=== PATIENT | female | born 1930 | race Caucasian/White ===

== ENCOUNTER 2017-11-22 14:27 | Emergency (ER) | payer MEDICARE, OTHER ==
[~2017-11-22 14:27] MED LIST: ASPI81 PO; BISA10R PR; CENTTAB9 PO; CLIN150 PO; DIGO0.12 PO; ENEMENE PR; FERR324T4 PO; FURO1TAB93 PO; GLUC1KIT IM; GUAI600 PO; INSU100V3 SC; INSU100V3 SQ; LACT PO; LATA.005%O EACH EYE; LEVO75TA3 PO; METO25 PO; MILKSUS5 PO; NOVORP2 SQ; OXYC1SOL5 PO; PERC5TAB12 PO; ROSU40 PO; TIMO0.2525 EACH EYE; ZOFR4TAB3 PO; [UNRECOGNIZED DRUG - CODE] PO; [UNRECOGNIZED DRUG - CODE] PO
[2017-11-22] MEDS ORDERED: IODIXANOL 320 MG/ML 10 ML VIAL (for Rad CT) IVCONTRAST ONE (14:28)
[2017-11-22 14:30] VITALS: BP 212/91; PULSE 91; RESP 24; TEMP 98.8; O2SAT 97
[2017-11-22] MEDS ORDERED: ISOS60TA PO (14:57)
[2017-11-22] MEDS ORDERED: NOVONP2 SQ ×2 (14:57)
[2017-11-22] MEDS ORDERED: HYDR25TA5 PO (14:57)
[2017-11-22] MEDS ORDERED: ASPI81CH6 CHEW (14:57)
[2017-11-22] MEDS ORDERED: VITA1000 PO (14:57)
[2017-11-22] MEDS ORDERED: VITA80003 PO (14:57)
[2017-11-22] MEDS ORDERED: ASCO100029 PO (14:57)
[2017-11-22] MEDS ORDERED: IRON1TAB7 PO (14:57)
[2017-11-22] MEDS ORDERED: FURO20TA PO (14:57)
[2017-11-22] MEDS ORDERED: LATA0.002 EACH EYE (14:57)
[2017-11-22] MEDS ORDERED: LEVO75TA3 PO (14:57)
[2017-11-22] MEDS ORDERED: TIMO0.5S30 EACH EYE (14:57)
[2017-11-22] MEDS ORDERED: CETI10CA3 PO (14:57)
[2017-11-22] MEDS ORDERED: ESTR1TAB PO (14:57)
[2017-11-22] MEDS ORDERED: ATOR20TA15 PO (14:57)
[2017-11-22] MEDS ORDERED: ALPH600C PO (14:57)
[2017-11-22] MEDS ORDERED: SODIUM CHLORIDE 0.9% FLUSH 10 ML FLUSH IVF PRN (15:00)
[2017-11-22] MEDS ORDERED: MECLIZINE HCL 25 MG TAB PO ONE (15:00)
[2017-11-22 15:41] LABS: AUTOMATED NEUTROPHIL # 5.6 TH/MM3 (1.8-7.7); BASOPHIL # 0.1 TH/MM3 (0-0.2); EOSINOPHIL # 0.3 TH/MM3 (0-0.4); EOSINOPHIL % 3.4 % (0.0-4.0); HEMATOCRIT 36.9 % (35.0-46.0); HEMOGLOBIN 12.5 GM/DL (11.6-15.3); LYMPH % 17.6 % (9.0-44.0); LYMPHOCYTE # 1.4 TH/MM3 (1.0-4.8); MEAN CELL VOLUME 91.5 FL (80.0-100.0); MEAN CORPUSCULAR HGB CONC 33.9 % (32.0-36.0); MEAN PLATELET VOLUME 9.4 FL (7.0-11.0); MONOCYTE # 0.5 TH/MM3 (0-0.9); PLATELET COUNT 206 TH/MM3 (150-450); RED BLOOD COUNT 4.03 MIL/MM3 (4.00-5.30); RED CELL DISTRIBUTION WIDTH 13.3 % (11.6-17.2); WHITE BLOOD COUNT 7.8 TH/MM3 (4.0-11.0)
[2017-11-22 15:45] VITALS: BP 139/68; PULSE 78; RESP 24; O2SAT 97
[2017-11-22 15:47] VITALS: BP_SYST 139; BP_SYST 150; BP_DIAS 68; BP_DIAS 79; RESP 14; RESP 38
[2017-11-22 15:55] LABS: ALBUMIN 2.8 GM/DL (3.4-5.0); ALT (GPT) 18 U/L (10-53); AST (GOT) 15 U/L (15-37); BICARBONATE 27.3 MEQ/L (21.0-32.0); BLOOD UREA NITROGEN 32 MG/DL (7-18); CALCIUM 8.8 MG/DL (8.5-10.1); CHLORIDE 101 MEQ/L (98-107); CREATININE 1.45 MG/DL (0.50-1.00); GLOMERULAR FILTRATION RATE 34 ML/MIN (>89); GLUCOSE,RANDOM 372 MG/DL (74-106); SODIUM (NA) 136 MEQ/L (136-145)
[2017-11-22 15:58] LABS: ALKALINE PHOSPHATASE 126 U/L (45-117); TOTAL BILIRUBIN ADULT 0.3 MG/DL (0.2-1.0); TOTAL PROTEIN 6.6 GM/DL (6.4-8.2); TROPONIN I LESS THAN 0.02 NG/ML (0.02-0.05)
--- NOTE | 2017-11-22 16:09 | RADRPT ---
EXAM DATE/TIME: 11/22/2017 15:00 [facility] COMPARISON: CHEST SINGLE AP, October 01, 2015, 14:23. INDICATIONS : Short of breath, vertigo, palpitations MEDICAL HISTORY : Cardiovascular disease. Hypertension Diabetes mellitus type II. A-fib SURGICAL HISTORY : Coronary artery stent. thoracentesis ENCOUNTER: Initial ACUITY: 3 days PAIN SCORE: 0/10 LOCATION: Bilateral chest FINDINGS: A single view of the chest demonstrates the lungs to be aerated without evidence of mass, infiltrate or effusion. There is some mild elevation of the left hemidiaphragm. The cardiomediastinal contours are unremarkable. Osseous structures are intact. CONCLUSION: No acute disease. Freddie Dean MD on November 22, 2017 at 16:06 Board Certified Radiologist. This report was verified electronically.
--- NOTE | 2017-11-22 16:18 | RADRPT ---
EXAM DATE/TIME: 11/22/2017 15:28 [facility] COMPARISON: CT BRAIN W/O CONTRAST, July 22, 2014, 13:05. INDICATIONS : Feeling dizzy for two days RADIATION DOSE: 33.74 CTDIvol (mGy) MEDICAL HISTORY : Cardiovascular disease. Hypertension. Diabetes SURGICAL HISTORY : Hysterectomy. ENCOUNTER: Initial ACUITY: 2 days PAIN SCALE: 0/10 LOCATION: cranial TECHNIQUE: Multiple contiguous axial images were obtained of the head. Using automated exposure control and adj ustment of the mA and/or kV according to patient size, radiation dose was kept as low as reasonably a chievable to obtain optimal diagnostic quality images. DICOM format image data is available electro nically for review and comparison. FINDINGS: CEREBRUM: The ventricles are normal for age. No evidence of midline shift, mass lesion, hemorrhage or acute in farction. No extra-axial fluid collections are seen. POSTERIOR FOSSA: The cerebellum and brainstem are intact. The 4th ventricle is midline. The cerebellopontine angle i s unremarkable. EXTRACRANIAL: The visualized portion of the orbits is intact. There is moderate mucosal disease present in the post erior left ethmoid and sphenoid sinuses. SKULL: The calvaria is intact. No evidence of skull fracture. CONCLUSION: No acute intracranial findings Felix Mendoza MD on November 22, 2017 at 16:03 Board Certified Radiologist. This report was verified electronically.
[2017-11-22 16:45] VITALS: BP 155/73; PULSE 76; RESP 22; O2SAT 98
[2017-11-22] MEDS ORDERED: SODIUM CHLORID 0.9% 500 ML INJ 500 ML IV ONE (16:45)
--- NOTE | 2017-11-22 17:40 | RADRPT ---
EXAM DATE/TIME: 11/22/2017 17:11 [facility] COMPARISON: CT PULMONARY ANGIOGRAM, October 01, 2015, 14:33. INDICATIONS : Patient complains of dizzines, chest pain. IV CONTRAST: 50 cc Visipaque (iodixanol) IV RADIATION DOSE: 16.05 CTDIvol (mGy) MEDICAL HISTORY : Cardiovascular disease. Hypertension. Carcinoma, colon. SURGICAL HISTORY : Hysterectomy. ENCOUNTER: Initial ACUITY: 2 days PAIN SCALE: 5/10 LOCATION: chest TECHNIQUE: Volumetric scanning of the chest was performed using a pulmonary embolism protocol MIP images were re constructed. Using automated exposure control and adjustment of the mA and/or kV according to patien t size, radiation dose was kept as low as reasonably achievable to obtain optimal diagnostic quality images. DICOM format image data is available electronically for review and comparison. Follow-up recommendations for detected pulmonary nodules are based at a minimum on nodule size and pa tient risk factors according to Fleischner Society Guidelines. FINDINGS: PULMONARY ARTERIES: No filling defects are seen in the pulmonary arteries through the segmental level. LUNGS: Minimal atelectasis/scarring at the left lung base. No significant focal parenchyma the malady. PLEURAE: There is no pleural thickening or pleural effusion. MEDIASTINUM: Coronary artery calcifications. Heart is otherwise unremarkable. Subcentimeter mediastinal nodes do n ot CT size criteria. MUSCULOSKELETAL: Within normal limits for patient age. MISCELLANEOUS: The visualized upper abdominal organs demonstrate no acute abnormality. CONCLUSION: 1. No CT evidence of pulmonary artery embolism through the segmental level. 2. Coronary artery calcifications. 3. Otherwise, unremarkable CT examination of the chest. August Diaz MD on November 22, 2017 at 17:36 Board Certified Radiologist. This report was verified electronically.
[2017-11-22 19:00] VITALS: BP 170/68; PULSE 74; RESP 20
[2017-11-22] MEDS ORDERED: METOCLOPRAMIDE HCL 10 MG TAB PO ONE (19:30)
--- NOTE | 2017-11-22 19:48 | PD ---
HPI Chief Complaint: Dizziness Time Seen by Provider: 14:36 Travel History International Travel<30 days: No Contact w/Intl Traveler<30days: No Traveled to known affect area: No History of Present Illness HPI Patient is an 87-year-old female comes in complaining of dizziness. She says the dizziness is been going on for the past few days. She went to see her doctor today who was concern for water in her lungs and send her to the emergency department for chest x-ray. She says the dizziness is worse with standing and improves when she is laying still. She denies any headache or nausea or vomiting. She has chronic shortness of breath, which she says has not worsened. She denies chest pain. She denies leg swelling or edema. She denies fever or chills or any falls. PFSH Past Medical History Hx Anticoagulant Therapy: Yes (ASA) Arthritis: Yes Asthma: No Autoimmune Disease: No Blood Disorders: No Anxiety: Yes Depression: No Heart Rhythm Problems: Yes (A-FIB) Cancer: Yes (SKIN CA TO FACE,colon ) Cardiovascular Problems: Yes (HTN) High Cholesterol: Yes Chemotherapy: No Chest Pain: No Congestive Heart Failure: No COPD: No Cerebrovascular Accident: No Diabetes: Yes Patient Takes Glucophage: No Diminished Hearing: No Endocrine: Yes Gastrointestinal Disorders: Yes (gerd) GERD: No Glaucoma: Yes (SCLERITIS) Genitourinary: No Headaches: Yes Hiatal Hernia: No Hypertension: Yes Immune Disorder: No Implanted Vascular Access Dvce: No Kidney Stones: No Medical other: Yes Musculoskeletal: Yes (r hip arthritis) Neurologic: No Psychiatric: No Reproductive: No Respiratory: No Migraines: No Myocardial Infarction: Yes Radiation Therapy: Yes (TO FACE FOR SKIN CA) Renal Failure: No Seizures: No Sickle Cell Disease: No Sleep Apnea: No Thyroid Disease: Yes Ulcer: No Tetanus Vaccination: < 5 Years Influenza Vaccination: Yes Past Surgical History Abdominal Surgery: Yes (Appendectomy/ partial colectomy) AICD: No Appendectomy: Yes Arteriovenous Shunt: No Body Medical Devices: 3 stents in heart and pins in r hip/femur Cardiac Surgery: Yes (STENTS X3) Ear Surgery: No Endocrine Surgery: No Eye Surgery: Yes (BILATERAL CATARACTS) Genitourinary Surgery: No Gynecologic Surgery: Yes (Hysterectomy) Hysterectomy: Yes Insulin Pump: No Joint Replacement: No Neurologic Surgery: No Oral Surgery: No Pacemaker: No Thoracic Surgery: No Other Surgery: Yes Social History Alcohol Use: No Tobacco Use: No Substance Use: No Allergies-Medications (Allergen,Severity, Reaction): Coded Allergies: *MDRO Multi-Drug Resistant Organism (Unverified Allergy, Unknown, 11/22/17 ) pt states mrsa in the past in l foot MRSA PCR Screen positive 09/05/15. kaye (Unverified Allergy, Unknown, RASH, 11/22/17) Uncoded Allergies: SIMCOR (Allergy, Severe, 12/23/10) Reported Meds & Prescriptions Reported Meds & Active Scripts Active Reported Novolin N Inj (Insulin Human NPH) 1,000 Unit/10 Ml Vial 30 Units SQ DAILY Novolin N Inj (Insulin Human NPH) 1,000 Unit/10 Ml Vial 20 Units SQ HS Estradiol 1 Mg Tab 1 Mg PO DAILY Levothyroxine (Levothyroxine Sodium) 75 Mcg Tab 75 Mcg PO DAILY Isosorbide Mononitrate ER (Isosorbide Mononitrate) 60 Mg Tab 60 Mg PO DAILY Hydrochlorothiazide 25 Mg Tab 25 Mg PO BID Furosemide 20 Mg Tab 20 Mg PO DAILY Atorvastatin (Atorvastatin Calcium) 20 Mg Tab 20 Mg PO HS Aspirin Low Dose (Aspirin) 81 Mg Chew 81 Mg CHEW DAILY Vitamin D-1000 (Cholecalciferol) 1,000 Unit Tab 50,000 Units PO WEEKLY Vitamin C (Ascorbic Acid) 1,000 Mg Tablet.er 1 Tab PO DAILY Nufera (Iron Combinations) 125-1-170 Tab 1 Tab PO DAILY Zyrtec (Cetirizine HCl) 10 Mg Capsule 1 Cap PO DAILY Vitamin A 8,000 Unit Capsule 1 Cap PO DAILY Timolol Opth Drops 0.5 % Soln 1 Drop EACH EYE DAILY Latanoprost Opth Drops (Latanoprost) 0.005% Drops 1 Drop EACH EYE HS Refrigerate until opened. Alpha Lipoic Acid 600 Mg Cap 600 Mg PO DIRECTED Review of Systems Except as stated in HPI: all other systems reviewed are Neg General / Constitutional: No: Fever, Chills Eyes: No: Blurred Vision HENT: No: Headaches Cardiovascular: No: Chest Pain or Discomfort, Palpitations Gastrointestinal: No: Nausea, Vomiting Musculoskeletal: No: Myalgias, Edema Skin: No Rash, No Change in Pigmentation Neurologic: Positive: Dizziness, No: Weakness, Syncope Physical Exam Narrative GENERAL: Awake and alert, in no acute distress. SKIN: Focused skin assessment warm/dry. HEAD: Atraumatic. Normocephalic. EYES: Pupils equal and round and reactive. No scleral icterus. Extinguishing left horizontal nystagmus. ENT: Mucous membranes pink and moist. NECK: Trachea midline. No JVD. CARDIOVASCULAR: Regular rate and rhythm. No murmur appreciated. RESPIRATORY: No accessory muscle use. Clear to auscultation. Breath sounds equal bilaterally. GASTROINTESTINAL: Abdomen soft, non-tender, nondistended. MUSCULOSKELETAL: No obvious deformities. No clubbing. No cyanosis. No edema. NEUROLOGICAL: Awake and alert. No obvious cranial nerve deficits. Motor grossly within normal limits. Normal speech. Normal cerebellar function testing. PSYCHIATRIC: Appropriate mood and affect; insight and judgment normal. Data Data Last Documented VS Vital Signs Date Time Temp Pulse Resp B/P (MAP) Pulse Ox O2 Delivery O2 Flow Rate FiO2 11/22/17 21:45 11/22/17 19:00 74 20 11/22/17 16:45 98 Room Air 11/22/17 14:30 98.8 Orders Orders Electrocardiogram (11/22/17 14:52) Complete Blood Count With Diff (11/22/17 14:52) Comprehensive Metabolic Panel (11/22/17 14:52) B-Type Natriuretic Peptide (11/22/17 14:52) Troponin I (11/22/17 14:52) Urinalysis - C+S If Indicated (11/22/17 14:52) Chest, Single Ap (11/22/17 14:52) Ct Brain W/O Iv Contrast(Rout) (11/22/17 14:52) Ecg Monitoring (11/22/17 14:52) Iv Access Insert/Monitor (11/22/17 14:52) Oximetry (11/22/17 14:52) Meclizine (Antivert) (11/22/17 15:00) Sodium Chloride 0.9% Flush (Ns Flush) (11/22/17 15:00) Orthostatic Vital Signs (11/22/17 14:52) Ct Pulmonary Angiogram (11/22/17 16:40) Sodium Chlorid 0.9% 500 Ml Inj (Ns 500 M (11/22/17 16:45) Iodixanol 320 Inj (Rad Ct) (Visipaque 32 (11/22/17 14:28) Cath For Specimen (11/22/17 19:18) Metoclopramide (Reglan) (11/22/17 19:30) Ed Discharge Order (11/22/17 21:23) Labs Laboratory Tests Test 11/22/17 14:50 11/22/17 19:35 White Blood Count 7.8 TH/MM3 Red Blood Count 4.03 MIL/MM3 Hemoglobin 12.5 GM/DL Hematocrit 36.9 % Mean Corpuscular Volume 91.5 FL Mean Corpuscular Hemoglobin 31.0 PG Mean Corpuscular Hemoglobin Concent 33.9 % Red Cell Distribution Width 13.3 % Platelet Count 206 TH/MM3 Mean Platelet Volume 9.4 FL Neutrophils (%) (Auto) 72.0 % Lymphocytes (%) (Auto) 17.6 % Monocytes (%) (Auto) 6.0 % Eosinophils (%) (Auto) 3.4 % Basophils (%) (Auto) 1.0 % Neutrophils # (Auto) 5.6 TH/MM3 Lymphocytes # (Auto) 1.4 TH/MM3 Monocytes # (Auto) 0.5 TH/MM3 Eosinophils # (Auto) 0.3 TH/MM3 Basophils # (Auto) 0.1 TH/MM3 CBC Comment DIFF FINAL Differential Comment Blood Urea Nitrogen 32 MG/DL Creatinine 1.45 MG/DL Random Glucose 372 MG/DL Total Protein 6.6 GM/DL Albumin 2.8 GM/DL Calcium Level 8.8 MG/DL Alkaline Phosphatase 126 U/L Aspartate Amino Transf (AST/SGOT) 15 U/L Alanine Aminotransferase (ALT/SGPT) 18 U/L Total Bilirubin 0.3 MG/DL Sodium Level 136 MEQ/L Potassium Level 4.0 MEQ/L Chloride Level 101 MEQ/L Carbon Dioxide Level 27.3 MEQ/L Anion Gap 8 MEQ/L Estimat Glomerular Filtration Rate 34 ML/MIN Troponin I LESS THAN 0.02 NG/ML B-Type Natriuretic Peptide 190 PG/ML Urine Color LIGHT-YELLOW Urine Turbidity CLEAR Urine pH 5.0 Urine Specific [place] 1.030 Urine Protein NEG mg/dL Urine Glucose (UA) NEG mg/dL Urine Ketones NEG mg/dL Urine Occult Blood SMALL Urine Nitrite NEG Urine Bilirubin NEG Urine Urobilinogen LESS THAN 2.0 MG/DL Urine Leukocyte Esterase NEG Urine RBC 4 /hpf Urine WBC LESS THAN 1 /hpf Urine Hyaline Casts 1 /lpf Urine Mucus FEW /lpf Microscopic Urinalysis Comment CULT NOT INDICATED MDM Medical Decision Making Medical Screen Exam Complete: Yes Emergency Medical Condition: Yes Medical Record Reviewed: Yes Interpretation(s) ECG shows sinus rhythm at 85, no ST elevation or depression. Differential Diagnosis Vertigo versus electrolyte abnormality versus pulmonary edema versus UTI Narrative Course Patient is an 87-year-old female comes in complaining of dizziness. Exam shows no neurologic abnormalities. She is orthostatic by pulse that increases from 75 -98 when she goes from laying down to standing. She is given 500 ML's of fluids. Given meclizine and Reglan. CT head performed shows no acute abnormalities. CT of the chest shows no acute abnormalities. Last [address] Angiography 11/22/17 1640 Signed Impressions: Service Date/Time: Wednesday, November 22, 2017 17:11 - CONCLUSION: 1. No CT evidence of pulmonary artery embolism through the segmental level. 2. Coronary artery calcifications. 3. Otherwise, unremarkable CT examination of the chest. August Diaz MD Head CT 11/22/17 1452 Signed Impressions: Service Date/Time: Wednesday, November 22, 2017 15:28 - CONCLUSION: No acute intracranial findings Felix Mendoza MD Chest X-Ray 11/22/17 1452 Signed Impressions: Service Date/Time: Wednesday, November 22, 2017 15:00 - CONCLUSION: No acute disease. Freddie Dean MD Signed out to Dr. Garcia to follow-up urinalysis and disposition the patient. Diagnosis Primary Impression: Dehydration Additional Impression: Dizziness Carla Hope MD Nov 22, 2017 19:48
[2017-11-22 21:05] LABS: BILIRUBIN, URINE NEG (NEG); BLOOD, URINE SMALL (NEG); GLUCOSE,URINE NEG (NEG); HYALINE CAST, URINE 1 /lpf (RARE); KETONE, URINE NEG (NEG); MUCUS URINE FEW /lpf (OCC); NITRITE,URINE NEG (NEG); URINE COLOR LIGHT-YELLOW (YELLW/STRAW); URINE LEUKOCYTE ESTERASE NEG (NEG)
--- NOTE | 2017-11-22 21:23 | PD ---
Physical Exam Date Seen by Provider: Nov 22, 2017 Time Seen by Provider: 20:30 Narrative pt urine not infected orthostatics hold no significant change , pt appears non toxic and no signs of sepsis nor indication for further work up in the ED , CT head normal as well , prior MD gave Meclizine and reglan with moderate improvement in dizziness and pt safe for D/c follow up Dr Solis who saw her today and sent her to ER Data Data Last Documented VS Vital Signs Date Time Temp Pulse Resp B/P (MAP) Pulse Ox O2 Delivery O2 Flow Rate FiO2 11/22/17 19:00 74 20 170/68 (102) 11/22/17 16:45 98 Room Air 11/22/17 14:30 98.8 Orders Orders Electrocardiogram (11/22/17 14:52) Complete Blood Count With Diff (11/22/17 14:52) Comprehensive Metabolic Panel (11/22/17 14:52) B-Type Natriuretic Peptide (11/22/17 14:52) Troponin I (11/22/17 14:52) Urinalysis - C+S If Indicated (11/22/17 14:52) Chest, Single Ap (11/22/17 14:52) Ct Brain W/O Iv Contrast(Rout) (11/22/17 14:52) Ecg Monitoring (11/22/17 14:52) Iv Access Insert/Monitor (11/22/17 14:52) Oximetry (11/22/17 14:52) Meclizine (Antivert) (11/22/17 15:00) Sodium Chloride 0.9% Flush (Ns Flush) (11/22/17 15:00) Orthostatic Vital Signs (11/22/17 14:52) Ct Pulmonary Angiogram (11/22/17 16:40) Sodium Chlorid 0.9% 500 Ml Inj (Ns 500 M (11/22/17 16:45) Iodixanol 320 Inj (Rad Ct) (Visipaque 32 (11/22/17 14:28) Cath For Specimen (11/22/17 19:18) Metoclopramide (Reglan) (11/22/17 19:30) Labs Laboratory Tests Test 11/22/17 14:50 11/22/17 19:35 White Blood Count 7.8 TH/MM3 Red Blood Count 4.03 MIL/MM3 Hemoglobin 12.5 GM/DL Hematocrit 36.9 % Mean Corpuscular Volume 91.5 FL Mean Corpuscular Hemoglobin 31.0 PG Mean Corpuscular Hemoglobin Concent 33.9 % Red Cell Distribution Width 13.3 % Platelet Count 206 TH/MM3 Mean Platelet Volume 9.4 FL Neutrophils (%) (Auto) 72.0 % Lymphocytes (%) (Auto) 17.6 % Monocytes (%) (Auto) 6.0 % Eosinophils (%) (Auto) 3.4 % Basophils (%) (Auto) 1.0 % Neutrophils # (Auto) 5.6 TH/MM3 Lymphocytes # (Auto) 1.4 TH/MM3 Monocytes # (Auto) 0.5 TH/MM3 Eosinophils # (Auto) 0.3 TH/MM3 Basophils # (Auto) 0.1 TH/MM3 CBC Comment DIFF FINAL Differential Comment Blood Urea Nitrogen 32 MG/DL Creatinine 1.45 MG/DL Random Glucose 372 MG/DL Total Protein 6.6 GM/DL Albumin 2.8 GM/DL Calcium Level 8.8 MG/DL Alkaline Phosphatase 126 U/L Aspartate Amino Transf (AST/SGOT) 15 U/L Alanine Aminotransferase (ALT/SGPT) 18 U/L Total Bilirubin 0.3 MG/DL Sodium Level 136 MEQ/L Potassium Level 4.0 MEQ/L Chloride Level 101 MEQ/L Carbon Dioxide Level 27.3 MEQ/L Anion Gap 8 MEQ/L Estimat Glomerular Filtration Rate 34 ML/MIN Troponin I LESS THAN 0.02 NG/ML B-Type Natriuretic Peptide 190 PG/ML Urine Color LIGHT-YELLOW Urine Turbidity CLEAR Urine pH 5.0 Urine Specific [place] 1.030 Urine Protein NEG mg/dL Urine Glucose (UA) NEG mg/dL Urine Ketones NEG mg/dL Urine Occult Blood SMALL Urine Nitrite NEG Urine Bilirubin NEG Urine Urobilinogen LESS THAN 2.0 MG/DL Urine Leukocyte Esterase NEG Urine RBC 4 /hpf Urine WBC LESS THAN 1 /hpf Urine Hyaline Casts 1 /lpf Urine Mucus FEW /lpf Microscopic Urinalysis Comment CULT NOT INDICATED MDM Supervised Visit with SONDRA: No Diagnosis Primary Impression: Dehydration Additional Impression: Dizziness Patient Instructions: Dizziness (ED), General Instructions Disposition: 01 DISCHARGE HOME Condition: Good Nacho Garcia MD Nov 22, 2017 21:23
--- NOTE | 2017-11-23 15:11 | EKG ---
Date Performed: 11/22/2017 Time Performed: 15:07:12 PTAGE: 87 years EKG: Sinus rhythm WITH SINUS ARRHYTHMIA WITH FIRST DEGREE AV BLOCK INFERIOR MYOCARDIAL INFARCTION ABNORMAL ECG PREVIOUS TRACING : 10/01/2015 15.01 DOCTOR: Evan Drake Interpretating Date/Time 11/23/2017 15:09:23
== END 2017-11-22 21:45 | disposition home or self-care (01) ==
LOC: NEPC 14:27
DX: E86.0 Dehydration (principal); R42 Dizziness and giddiness; R94.31 Abnormal electrocardiogram [ECG] [EKG]; R06.02 Shortness of breath; I48.91 Unspecified atrial fibrillation; I10 Essential (primary) hypertension; E11.9 Type 2 diabetes mellitus without complications; Z79.01 Long term (current) use of anticoagulants
CPT/HCPCS: 70450; 71010; 71275; 80053; 81001; 83880; 84484; 85025; 93005; 96360; 96361; 99285; J7040; Q9967

== ENCOUNTER 2018-07-01 12:27 | Inpatient (IN) ==
[2018-07-01] MEDS ORDERED: Sod Chloride 0.9% Inj 1,000 ML IV.SIG ONE (13:16)
[2018-07-01] MEDS ORDERED: Metoprolol Inj 5 MG/5 ML Vial IV.PUSH ONE (13:19)
--- NOTE | 2018-07-01 13:26 | ED ---
HPI General Chief complaint: Weakness Stated complaint: Medical Time Seen by Provider: 07/01/18 12:51 History of Present Illness HPI Narrative: The patient was seen and examined in the presence of the nurse. This patient had a fall last night at 10 PM. She is not certain as to why she fell. She was not able to get up. She felt weak and tired lying on the ground. She laid on the ground for 12 hours all night and around 10 this morning she was paramedics brought her in. She complains of generalized weakness. She has chronic A. fib but her rate is 130. She has history of left- sided Charcot foot. That left ankle has become hot and red and swollen. She had a temp of 100.5 per paramedics. She did not take any insulin last night or today. Sugar is 426. Related Data Home Medications Medication Instructions Recorded Confirmed alpha lipoic acid 600 mg PO HS 07/01/18 07/01/18 ascorbic acid (vitamin C) [Vitamin 1,000 mg PO DAILY 07/01/18 07/01/18 C] aspirin 81 mg PO DAILY 07/01/18 07/01/18 atorvastatin 20 mg PO DAILY 07/01/18 07/01/18 calcium carbonate [Tums] 1 tab PO Q4-6H PRN 07/01/18 07/01/18 cetirizine [Zyrtec] 10 mg PO DAILY PRN 07/01/18 07/01/18 ergocalciferol (vitamin D2) 50,000 unit PO QWEEK 07/01/18 07/01/18 [Vitamin D2] estradiol 1 mg PO DAILY 07/01/18 07/01/18 ferrous sulfate 325 mg PO DAILY 07/01/18 07/01/18 furosemide [Lasix] 20 mg PO DAILY 07/01/18 07/01/18 hydrochlorothiazide 25 mg PO BID 07/01/18 07/01/18 insulin NPH isoph U-100 human 20 unit SUB-Q QPM 07/01/18 07/01/18 [Novolin N NPH U-100 Insulin] insulin NPH isoph U-100 human 30 unit SUB-Q QAM 07/01/18 07/01/18 [Novolin N NPH U-100 Insulin] isosorbide mononitrate 60 mg PO QAM 07/01/18 07/01/18 latanoprost [Xalatan] 1 drp EACH EYE QPM 07/01/18 07/01/18 levothyroxine 75 mcg PO DAILY 07/01/18 07/01/18 [id number] acid-lutein [Centrum 1 tab PO DAILY 07/01/18 07/01/18 Silver] timolol maleate [Timoptic] 1 drp OPHTHALMIC (EYE) QAM 07/01/18 07/01/18 vitamin A 8,000 unit PO DAILY 07/01/18 07/01/18 Allergies Allergy/AdvReac Type Severity Reaction Status Date / Time kaye Allergy Unknown RASH Verified 07/01/18 12:47 SIMCOR Allergy Severe Edema Uncoded 07/01/18 12:47 Review of Systems Except as stated in HPI: all other systems reviewed are negative [facility] Medical History Medical History Diabetes (Acute) GERD (gastroesophageal reflux disease) (Acute) H/O: hysterectomy (Acute) HTN (hypertension) (Acute) High cholesterol (Acute) Hypothyroid (Acute) Myocardial infarct (Acute) Surgical History Surgical History H/O cardiac catheterization (Acute) H/O heart artery stent (Acute) Social History Social History Substance History: No History of Abuse Second Hand Smoke Exposure: No Smoking Status: Never smoker How Often Do You Have a Drink Containing Alcohol: Monthly or less Recent Travel in [facility] within the Last 8 Weeks: No Recent Out of Country Travel within the Last 8 Weeks: No Immunization History Tetanus Immunization: <5 Years Hx Influenza Vaccine This Season: Yes Exam Narrative Exam Narrative: GENERAL: Well-nourished, well-developed patient in no apparent distress. SKIN: Focused skin assessment reveals no rash and nodules. Skin is Warm and dry. HEAD: Atraumatic. Normocephalic. EYES: Pupils equal and round. No scleral icterus. No injection or drainage. ENT: No nasal bleeding or discharge. Mucous membranes pink and moist. NECK: Trachea midline. No JVD. CARDIOVASCULAR: Irregularly irregular rhythm. No murmur appreciated. Rate was 130s RESPIRATORY: No accessory muscle use. Clear to auscultation. Breath sounds equal bilaterally. GASTROINTESTINAL: Abdomen soft, non-tender, nondistended. Hepatic and splenic margins not palpable. MUSCULOSKELETAL: Left ankle area is erythematous and swollen and warm. It is tracking up her doe area. NEUROLOGICAL: Awake and alert. No obvious cranial nerve deficits. Motor grossly within normal limits. Normal speech. PSYCHIATRIC: Appropriate mood and affect; insight and judgment normal. Course Initial Documented Vital Signs Temperature 98.4 F 07/01/18 12:37 Pulse Rate 131 H 07/01/18 12:37 Respiratory Rate 26 H 07/01/18 12:37 Blood Pressure 126/91 H 07/01/18 12:37 Pulse Oximetry 95 07/01/18 12:37 Last Documented Vital Signs Temperature 98.4 F 07/01/18 12:37 Pulse Rate 76 07/01/18 14:00 Respiratory Rate 19 07/01/18 14:00 Blood Pressure 132/83 07/01/18 14:00 Pulse Oximetry 96 07/01/18 14:00 Medical Decision Making MDM Narrative Medical decision making narrative: 2 IVs placed. I gave her IV normal saline 1 L bolus and 10 units IV regular insulin Labs sent Patient has a bunch of problems and will require inpatient admission. I reviewed with the hospitalist who accepts. She has generalized weakness and hyperglycemia and rhabdomyolysis and a left ankle cellulitis. She also has renal insufficiency. I have given her IV fluid and IV insulin and I will give her a dose of IV Ancef at the hospitalist request. She presented in A. fib with RVR. I gave her dose of IV Lopressor. She is converted to sinus rhythm in the 80s at this time. Differential Diagnosis Differential Diagnosis: DKA, hyperglycemia, cellulitis Medical Records Medical records reviewed: Yes I reviewed the patient's medical records. Lab Data Result diagrams: 07/01/18 13:34 07/01/18 13:34 Lab Results 07/01/18 07/01/18 07/01/18 Range/Units 13:29 13:34 13:34 WBC 11.2 H (4.0-11.0) th/mm3 RBC 4.01 (4.00-5.30) mil/mm3 Hgb 12.5 (11.6-15.3) gm/dL Hct 37.2 (35.0-46.0) % MCV 92.8 (80.0-100.0) fL MCH 31.2 (27.0-34.0) pg MCHC 33.6 (32.0-36.0) % RDW 13.4 (11.6-17.2) % Plt Count 150 (150-450) th/mm3 MPV 11.1 H (7.0-11.0) fL Neut % (Auto) 84.4 H (16.0-70.0) % Lymph % (Auto) 5.6 L (9.0-44.0) % [place] % (Auto) 9.7 H (0.0-8.0) % Eos % (Auto) 0.1 (0.0-4.0) % Baso % (Auto) 0.2 (0.0-2.0) % Neut # (Auto) 9.5 H (1.8-7.7) th/mm3 Lymph # (Auto) 0.6 L (1.0-4.8) th/mm3 [place] # (Auto) 1.1 H (0.0-0.9) th/mm3 Eos # (Auto) 0.0 (0.0-0.4) th/mm3 Baso # (Auto) 0.0 (0.0-0.2) th/mm3 WBC Differential . Differential Comment Auto diff final Sodium (136-145) meq/L Potassium (3.5-5.1) meq/L Chloride (98-107) meq/L Carbon Dioxide (21.0-32.0) meq/L Anion Gap (5-15) meq/L BUN (7-18) mg/dL Creatinine (0.50-1.00) mg/dL Estimated GFR (>89) mL/min POC Glucose 469 H* (68-110) mg/dl Random Glucose (74-106) mg/dL Calcium (8.5-10.1) mg/dL Total Bilirubin (0.2-1.0) mg/dL AST (15-37) U/L ALT (10-53) U/L Alkaline Phosphatase (45-117) U/L Total Creatine Kinase 1812 H (26-192) U/L CK-MB (CK-2) 12.4 H (0.5-3.6) ng/mL CK-MB (CK-2) % 0.7 (0.0-4.0) % Total Protein (6.4-8.2) g/dL Albumin (3.4-5.0) g/dL Beta-Hydroxybutyric Acd 2.09 H (0.00-0.39) mmol/L TSH 1.150 (0.358-3.740) uIU/mL Urine Color (Yellw/Straw) Urine Clarity (Clear) Urine pH (5.0-8.5) Ur Specific [place] (1.002-1.035) Urine Protein (Neg-Trace) mg/dL Urine Glucose (UA) (Negative) mg/dL Urine Ketones (Negative) mg/dL Urine Occult Blood (Negative) Urine Nitrate (Negative) Urine Bilirubin (Negative) Urine Urobilinogen (Less than 2) mg/dL Ur Leukocyte Esterase (Negative) Urine RBC (0-3) /hpf Urine WBC (0-5) /hpf Urine WBC Clumps (None) Ur Squamous Epith Cells (0-5) /hpf Urine Bacteria (None) /hpf Hyaline Casts (0-3) /lpf Micro UA Comment Urine Culture Comments 07/01/18 07/01/18 07/01/18 Range/Units 13:34 13:52 14:34 WBC (4.0-11.0) th/mm3 RBC (4.00-5.30) mil/mm3 Hgb (11.6-15.3) gm/dL Hct (35.0-46.0) % MCV (80.0-100.0) fL MCH (27.0-34.0) pg MCHC (32.0-36.0) % RDW (11.6-17.2) % Plt Count (150-450) th/mm3 MPV (7.0-11.0) fL Neut % (Auto) (16.0-70.0) % Lymph % (Auto) (9.0-44.0) % [place] % (Auto) (0.0-8.0) % Eos % (Auto) (0.0-4.0) % Baso % (Auto) (0.0-2.0) % Neut # (Auto) (1.8-7.7) th/mm3 Lymph # (Auto) (1.0-4.8) th/mm3 [place] # (Auto) (0.0-0.9) th/mm3 Eos # (Auto) (0.0-0.4) th/mm3 Baso # (Auto) (0.0-0.2) th/mm3 WBC Differential Differential Comment Sodium 133 L (136-145) meq/L Potassium 4.6 (3.5-5.1) meq/L Chloride 97 L (98-107) meq/L Carbon Dioxide 21.2 (21.0-32.0) meq/L Anion Gap 15 (5-15) meq/L BUN 59 H (7-18) mg/dL Creatinine 2.65 H (0.50-1.00) mg/dL Estimated GFR 17 L (>89) mL/min POC Glucose 366 H (68-110) mg/dl Random Glucose 420 H (74-106) mg/dL Calcium 8.7 (8.5-10.1) mg/dL Total Bilirubin 1.2 H (0.2-1.0) mg/dL AST 64 H (15-37) U/L ALT 21 (10-53) U/L Alkaline Phosphatase 72 (45-117) U/L Total Creatine Kinase (26-192) U/L CK-MB (CK-2) (0.5-3.6) ng/mL CK-MB (CK-2) % (0.0-4.0) % Total Protein 6.9 (6.4-8.2) g/dL Albumin 2.1 L (3.4-5.0) g/dL Beta-Hydroxybutyric Acd (0.00-0.39) mmol/L TSH (0.358-3.740) uIU/mL Urine Color Yellow (Yellw/Straw) Urine Clarity Turbid H (Clear) Urine pH 5.0 (5.0-8.5) Ur Specific [place] 1.018 (1.002-1.035) Urine Protein 500 or greater (Neg-Trace) mg/dL Urine Glucose (UA) 50 (Negative) mg/dL Urine Ketones Trace H (Negative) mg/dL Urine Occult Blood Moderate H (Negative) Urine Nitrate Negative (Negative) Urine Bilirubin Negative (Negative) Urine Urobilinogen Less than 2 (Less than 2) mg/dL Ur Leukocyte Esterase Large H (Negative) Urine RBC 16 H (0-3) /hpf Urine WBC (0-5) /hpf Urine WBC Clumps Many H (None) Ur Squamous Epith Cells 4 (0-5) /hpf Urine Bacteria Many H (None) /hpf Hyaline Casts 63 (0-3) /lpf Micro UA Comment Cath-culture ind Urine Culture Comments Cath-cult indicated Discharge Plan Discharge Disposition Patient Disposition: 30 Still Patient Discharge Details Diagnosis: Rhabdomyolysis, Dehydration, Acute hyperglycemia, Cellulitis Physicians Team ED Provider: Arpan Gonzalez Primary Care Provider: Muna Feliciano Rxs /Orders / Referrals /Forms Prescriptions: No Action latanoprost [Xalatan] 0.005 % Drops 1 drp EACH EYE QPM RF: 0 ascorbic acid (vitamin C) [Vitamin C] 1,000 mg Tablet 1,000 mg PO DAILY RF: 0 vitamin A 8,000 unit Capsule 8,000 unit PO DAILY RF: 0 atorvastatin 20 mg Tablet 20 mg PO DAILY RF: 0 cetirizine [Zyrtec] 10 mg Tablet 10 mg PO DAILY PRN (Reason: Allergy Symptoms) RF: 0 aspirin 81 mg Tablet,Delayed Release (Dr/Ec) 81 mg PO DAILY RF: 0 levothyroxine 75 mcg Tablet 75 mcg PO DAILY RF: 0 isosorbide mononitrate 60 mg Tablet Extended Release 24 Hr 60 mg PO QAM RF: 0 estradiol 1 mg Tablet 1 mg PO DAILY RF: 0 timolol maleate [Timoptic] 0.25 % Drops 1 drp OPHTHALMIC (EYE) QAM RF: 0 ferrous sulfate 325 mg (65 mg iron) Tablet 325 mg PO DAILY RF: 0 calcium carbonate [Tums] 200 mg calcium (500 mg) Tablet,Chewable 1 tab PO Q4-6H PRN (Reason: Heartburn) RF: 0 insulin NPH isoph U-100 human [Novolin N NPH U-100 Insulin] 100 unit/mL Suspension 20 unit SUB-Q QPM RF: 0 insulin NPH isoph U-100 human [Novolin N NPH U-100 Insulin] 100 unit/mL Suspension 30 unit SUB-Q QAM RF: 0 hydrochlorothiazide 25 mg Tablet 25 mg PO BID RF: 0 furosemide [Lasix] 20 mg Tablet 20 mg PO DAILY RF: 0 ergocalciferol (vitamin D2) [Vitamin D2] 50,000 unit Capsule 50,000 unit PO QWEEK RF: 0 alpha lipoic acid 600 mg Capsule 600 mg PO HS RF: 0 iv-hez-cgoej acid-lutein [Centrum Silver] 400-250 mcg Tablet,Chewable 1 tab PO DAILY RF: 0 Discharge Interventions Interventions: Vital Signs Last Done: 07/01/18 14:00 Status ED Status: With Doctor
[2018-07-01 14:25] LABS: Baso % (Auto) 0.2 % (0.0-2.0); Eos % (Auto) 0.1 % (0.0-4.0); Hematocrit 37.2 % (35.0-46.0); Hemoglobin 12.5 gm/dL (11.6-15.3); Lymph # (Auto) 0.6 th/mm3 (1.0-4.8); Lymph % (Auto) 5.6 % (9.0-44.0); Mean Corpuscular HGB Conc 33.6 % (32.0-36.0); Mean Corpuscular Hemoglobin 31.2 pg (27.0-34.0); Mean Corpuscular Volume 92.8 fL (80.0-100.0); Mean Platelet Volume 11.1 fL (7.0-11.0); Mono # (Auto) 1.1 th/mm3 (0.0-0.9); Mono % (Auto) 9.7 % (0.0-8.0); Neut # (Auto) 9.5 th/mm3 (1.8-7.7); Neut % (Auto) 84.4 % (16.0-70.0); Platelet Count 150 th/mm3 (150-450); Red Blood Count 4.01 mil/mm3 (4.00-5.30); Red Cell Distribution Width 13.4 % (11.6-17.2); White Blood Count 11.2 th/mm3 (4.0-11.0)
[2018-07-01 14:32] LABS: Bacteria,Urine Many /hpf; Bilirubin,Urine Negative (Negative); Clarity,Urine Turbid (Clear); Color,Urine Yellow (Yellw/Straw); Glucose,Urine (UA) 50 mg/dL (Negative); Hyaline Casts,Urine 63 /lpf (0-3); Leukocyte Esterase,Urine Large (Negative); Nitrite,Urine Negative (Negative); Specific Gravity,Urine 1.018 (1.002-1.035); Squamous Epithelial Cell,Urine 4 /hpf (0-5)
[2018-07-01 14:37] LABS: Beta Hydroxybutyric Acid 2.09 mmol/L (0.00-0.39)
[2018-07-01 14:50] LABS: Albumin 2.1 g/dL (3.4-5.0); Anion Gap 15 meq/L (5-15); Aspartate Aminotransferase 64 U/L (15-37); Blood Urea Nitrogen 59 mg/dL (7-18); Calcium 8.7 mg/dL (8.5-10.1); Carbon Dioxide 21.2 meq/L (21.0-32.0); Chloride 97 meq/L (98-107); Glomerular Filtration Rate 17 mL/min (>89); Glucose,Random 420 mg/dL (74-106); Sodium 133 meq/L (136-145)
[2018-07-01 14:58] LABS: Thyroid Stimulating Hormone 1.15 uIU/mL (0.358-3.740)
[2018-07-01 14:59] LABS: Alanine Aminotransferase 21 U/L (10-53); Alkaline Phosphatase 72 U/L (45-117); Potassium 4.6 meq/L (3.5-5.1); Total Protein 6.9 g/dL (6.4-8.2)
[2018-07-01 15:12] LABS: CKMB Percent 0.7 % (0.0-4.0); Creatine Kinase MB 12.4 ng/mL (0.5-3.6)
[2018-07-01] MEDS ORDERED: Bisacodyl 10 MG Supp RECTAL PRN (16:30)
[2018-07-01] MEDS ORDERED: Dextrose 50% in Water 50 ML Vial IV.PUSH PRN (16:42)
--- NOTE | 2018-07-01 17:01 | P.HPIM ---
History of Present Illness Primary Care Physician: Muna Feliciano MD History of Present Illness: 88-year-old female with a past medical history of IDDM, CAD, HTN, CKD, Charcot foot, hypothyroidism, HLD who presented for weakness and fall. The patient states that she has had poor appetite for the past week. She has not been eating much and has not known how much insulin to give herself. She was feeling weak over the past few days. She has had 2 falls in the past day, was able to get up after the first 1, but not after the second 1. She fell because her legs were weak. She denies any other injury. She was on the ground from around 9 PM last night to around 10 AM this morning when she was able to find her phone and call her son. Since Tuesday she has noticed a cough and chills. She denies any chest pain, shortness of breath, nausea, vomiting, diarrhea, dysuria. Upon presentation to the ED the patient was found to be hyperglycemic, tachycardic, dehydrated with acute kidney injury and rhabdomyolysis. Reportedly heart rate was in the 130s and regular, no definite history of A. fib in the past, given IV metoprolol and heart rate currently 110s and regular. She was given IVF and 10 units of insulin for dehydration and hyperglycemia. Inpatient Certification: I certify that the inpatient services were ordered in accordance with Medicare regulations governing the order. This includes certification that hospital inpatient services are reasonable and necessary and in the case of services not specified as inpatient-only under 42 CFR 419.22(n), that they are appropriately provided as inpatient services in accordance to with the 2-midnight benchmark under 43 CFR 412.3(e) Estimated Total Length of Stay (Days): 3 Plans for Post Hospital Care: Home health Review of Systems All other systems reviewed negative except as stated in HPI PMFSH - History History Provided By: Patient, Medical Record - Medical History Medical History: Medical History (Last Updated 07/01/18 @ 16:51 by ADDIE Macdonald) CKD (chronic kidney disease) stage 3, GFR 30-59 ml/min 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 Clavicle fracture Colon cancer Diabetes Femur fracture GERD (gastroesophageal reflux disease) H/O: hysterectomy HTN (hypertension) High cholesterol Hypothyroid Myocardial infarct - Surgical History Surgical History: Surgical History (Last Updated 07/01/18 @ 12:42 by Shraddha Gross) H/O cardiac catheterization H/O heart artery stent - Family History Family History: Family History (Last Updated 07/01/18 @ 16:51 by ADDIE Macdonald) Father Diabetes Mother Uterine cancer - Tobacco History Second Hand Smoke Exposure: No Tobacco Use In Past 30 Days: No Smoking Status: Never smoker - Alcohol History How Often Do You Have a Drink Containing Alcohol: Monthly or less - Substance Use History Substance History: No History of Abuse - Travel History Recent Travel in the [place] Within the Last 8 Weeks: No Recent Travel Out of the Country Within the Last 8 Weeks: No - Immunization History Tetanus Immunization: <5 Years Hx Influenza Vaccine This Season: Yes Medications and Allergies Active Medications: Active Medications Al Hydroxide/Mg Hydroxide (Milk Of Magnesia Liq) 30 ml PO Q12H PRN PRN Reason: Mild Constipation Aspirin (Ecotrin) 81 mg PO DAILY YAHIR Atorvastatin Calcium (Lipitor) 20 mg PO DAILY YAHIR Bisacodyl (Dulcolax Supp) 10 mg RECTAL DAILY PRN PRN Reason: SEVERE CONSITIPATION Clonidine HCl (Catapres) 0.1 mg PO Q6H PRN PRN Reason: SBP >170 Dextrose (D50w Vial) 50 ml IV.PUSH UNSCH PRN PRN Reason: PER HYPOGLYCEMIA PROTOCOL Estradiol (Estrace) 1 mg PO DAILY YAHIR Glucagon (Glucagon Inj) 1 mg OTHER PRN PRN PRN Reason: for Hypoglycemia Protocol Sodium Chloride (Ns Inj) 1,000 mls @ 100 mls/hr IV.CONT .Q10H YAHIR Cefazolin Sodium 1,000 mg/ (Sodium Chloride) 100 mls @ 200 mls/hr IV.SIG Q8H YAHIR Insulin Human Regular (Novolin R Correctional Sugar Inj) 0 units SQ ACHS YAHIR; Protocol Isosorbide Mononitrate (Imdur) 60 mg PO QAM YAHIR Lactulose (Lactulose Liq) 30 ml PO DAILY PRN PRN Reason: SEVERE CONSITIPATION Ondansetron HCl (Zofran Inj) 4 mg IV.PUSH Q6H PRN PRN Reason: NAUSEA OR VOMITING Sennosides (Senokot) 17.2 mg PO Q12H PRN PRN Reason: Moderate Constipation Sodium Chloride (Ns Flush) 2 ml IV.FLUSH PRN PRN PRN Reason: FLUSH AFTER USING IV ACCESS Allergies Allergy/AdvReac Type Severity Reaction Status Date / Time kaye Allergy Unknown RASH Verified 07/01/18 12:47 SIMCOR Allergy Severe Edema Uncoded 07/01/18 12:47 Home Medications Medication Instructions Recorded Confirmed Type alpha lipoic acid 600 mg PO HS 07/01/18 07/01/18 History ascorbic acid (vitamin C) [Vitamin 1,000 mg PO DAILY 07/01/18 07/01/18 History C] aspirin 81 mg PO DAILY 07/01/18 07/01/18 History atorvastatin 20 mg PO DAILY 07/01/18 07/01/18 History calcium carbonate [Tums] 1 tab PO Q4-6H PRN 07/01/18 07/01/18 History cetirizine [Zyrtec] 10 mg PO DAILY PRN 07/01/18 07/01/18 History ergocalciferol (vitamin D2) 50,000 unit PO QWEEK 07/01/18 07/01/18 History [Vitamin D2] estradiol 1 mg PO DAILY 07/01/18 07/01/18 History ferrous sulfate 325 mg PO DAILY 07/01/18 07/01/18 History furosemide [Lasix] 20 mg PO DAILY 07/01/18 07/01/18 History hydrochlorothiazide 25 mg PO BID 07/01/18 07/01/18 History insulin NPH isoph U-100 human 20 unit SUB-Q QPM 07/01/18 07/01/18 History [Novolin N NPH U-100 Insulin] insulin NPH isoph U-100 human 30 unit SUB-Q QAM 07/01/18 07/01/18 History [Novolin N NPH U-100 Insulin] isosorbide mononitrate 60 mg PO QAM 07/01/18 07/01/18 History latanoprost [Xalatan] 1 drp EACH EYE QPM 07/01/18 07/01/18 History levothyroxine 75 mcg PO DAILY 07/01/18 07/01/18 History [id number]-ljlcg acid-lutein [Centrum 1 tab PO DAILY 07/01/18 07/01/18 History Silver] timolol maleate [Timoptic] 1 drp OPHTHALMIC (EYE) QAM 07/01/18 07/01/18 History vitamin A 8,000 unit PO DAILY 07/01/18 07/01/18 History Exam Vital signs: Vital Signs 07/01/18 12:37 07/01/18 13:32 07/01/18 14:00 Temperature 98.4 F Pulse Rate 131 H 76 Respiratory Rate 26 H 19 Blood Pressure 126/91 H 132/83 Pulse Oximetry 95 95 96 Intake & Output 06/30/18 07/01/18 07/01/18 18:59 06:59 18:59 Intake Total 1000 / 1000 Balance 1000 / 1000 Weight 180 lb 10.931 oz Intake: IV 1000 / 1000 NS Inj 1,000 ML @ Wide Open IV. 1000 / 1000 SIG BOLUS ONE Rx#:[id number] Narrative: GENERAL: Well-developed well-nourished. In no acute distress. SKIN: Warm and dry. Dry ulcer on the bottom of the left foot. HEENT: Normocephalic. Pupils equal and round. Mucous membranes pink and moist. CARDIOVASCULAR: Regular rate and rhythm. No murmur appreciated. RESPIRATORY: No accessory muscle use. Clear to auscultation. Breath sounds equal bilaterally. GASTROINTESTINAL: Abdomen soft, non-tender, nondistended. Bowel sounds x4. MUSCULOSKELETAL: Left Charcot foot with some erythema and warmth of the left ankle, but no wounds noted. No edema. NEUROLOGICAL: Awake and alert. No focal neurological deficits. Moves upper and lower extremities spontaneously. Normal speech. PSYCHIATRIC: Appropriate mood and affect; insight and judgment normal. Results - Labs CBC & Chem 7: 07/01/18 13:34 07/01/18 13:34 Labs: Short CBC 07/01/18 Range/Units 13:34 WBC 11.2 H (4.0-11.0) th/mm3 Hgb 12.5 (11.6-15.3) gm/dL Hct 37.2 (35.0-46.0) % Plt Count 150 (150-450) th/mm3 BMP 07/01/18 13:34 Sodium 133 L Potassium 4.6 Chloride 97 L Carbon Dioxide 21.2 BUN 59 H Creatinine 2.65 H Calcium 8.7 Cardiac Enzymes 07/01/18 Range/Units 13:34 Total Creatine Kinase 1812 H (26-192) U/L CK-MB (CK-2) 12.4 H (0.5-3.6) ng/mL Liver Function 07/01/18 Range/Units 13:34 Total Bilirubin 1.2 H (0.2-1.0) mg/dL AST 64 H (15-37) U/L ALT 21 (10-53) U/L Alkaline Phosphatase 72 (45-117) U/L Albumin 2.1 L (3.4-5.0) g/dL Urine 07/01/18 Range/Units 13:52 Urine Color Yellow (Yellw/Straw) Urine Clarity Turbid H (Clear) Urine pH 5.0 (5.0-8.5) Ur Specific [place] 1.018 (1.002-1.035) Urine Protein 500 or greater (Neg-Trace) mg/dL Urine Glucose (UA) 50 (Negative) mg/dL Caprini VTE Risk Assessment Caprini VTE Risk Assessment: Moderate/High Risk (score >= 2) Caprini Risk Assessment Model: Point Value = 1 Point Value = 2 Point Value = 3 Point Value = 5 Age 41-60 Minor surgery BMI > 25 kg/m2 Swollen legs Varicose veins or History of unexplained or recurrent spontaneous Oral contraceptives or hormone replacement Sepsis (< 1 month) Serious lung disease, including pneumonia (< 1 month) Abnormal pulmonary function Acute myocardial infarction Congestive heart failure (< 1 month) History of inflammatory bowel disease Medical patient at bed rest Age 61-74 Arthroscopic surgery Major open surgery (> 45 min) Laparoscopic surgery (> 45 min) Malignancy Confined to bed (> 72 hours) Immobilizing plaster cast Central venous access Age >= 75 History of VTE Family history of VTE Factor V Leiden Prothrombin [id number] Lupus anticoagulant Anticardiolipin antibodies Elevated serum homocysteine Heparin-induced thrombocytopenia Other congenital or acquired thrombophilia Stroke (< 1 month) Elective arthroplasty Hip, pelvis, or leg fracture Acute spinal cord injury (< 1 month) Prophylaxis Regimen: Total Risk Factor Score Risk Level Prophylaxis Regimen 0-1 Low Early ambulation 2 Moderate Order ONE of the following: *Sequential Compression Device (SCD) *Heparin 5000 units SQ BID 3-4 Higher Order ONE of the following medications: *Heparin 5000 units SQ TID *Enoxaparin/Lovenox 40 mg SQ daily (WT < 150 kg, CrCl > 30 mL/min) *Enoxaparin/Lovenox 30 mg SQ daily (WT < 150 kg, CrCl > 10-29 mL/min) *Enoxaparin/Lovenox 30 mg SQ BID (WT < 150 kg, CrCl > 30 mL/min) AND/OR *Sequential Compression Device (SCD) 5 or more Highest Order ONE of the following medications: *Heparin 5000 units SQ TID (Preferred with Epidurals) *Enoxaparin/Lovenox 40 mg SQ daily (WT < 150 kg, CrCl > 30 mL/min) *Enoxaparin/Lovenox 30 mg SQ daily (WT < 150 kg, CrCl > 10-29 mL/min) *Enoxaparin/Lovenox 30 mg SQ BID (WT < 150 kg, CrCl > 30 mL/min) AND *Sequential Compression Device (SCD) Assessment and Plan - Plan 88-year-old female with a past medical history of IDDM, CAD, HTN, CKD, Charcot foot, hypothyroidism, HLD who presented for weakness and fall. Fall and weakness: Probably multifactorial due to dehydration, hyperglycemia, UTI, poor oral intake. PT eval. Cough and chills: WBC 11.2. Afebrile. Check chest x-ray. UTI: UA with evidence of UTI. IV cefazolin. Follow-up urine culture. DAMARI on CKD 3: Creatinine 2.65, previously 1.45 on 11/22/17. IVF and follow-up BMP. Rhabdomyolysis: CPK 1800. IVF. Insulin-dependent diabetes mellitus with hyperglycemia: Poor oral intake lately. Hold home insulin for now. SSI with Accu-Cheks. Tachycardia: Appears to be sinus tachycardia, likely compensatory secondary to dehydration. Check EKG. Telemetry monitoring. Left Charcot foot and ankle with possible cellulitis: Has been following with podiatry, Dr. Preston, at [facility]. IV cefazolin as above. Monitor clinically. Consider podiatry evaluation if no improvement. History of CAD: No chest pain. Continue home aspirin, Imdur, atorvastatin. DVT prophylaxis: SCDs Code Status: Full code Discussed Condition With: Patient, RN, Dr. Avila
--- NOTE | 2018-07-01 17:11 | XR ---
EXAM DATE: 07/01/2018 5:06 PM EDT AGE/SEX: 88 years / Female INDICATIONS: Cough. CLINICAL DATA: This is the patient's initial encounter. Patient reports that signs and symptoms have been present for 3 days and indicates a pain score of 0/10. MEDICAL/SURGICAL HISTORY: . Cardiovascular disease. Hypertension. Carcinoma, colon. Hysterecto my. COMPARISON: [facility] [place], CHEST SINGLE AP, 11/22/2017. . FINDINGS: Mild basilar airspace disease. Differential diagnosis includes atelectasis or mild bronchopneumonia. No effusion. No pneumothorax. Heart size within normal limits. Elevated left hemidiaphragm. CONCLUSION: Mild basilar airspace disease. No effusion or pneumothorax. Electronically signed by: Venkata Hickey MD 07/01/2018 5:10 PM EDT
[2018-07-01] MEDS: Insulin NovoLIN Regular Correctional Sugar Inj SQ SCH ×2 (17:25→20:08)
[2018-07-01] MEDS: Sod Chloride 0.9% Inj 1,000 ML IV.CONT SCH (17:26)
[2018-07-01] MEDS ORDERED: Azithromycin Inj 500 MG in Sodium Chlor 0.9% Inj 250 ML IV.SIG ONE (18:16)
[2018-07-01] MEDS: Isosorbide Mononitrate 60 MG ER 24HR Tablet (Imdur) PO SCH (18:36)
[2018-07-01] MEDS: Timolol 0.25% Drops 5 ML Bottle EACH EYE SCH (20:08)
[2018-07-02 00:58] LABS: CKMB Percent 0.4 % (0.0-4.0); Creatine Kinase MB 7.9 ng/mL (0.5-3.6)
[2018-07-02] MEDS ORDERED: Metoprolol Tartrate 25 MG Tablet PO ONE (01:32)
[2018-07-02] MEDS ORDERED: Sodium Chlor 0.9% Inj 500 ML IV.SIG ONE ×2 (01:32→05:14)
[2018-07-02] MEDS: Sod Chloride 0.9% Inj 1,000 ML IV.CONT SCH ×4 (03:14→18:17)
[2018-07-02] MEDS: Levothyroxine 75 MCG Tablet PO SCH (05:52)
[2018-07-02 07:14] LABS: Hematocrit 37.2 % (35.0-46.0); Hemoglobin 12.2 gm/dL (11.6-15.3); Mean Corpuscular HGB Conc 32.7 % (32.0-36.0); Mean Corpuscular Hemoglobin 30.4 pg (27.0-34.0); Mean Corpuscular Volume 92.8 fL (80.0-100.0); Platelet Count 149 th/mm3 (150-450); Red Blood Count 4.01 mil/mm3 (4.00-5.30); Red Cell Distribution Width 13.3 % (11.6-17.2); White Blood Count 9.5 th/mm3 (4.0-11.0)
[2018-07-02 07:40] LABS: Calcium 8.2 mg/dL (8.5-10.1); Carbon Dioxide 21.8 meq/L (21.0-32.0); Potassium 4.3 meq/L (3.5-5.1)
[2018-07-02] MEDS: Isosorbide Mononitrate 60 MG ER 24HR Tablet (Imdur) PO SCH (08:10)
[2018-07-02] MEDS: Timolol 0.25% Drops 5 ML Bottle EACH EYE SCH (08:16)
[2018-07-02] MEDS: Insulin NovoLIN Regular Correctional Sugar Inj SQ SCH ×4 (08:17→21:46)
[2018-07-02] MEDS: Estradiol 1 MG Tablet PO SCH (08:18)
[2018-07-02] MEDS: Azithromycin Inj 250 MG in Sodium Chlor 0.9% Inj 250 ML IV.SIG SCH (08:19)
[2018-07-02 08:21] LABS: Lymphocytes 2 % (9-44); Monocytes 7 % (0-8); Platelet Morphology Normal (Normal); Toxic Vacuolation Present
--- NOTE | 2018-07-02 08:53 | ECG ---
Date Performed: 07/01/2018 Time Performed: 17:39:56 PTAGE: 88 years EKG: Sinus rhythm WITH FIRST DEGREE AV BLOCK INFERIOR MYOCARDIAL INFARCTION ABNORMAL ECG Since the PREVIOUS TRACING , no significant change noted PREVIOUS TRACIN11/22/2017 15.07 DOCTOR: Kathleen Carter Interpretating Date/Time 07/02/2018 08:51:45
--- NOTE | 2018-07-02 15:42 | P.PN ---
Subjective Interval history: Follow-up pneumonia and UTI. She feels tired. Blood culture with gram- positive cocci and urine culture with gram-negative rafiq Physical Exam Vital signs: Vital Signs 07/01/18 17:12 07/01/18 20:00 07/01/18 20:06 Temperature 98.7 F 98.4 F Pulse Rate 80 94 H 120 H Respiratory Rate 19 18 Blood Pressure 152/63 H 135/65 Pulse Oximetry 100 96 07/02/18 00:00 07/02/18 00:08 07/02/18 04:00 Temperature 100.1 F H 98.8 F Pulse Rate 112 H 131 H 126 H Respiratory Rate 18 18 Blood Pressure 138/65 119/64 Pulse Oximetry 96 95 07/02/18 08:00 07/02/18 09:00 07/02/18 12:00 Temperature 98.7 F 98.4 F Pulse Rate 84 92 H 87 Respiratory Rate 22 22 Blood Pressure 100/61 146/78 H Pulse Oximetry 94 L 98 07/02/18 15:22 Temperature Pulse Rate Respiratory Rate 16 Blood Pressure Pulse Oximetry Intake & Output 07/01/18 07/02/18 07/02/18 18:59 06:59 18:59 Intake Total 1000 / 1000 2900 / 2900 1250 / 1250 Balance 1000 / 1000 2900 / 2900 1250 / 1250 Weight 81.957 kg 81.9 kg Intake: IV 1000 / 1000 2450 / 2450 1250 / 1250 NS Inj 1,000 ML @ 100 mls/hr IV 1000 / 1000 1000 / 1000 .CONT .Q10H YAHIR Rx#:[id number] Azithromycin Inj 250 MG In NS 250 / 250 250 / 250 Inj 250 ML @ 250 mls/hr IV.SIG Q24H YAHIR Rx#:[id number] NS Inj 1,000 ML @ Wide Open IV. 1000 / 1000 SIG BOLUS ONE Rx#:[id number] NS Inj 500 ML @ Wide Open IV. 1000 / 1000 SIG BOLUS ONE Rx#:[id number] Ancef Inj 1,000 MG In NS Inj 100 / 100 100 ML @ 200 mls/hr IV.SIG Q8H YAHIR Rx#:[id number] Rocephin Inj 1,000 MG In NS Inj 100 / 100 100 ML @ 200 mls/hr IV.SIG Q24H YAHIR Rx#:[id number] Oral 450 / 450 Other: # Voids 4 Date of Last Bowel Movement 07/02/18 07/01/18 # Bowel Movements 1 Weight On Admission 81.9 kg Narrative: GENERAL: Well-developed well-nourished. In no acute distress. SKIN: Warm and dry. Dry ulcer on the bottom of the left foot. RESPIRATORY: No accessory muscle use. Clear to auscultation. Breath sounds equal bilaterally. GASTROINTESTINAL: Abdomen soft, non-tender, nondistended. Bowel sounds x4. MUSCULOSKELETAL: Left Charcot foot with improved erythema and warmth of the left ankle, but no wounds noted. No edema. NEUROLOGICAL: Awake and alert. No focal neurological deficits. Moves upper and lower extremities spontaneously. Normal speech. PSYCHIATRIC: Appropriate mood and affect; insight and judgment normal. Results - Labs CBC & Chem 7: 07/02/18 06:01 07/02/18 06:01 Laboratory Results - last 24 hr 07/01/18 07/01/18 07/01/18 13:52 17:11 19:55 WBC RBC Hgb Hct MCV MCH MCHC RDW Plt Count MPV Prelim Diff (Auto) WBC Differential Seg Neuts % (Manual) Band Neuts % (Manual) Lymphocytes % (Manual) Monocytes % (Manual) Abs Neuts (Manual) Differential Comment Toxic Vacuolation Platelet Estimate Platelet Morphology Sodium Potassium Chloride Carbon Dioxide Anion Gap BUN Creatinine Estimated GFR POC Glucose 337 H 366 H Random Glucose Calcium Total Creatine Kinase CK-MB (CK-2) CK-MB (CK-2) % Urine Color Yellow Urine Clarity Turbid H Urine pH 5.0 Ur Specific [place] 1.018 Urine Protein 500 or greater Urine Glucose (UA) 50 Urine Ketones Trace H Urine Occult Blood Moderate H Urine Nitrate Negative Urine Bilirubin Negative Urine Urobilinogen Less than 2 Ur Leukocyte Esterase Large H Urine RBC 16 H Urine WBC Urine WBC Clumps Many H Ur Squamous Epith Cells 4 Urine Bacteria Many H Hyaline Casts 63 Micro UA Comment Cath-culture ind Urine Culture Comments Cath-cult indicated 07/01/18 07/02/18 07/02/18 23:39 06:01 06:01 WBC 9.5 RBC 4.01 Hgb 12.2 Hct 37.2 MCV 92.8 MCH 30.4 MCHC 32.7 RDW 13.3 Plt Count 149 L MPV 10.0 Prelim Diff (Auto) Manual diff required WBC Differential Manual diff final Seg Neuts % (Manual) 82 H Band Neuts % (Manual) 9 H Lymphocytes % (Manual) 2 L Monocytes % (Manual) 7 Abs Neuts (Manual) 8.6 H Differential Comment . Toxic Vacuolation Present H Platelet Estimate Low L Platelet Morphology Normal Sodium 136 Potassium 4.3 Chloride 102 Carbon Dioxide 21.8 Anion Gap 12 BUN 62 H Creatinine 2.17 H Estimated GFR 21 L POC Glucose Random Glucose 265 H D Calcium 8.2 L Total Creatine Kinase 1765 H CK-MB (CK-2) 7.9 H CK-MB (CK-2) % 0.4 Urine Color Urine Clarity Urine pH Ur Specific [place] Urine Protein Urine Glucose (UA) Urine Ketones Urine Occult Blood Urine Nitrate Urine Bilirubin Urine Urobilinogen Ur Leukocyte Esterase Urine RBC Urine WBC Urine WBC Clumps Ur Squamous Epith Cells Urine Bacteria Hyaline Casts Micro UA Comment Urine Culture Comments 07/02/18 07/02/18 07/02/18 08:09 12:02 15:25 WBC RBC Hgb Hct MCV MCH MCHC RDW Plt Count MPV Prelim Diff (Auto) WBC Differential Seg Neuts % (Manual) Band Neuts % (Manual) Lymphocytes % (Manual) Monocytes % (Manual) Abs Neuts (Manual) Differential Comment Toxic Vacuolation Platelet Estimate Platelet Morphology Sodium Potassium Chloride Carbon Dioxide Anion Gap BUN Creatinine Estimated GFR POC Glucose 285 H 389 H 365 H Random Glucose Calcium Total Creatine Kinase CK-MB (CK-2) CK-MB (CK-2) % Urine Color Urine Clarity Urine pH Ur Specific [place] Urine Protein Urine Glucose (UA) Urine Ketones Urine Occult Blood Urine Nitrate Urine Bilirubin Urine Urobilinogen Ur Leukocyte Esterase Urine RBC Urine WBC Urine WBC Clumps Ur Squamous Epith Cells Urine Bacteria Hyaline Casts Micro UA Comment Urine Culture Comments Microbiology 07/01/18 18:25 Blood - Peripheral Aerobic Blood Culture - Preliminary gram positive cocci 07/01/18 18:25 Blood - Peripheral Anaerobic Blood Culture - Preliminary gram positive cocci 07/01/18 18:34 Blood - Peripheral Aerobic Blood Culture - Preliminary gram positive cocci 07/01/18 18:34 Blood - Peripheral Anaerobic Blood Culture - Preliminary gram positive cocci 07/01/18 13:52 Catheterized Urine Urine Culture - Preliminary gram negative rods 07/01/18 13:52 Urine - Catheterized Urine Streptococcus pneumoniae Antigen ( M - Final Presumptive negative for streptococcus pneumoniae antigen, suggesting no current or recent infection. Infection due to Streptococcus pneumoniae cannot be ruled out since the antigen present in the sample may be below the detection limit of the test. 07/01/18 13:52 Urine - Catheterized Urine Legionella Antigen - Final Presumptive negative for Legionella pneumophila serogroup 1 antigen in urine, suggesting no recent or recurrent infection. Infection due to Legionella cannot be ruled out since other serogroups and species may cause disease, antigen may not be present in urine in early infection, and the level of antigen present in the urine may be below the detection limit of the test. - Imaging Impressions Chest X-Ray 07/01/18 00:00 CONCLUSION: Mild basilar airspace disease. No effusion or pneumothorax. Assessment and Plan - Plan 88-year-old female with a past medical history of IDDM, CAD, HTN, CKD, Charcot foot, hypothyroidism, HLD who presented for weakness and fall. Fall and weakness: Probably multifactorial due to dehydration, hyperglycemia, UTI, pneumonia, sepsis and poor oral intake. PT eval. Sepsis with community-acquired pneumonia and gram-negative UTI. Blood culture growing gram-positive cocci. Continue IV Rocephin and Zithromax follow cultures and consult infectious disease DAMARI on CKD 3: Creatinine 2.65, previously 1.45 on 11/22/17. Improving continue IVF and follow-up BMP. Rhabdomyolysis: CPK 1800. IVF. Insulin-dependent diabetes mellitus with hyperglycemia: Poor oral intake lately. Increase Levemir to 15 units at bedtime for better coverage. SSI with Accu-Cheks. Tachycardia: Appears to be sinus tachycardia, likely compensatory secondary to dehydration. Telemetry monitoring. Left Charcot foot and ankle with possible cellulitis: Has been following with podiatry, Dr. Preston, at [facility]. Improving continue IV antibiotics as above. Monitor clinically. Consider podiatry evaluation if no improvement. History of CAD: No chest pain. Continue home aspirin, Imdur, atorvastatin. DVT prophylaxis: SCDs and subcu heparin Discharge Planning: Rehab
[2018-07-02] MEDS: Heparin - SQ 10,000 UNITS/ML Vial SQ SCH ×2 (16:03→21:36)
--- NOTE | 2018-07-02 16:42 | P.PNID ---
Infectious Disease Brief Note ID consult dictated. Patient seen and examined. Impression: Gram-positive sepsis. Gram-negative UTI. Acute kidney disease. Charcot's left foot. Diabetes mellitus. Recommendations: Continue ceftriaxone. Begin linezolid for gram-positive cocci in the blood and potential source being the left foot. -I want to avoid vancomycin given the kidney disease. Will also avoid daptomycin because the CPK is markedly elevated. Monitor blood culture. Monitor urine culture. Monitor renal function. Monitor clinical response. Vital Signs - 24 hr 07/01/18 17:12 07/01/18 20:00 07/01/18 20:06 Temperature 98.7 F 98.4 F Pulse Rate 80 94 H 120 H Respiratory Rate 19 18 Blood Pressure 152/63 H 135/65 Pulse Oximetry 100 96 07/02/18 00:00 07/02/18 00:08 07/02/18 04:00 Temperature 100.1 F H 98.8 F Pulse Rate 112 H 131 H 126 H Respiratory Rate 18 18 Blood Pressure 138/65 119/64 Pulse Oximetry 96 95 07/02/18 08:00 07/02/18 09:00 07/02/18 12:00 Temperature 98.7 F 98.4 F Pulse Rate 84 92 H 87 Respiratory Rate 22 22 Blood Pressure 100/61 146/78 H Pulse Oximetry 94 L 98 07/02/18 15:22 Temperature Pulse Rate Respiratory Rate 16 Blood Pressure Pulse Oximetry Laboratory Results - last 24 hr 07/01/18 07/01/18 07/01/18 13:52 17:11 19:55 WBC RBC Hgb Hct MCV MCH MCHC RDW Plt Count MPV Prelim Diff (Auto) WBC Differential Seg Neuts % (Manual) Band Neuts % (Manual) Lymphocytes % (Manual) Monocytes % (Manual) Abs Neuts (Manual) Differential Comment Toxic Vacuolation Platelet Estimate Platelet Morphology Sodium Potassium Chloride Carbon Dioxide Anion Gap BUN Creatinine Estimated GFR POC Glucose 337 H 366 H Random Glucose Calcium Total Creatine Kinase CK-MB (CK-2) CK-MB (CK-2) % Urine Color Yellow Urine Clarity Turbid H Urine pH 5.0 Ur Specific [place] 1.018 Urine Protein 500 or greater Urine Glucose (UA) 50 Urine Ketones Trace H Urine Occult Blood Moderate H Urine Nitrate Negative Urine Bilirubin Negative Urine Urobilinogen Less than 2 Ur Leukocyte Esterase Large H Urine RBC 16 H Urine WBC Urine WBC Clumps Many H Ur Squamous Epith Cells 4 Urine Bacteria Many H Hyaline Casts 63 Micro UA Comment Cath-culture ind Urine Culture Comments Cath-cult indicated 07/01/18 07/02/18 07/02/18 23:39 06:01 06:01 WBC 9.5 RBC 4.01 Hgb 12.2 Hct 37.2 MCV 92.8 MCH 30.4 MCHC 32.7 RDW 13.3 Plt Count 149 L MPV 10.0 Prelim Diff (Auto) Manual diff required WBC Differential Manual diff final Seg Neuts % (Manual) 82 H Band Neuts % (Manual) 9 H Lymphocytes % (Manual) 2 L Monocytes % (Manual) 7 Abs Neuts (Manual) 8.6 H Differential Comment . Toxic Vacuolation Present H Platelet Estimate Low L Platelet Morphology Normal Sodium 136 Potassium 4.3 Chloride 102 Carbon Dioxide 21.8 Anion Gap 12 BUN 62 H Creatinine 2.17 H Estimated GFR 21 L POC Glucose Random Glucose 265 H D Calcium 8.2 L Total Creatine Kinase 1765 H CK-MB (CK-2) 7.9 H CK-MB (CK-2) % 0.4 Urine Color Urine Clarity Urine pH Ur Specific [place] Urine Protein Urine Glucose (UA) Urine Ketones Urine Occult Blood Urine Nitrate Urine Bilirubin Urine Urobilinogen Ur Leukocyte Esterase Urine RBC Urine WBC Urine WBC Clumps Ur Squamous Epith Cells Urine Bacteria Hyaline Casts Micro UA Comment Urine Culture Comments 07/02/18 07/02/18 07/02/18 08:09 12:02 15:25 WBC RBC Hgb Hct MCV MCH MCHC RDW Plt Count MPV Prelim Diff (Auto) WBC Differential Seg Neuts % (Manual) Band Neuts % (Manual) Lymphocytes % (Manual) Monocytes % (Manual) Abs Neuts (Manual) Differential Comment Toxic Vacuolation Platelet Estimate Platelet Morphology Sodium Potassium Chloride Carbon Dioxide Anion Gap BUN Creatinine Estimated GFR POC Glucose 285 H 389 H 365 H Random Glucose Calcium Total Creatine Kinase CK-MB (CK-2) CK-MB (CK-2) % Urine Color Urine Clarity Urine pH Ur Specific [place] Urine Protein Urine Glucose (UA) Urine Ketones Urine Occult Blood Urine Nitrate Urine Bilirubin Urine Urobilinogen Ur Leukocyte Esterase Urine RBC Urine WBC Urine WBC Clumps Ur Squamous Epith Cells Urine Bacteria Hyaline Casts Micro UA Comment Urine Culture Comments 07/02/18 16:02 WBC RBC Hgb Hct MCV MCH MCHC RDW Plt Count MPV Prelim Diff (Auto) WBC Differential Seg Neuts % (Manual) Band Neuts % (Manual) Lymphocytes % (Manual) Monocytes % (Manual) Abs Neuts (Manual) Differential Comment Toxic Vacuolation Platelet Estimate Platelet Morphology Sodium Potassium Chloride Carbon Dioxide Anion Gap BUN Creatinine Estimated GFR POC Glucose 420 H Random Glucose Calcium Total Creatine Kinase CK-MB (CK-2) CK-MB (CK-2) % Urine Color Urine Clarity Urine pH Ur Specific [place] Urine Protein Urine Glucose (UA) Urine Ketones Urine Occult Blood Urine Nitrate Urine Bilirubin Urine Urobilinogen Ur Leukocyte Esterase Urine RBC Urine WBC Urine WBC Clumps Ur Squamous Epith Cells Urine Bacteria Hyaline Casts Micro UA Comment Urine Culture Comments
--- NOTE | 2018-07-02 17:00 | MB ---
cc: Maged Brumfield MD DATE: 07/02/2018 REQUESTING PHYSICIAN: Dr. Sergio Avila. REASON FOR CONSULTATION: Gram-positive blood cultures and gram-negative urinary tract infection. HISTORY OF PRESENT ILLNESS: This is an 88-year-old white female who was brought to the emergency department by ambulance. The patient was noted to have fallen ain her home the night prior and was unable to get up and was found on the floor and brought to the emergency department the following morning. She was evaluated in the emergency department on 07/01/2018 and at that time she had an elevated heart rate, elevated respiratory rate and acute renal failure and she also had atrial fibrillation with rapid ventricular response. Blood cultures were taken and all 4 bottles have gram-positive cocci. Urinalysis was remarkable for increased white cells, and urine culture was taken and it has gram-negative rafiq. The patient was given IV antibiotic in the Emergency Department in the form of cefazolin and azithromycin. She is currently on ceftriaxone and azithromycin. The patient is awake, although she looks somewhat lethargic. Maximum temperature was 100.1 degrees early this morning. The temperature has improved. White count was increased slightly at 11.2 yesterday and it is lower today. The patient does not recall much of the events of the night when she fell. She does admit that she was not feeling dizzy. She has a history of Charcot foot and she sees Dr. Preston, the surgeon who has been treating for that lately. She has marked swelling of the left ankle and some erythema at the plantar aspect of the left foot. PAST MEDICAL AND SURGICAL HISTORY: Diabetes mellitus, hypertension, hypercholesteremia, hypothyroidism, Charcot foot, chronic kidney disease, history of colon cancer, gastroesophageal reflux disease, myocardial infarction, history of hysterectomy, history of cardiac catheterization, history of coronary artery stent. ALLERGIES: SIMCOR. THE PATIENT ALSO ALLERGIC TO ISIDRO. MEDICATIONS: 1. Azithromycin. 2. Ceftriaxone. 3. Lipitor. 4. Ecotrin. 5. Estradiol. 6. Xalatan eyedrops. 7. Synthroid. 8. Timolol eyedrops. SOCIAL HISTORY: No tobacco. Rare occasional alcohol. No illicit drugs. FAMILY HISTORY: Significant for diabetes mellitus in her father. REVIEW OF SYSTEMS: All systems have been reviewed and are negative, except for generalized weakness and pain in the right shoulder. PHYSICAL EXAMINATION: GENERAL: She is a well-developed female who is somewhat lethargic. She is in no acute distress. VITAL SIGNS: Temperature 98.4, blood pressure 146/78, respirations 16, heart rate 87. HEENT: The head is atraumatic. There is mild erythema on the face on the left side of the lip. Extraocular movements grossly intact. Pupils reactive to light. No icterus. Oropharynx has moist mucosa. No lesions. NECK: Supple without adenopathy. LUNGS: Decreased, clear breath sounds. HEART: Regular S1, S2. No murmurs heard. ABDOMEN: Bowel sounds present. Soft, hyperactive, nontender. The abdomen is obese. RECTAL: Not performed. EXTREMITIES: The left ankle has marked its swelling and the dorsum of the foot has a deformity on the left with erythema. No open lesion or draining lesion. The other extremities have no clubbing, cyanosis or edema. SKIN: No diffuse rash. NEUROLOGIC: No gross focal finding. PSYCHIATRIC: The patient is calm and cooperative. LABORATORY DATA: WBC 9.5, platelets 149, hemoglobin 12.2, 82% neutrophils, 9% bands. Creatinine 2.17, BUN 62, estimated of GFR 21. Total CK 1765. IMPRESSION: 1. Sepsis due to positive bacteria. Final identification of the bacteria is pending. Source unclear, but could be from the left foot. 2. Urinary tract infection due to gram-negative bacteria. 3. Fever, improved after antibiotics. 4. Improved leukocytosis after antibiotics. 5. Acute kidney disease. 6. Diabetes mellitus. 7. Charcot deformity of the left foot. RECOMMENDATIONS: 1. Continue ceftriaxone. 2. Continue azithromycin. 3. Monitor urine culture for identity and sensitivity of the gram-negative rafiq. 4. Monitor blood culture for identity and sensitivity of the gram-positive cocci. 5. Give Zyvox while awaiting identity and sensitivity of the positive bacteria in the blood. I would want to avoid vancomycin in the setting of acute kidney disease in this patient. 6. Monitor clinical status. Thank you for this consultation. I will monitor the patient's progress and make further recommendations and followup as necessary. MD MARIE Klein/MARIAJOSE , 04:33 PM , 04:46 PM PAYAL
[2018-07-02] MEDS ORDERED: ALPRAZolam 0.25 MG Tablet PO ONE (21:16)
[2018-07-02] MEDS: Acetaminophen 325 MG Tablet PO PRN (21:35)
[2018-07-02] MEDS: Latanoprost 0.005% Opth Drops 2.5 ML Bottle EACH EYE SCH (21:46)
--- NOTE | 2018-07-02 22:04 | XR ---
EXAM DATE: 07/02/2018 10:00 PM EDT AGE/SEX: 88 years / Female INDICATIONS: Pain from fall on right side, radiating through neck region. CLINICAL DATA: This is the patient's initial encounter. Patient reports that signs and symptoms have been present for 4 - 6 days and indicates a pain score of 4/10. MEDICAL/SURGICAL HISTORY: None. None. COMPARISON: No prior exams available for comparison. FINDINGS: No fracture or subluxation of the right shoulder. 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 Radiographic appearance of the soft tissues within normal limits. CONCLUSION: 1. Intact right shoulder. 2. Mild to moderate degenerative changes. Electronically signed by: Felix Garcia MD 07/02/2018 10:02 PM EDT
[2018-07-03] MEDS: Heparin - SQ 10,000 UNITS/ML Vial SQ SCH ×3 (05:24→22:05)
[2018-07-03] MEDS: Sod Chloride 0.9% Inj 1,000 ML IV.CONT SCH (05:25)
[2018-07-03] MEDS: Levothyroxine 75 MCG Tablet PO SCH (05:32)
[2018-07-03] MEDS: Isosorbide Mononitrate 60 MG ER 24HR Tablet (Imdur) PO SCH ×2 (05:55→10:55)
[2018-07-03] MEDS ORDERED: ALPRAZolam 0.25 MG Tablet PO ONE (06:00)
[2018-07-03] MEDS ORDERED: RESP: Racemic Epinephrine 2.25% 0.5 ML Neb NEB ONE (06:52)
--- NOTE | 2018-07-03 07:34 | XR ---
EXAM DATE: 07/03/2018 7:31 AM EDT AGE/SEX: 88 years / Female INDICATIONS: Patient extremely short of breath. CLINICAL DATA: This is the patient's initial encounter. Patient reports that signs and symptoms have been present for 1 day and indicates a pain score of 3/10. MEDICAL/SURGICAL HISTORY: None. None. COMPARISON: [facility] [place], CHEST 1V SINGLE AP, 07/01/2018. . FINDINGS: There is mild haziness to the perivascular structures most likely pulmonary edema. Borderl ine cardiomegaly seen. Focal consolidation is not seen. CONCLUSION: Moderate CHF. Electronically signed by: Boris Chavez MD 07/03/2018 7:32 AM EDT
[2018-07-03 07:35] LABS: ABG Base Excess -6.2 mmol/L (-2-2); ABG PCO2 31 mmHg (38-42); ABG PO2 87 mmHg (61-120)
--- NOTE | 2018-07-03 08:05 | P.PN ---
Subjective Interval history: f/u Sepsis. Developed respiratory distress placed on Bipap Halicat called discussed with RN. Pt transferred to ICU where I saw the patient. Complaints of shortness of breath currently on facemask. Chest x-ray image interpreted in the with fluid overload denies history of heart failure. Telemetry shows tachycardia with PVCs could be afib RVR. Confirms she is a full code. Discussed with graphotype operator Dr. Mathews Physical Exam Vital signs: Vital Signs 07/02/18 08:00 07/02/18 09:00 07/02/18 12:00 Temperature 98.7 F 98.4 F Pulse Rate 84 92 H 81 Respiratory Rate 22 22 Blood Pressure 100/61 146/78 H Pulse Oximetry 94 L 98 07/02/18 15:22 07/02/18 15:59 07/02/18 16:00 Temperature 99.6 F Pulse Rate 79 86 Respiratory Rate 16 24 Blood Pressure 147/71 H Pulse Oximetry 24 L 07/02/18 20:00 07/03/18 00:00 07/03/18 04:00 Temperature 99.5 F 98.6 F 98.1 F Pulse Rate 94 H 95 H 91 H Respiratory Rate 18 18 18 Blood Pressure 170/91 H 135/65 122/74 Pulse Oximetry 95 95 94 L 07/03/18 05:59 07/03/18 06:10 07/03/18 06:11 Temperature Pulse Rate 94 H Respiratory Rate 24 Blood Pressure Pulse Oximetry 93 L 91 L 07/03/18 06:54 Temperature Pulse Rate 116 H Respiratory Rate 40 H Blood Pressure Pulse Oximetry Intake & Output 07/02/18 07/03/18 07/03/18 18:59 06:59 18:59 Intake Total 3000 / 3000 1460 / 1460 Output Total 625 / 625 Balance 3000 / 3000 835 / 835 Weight 81.9 kg Intake: IV 3000 / 3000 1000 / 1000 NS Inj 1,000 ML @ 100 mls/hr IV 2350 / 2350 1000 / 1000 .CONT .Q10H [facility] Rx#:[id number] Azithromycin Inj 250 MG In NS 250 / 250 Inj 250 ML @ 250 mls/hr IV.SIG Q24H [facility] Rx#:[id number] Zyvox 600 mg Premix 300 ML @ 300 / 300 300 mls/hr IV.SIG Q12H [facility] Rx#: [id number] Rocephin Inj 1,000 MG In NS Inj 100 / 100 100 ML @ 200 mls/hr IV.SIG Q24H [facility] Rx#:[id number] Oral 460 / 460 Output: Urine 625 / 625 Other: Date of Last Bowel Movement 07/01/18 07/01/18 Narrative: GENERAL: Well-developed well-nourished in respiratory distress SKIN: Warm and dry. Dry ulcer on the bottom of the left foot. RESPIRATORY: Tachypnea with crackles bilateral lungs GASTROINTESTINAL: Abdomen soft, non-tender, nondistended. Bowel sounds x4. MUSCULOSKELETAL: Left Charcot foot with improved erythema and warmth of the left ankle, but no wounds noted. No edema. NEUROLOGICAL: Awake and alert. No focal neurological deficits. Moves upper and lower extremities spontaneously. Normal speech. PSYCHIATRIC: Appropriate mood and affect; insight and judgment normal. Results - Labs CBC & Chem 7: 07/02/18 06:01 07/02/18 06:01 Laboratory Results - last 24 hr 07/01/18 07/02/18 07/02/18 13:52 06:01 08:09 WBC Differential Manual diff final Seg Neuts % (Manual) 82 H Band Neuts % (Manual) 9 H Lymphocytes % (Manual) 2 L Monocytes % (Manual) 7 Abs Neuts (Manual) 8.6 H Toxic Vacuolation Present H Platelet Estimate Low L Platelet Morphology Normal Puncture Site Patient Temperature O2 Saturation ABG pH ABG pCO2 ABG pO2 ABG HCO3 ABG O2 Content ABG Base Excess ABG Methemoglobin Davey Test Hemoglobin Carboxyhemoglobin O2 Delivery Device Liter Flow Inspired O2 Critical Value POC Glucose 285 H Lactic Acid Urine Color Yellow Urine Clarity Turbid H Urine pH 5.0 Ur Specific Addison 1.018 Urine Protein 500 or greater Urine Glucose (UA) 50 Urine Ketones Trace H Urine Occult Blood Moderate H Urine Nitrate Negative Urine Bilirubin Negative Urine Urobilinogen Less than 2 Ur Leukocyte Esterase Large H Urine RBC 16 H Urine WBC Urine WBC Clumps Many H Ur Squamous Epith Cells 4 Urine Bacteria Many H Hyaline Casts 63 Micro UA Comment Cath-culture ind Urine Culture Comments Cath-cult indicated 07/02/18 07/02/18 07/02/18 12:02 15:25 16:02 WBC Differential Seg Neuts % (Manual) Band Neuts % (Manual) Lymphocytes % (Manual) Monocytes % (Manual) Abs Neuts (Manual) Toxic Vacuolation Platelet Estimate Platelet Morphology Puncture Site Patient Temperature O2 Saturation ABG pH ABG pCO2 ABG pO2 ABG HCO3 ABG O2 Content ABG Base Excess ABG Methemoglobin Davey Test Hemoglobin Carboxyhemoglobin O2 Delivery Device Liter Flow Inspired O2 Critical Value POC Glucose 389 H 365 H 420 H Lactic Acid Urine Color Urine Clarity Urine pH Ur Specific Addison Urine Protein Urine Glucose (UA) Urine Ketones Urine Occult Blood Urine Nitrate Urine Bilirubin Urine Urobilinogen Ur Leukocyte Esterase Urine RBC Urine WBC Urine WBC Clumps Ur Squamous Epith Cells Urine Bacteria Hyaline Casts Micro UA Comment Urine Culture Comments 07/02/18 07/02/18 07/03/18 19:59 20:35 07:18 WBC Differential Seg Neuts % (Manual) Band Neuts % (Manual) Lymphocytes % (Manual) Monocytes % (Manual) Abs Neuts (Manual) Toxic Vacuolation Platelet Estimate Platelet Morphology Puncture Site Right radial Patient Temperature 98.6 O2 Saturation 95 ABG pH 7.38 ABG pCO2 31 L ABG pO2 87 ABG HCO3 18 L ABG O2 Content 16.5 ABG Base Excess -6.2 L ABG Methemoglobin 0.8 Davey Test Y Hemoglobin 12.3 Carboxyhemoglobin 1.1 O2 Delivery Device Mask Liter Flow 8.00 Inspired O2 40 Critical Value No POC Glucose 292 H Lactic Acid 1.9 Urine Color Urine Clarity Urine pH Ur Specific Addison Urine Protein Urine Glucose (UA) Urine Ketones Urine Occult Blood Urine Nitrate Urine Bilirubin Urine Urobilinogen Ur Leukocyte Esterase Urine RBC Urine WBC Urine WBC Clumps Ur Squamous Epith Cells Urine Bacteria Hyaline Casts Micro UA Comment Urine Culture Comments Microbiology 07/01/18 18:25 Blood - Peripheral Aerobic Blood Culture - Preliminary gram positive cocci 07/01/18 18:25 Blood - Peripheral Anaerobic Blood Culture - Preliminary gram positive cocci 07/01/18 18:34 Blood - Peripheral Aerobic Blood Culture - Preliminary gram positive cocci 07/01/18 18:34 Blood - Peripheral Anaerobic Blood Culture - Preliminary gram positive cocci 07/01/18 13:52 Catheterized Urine Urine Culture - Preliminary gram negative rods 07/01/18 13:52 Urine - Catheterized Urine Streptococcus pneumoniae Antigen ( M - Final Presumptive negative for streptococcus pneumoniae antigen, suggesting no current or recent infection. Infection due to Streptococcus pneumoniae cannot be ruled out since the antigen present in the sample may be below the detection limit of the test. 07/01/18 13:52 Urine - Catheterized Urine Legionella Antigen - Final Presumptive negative for Legionella pneumophila serogroup 1 antigen in urine, suggesting no recent or recurrent infection. Infection due to Legionella cannot be ruled out since other serogroups and species may cause disease, antigen may not be present in urine in early infection, and the level of antigen present in the urine may be below the detection limit of the test. - Imaging Impressions Chest X-Ray 07/01/18 00:00 CONCLUSION: Mild basilar airspace disease. No effusion or pneumothorax. Shoulder X-Ray 07/02/18 00:00 CONCLUSION: 1. Intact right shoulder. 2. Mild to moderate degenerative changes. Chest X-Ray 07/03/18 07:13 CONCLUSION: Moderate CHF. - Procedures none Assessment and Plan - Plan 88-year-old female with a past medical history of IDDM, CAD, HTN, CKD, Charcot foot, hypothyroidism, HLD who presented for weakness and fall. 07/03/2018 patient developed respiratory distress from fluid overload transferred to ICU Fluid overload. Discontinue IV fluids for now. Lasix 40 mg IV 1 stat. Obtain 2D echo. Continue oxygen keep saturation at least 92%. Consult critical care medicine. High likelihood of respiratory failure requiring intubation. Sepsis with community-acquired pneumonia, gram-negative UTI and gram-positive cocci bacteremia. Continue IV Zyvox, Rocephin and Zithromax follow cultures and consulted infectious disease Rhabdomyolysis: Follow-up pending CK. IV fluids will be discontinued at this time secondary to fluid overload DAMARI on CKD 3: Creatinine 2.65, previously 1.45 on 11/22/17. Improving continue IVF and follow-up BMP. Insulin-dependent diabetes mellitus with hyperglycemia: Poor oral intake lately. Increase Levemir to 15 units at bedtime for better coverage. SSI with Accu-Cheks. Tachycardia: Appears to be sinus tachycardia, likely compensatory secondary to dehydration. Telemetry monitoring. Repeat EKG Left Charcot foot and ankle with possible cellulitis: Has been following with podiatry, Dr. Preston, at [facility]. Improving continue IV antibiotics as above. Monitor clinically. Consider podiatry evaluation if no improvement. History of CAD: No chest pain. Continue home aspirin, Imdur, atorvastatin. Fall and weakness: Probably multifactorial due to dehydration, hyperglycemia, UTI, pneumonia, sepsis and poor oral intake. PT DVT prophylaxis: SCDs and subcu heparin Discharge Planning: Patient is critical and will be managed in the ICU. Critical care time spent 35 minutes
[2018-07-03] MEDS ORDERED: Dextrose 50% in Water 50 ML Vial IV.PUSH PRN (08:18)
--- NOTE | 2018-07-03 09:17 | MB ---
cc: Crescencio Prasad MD DATE: 07/03/2018 DATE OF : 1930 HISTORY OF PRESENT ILLNESS: The patient is an 88-year-old female with past medical history of diabetes mellitus, coronary artery disease, hypertension, chronic kidney disease, hypothyroidism, hyperlipidemia, Charcot foot, who was admitted to [facility] on 07/01/2018 under hospitalist service for generalized weakness, status post fall. The patient was found to have gram-positive bacteremia with a blood culture from 07/01/2018 that showed Gram-positive cocci. In addition, she was being treated for a UTI. Her urine culture from 07/01/2018 showed gram-negative rods. Her laboratory data on arrival showed acute renal failure with a BUN of 59, creatinine 2.65. In addition, the patient was in rhabdomyolysis with elevated CK at 1765. She was seen by Infectious Disease and was started on broad spectrum antibiotics in addition to IV fluids. [facility] was called today for respiratory distress. A chest x-ray was obtained STAT which showed bilateral pulmonary infiltrates compatible with pulmonary edema. She was given Lasix 40 mg IV push x1 and transferred to [facility]. ABG was performed on 8 liters simple mask, which showed a pH of 7.38, CO2 31, PaO2 87, bicarbonate 18, saturation of 95%. Critical Care Medicine was consulted for respiratory distress. When seen, the patient states her breathing is better after diuretics. She denies any nausea, vomiting or abdominal pain. In addition, she denies any chest pain or any constitutional symptoms. The patient also was found to be in atrial fibrillation with RVR at a rate of 109 beats per minute. PAST MEDICAL HISTORY: Significant for chronic kidney disease, stage III, 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, colon cancer, diabetes mellitus, GERD, hypertension, hyperlipidemia, hypothyroidism, coronary artery disease. PAST SURGICAL HISTORY: Previous hysterectomy, previous cardiac catheterization with stent placement. FAMILY HISTORY: Diabetes and uterine cancer runs in the family. ALLERGIES: ISIDRO. NO KNOWN DRUG ALLERGIES. SOCIAL HISTORY: Nonsmoker, nondrinker. CURRENT MEDICATIONS: 1. Clonidine p.r.n. 2. Insulin. 3. Imdur. 4. Levothyroxine. 5. Zyvox. 6. Aspirin. 7. Azithromycin. 8. Ceftriaxone. REVIEW OF SYSTEMS: As per HPI. The rest of review of systems unremarkable. PHYSICAL EXAMINATION: GENERAL: An 88-year-old female lying in bed on now 6 liters simple mask with sats 91-93%. VITAL SIGNS: Afebrile, temperature 98.1, pulse of 104, blood pressure 126/96, saturation of 99% currently. HEENT: Atraumatic, normocephalic. Pupils are equal, round, reactive to light and accommodation. Extraocular muscles intact. Conjunctivae pink. Nonicteric sclerae. Oral mucosa within normal. NECK: Supple. No JVD, adenopathy or thyromegaly. Trachea in the midline. CARDIOVASCULAR: Tachycardic. Normal S1, S2. No murmurs, rubs or gallops. PULMONARY: Bilateral equal air entry with coarse breath sounds. ABDOMEN: Soft, nontender. No distention. Positive bowel sounds. EXTREMITIES: No cyanosis, clubbing. Edema noted of the left foot. NEUROLOGIC: No focal sensory deficit. LABORATORY DATA: From yesterday, WBC 9.5, hemoglobin 12, hematocrit 37, platelet count 149. Sodium 136, potassium 4.3, chloride 102, CO2 21, BUN 62, creatinine 2.17, glucose of 285. Urinalysis showed large leukocyte esterase, many WBC clumps, many bacteria. IMAGING: Chest x-ray from this morning showed pulmonary edema. ASSESSMENT: 1. Acute hypoxemic respiratory failure. 2. Gram-positive bacteremia. 3. Urinary tract infection. 4. Bilateral pulmonary infiltrates, likely secondary to fluid overload. 5. Acute on chronic kidney disease. 6. Rhabdomyolysis. 7. Atrial fibrillation with rapid ventricular response. 8. Hyperglycemia. 9. History of diabetes mellitus. 10. History of hypertension. 11. History of coronary artery disease. 12. Hypothyroidism. RECOMMENDATIONS: 1. Monitor neuro status closely and avoid any sedatives. 2. Wean down oxygen as tolerated and maintain sats above 92%. 3. Bronchodilators in the form of DuoNeb q. 4 plus q.2 hours p.r.n. for shortness of breath. 4. Monitor heart rate and blood pressure closely and maintain MAP greater than 65 mmHg. IV fluids has been discontinued. Lactic acid level measured at 1.9 yesterday. 54. We will obtain 2-D echo to evaluate LV function and rule out regional wall motion abnormalities. Chest x-ray this morning showed pulmonary edema. The patient was given Lasix 40 mg IV push x1. Continue with Imdur 60 mg daily. 6. Monitor renal function, I's and O's and avoid nephrotoxins. Monitor CKs. Followup on a [facility]. 7. Diurese as needed. The patient was given Lasix 40 mg this morning. 8. Continue with broad spectrum antibiotics per Infectious Disease. She is currently on azithromycin, ceftriaxone and Zyvox 600 mg IV every 12 hours. We will check blood cultures x2 sets. Her blood culture from 07/01/2018 showed gram-positive cocci in all 4 bottles and urine culture showed gram-negative rafiq. 9. Keep n.p.o. for now until respiratory status improves. 10. Continue with sliding scale insulin for glycemic control. In addition, the patient is on NPH insulin 15 units subcutaneous daily and 15 units at bedtime. Continue with Synthroid 75 mcg daily. TSH level measured at 1.1 on 07/01/2018. 11. Monitor CBC and coags. 12. Gastrointestinal prophylaxis: We will place on Protonix 40 mg daily and deep venous thrombosis prophylaxis with sequential compression devices and heparin subcutaneous. 13. We will obtain an x-ray of the left foot for evaluation of her swelling. 14. Further recommendations will be based on hospital course. MD MICHI Medina/NEFTALI , 08:47 AM , 09:02 AM
--- NOTE | 2018-07-03 09:50 | US ---
EXAM DATE: 07/03/2018 9:44 AM EDT AGE/SEX: 88 years / Female INDICATIONS: Left leg swelling. CLINICAL DATA: This is the patient's initial encounter. Patient reports that signs and symptoms have been present for 2 days and indicates a pain score of 3/10. MEDICAL/SURGICAL HISTORY: Diabetes. Gastroesophageal reflux disease. Colon cancer. Femur fract ure. Hyperlipidemia. Hypertension. Hypothyroidism. Myocardial infarction. Chronic kidney disease. Lef t charcot foot. Hysterectomy. Cardiac catheterization with stent. COMPARISON: No prior exams available for comparison. TECHNIQUE: Venous ultrasound of both lower extremities was performed from the inguinal ligament to t he proximal calf. Real-time, color Doppler and spectral tracing, compression and augmentation techni ques were used. FINDINGS: Normal compression of the deep venous system from the inguinal region to the proximal calf . No echogenic clot is seen. Normal response of the venous system to augmentation and respiration. CONCLUSION: 1. No deep venous thrombosis left leg 2. Small popliteal fossa cyst measuring 2.4 x 0.9 x 2.1 cm. Electronically signed by: Zion Hernandes MD 07/03/2018 9:48 AM EDT
[2018-07-03] MEDS: Timolol 0.25% Drops 5 ML Bottle EACH EYE SCH (10:09)
[2018-07-03] MEDS: Estradiol 1 MG Tablet PO SCH (10:55)
[2018-07-03] MEDS: Azithromycin Inj 250 MG in Sodium Chlor 0.9% Inj 250 ML IV.SIG SCH (10:55)
--- NOTE | 2018-07-03 11:03 | XR ---
EXAM DATE: 07/03/2018 10:45 AM EDT AGE/SEX: 88 years / Female INDICATIONS: Pain and swelling. CLINICAL DATA: This is the patient's initial encounter. Patient reports that signs and symptoms have been present for 3 days and indicates a pain score of 4/10. MEDICAL/SURGICAL HISTORY: . Diabetes. Gastroesophageal reflux disease. Colon cancer. Femur frac ture. Hyperlipidemia. Hypertension. Hypothyroidism. Myocardial infarction. Chronic kidney disease. Le ft charcot foot. . Hysterectomy. Cardiac catheterization with stent. COMPARISON: No prior exams available for comparison. FINDINGS: Views left foot are obtained. There is significant arthropathy of the Lisfranc joint and midfoot. The re is displacement of 2-5 metatarsals laterally. There does appear to be some bony fusion and old fra ctures as well. Deformity of the foot also noted. No acute fracture seen. Extensive soft tissue swell ing. CONCLUSION: 1. 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 2. Extensive soft tissue swelling. 3. No acute fracture. Electronically signed by: Zion Hernandes MD 07/03/2018 11:02 AM EDT
[2018-07-03 11:58] LABS: Baso % (Auto) 0.2 % (0.0-2.0); Eos % (Auto) 0.2 % (0.0-4.0); Hematocrit 33.1 % (35.0-46.0); Hemoglobin 10.9 gm/dL (11.6-15.3); Lymph # (Auto) 0.2 th/mm3 (1.0-4.8); Lymph % (Auto) 3.7 % (9.0-44.0); Mean Corpuscular HGB Conc 33.1 % (32.0-36.0); Mean Corpuscular Hemoglobin 30.4 pg (27.0-34.0); Mean Corpuscular Volume 91.8 fL (80.0-100.0); Mean Platelet Volume 9.8 fL (7.0-11.0); Mono # (Auto) 0.3 th/mm3 (0.0-0.9); Mono % (Auto) 4.5 % (0.0-8.0); Neut % (Auto) 91.4 % (16.0-70.0); Platelet Count 149 th/mm3 (150-450); Red Cell Distribution Width 13.6 % (11.6-17.2); White Blood Count 6.6 th/mm3 (4.0-11.0)
--- NOTE | 2018-07-03 12:05 | P.PNID ---
Subjective Remarks: Patient was transferred to intensive care unit because of shortness of breath. She was given Lasix and her breathing improved. Cough without sputum production. She is awake but looks a little lethargic. Afebrile. Denies chills. Blood culture showing staph aureus in all 4 bottles. Urine culture has E. coli. This is an 88-year-old white female who was brought to the emergency department by ambulance. The patient was noted to have fallen in her home the night prior and was unable to get up and was found on the floor and brought to the emergency department the following morning. Past Medical History: PAST MEDICAL AND SURGICAL HISTORY: Diabetes mellitus, hypertension, hypercholesteremia, hypothyroidism, Charcot foot, chronic kidney disease, history of colon cancer, gastroesophageal reflux disease, myocardial infarction, history of hysterectomy, history of cardiac catheterization, history of coronary artery stent. Allergies/Adverse Reactions: Allergies kaye Allergy (Unknown, Verified 07/01/18 12:47) RASH SIMCOR Allergy (Severe, Uncoded 07/01/18 12:47) Edema Objective Vital Signs 07/02/18 12:00 07/02/18 15:22 07/02/18 15:59 Temperature 98.4 F Pulse Rate 81 79 Respiratory Rate 22 16 Blood Pressure 146/78 H Pulse Oximetry 98 07/02/18 16:00 07/02/18 20:00 07/03/18 00:00 Temperature 99.6 F 99.5 F 98.6 F Pulse Rate 86 94 H 95 H Respiratory Rate 24 18 18 Blood Pressure 147/71 H 170/91 H 135/65 Pulse Oximetry 24 L 95 95 07/03/18 04:00 07/03/18 05:59 07/03/18 06:10 Temperature 98.1 F Pulse Rate 91 H 94 H Respiratory Rate 18 24 Blood Pressure 122/74 Pulse Oximetry 94 L 93 L 07/03/18 06:11 07/03/18 06:54 07/03/18 11:24 Temperature Pulse Rate 116 H 90 Respiratory Rate 40 H 18 Blood Pressure Pulse Oximetry 91 L 99 Intake & Output 07/02/18 07/03/18 07/03/18 18:59 06:59 18:59 Intake Total 3000 / 3000 1460 / 1460 Output Total 625 / 625 Balance 3000 / 3000 835 / 835 Weight 81.9 kg Intake: IV 3000 / 3000 1000 / 1000 NS Inj 1,000 ML @ 100 mls/hr IV 2350 / 2350 1000 / 1000 .CONT .Q10H YAHIR Rx#:[id number] Azithromycin Inj 250 MG In NS 250 / 250 Inj 250 ML @ 250 mls/hr IV.SIG Q24H YAHIR Rx#:[id number] Zyvox 600 mg Premix 300 ML @ 300 / 300 300 mls/hr IV.SIG Q12H YAHIR Rx#: [id number] Rocephin Inj 1,000 MG In NS Inj 100 / 100 100 ML @ 200 mls/hr IV.SIG Q24H YAHIR Rx#:[id number] Oral 460 / 460 Output: Urine 625 / 625 Other: Date of Last Bowel Movement 07/01/18 07/01/18 07/01/18 18:25 Blood - Peripheral Aerobic Blood Culture - Preliminary Staphylococcus aureus 07/01/18 18:25 Blood - Peripheral Anaerobic Blood Culture - Preliminary Staphylococcus aureus 07/01/18 18:34 Blood - Peripheral Aerobic Blood Culture - Preliminary Staphylococcus aureus 07/01/18 18:34 Blood - Peripheral Anaerobic Blood Culture - Preliminary Staphylococcus aureus 07/01/18 13:52 Catheterized Urine Urine Culture - Final Escherichia coli 07/01/18 13:52 Urine - Catheterized Urine Streptococcus pneumoniae Antigen ( M - Final Presumptive negative for streptococcus pneumoniae antigen, suggesting no current or recent infection. Infection due to Streptococcus pneumoniae cannot be ruled out since the antigen present in the sample may be below the detection limit of the test. 07/01/18 13:52 Urine - Catheterized Urine Legionella Antigen - Final Presumptive negative for Legionella pneumophila serogroup 1 antigen in urine, suggesting no recent or recurrent infection. Infection due to Legionella cannot be ruled out since other serogroups and species may cause disease, antigen may not be present in urine in early infection, and the level of antigen present in the urine may be below the detection limit of the test. Lab - Hematology Results 07/01/18 07/02/18 13:34 06:01 WBC 11.2 H 9.5 RBC 4.01 4.01 Hgb 12.5 12.2 Hct 37.2 37.2 MCV 92.8 92.8 MCH 31.2 30.4 MCHC 33.6 32.7 RDW 13.4 13.3 Plt Count 150 149 L MPV 11.1 H 10.0 Prelim Diff (Auto) Manual diff required Neut % (Auto) 84.4 H Lymph % (Auto) 5.6 L [place] % (Auto) 9.7 H Eos % (Auto) 0.1 Baso % (Auto) 0.2 Neut # (Auto) 9.5 H Lymph # (Auto) 0.6 L [place] # (Auto) 1.1 H Eos # (Auto) 0.0 Baso # (Auto) 0.0 WBC Differential . Manual diff final Seg Neuts % (Manual) 82 H Band Neuts % (Manual) 9 H Lymphocytes % (Manual) 2 L Monocytes % (Manual) 7 Abs Neuts (Manual) 8.6 H Differential Comment Auto diff final . Toxic Vacuolation Present H Platelet Estimate Low L Platelet Morphology Normal Lab - Chemistry Results 07/01/18 07/01/18 07/01/18 13:29 13:34 13:34 Sodium 133 L Potassium 4.6 Chloride 97 L Carbon Dioxide 21.2 Anion Gap 15 BUN 59 H Creatinine 2.65 H Estimated GFR 17 L POC Glucose 469 H* Random Glucose 420 H Lactic Acid Calcium 8.7 Total Bilirubin 1.2 H AST 64 H ALT 21 Alkaline Phosphatase 72 Total Creatine Kinase 1812 H CK-MB (CK-2) 12.4 H CK-MB (CK-2) % 0.7 Total Protein 6.9 Albumin 2.1 L Beta-Hydroxybutyric Acd 2.09 H TSH 1.150 07/01/18 07/01/18 07/01/18 14:34 17:11 19:55 Sodium Potassium Chloride Carbon Dioxide Anion Gap BUN Creatinine Estimated GFR POC Glucose 366 H 337 H 366 H Random Glucose Lactic Acid Calcium Total Bilirubin AST ALT Alkaline Phosphatase Total Creatine Kinase CK-MB (CK-2) CK-MB (CK-2) % Total Protein Albumin Beta-Hydroxybutyric Acd [facility] 07/01/18 07/02/18 07/02/18 23:39 06:01 08:09 Sodium 136 Potassium 4.3 Chloride 102 Carbon Dioxide 21.8 Anion Gap 12 BUN 62 H Creatinine 2.17 H Estimated GFR 21 L POC Glucose 285 H Random Glucose 265 H D Lactic Acid Calcium 8.2 L Total Bilirubin AST ALT Alkaline Phosphatase Total Creatine Kinase 1765 H CK-MB (CK-2) 7.9 H CK-MB (CK-2) % 0.4 Total Protein Albumin Beta-Hydroxybutyric Acd TSH 07/02/18 07/02/1818 12:02 15:25 16:02 Sodium Potassium Chloride Carbon Dioxide Anion Gap BUN Creatinine Estimated GFR POC Glucose 389 H 365 H 420 H Random Glucose Lactic Acid Calcium Total Bilirubin AST ALT Alkaline Phosphatase Total Creatine Kinase CK-MB (CK-2) CK-MB (CK-2) % Total Protein Albumin Beta-Hydroxybutyric Acd TSH 07/02/18 07/02/18 07/03/18 19:59 20:35 08:06 Sodium Potassium Chloride Carbon Dioxide Anion Gap BUN Creatinine Estimated GFR POC Glucose 292 H 217 H Random Glucose Lactic Acid 1.9 Calcium Total Bilirubin AST ALT Alkaline Phosphatase Total Creatine Kinase CK-MB (CK-2) CK-MB (CK-2) % Total Protein Albumin Beta-Hydroxybutyric Acd TSH 07/03/18 10:58 Sodium Potassium Chloride Carbon Dioxide Anion Gap BUN Creatinine Estimated GFR POC Glucose 250 H Random Glucose Lactic Acid Calcium Total Bilirubin AST ALT Alkaline Phosphatase Total Creatine Kinase CK-MB (CK-2) CK-MB (CK-2) % Total Protein Albumin Beta-Hydroxybutyric Acd [facility] Imaging: ITS Impressions Shoulder X-Ray 07/02/18 00:00 CONCLUSION: 1. Intact right shoulder. 2. Mild to moderate degenerative changes. Foot X-Ray 07/03/18 00:00 CONCLUSION: 1. 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 2. Extensive soft tissue swelling. 3. No acute fracture. Venous Doppler Study 07/03/18 00:00 CONCLUSION: 1. No deep venous thrombosis left leg 2. Small popliteal fossa cyst measuring 2.4 x 0.9 x 2.1 cm. Chest X-Ray 07/03/18 07:13 CONCLUSION: Moderate CHF. Physical Exam: PHYSICAL EXAMINATION: GENERAL: Lethargic. No acute distress. HEENT: Head is atraumatic. The mild erythema on the face on the left side of the lip has improved. Extraocular movements grossly intact. Pupils reactive to light. No icterus. Oropharynx has moist mucosa. No lesions. NECK: Supple without adenopathy. LUNGS: Decreased breath sounds with slight rhonchi. HEART: Regular S1, S2. No murmurs heard. ABDOMEN: Bowel sounds present. Soft, hyperactive, nontender. The abdomen is obese. EXTREMITIES: The left ankle has marked its swelling and the dorsum of the foot has Charcot deformity. The erythema has improved. No open lesion or draining lesion. The other extremities have no clubbing, cyanosis or edema. SKIN: No diffuse rash. NEUROLOGIC: No gross focal finding. PSYCHIATRIC: Calm and cooperative. Assessment and Plan - Plan IMPRESSION: 1. Sepsis due to staph aureus. Source unclear, but could be from the left foot. Patient has Charcot's foot deformity and has been receiving treatment. However she has no open or draining wound. 2. Urinary tract infection due to E. coli. 3. Fever, improved after antibiotics. 4. Improved leukocytosis. 5. Acute kidney disease. 6. Diabetes mellitus. RECOMMENDATIONS: 1. Continue ceftriaxone. 2. Continue azithromycin. 3. Continue Zyvox. Monitor sensitivity of the staph aureus. 4. Follow kidney function. 5. Obtain 2D echocardiogram to check for cardiac lesions since there is no clear source for the staph aureus in the blood, and she also has atrial fibrillation. 6. Monitor clinical status.
[2018-07-03 12:13] LABS: Albumin 1.6 g/dL (3.4-5.0); Calcium 7.4 mg/dL (8.5-10.1); Carbon Dioxide 22.9 meq/L (21.0-32.0); Potassium 3.9 meq/L (3.5-5.1)
[2018-07-03 12:23] LABS: Total Protein 5.8 g/dL (6.4-8.2)
[2018-07-03 12:35] LABS: CKMB Percent 0.7 % (0.0-4.0); Creatine Kinase MB 2.9 ng/mL (0.5-3.6)
[2018-07-03] MEDS: Insulin NovoLIN Regular Correctional Sugar Inj SQ SCH ×4 (13:59→20:24)
--- NOTE | 2018-07-03 14:39 | ECHRPT ---
Indication: heart failure CONCLUSIONS The left ventricular systolic function is normal with an estimated ejection fraction in the range of 60-65%. Normal left ventricular size. Mild concentric left ventricular hypertrophy. No regional wall motion abnormalities are present. BP: / HR: Rhythm: Atrial fibrillation MEASUREMENTS (Male / Female) Normal Values Technical Quality:Technically difficult study 2D ECHO LVOT Diameter 1.8 cm M-MODE LV Diastolic Diameter MM 7.3 cm 4.2 - 5.9 / 3.9 - 5.3 cm LV Systolic Diameter MM 4.4 cm LV Ejection Fraction MM Teich 67.7 % IVS Diastolic Thickness MM 1.3 cm 0.6 - 1.0 / 0.6 - 0.9 cm LVPW Diastolic Thickness MM 1.4 cm 0.6 - 1.0 / 0.6 - 0.9 cm LV Relative Wall Thickness MM 0.4 0.24 - 0.42 / 0.22 - 0.42 Aortic Root Diameter MM 2.2 cm AV Cusp Separation MM 1.7 cm DOPPLER AV Peak Velocity 141.0 cm/s AV Peak Gradient 8.0 mmHg LVOT Peak Velocity 91.3 cm/s LVOT Peak Gradient 3.3 mmHg AV Area Cont Eq pk 1.6 cm MV Area PHT 5.5 cm FINDINGS LEFT VENTRICLE The left ventricular systolic function is normal with an estimated ejection fraction in the range of 60-65%. Normal left ventricular size. Mild concentric left ventricular hypertrophy. No regional wall motion abnormalities are present. RIGHT VENTRICLE Normal right ventricular size and systolic function. LEFT ATRIUM The left atrial size is normal. RIGHT ATRIUM The right atrial size is normal. ATRIAL SEPTUM Normal atrial septal thickness without atrial level shunting by limited color doppler interrogation. AORTA The aortic root and proximal ascending aorta are normal in size on limited imaging. MITRAL VALVE Structurally normal mitral valve. No mitral valve stenosis or regurgitation. AORTIC VALVE Trileaflet aortic valve. No aortic valve stenosis or regurgitation. PULMONARY VALVE The pulmonary valve is not well visualized. VESSELS The inferior vena cava is normal in size. PERICARDIUM No pericardial effusion. Evan Drake MD, FACC (Electronically Signed) Final Date:03 July 2018 14:38
[2018-07-03] MEDS: Latanoprost 0.005% Opth Drops 2.5 ML Bottle EACH EYE SCH (20:18)
--- NOTE | 2018-07-04 03:58 | XR ---
EXAM DATE: 07/04/2018 3:30 AM EDT AGE/SEX: 88 years / Female INDICATIONS: Short of breath. CLINICAL DATA: This is the patient's subsequent encounter. Patient reports that signs and symptoms h ave been present for 1 week and indicates a pain score of 0/10. MEDICAL/SURGICAL HISTORY: None. None. COMPARISON: [facility] – [place], CHEST 1V SINGLE AP, 07/03/2018. . FINDINGS: There is cardiomegaly and patchy airspace disease at the lung bases. No effusions. Osseous structures are intact. CONCLUSION: Bilateral lower lobe airspace disease. Electronically signed by: Timothy Conti MD 07/04/2018 3:56 AM EDT
[2018-07-04] MEDS: Insulin NovoLIN Regular Correctional Sugar Inj SQ SCH ×6 (04:35→20:18)
[2018-07-04] MEDS: Heparin - SQ 10,000 UNITS/ML Vial SQ SCH ×2 (06:24→13:11)
[2018-07-04] MEDS: Isosorbide Mononitrate 60 MG ER 24HR Tablet (Imdur) PO SCH (06:24)
[2018-07-04] MEDS: Levothyroxine 75 MCG Tablet PO SCH (06:24)
[2018-07-04] MEDS: Acetaminophen 325 MG Tablet PO PRN (06:30)
[2018-07-04 06:48] LABS: Baso % (Auto) 0.4 % (0.0-2.0); Eos # (Auto) 0.1 th/mm3 (0.0-0.4); Eos % (Auto) 2.2 % (0.0-4.0); Hematocrit 30.1 % (35.0-46.0); Hemoglobin 10.1 gm/dL (11.6-15.3); Lymph # (Auto) 0.6 th/mm3 (1.0-4.8); Lymph % (Auto) 10.6 % (9.0-44.0); Mean Corpuscular HGB Conc 33.6 % (32.0-36.0); Mean Corpuscular Hemoglobin 30.7 pg (27.0-34.0); Mean Corpuscular Volume 91.2 fL (80.0-100.0); Mono # (Auto) 0.4 th/mm3 (0.0-0.9); Mono % (Auto) 6.4 % (0.0-8.0); Neut # (Auto) 4.7 th/mm3 (1.8-7.7); Neut % (Auto) 80.4 % (16.0-70.0); Platelet Count 161 th/mm3 (150-450); Red Cell Distribution Width 13.9 % (11.6-17.2); White Blood Count 5.8 th/mm3 (4.0-11.0)
[2018-07-04 07:11] LABS: Albumin 1.5 g/dL (3.4-5.0); Anion Gap 11 meq/L (5-15); Aspartate Aminotransferase 40 U/L (15-37); Blood Urea Nitrogen 63 mg/dL (7-18); Calcium 7.5 mg/dL (8.5-10.1); Carbon Dioxide 22.6 meq/L (21.0-32.0); Chloride 104 meq/L (98-107); Glomerular Filtration Rate 25 mL/min (>89); Glucose,Random 133 mg/dL (74-106); Potassium 3.4 meq/L (3.5-5.1); Sodium 138 meq/L (136-145)
[2018-07-04 07:12] LABS: Alanine Aminotransferase 25 U/L (10-53)
[2018-07-04 07:14] LABS: Alkaline Phosphatase 67 U/L (45-117); Creatine Kinase 280 U/L (26-192); Total Protein 5.7 g/dL (6.4-8.2)
--- NOTE | 2018-07-04 07:35 | ECG ---
Date Performed: 07/03/2018 Time Performed: 08:06:30 PTAGE: 88 years EKG: Atrial fibrillation with rapid ventricular response. Poor R wave progression - probable nor mal variant Inferior T wave changes are nonspecific Low QRS voltages in precordial leads Abnormal ECG PREVIOUS TRACING : 07/01/2018 17.39 DOCTOR: Noreen Madrid Interpretating Date/Time 07/04/2018 07:32:09
[2018-07-04 07:38] LABS: CKMB Percent 0.8 % (0.0-4.0); Creatine Kinase MB 2.3 ng/mL (0.5-3.6); Magnesium 1.8 mg/dL (1.5-2.5)
[2018-07-04] MEDS: Estradiol 1 MG Tablet PO SCH (08:19)
[2018-07-04] MEDS: Timolol 0.25% Drops 5 ML Bottle EACH EYE SCH (08:20)
[2018-07-04] MEDS: Azithromycin Inj 250 MG in Sodium Chlor 0.9% Inj 250 ML IV.SIG SCH (08:43)
--- NOTE | 2018-07-04 11:37 | P.PNCC ---
Subjective Subjective Remarks/Hospital Course: The patient is an 88-year-old female with past medical history of diabetes mellitus, coronary artery disease, hypertension, chronic kidney disease, hypothyroidism, hyperlipidemia, Charcot foot, who was admitted to [facility] on 07/01/2018 under hospitalist service for generalized weakness , status post fall. The patient was found to have gram-positive bacteremia with a blood culture from 07/01/2018 that showed Gram-positive cocci. In addition, she was being treated for a UTI. Her urine culture from 07/01/2018 showed gram-negative rods. Her laboratory data on arrival showed acute renal failure with a BUN of 59, creatinine 2.65. In addition, the patient was in rhabdomyolysis with elevated CK at 1765. She was seen by Infectious Disease and was started on broad spectrum antibiotics in addition to IV fluids. [facility] was called today for respiratory distress. A chest x-ray was obtained STAT which showed bilateral pulmonary infiltrates compatible with pulmonary edema. She was given Lasix 40 mg IV push x1 and transferred to [facility] [place]. ABG was performed on 8liters simple mask, which showed a pH of 7.38, CO2 31, PaO2 87, bicarbonate 18, saturation of 95%. Critical Care Medicine was consulted for respiratory distress. When seen, the patient states her breathing is better after diuretics. She denies any nausea, vomiting or abdominal pain. In addition, she denies any chest pain or any constitutional symptoms. The patient also was found to be in atrial fibrillation with RVR at a rate of 109 beats per minute. Subjective 07/04: Afebrile. Currently on 2 L nasal cannula. Complains of shortness of breath. Diuresed with furosemide yesterday. Remains H fibrillation heart rates in the low 100s. Denies chest pain. Objective Vital Signs / I&O: Vital Signs 07/03/18 11:55 07/03/18 12:00 07/03/18 12:31 Temperature 99.3 F Pulse Rate 92 H 92 H 82 Respiratory Rate 28 H 31 H 38 H Blood Pressure 137/64 113/56 L Pulse Oximetry 97 94 L 97 07/03/18 13:00 07/03/18 13:01 07/03/18 13:31 Temperature Pulse Rate 83 82 83 Respiratory Rate 22 22 33 H Blood Pressure 117/55 L 111/66 Pulse Oximetry 97 98 97 07/03/18 14:00 07/03/18 14:31 07/03/18 15:00 Temperature Pulse Rate 83 80 80 Respiratory Rate 24 34 H 36 H Blood Pressure 112/65 115/74 Pulse Oximetry 97 96 97 07/03/18 15:01 07/03/18 15:31 07/03/18 16:00 Temperature 99.3 F Pulse Rate 81 82 82 Respiratory Rate 35 H 38 H 29 H Blood Pressure 121/104 H 121/54 L Pulse Oximetry 95 97 96 07/03/18 16:01 07/03/18 16:31 07/03/18 17:00 Temperature Pulse Rate 81 80 82 Respiratory Rate 35 H 23 32 H Blood Pressure 124/58 L 106/53 L 67/46 L Pulse Oximetry 97 97 98 07/03/18 17:04 07/03/18 17:31 07/03/18 18:00 Temperature Pulse Rate 80 91 H 92 H Respiratory Rate 33 H 45 H 33 H Blood Pressure 109/56 L 118/56 L 123/97 H Pulse Oximetry 98 96 95 07/03/18 18:31 07/03/18 19:23 07/03/18 19:24 Temperature Pulse Rate 86 89 Respiratory Rate 29 H 19 Blood Pressure 127/58 L Pulse Oximetry 97 99 07/03/18 20:00 07/03/18 23:15 07/04/18 00:00 Temperature 99.4 F 99.9 F H Pulse Rate 88 90 98 H Respiratory Rate 35 H 23 28 H Blood Pressure 145/54 H 154/63 H Pulse Oximetry 97 99 98 07/04/18 03:22 07/04/18 04:00 07/04/18 07:32 Temperature 100 F H Pulse Rate 94 H 98 H 92 H Respiratory Rate 25 H 26 H 18 Blood Pressure 148/62 H Pulse Oximetry 97 98 98 07/04/18 08:00 07/04/18 09:00 Temperature 99.5 F Pulse Rate 93 H 81 Respiratory Rate 29 H Blood Pressure 120/78 Pulse Oximetry 97 Intake & Output 07/03/18 07/04/18 07/04/18 18:59 06:59 18:59 Intake Total 1270 / 1270 1880 / 1880 Output Total 450 / 450 400 / 400 Balance 820 / 820 1480 / 1480 Weight 89.5 kg Intake: IV 550 / 550 1400 / 1400 Azithromycin Inj 250 MG In NS 250 / 250 Inj 250 ML @ 250 mls/hr IV.SIG Q24H YAHIR Rx#:[id number] Zyvox 600 mg Premix 300 ML @ 300 / 300 300 / 300 300 mls/hr IV.SIG Q12H YAHIR Rx#: [id number] Rocephin Inj 1,000 MG In NS Inj 100 / 100 100 ML @ 200 mls/hr IV.SIG Q24H YAHIR Rx#:[id number] Oral 720 / 720 480 / 480 Output: Urine 450 / 450 400 / 400 Other: Date of Last Bowel Movement 07/01/18 07/04/18 07/01/18 # Bowel Movements 1 Result Diagrams: 07/04/18 06:10 07/04/18 06:10 Other Results: Microbiology 07/03/18 11:35 Blood - Peripheral Aerobic Blood Culture - Preliminary No growth in 1 day 07/03/18 11:35 Blood - Peripheral Anaerobic Blood Culture - Preliminary No growth in 1 day 07/03/18 11:30 Blood - Peripheral Aerobic Blood Culture - Preliminary No growth in 1 day 07/03/18 11:30 Blood - Peripheral Anaerobic Blood Culture - Preliminary No growth in 1 day 07/01/18 18:25 Blood - Peripheral Aerobic Blood Culture - Final Staphylococcus aureus 07/01/18 18:25 Blood - Peripheral Anaerobic Blood Culture - Final Staphylococcus aureus 07/01/18 18:34 Blood - Peripheral Aerobic Blood Culture - Final Staphylococcus aureus 07/01/18 18:34 Blood - Peripheral Anaerobic Blood Culture - Final Staphylococcus aureus 07/01/18 13:52 Catheterized Urine Urine Culture - Final Escherichia coli 07/01/18 13:52 Urine - Catheterized Urine Streptococcus pneumoniae Antigen ( M - Final Presumptive negative for streptococcus pneumoniae antigen, suggesting no current or recent infection. Infection due to Streptococcus pneumoniae cannot be ruled out since the antigen present in the sample may be below the detection limit of the test. 07/01/18 13:52 Urine - Catheterized Urine Legionella Antigen - Final Presumptive negative for Legionella pneumophila serogroup 1 antigen in urine, suggesting no recent or recurrent infection. Infection due to Legionella cannot be ruled out since other serogroups and species may cause disease, antigen may not be present in urine in early infection, and the level of antigen present in the urine may be below the detection limit of the test. Imaging: ITS Impressions Shoulder X-Ray 07/02/18 00:00 CONCLUSION: 1. Intact right shoulder. 2. Mild to moderate degenerative changes. Foot X-Ray 07/03/18 00:00 CONCLUSION: 1. 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 2. Extensive soft tissue swelling. 3. No acute fracture. Venous Doppler Study 07/03/18 00:00 CONCLUSION: 1. No deep venous thrombosis left leg 2. Small popliteal fossa cyst measuring 2.4 x 0.9 x 2.1 cm. Chest X-Ray 07/04/18 00:00 CONCLUSION: Bilateral lower lobe airspace disease. Objective Remarks: GENERAL: 88-year-old female resting in bed on nasal cannula in no acute distress SKIN: Warm and dry. HEAD: Atraumatic. Normocephalic. EYES: Pupils equal and round. No scleral icterus. No injection or drainage. ENT: No nasal bleeding or discharge. Mucous membranes pink and moist. NECK: Trachea midline. No JVD. CARDIOVASCULAR: Tachycardia, IR. S1, S2 no S4. Without murmur RESPIRATORY: No accessory muscle use. Basilar crackles appreciated. Positive end expiratory wheeze. GASTROINTESTINAL: Abdomen soft, non-tender, nondistended. Hepatic and splenic margins not palpable. MUSCULOSKELETAL: Extremities positive lower extremity edema. No obvious deformities. NEUROLOGICAL: Awake and alert. No obvious cranial nerve deficits. Motor grossly within normal limits. Five out of 5 muscle strength in the arms and legs. Normal speech. PSYCHIATRIC: Appropriate mood and affect; insight and judgment normal. Assessment and Plan - Assessment and Plan Plan: Neuro/Psych: Glaucoma Acetaminophen 650 every 4 hours as needed fever Continue timolol 0.25% 1 drop each eye at night in latanoprost 0.005% 1 drop each eye at night CV: Essential hypertension Atrial fibrillation with rapid ventricular response Coronary artery disease Hyperlipidemia 2D echocardiogram revealed ejection fraction 65-70%. Pulmonic and tricuspid valve not well visualized. Aortic and mitral valves no vegetations Continue with isosorbide mononitrate 60 mg daily With atorvastatin 20 mg daily for hyper lipidemia Continue aspirin 81 mg daily Resp: Acute respiratory insufficiency Nasal cannula to maintain saturations greater than equal 92%. Currently on 2 L Incentive spirometry while awake Albuterol/ipratropium aerosols every 4 hours with albuterol aerosols every 2 hours as needed for dyspnea Chest x-ray in a.m. 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 4 hour Accu-Cheks sliding scale. 20 units past 24 hours At home on NPH 30 units in the morning 20 units at night Continue levothyroxine 75 mg daily. TSH 1.1 Renal: Acute on chronic kidney disease stage IIIa Monitor urine output Accurate I's and O's Recheck BMP in a.m. Heme: Normocytic anemia Monitor CBC daily. Follow trends FeSO4 325 mg daily ID: Staph aureus bacteremia E. coli UTI Blood cultures 2 07/03 no growth today Cultures 07/01 with 4-4 staph aureus UA with E. coli Followed by infectious disease. Currently on linezolid, ceftriaxone and azithromycin. 2D echocardiogram as above FEN: Hypokalemia 40 meq potassium chloride p.o. 1 now. 2 g mag sulfate IV times now. Recheck in a.m. MSK: Out of bed/PT evaluate and treat. Continue with them and D2 50,000 units weekly Access -Utilize peripheral IV. Central line if indicated Prophylaxis -GI -DVT Level 2 follow-up. Patient stable from a critical care medicine standpoint. Assign care to hospitalist in a.m. 07/05.
[2018-07-04] MEDS ORDERED: Furosemide 40 MG Tablet PO ONE (11:52)
--- NOTE | 2018-07-04 11:54 | P.PNID ---
Subjective Remarks: Patient was transferred to intensive care unit because of shortness of breath. Coughing more. No sputum. She is awake. Afebrile. Denies chills. Denies chest pain. Blood culture showing staph aureus in all 4 bottles. Repeat blood culture has no growth in 1 day. CXR has infiltrate. This is an 88-year-old white female who was brought to the emergency department by ambulance. The patient was noted to have fallen in her home the night prior and was unable to get up and was found on the floor and brought to the emergency department the following morning. Past Medical History: PAST MEDICAL AND SURGICAL HISTORY: Diabetes mellitus, hypertension, hypercholesteremia, hypothyroidism, Charcot foot, chronic kidney disease, history of colon cancer, gastroesophageal reflux disease, myocardial infarction, history of hysterectomy, history of cardiac catheterization, history of coronary artery stent. Allergies/Adverse Reactions: Allergies kaye Allergy (Unknown, Verified 07/01/18 12:47) RASH SIMCOR Allergy (Severe, Uncoded 07/01/18 12:47) Edema Objective Vital Signs 07/03/18 11:55 07/03/18 12:00 07/03/18 12:31 Temperature 99.3 F Pulse Rate 92 H 92 H 82 Respiratory Rate 28 H 31 H 38 H Blood Pressure 137/64 113/56 L Pulse Oximetry 97 94 L 97 07/03/18 13:00 07/03/18 13:01 07/03/18 13:31 Temperature Pulse Rate 83 82 83 Respiratory Rate 22 22 33 H Blood Pressure 117/55 L 111/66 Pulse Oximetry 97 98 97 07/03/18 14:00 07/03/18 14:31 07/03/18 15:00 Temperature Pulse Rate 83 80 80 Respiratory Rate 24 34 H 36 H Blood Pressure 112/65 115/74 Pulse Oximetry 97 96 97 07/03/18 15:01 07/03/18 15:31 07/03/18 16:00 Temperature 99.3 F Pulse Rate 81 82 82 Respiratory Rate 35 H 38 H 29 H Blood Pressure 121/104 H 121/54 L Pulse Oximetry 95 97 96 07/03/18 16:01 07/03/18 16:31 07/03/18 17:00 Temperature Pulse Rate 81 80 82 Respiratory Rate 35 H 23 32 H Blood Pressure 124/58 L 106/53 L 67/46 L Pulse Oximetry 97 97 98 07/03/18 17:04 07/03/18 17:31 07/03/18 18:00 Temperature Pulse Rate 80 91 H 92 H Respiratory Rate 33 H 45 H 33 H Blood Pressure 109/56 L 118/56 L 123/97 H Pulse Oximetry 98 96 95 07/03/18 18:31 07/03/18 19:23 07/03/18 19:24 Temperature Pulse Rate 86 89 Respiratory Rate 29 H 19 Blood Pressure 127/58 L Pulse Oximetry 97 99 07/03/18 20:00 07/03/18 23:15 07/04/18 00:00 Temperature 99.4 F 99.9 F H Pulse Rate 88 90 98 H Respiratory Rate 35 H 23 28 H Blood Pressure 145/54 H 154/63 H Pulse Oximetry 97 99 98 07/04/18 03:22 07/04/18 04:00 07/04/18 07:32 Temperature 100 F H Pulse Rate 94 H 98 H 92 H Respiratory Rate 25 H 26 H 18 Blood Pressure 148/62 H Pulse Oximetry 97 98 98 07/04/18 08:00 07/04/18 09:00 07/04/18 11:37 Temperature 99.5 F Pulse Rate 93 H 81 76 Respiratory Rate 29 H 20 Blood Pressure 120/78 Pulse Oximetry 97 Intake & Output 07/03/18 07/04/18 07/04/18 18:59 06:59 18:59 Intake Total 1270 / 1270 1880 / 1880 Output Total 450 / 450 400 / 400 Balance 820 / 820 1480 / 1480 Weight 89.5 kg Intake: IV 550 / 550 1400 / 1400 Azithromycin Inj 250 MG In NS 250 / 250 Inj 250 ML @ 250 mls/hr IV.SIG Q24H YAHIR Rx#:[id number] Zyvox 600 mg Premix 300 ML @ 300 / 300 300 / 300 300 mls/hr IV.SIG Q12H YAHIR Rx#: [id number] Rocephin Inj 1,000 MG In NS Inj 100 / 100 100 ML @ 200 mls/hr IV.SIG Q24H YAHIR Rx#:[id number] Oral 720 / 720 480 / 480 Output: Urine 450 / 450 400 / 400 Other: Date of Last Bowel Movement 07/01/18 07/04/18 07/01/18 # Bowel Movements 1 07/03/18 11:35 Blood - Peripheral Aerobic Blood Culture - Preliminary No growth in 1 day 07/03/18 11:35 Blood - Peripheral Anaerobic Blood Culture - Preliminary No growth in 1 day 07/03/18 11:30 Blood - Peripheral Aerobic Blood Culture - Preliminary No growth in 1 day 07/03/18 11:30 Blood - Peripheral Anaerobic Blood Culture - Preliminary No growth in 1 day 07/01/18 18:25 Blood - Peripheral Aerobic Blood Culture - Final Staphylococcus aureus 07/01/18 18:25 Blood - Peripheral Anaerobic Blood Culture - Final Staphylococcus aureus 07/01/18 18:34 Blood - Peripheral Aerobic Blood Culture - Final Staphylococcus aureus 07/01/18 18:34 Blood - Peripheral Anaerobic Blood Culture - Final Staphylococcus aureus 07/01/18 13:52 Catheterized Urine Urine Culture - Final Escherichia coli 07/01/18 13:52 Urine - Catheterized Urine Streptococcus pneumoniae Antigen ( M - Final Presumptive negative for streptococcus pneumoniae antigen, suggesting no current or recent infection. Infection due to Streptococcus pneumoniae cannot be ruled out since the antigen present in the sample may be below the detection limit of the test. 07/01/18 13:52 Urine - Catheterized Urine Legionella Antigen - Final Presumptive negative for Legionella pneumophila serogroup 1 antigen in urine, suggesting no recent or recurrent infection. Infection due to Legionella cannot be ruled out since other serogroups and species may cause disease, antigen may not be present in urine in early infection, and the level of antigen present in the urine may be below the detection limit of the test. Lab - Hematology Results 07/03/18 07/04/18 11:35 06:10 WBC 6.6 5.8 RBC 3.60 L 3.30 L Hgb 10.9 L 10.1 L Hct 33.1 L 30.1 L MCV 91.8 91.2 MCH 30.4 30.7 MCHC 33.1 33.6 RDW 13.6 13.9 Plt Count 149 L 161 MPV 9.8 10.0 Neut % (Auto) 91.4 H 80.4 H Lymph % (Auto) 3.7 L 10.6 [place] % (Auto) 4.5 6.4 Eos % (Auto) 0.2 2.2 Baso % (Auto) 0.2 0.4 Neut # (Auto) 6.0 4.7 Lymph # (Auto) 0.2 L 0.6 L [place] # (Auto) 0.3 0.4 Eos # (Auto) 0.0 0.1 Baso # (Auto) 0.0 0.0 WBC Differential . . Differential Comment Auto diff final Auto diff final Lab - Chemistry Results 07/02/18 07/02/18 07/02/18 12:02 15:25 16:02 Sodium Potassium Chloride Carbon Dioxide Anion Gap BUN Creatinine Estimated GFR POC Glucose 389 H 365 H 420 H Random Glucose Lactic Acid Calcium Prot Corrected Calcium Magnesium Total Bilirubin AST ALT Alkaline Phosphatase Total Creatine Kinase CK-MB (CK-2) CK-MB (CK-2) % Total Protein Albumin 07/02/18 07/02/18 07/03/18 19:59 20:35 08:06 Sodium Potassium Chloride Carbon Dioxide Anion Gap BUN Creatinine Estimated GFR POC Glucose 292 H 217 H Random Glucose Lactic Acid 1.9 Calcium Prot Corrected Calcium Magnesium Total Bilirubin AST ALT Alkaline Phosphatase Total Creatine Kinase CK-MB (CK-2) CK-MB (CK-2) % Total Protein Albumin 07/03/18 07/03/18 07/03/18 10:58 11:35 11:35 Sodium 136 Potassium 3.9 Chloride 103 Carbon Dioxide 22.9 Anion Gap 10 BUN 64 H Creatinine 1.90 H Estimated GFR 25 L POC Glucose 250 H Random Glucose 226 H Lactic Acid Calcium 7.4 L* D Prot Corrected Calcium 8.1 L Magnesium Total Bilirubin 0.5 AST 34 ALT 24 Alkaline Phosphatase 65 Total Creatine Kinase 418 H CK-MB (CK-2) 2.9 CK-MB (CK-2) % 0.7 Total Protein 5.8 L D Albumin 1.6 L 07/03/18 07/03/18 07/03/18 17:58 20:13 23:25 Sodium Potassium Chloride Carbon Dioxide Anion Gap BUN Creatinine Estimated GFR POC Glucose 251 H 243 H 178 H Random Glucose Lactic Acid Calcium Prot Corrected Calcium Magnesium Total Bilirubin AST ALT Alkaline Phosphatase Total Creatine Kinase CK-MB (CK-2) CK-MB (CK-2) % Total Protein Albumin 07/04/18 07/04/18 07/04/18 04:33 06:10 07:39 Sodium 138 Potassium 3.4 L Chloride 104 Carbon Dioxide 22.6 Anion Gap 11 BUN 63 H Creatinine 1.92 H Estimated GFR 25 L POC Glucose 139 H 136 H Random Glucose 133 H Lactic Acid Calcium 7.5 L Prot Corrected Calcium Magnesium 1.8 Total Bilirubin 0.3 AST 40 H ALT 25 Alkaline Phosphatase 67 Total Creatine Kinase 280 H CK-MB (CK-2) 2.3 CK-MB (CK-2) % 0.8 Total Protein 5.7 L Albumin 1.5 L 07/04/18 11:31 Sodium Potassium Chloride Carbon Dioxide Anion Gap BUN Creatinine Estimated GFR POC Glucose 170 H Random Glucose Lactic Acid Calcium Prot Corrected Calcium Magnesium Total Bilirubin AST ALT Alkaline Phosphatase Total Creatine Kinase CK-MB (CK-2) CK-MB (CK-2) % Total Protein Albumin Imaging: ITS Impressions Shoulder X-Ray 07/02/18 00:00 CONCLUSION: 1. Intact right shoulder. 2. Mild to moderate degenerative changes. Foot X-Ray 07/03/18 00:00 CONCLUSION: 1. 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 2. Extensive soft tissue swelling. 3. No acute fracture. Venous Doppler Study 07/03/18 00:00 CONCLUSION: 1. No deep venous thrombosis left leg 2. Small popliteal fossa cyst measuring 2.4 x 0.9 x 2.1 cm. Chest X-Ray 07/04/18 00:00 CONCLUSION: Bilateral lower lobe airspace disease. Physical Exam: PHYSICAL EXAMINATION: GENERAL: Alert. No acute distress. HEENT: Extraocular movements grossly intact. Pupils reactive to light. No icterus. Oropharynx has moist mucosa. No lesions. NECK: Supple without adenopathy. LUNGS: Decreased breath sounds. Basilar rhonchi. HEART: Irregular S1, S2. No murmurs heard. ABDOMEN: Bowel sounds present. Soft, hyperactive, nontender. The abdomen is obese. EXTREMITIES: The left ankle has marked swelling and the dorsum of the foot has Charcot deformity. Erythema still present. (+) warmth. No open lesion or draining lesion. The other extremities have no clubbing, cyanosis or edema. SKIN: No diffuse rash. NEUROLOGIC: No gross focal finding. PSYCHIATRIC: Calm and cooperative. Assessment and Plan - Plan IMPRESSION: 1. Sepsis due to staph aureus. Source unclear, but could be from the left foot. Cellulitis of the left foot. Patient has Charcot's foot deformity and has been receiving treatment. However she has no open or draining wound. 2. Urinary tract infection due to E. coli. 3. Lung infiltrate and coughing. ? PNA. 4. Improved leukocytosis. 5. Acute kidney disease. 6. Diabetes mellitus. RECOMMENDATIONS: 1. Change ceftriaxone to Ancef. 2. Change azithromycin to Levaquin - pulmonary coverage. 3. Stop Zyvox. 4. Follow kidney function. 5. Monitor the left foot. 6. Monitor clinical status.
[2018-07-04] MEDS: Mag Sulf 1 gm/100 ml Premix 100 ML IV.SIG SCH ×2 (12:03→15:19)
[2018-07-04] MEDS: levoFLOXacin 250 MG Tablet PO SCH (13:11)
[2018-07-04] MEDS: guaiFENesin/Dextromethorphan 200 MG/20 MG 10 ML UDC PO PRN ×2 (13:14→20:50)
[2018-07-04] MEDS: ceFAZolin Inj 2,000 MG in Sodium Chlor 0.9% Inj 80 ML IV.SIG SCH (20:17)
[2018-07-04] MEDS: Latanoprost 0.005% Opth Drops 2.5 ML Bottle EACH EYE SCH (20:18)
[2018-07-05] MEDS: guaiFENesin/Dextromethorphan 200 MG/20 MG 10 ML UDC PO PRN (00:02)
[2018-07-05] MEDS: Heparin - SQ 10,000 UNITS/ML Vial SQ SCH ×4 (00:02→21:00)
[2018-07-05] MEDS: Insulin NovoLIN Regular Correctional Sugar Inj SQ SCH ×6 (00:11→20:27)
[2018-07-05] MEDS: Acetaminophen 325 MG Tablet PO PRN (01:39)
[2018-07-05] MEDS: Metoprolol Inj 5 MG/5 ML Vial IV.PUSH SCH ×3 (01:57→08:57)
--- NOTE | 2018-07-05 04:54 | XR ---
EXAM DATE: 07/05/2018 4:52 AM EDT AGE/SEX: 88 years / Female INDICATIONS: Shortness of breath. CLINICAL DATA: This is the patient's subsequent encounter. Patient reports that signs and symptoms h ave been present for 2 weeks and indicates a pain score of 0/10. MEDICAL/SURGICAL HISTORY: None. None. COMPARISON: [facility] – [place] 1V SINGLE AP, 07/04/2018. . FINDINGS: There is mild interstitial prominence, patchy alveolar infiltrates at the lung bases, and cardiomegal y. There is improved aeration since yesterday. Cardiomegaly. CONCLUSION: Improved aeration. Electronically signed by: Timothy Conti MD 07/05/2018 4:53 AM EDT
[2018-07-05 06:10] LABS: Baso # (Auto) 0.1 th/mm3 (0.0-0.2); Baso % (Auto) 0.9 % (0.0-2.0); Eos # (Auto) 0.1 th/mm3 (0.0-0.4); Eos % (Auto) 2.1 % (0.0-4.0); Hematocrit 32.1 % (35.0-46.0); Hemoglobin 10.6 gm/dL (11.6-15.3); Lymph # (Auto) 0.7 th/mm3 (1.0-4.8); Lymph % (Auto) 10.3 % (9.0-44.0); Mean Corpuscular Hemoglobin 30.7 pg (27.0-34.0); Mean Corpuscular Volume 93.1 fL (80.0-100.0); Mean Platelet Volume 10.7 fL (7.0-11.0); Mono # (Auto) 0.4 th/mm3 (0.0-0.9); Mono % (Auto) 5.8 % (0.0-8.0); Neut # (Auto) 5.3 th/mm3 (1.8-7.7); Neut % (Auto) 80.9 % (16.0-70.0); Platelet Count 186 th/mm3 (150-450); Red Blood Count 3.45 mil/mm3 (4.00-5.30); White Blood Count 6.5 th/mm3 (4.0-11.0)
[2018-07-05] MEDS: Levothyroxine 75 MCG Tablet PO SCH (06:15)
[2018-07-05] MEDS: Isosorbide Mononitrate 60 MG ER 24HR Tablet (Imdur) PO SCH (06:15)
[2018-07-05 06:36] LABS: Alanine Aminotransferase 25 U/L (10-53); Albumin 1.6 g/dL (3.4-5.0); Alkaline Phosphatase 82 U/L (45-117); Anion Gap 14 meq/L (5-15); Aspartate Aminotransferase 39 U/L (15-37); Blood Urea Nitrogen 64 mg/dL (7-18); Calcium 8.1 mg/dL (8.5-10.1); Carbon Dioxide 20.5 meq/L (21.0-32.0); Chloride 105 meq/L (98-107); Glomerular Filtration Rate 26 mL/min (>89); Glucose,Random 110 mg/dL (74-106); Phosphorus 2.2 mg/dL (2.5-4.9); Potassium 4.4 meq/L (3.5-5.1); Sodium 139 meq/L (136-145); Total Protein 6.1 g/dL (6.4-8.2)
[2018-07-05] MEDS: Estradiol 1 MG Tablet PO SCH (08:33)
[2018-07-05] MEDS: ceFAZolin Inj 2,000 MG in Sodium Chlor 0.9% Inj 80 ML IV.SIG SCH ×2 (08:33→20:23)
[2018-07-05] MEDS: Timolol 0.25% Drops 5 ML Bottle EACH EYE SCH (08:33)
[2018-07-05] MEDS ORDERED: Metoprolol Inj 5 MG/5 ML Vial IV.PUSH PRN (09:04)
[2018-07-05] MEDS ORDERED: Benzonatate 100 MG Capsule PO PRN (10:29)
--- NOTE | 2018-07-05 10:37 | P.PN ---
Subjective Interval history: Follow-up sepsis, UTI, pneumonia suspect, acute kidney injury and A. fib. Complaining of cough. Patient states she was seen by Dr. Gamez in the past does not recall for what condition. She was also on Coumadin but developed anemia. Discussed with patient need for anticoagulation in light of A. fib with significant risk for CVA. Chadsvasc score of 5. Physical Exam Vital signs: Vital Signs 07/04/18 11:37 07/04/18 11:57 07/04/18 12:00 Temperature 98.6 F Pulse Rate 76 77 Respiratory Rate 20 25 H Blood Pressure 119/56 L Pulse Oximetry 97 97 07/04/18 15:01 07/04/18 16:00 07/04/18 16:01 Temperature 98.9 F Pulse Rate 79 78 78 Respiratory Rate 26 H 32 H 24 Blood Pressure 143/60 H 135/63 135/63 Pulse Oximetry 97 96 98 07/04/18 16:23 07/04/18 16:58 07/04/18 17:00 Temperature Pulse Rate 74 86 Respiratory Rate 17 50 H Blood Pressure Pulse Oximetry 97 96 07/04/18 17:09 07/04/18 18:00 07/04/18 18:01 Temperature Pulse Rate 83 87 83 Respiratory Rate 25 H 26 H 28 H Blood Pressure 119/62 125/60 Pulse Oximetry 95 97 97 07/04/18 19:00 07/04/18 19:01 07/04/18 19:50 Temperature Pulse Rate 85 84 88 Respiratory Rate 21 24 18 Blood Pressure 97/58 L Pulse Oximetry 97 99 97 07/04/18 19:56 07/04/18 20:00 07/04/18 21:00 Temperature 99.1 F Pulse Rate 134 H 101 H 109 H Respiratory Rate 35 H 20 24 Blood Pressure 107/72 107/72 Pulse Oximetry 97 93 L 96 07/04/18 21:01 07/04/18 22:00 07/04/18 22:01 Temperature Pulse Rate 109 H 108 H 109 H Respiratory Rate 25 H 32 H 35 H Blood Pressure 165/72 H 137/63 Pulse Oximetry 97 94 L 97 07/04/18 23:00 07/04/18 23:38 07/05/18 00:00 Temperature 99.8 F H Pulse Rate 127 H 90 93 H Respiratory Rate 22 18 27 H Blood Pressure 122/72 130/63 Pulse Oximetry 96 96 07/05/18 01:00 07/05/18 01:37 07/05/18 02:00 Temperature Pulse Rate 93 H 161 H 102 H Respiratory Rate 26 H 23 21 Blood Pressure 135/63 156/53 H Pulse Oximetry 95 97 97 07/05/18 02:01 07/05/18 03:00 07/05/18 03:45 Temperature Pulse Rate 100 H 119 H 81 Respiratory Rate 15 38 H 16 Blood Pressure 122/62 136/58 L Pulse Oximetry 97 97 07/05/18 04:00 07/05/18 04:06 07/05/18 05:00 Temperature 98.9 F Pulse Rate 82 84 91 H Respiratory Rate 26 H 23 32 H Blood Pressure 120/58 L 120/58 L 128/58 L Pulse Oximetry 95 96 95 07/05/18 06:00 07/05/18 07:00 07/05/18 07:32 Temperature Pulse Rate 81 79 Respiratory Rate 29 H 27 H Blood Pressure 132/57 L 134/67 Pulse Oximetry 96 97 98 07/05/18 07:39 07/05/18 07:40 07/05/18 08:00 Temperature 98.3 F Pulse Rate 79 83 Respiratory Rate 18 35 H Blood Pressure 125/79 Pulse Oximetry 97 96 07/05/18 09:00 07/05/18 09:03 Temperature Pulse Rate 101 H 79 Respiratory Rate 26 H 40 H Blood Pressure 151/67 H Pulse Oximetry 97 99 Intake & Output 07/04/18 07/05/18 07/05/18 18:59 06:59 18:59 Intake Total 500 / 500 690 / 690 Output Total 500 / 500 600 / 600 Balance 0 / 0 90 / 90 Weight 89.5 kg Intake: IV 100 / 100 450 / 450 Azithromycin Inj 250 MG In NS 250 / 250 Inj 250 ML @ 250 mls/hr IV.SIG Q24H YAHIR Rx#:[id number] Magnesium Sulfate 1 gm/D5W 100 100 / 100 100 / 100 ml Premix 100 ML @ 100 mls/hr IV.SIG Q1H YAHIR Rx#:[id number] Ancef Inj 2,000 MG In NS Inj 80 100 / 100 ML @ 200 mls/hr IV.SIG Q12HR YAHIR Rx#:[id number] Oral 400 / 400 240 / 240 Output: Urine 500 / 500 600 / 600 Other: # Voids 4 Date of Last Bowel Movement 07/01/18 07/04/18 07/04/18 # Bowel Movements 0 Narrative: GENERAL: Well-developed well-nourished in no respiratory distress SKIN: Warm and dry. Dry ulcer on the bottom of the left foot. RESPIRATORY: Equal breath sounds GASTROINTESTINAL: Abdomen soft, non-tender, nondistended. Bowel sounds x4. MUSCULOSKELETAL: Left Charcot foot with resolved erythema and warmth of the left ankle, but no wounds noted. No edema. NEUROLOGICAL: Awake and alert. No focal neurological deficits. Moves upper and lower extremities spontaneously. Normal speech. PSYCHIATRIC: Appropriate mood and affect; insight and judgment normal. Results - Labs CBC & Chem 7: 07/05/18 03:34 07/05/18 03:34 Laboratory Results - last 24 hr 07/04/18 07/04/18 07/04/18 11:31 15:17 19:59 WBC RBC Hgb Hct MCV MCH MCHC RDW Plt Count MPV Neut % (Auto) Lymph % (Auto) [place] % (Auto) Eos % (Auto) Baso % (Auto) Neut # (Auto) Lymph # (Auto) [place] # (Auto) Eos # (Auto) Baso # (Auto) WBC Differential Differential Comment Sodium Potassium Chloride Carbon Dioxide Anion Gap BUN Creatinine Estimated GFR POC Glucose 170 H 262 H 242 H Random Glucose Calcium Phosphorus Magnesium Total Bilirubin AST ALT Alkaline Phosphatase Total Protein Albumin 07/05/18 07/05/18 07/05/18 00:05 03:33 03:34 WBC 6.5 RBC 3.45 L Hgb 10.6 L Hct 32.1 L MCV 93.1 MCH 30.7 MCHC 33.0 RDW 14.0 Plt Count 186 MPV 10.7 Neut % (Auto) 80.9 H Lymph % (Auto) 10.3 [place] % (Auto) 5.8 Eos % (Auto) 2.1 Baso % (Auto) 0.9 Neut # (Auto) 5.3 Lymph # (Auto) 0.7 L [place] # (Auto) 0.4 Eos # (Auto) 0.1 Baso # (Auto) 0.1 WBC Differential . Differential Comment Auto diff final Sodium Potassium Chloride Carbon Dioxide Anion Gap BUN Creatinine Estimated GFR POC Glucose 170 H 126 H Random Glucose Calcium Phosphorus Magnesium Total Bilirubin AST ALT Alkaline Phosphatase Total Protein Albumin 07/05/18 07/05/18 03:34 07:47 WBC RBC Hgb Hct MCV MCH MCHC RDW Plt Count MPV Neut % (Auto) Lymph % (Auto) [place] % (Auto) Eos % (Auto) Baso % (Auto) Neut # (Auto) Lymph # (Auto) [place] # (Auto) Eos # (Auto) Baso # (Auto) WBC Differential Differential Comment Sodium 139 Potassium 4.4 D Chloride 105 Carbon Dioxide 20.5 L Anion Gap 14 BUN 64 H Creatinine 1.80 H Estimated GFR 26 L POC Glucose 140 H Random Glucose 110 H Calcium 8.1 L Phosphorus 2.2 L Magnesium 2.0 Total Bilirubin 0.3 AST 39 H ALT 25 Alkaline Phosphatase 82 Total Protein 6.1 L Albumin 1.6 L Microbiology 07/03/18 11:30 Blood - Peripheral Aerobic Blood Culture - Preliminary Staphylococcus aureus 07/03/18 11:30 Blood - Peripheral Anaerobic Blood Culture - Preliminary No growth in 1 day 07/03/18 11:35 Blood - Peripheral Aerobic Blood Culture - Preliminary gram positive cocci 07/03/18 11:35 Blood - Peripheral Anaerobic Blood Culture - Preliminary No growth in 1 day 07/01/18 18:25 Blood - Peripheral Aerobic Blood Culture - Final Staphylococcus aureus 07/01/18 18:25 Blood - Peripheral Anaerobic Blood Culture - Final Staphylococcus aureus 07/01/18 18:34 Blood - Peripheral Aerobic Blood Culture - Final Staphylococcus aureus 07/01/18 18:34 Blood - Peripheral Anaerobic Blood Culture - Final Staphylococcus aureus - Imaging Impressions Chest X-Ray 07/05/18 06:00 CONCLUSION: Improved aeration. - Procedures none Assessment and Plan - Plan 88-year-old female with a past medical history of IDDM, CAD, HTN, CKD, Charcot foot, hypothyroidism, HLD who presented for weakness and fall. 07/03/2018 patient developed respiratory distress from fluid overload transferred to ICU Fluid overload from IV hydration given for acute kidney injury secondary to rhabdomyolysis. Resolved status post Lasix. Sepsis with community-acquired pneumonia, E. coli UTI and MSSA bacteremia likely from ankle cellulitis. Continue IV Ancef and Levaquin per infectious disease Rhabdomyolysis: Resolving DAMARI on CKD 3: Creatinine 2.65, previously 1.45 on 11/22/17. Resolving almost close to baseline Insulin-dependent diabetes mellitus with hyperglycemia: Poor oral intake lately. Stable on Levemir twice a day. SSI with Accu-Cheks. New onset A. fib with RVR. Start Lopressor. High chads vasc score refusing to be on anticoagulation continue aspirin. Echo noted. Consult patient's mobile designer. Left Charcot foot and ankle with possible cellulitis: Has been following with podiatry, Dr. Preston, at [facility]. Improving continue IV antibiotics as above. Monitor clinically. Consider podiatry evaluation if no improvement. History of CAD: No chest pain. Continue home aspirin, Imdur, atorvastatin. Fall and weakness: Probably multifactorial due to dehydration, hyperglycemia, UTI, pneumonia, sepsis and poor oral intake. PT DVT prophylaxis: SCDs and subcu heparin Discharge Planning: Patient may transport to telemetry she is stable
[2018-07-05] MEDS: levoFLOXacin 250 MG Tablet PO SCH (12:03)
--- NOTE | 2018-07-05 12:53 | P.PNID ---
Subjective Remarks: Patient continues with coughing. Notes that she coughed up yellow phlegm last night. Awake and alert. Afebrile. Denies chills. Denies chest pain. Blood culture showing staph aureus in all 4 bottles. Repeat blood culture has no growth. This is an 88-year-old white female who was brought to the emergency department by ambulance. The patient was noted to have fallen in her home the night prior and was unable to get up and was found on the floor and brought to the emergency department the following morning. Past Medical History: PAST MEDICAL AND SURGICAL HISTORY: Diabetes mellitus, hypertension, hypercholesteremia, hypothyroidism, Charcot foot, chronic kidney disease, history of colon cancer, gastroesophageal reflux disease, myocardial infarction, history of hysterectomy, history of cardiac catheterization, history of coronary artery stent. Allergies/Adverse Reactions: Allergies kaye Allergy (Unknown, Verified 07/01/18 12:47) RASH SIMCOR Allergy (Severe, Uncoded 07/01/18 12:47) Edema Objective Vital Signs 07/04/18 15:01 07/04/18 16:00 07/04/18 16:01 Temperature 98.9 F Pulse Rate 79 78 78 Respiratory Rate 26 H 32 H 24 Blood Pressure 143/60 H 135/63 135/63 Pulse Oximetry 97 96 98 07/04/18 16:23 07/04/18 16:58 07/04/18 17:00 Temperature Pulse Rate 74 86 Respiratory Rate 17 50 H Blood Pressure Pulse Oximetry 97 96 07/04/18 17:09 07/04/18 18:00 07/04/18 18:01 Temperature Pulse Rate 83 87 83 Respiratory Rate 25 H 26 H 28 H Blood Pressure 119/62 125/60 Pulse Oximetry 95 97 97 07/04/18 19:00 07/04/18 19:01 07/04/18 19:50 Temperature Pulse Rate 85 84 88 Respiratory Rate 21 24 18 Blood Pressure 97/58 L Pulse Oximetry 97 99 97 07/04/18 19:56 07/04/18 20:00 07/04/18 21:00 Temperature 99.1 F Pulse Rate 134 H 101 H 109 H Respiratory Rate 35 H 20 24 Blood Pressure 107/72 107/72 Pulse Oximetry 97 93 L 96 07/04/18 21:01 07/04/18 22:00 07/04/18 22:01 Temperature Pulse Rate 109 H 108 H 109 H Respiratory Rate 25 H 32 H 35 H Blood Pressure 165/72 H 137/63 Pulse Oximetry 97 94 L 97 07/04/18 23:00 07/04/18 23:38 07/05/18 00:00 Temperature 99.8 F H Pulse Rate 127 H 90 93 H Respiratory Rate 22 18 27 H Blood Pressure 122/72 130/63 Pulse Oximetry 96 96 07/05/18 01:00 07/05/18 01:37 07/05/18 02:00 Temperature Pulse Rate 93 H 161 H 102 H Respiratory Rate 26 H 23 21 Blood Pressure 135/63 156/53 H Pulse Oximetry 95 97 97 07/05/18 02:01 07/05/18 03:00 07/05/18 03:45 Temperature Pulse Rate 100 H 119 H 81 Respiratory Rate 15 38 H 16 Blood Pressure 122/62 136/58 L Pulse Oximetry 97 97 07/05/18 04:00 07/05/18 04:06 07/05/18 05:00 Temperature 98.9 F Pulse Rate 82 84 91 H Respiratory Rate 26 H 23 32 H Blood Pressure 120/58 L 120/58 L 128/58 L Pulse Oximetry 95 96 95 07/05/18 06:00 07/05/18 07:00 07/05/18 07:32 Temperature Pulse Rate 81 79 Respiratory Rate 29 H 27 H Blood Pressure 132/57 L 134/67 Pulse Oximetry 96 97 98 07/05/18 07:39 07/05/18 07:40 07/05/18 08:00 Temperature 98.3 F Pulse Rate 79 83 Respiratory Rate 18 35 H Blood Pressure 125/79 Pulse Oximetry 97 96 07/05/18 09:00 07/05/18 09:03 07/05/18 11:09 Temperature Pulse Rate 101 H 79 78 Respiratory Rate 26 H 40 H 18 Blood Pressure 151/67 H Pulse Oximetry 97 99 Intake & Output 07/04/18 07/05/18 07/05/18 18:59 06:59 18:59 Intake Total 500 / 500 690 / 690 100 / 100 Output Total 500 / 500 600 / 600 Balance 0 / 0 90 / 90 100 / 100 Weight 89.5 kg Intake: IV 100 / 100 450 / 450 100 / 100 Azithromycin Inj 250 MG In NS 250 / 250 Inj 250 ML @ 250 mls/hr IV.SIG Q24H [facility] Rx#:[id number] Magnesium Sulfate 1 gm/D5W 100 100 / 100 100 / 100 ml Premix 100 ML @ 100 mls/hr IV.SIG Q1H [facility] Rx#:[id number] Ancef Inj 2,000 MG In NS Inj 80 100 / 100 100 / 100 ML @ 200 mls/hr IV.SIG Q12HR [facility] Rx#:[id number] Oral 400 / 400 240 / 240 Output: Urine 500 / 500 600 / 600 Other: # Voids 4 Date of Last Bowel Movement 07/01/18 07/04/18 07/04/18 # Bowel Movements 0 07/03/18 11:35 Blood - Peripheral Aerobic Blood Culture - Preliminary gram positive cocci 07/03/18 11:35 Blood - Peripheral Anaerobic Blood Culture - Preliminary No growth in 2 days 07/03/18 11:30 Blood - Peripheral Aerobic Blood Culture - Preliminary Staphylococcus aureus 07/03/18 11:30 Blood - Peripheral Anaerobic Blood Culture - Preliminary No growth in 2 days 07/01/18 18:25 Blood - Peripheral Aerobic Blood Culture - Final Staphylococcus aureus 07/01/18 18:25 Blood - Peripheral Anaerobic Blood Culture - Final Staphylococcus aureus 07/01/18 18:34 Blood - Peripheral Aerobic Blood Culture - Final Staphylococcus aureus 07/01/18 18:34 Blood - Peripheral Anaerobic Blood Culture - Final Staphylococcus aureus 07/01/18 13:52 Catheterized Urine Urine Culture - Final Escherichia coli 07/01/18 13:52 Urine - Catheterized Urine Streptococcus pneumoniae Antigen ( M - Final Presumptive negative for streptococcus pneumoniae antigen, suggesting no current or recent infection. Infection due to Streptococcus pneumoniae cannot be ruled out since the antigen present in the sample may be below the detection limit of the test. 07/01/18 13:52 Urine - Catheterized Urine Legionella Antigen - Final Presumptive negative for Legionella pneumophila serogroup 1 antigen in urine, suggesting no recent or recurrent infection. Infection due to Legionella cannot be ruled out since other serogroups and species may cause disease, antigen may not be present in urine in early infection, and the level of antigen present in the urine may be below the detection limit of the test. Lab - Hematology Results 07/04/18 07/05/18 06:10 03:34 WBC 5.8 6.5 RBC 3.30 L 3.45 L Hgb 10.1 L 10.6 L Hct 30.1 L 32.1 L MCV 91.2 93.1 MCH 30.7 30.7 MCHC 33.6 33.0 RDW 13.9 14.0 Plt Count 161 186 MPV 10.0 10.7 Neut % (Auto) 80.4 H 80.9 H Lymph % (Auto) 10.6 10.3 Citrus % (Auto) 6.4 5.8 Eos % (Auto) 2.2 2.1 Baso % (Auto) 0.4 0.9 Neut # (Auto) 4.7 5.3 Lymph # (Auto) 0.6 L 0.7 L Citrus # (Auto) 0.4 0.4 Eos # (Auto) 0.1 0.1 Baso # (Auto) 0.0 0.1 WBC Differential . . Differential Comment Auto diff final Auto diff final Lab - Chemistry Results 07/03/18 07/03/18 07/03/18 17:58 20:13 23:25 Sodium Potassium Chloride Carbon Dioxide Anion Gap BUN Creatinine Estimated GFR POC Glucose 251 H 243 H 178 H Random Glucose Calcium Phosphorus Magnesium Total Bilirubin AST ALT Alkaline Phosphatase Total Creatine Kinase CK-MB (CK-2) CK-MB (CK-2) % Total Protein Albumin 07/04/18 07/04/18 07/04/18 04:33 06:10 07:39 Sodium 138 Potassium 3.4 L Chloride 104 Carbon Dioxide 22.6 Anion Gap 11 BUN 63 H Creatinine 1.92 H Estimated GFR 25 L POC Glucose 139 H 136 H Random Glucose 133 H Calcium 7.5 L Phosphorus Magnesium 1.8 Total Bilirubin 0.3 AST 40 H ALT 25 Alkaline Phosphatase 67 Total Creatine Kinase 280 H CK-MB (CK-2) 2.3 CK-MB (CK-2) % 0.8 Total Protein 5.7 L Albumin 1.5 L 07/04/18 07/04/18 07/04/18 11:31 15:17 19:59 Sodium Potassium Chloride Carbon Dioxide Anion Gap BUN Creatinine Estimated GFR POC Glucose 170 H 262 H 242 H Random Glucose Calcium Phosphorus Magnesium Total Bilirubin AST ALT Alkaline Phosphatase Total Creatine Kinase CK-MB (CK-2) CK-MB (CK-2) % Total Protein Albumin 07/05/18 07/05/18 07/05/18 00:05 03:33 03:34 Sodium 139 Potassium 4.4 D Chloride 105 Carbon Dioxide 20.5 L Anion Gap 14 BUN 64 H Creatinine 1.80 H Estimated GFR 26 L POC Glucose 170 H 126 H Random Glucose 110 H Calcium 8.1 L Phosphorus 2.2 L Magnesium 2.0 Total Bilirubin 0.3 AST 39 H ALT 25 Alkaline Phosphatase 82 Total Creatine Kinase CK-MB (CK-2) CK-MB (CK-2) % Total Protein 6.1 L Albumin 1.6 L 07/05/18 07/05/18 07:47 11:25 Sodium Potassium Chloride Carbon Dioxide Anion Gap BUN Creatinine Estimated GFR POC Glucose 140 H 191 H Random Glucose Calcium Phosphorus Magnesium Total Bilirubin AST ALT Alkaline Phosphatase Total Creatine Kinase CK-MB (CK-2) CK-MB (CK-2) % Total Protein Albumin Imaging: ITS Impressions Shoulder X-Ray 07/02/18 00:00 CONCLUSION: 1. Intact right shoulder. 2. Mild to moderate degenerative changes. Foot X-Ray 07/03/18 00:00 CONCLUSION: 1. 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 2. Extensive soft tissue swelling. 3. No acute fracture. Venous Doppler Study 07/03/18 00:00 CONCLUSION: 1. No deep venous thrombosis left leg 2. Small popliteal fossa cyst measuring 2.4 x 0.9 x 2.1 cm. Chest X-Ray 07/05/18 06:00 CONCLUSION: Improved aeration. Physical Exam: PHYSICAL EXAMINATION: GENERAL: Alert. No acute distress. HEENT: Extraocular movements grossly intact. Pupils reactive to light. No icterus. Oropharynx has moist mucosa. No lesions. NECK: Supple without adenopathy. LUNGS: Decreased breath sounds at left base. HEART: Irregular S1, S2. No murmurs heard. ABDOMEN: Bowel sounds present. Soft, hyperactive, nontender. The abdomen is obese. EXTREMITIES: The left ankle has marked swelling and the dorsum of the foot has Charcot deformity. Erythema is decreased and less warmth. The other extremities have no clubbing, cyanosis or edema. SKIN: No diffuse rash. NEUROLOGIC: Non focal. PSYCHIATRIC: Calm and cooperative. Assessment and Plan - Plan IMPRESSION: 1. Sepsis due to staph aureus. Source unclear, but could be from the left foot. Repeat blood culture positive. Cellulitis of the left foot. Patient has Charcot's foot deformity and has been receiving treatment. However she has no open or draining wound. 2. Urinary tract infection due to E. coli. 3. Lung infiltrate and coughing. ? PNA. 4. Acute kidney disease. 5. Diabetes mellitus. RECOMMENDATIONS: 1. Continue Ancef. 2. Continue Levaquin - pulmonary coverage. 3. Repeat blood culture. 4. Obtain sputum culture. 5. Follow kidney function. 6. Monitor the left foot. Wrap with jayla wrap and elevate. 7. Monitor clinical status.
--- NOTE | 2018-07-05 16:10 | MB ---
cc: Nacho Gamez MD DATE: 07/05/2018 HISTORY OF PRESENT ILLNESS: Sarah is an 88-year-old lady with history of coronary artery disease, status post PCI, history of chronic atrial fibrillation. She had sounds like a fall. She denies any loss of consciousness, chest pain, shortness of breath, fever, chills, cough, GI or bleeding. She is currently with an SVT at a rate of 120 beats per minute. Appears to be asymptomatic and comfortable. PAST MEDICAL HISTORY: Includes Charcot foot, diabetes mellitus, chronic renal insufficiency, stage III, colon cancer, diabetes, femoral fracture, GERD, history of hysterectomy, hyperlipidemia, hypertension, hypothyroidism, history of myocardial infarction. ALLERGIES: ISIDRO AND SIMCOR. SOCIAL HISTORY: Denies tobacco use, rarely drinks alcohol. MEDICATIONS IN THE HOSPITAL: 1. Aspirin 81 mg a day. 2. Lipitor 20 mg daily. 3. Cefazolin. 4. Estrace 1 mg daily. 5. Heparin 5000 subcutaneous every 8 hours. 6. Insulin. 7. Imdur 60 mg daily. 8. Levofloxacin 250 mg every 24 hours. 9. Metoprolol 12.5 b.i.d. 10. Timolol eyedrops. PHYSICAL EXAMINATION: VITAL SIGNS: Temperature 98.1, pulse 102, respiratory rate ranging between 32 and 18, most recent was 18, blood pressure 134/63, sats 99%. GENERAL: She is alert and oriented x3, in no acute distress. NECK: Supple. No JVD. No bruit. CARDIOVASCULAR: S1, S2. No murmurs, rubs or gallops. LUNGS: Clear to auscultation bilaterally. ABDOMEN: Soft, nontender, nondistended with positive bowel sounds. EXTREMITIES: No lower extremity edema. LABORATORY DATA: Chest x-ray shows "improved aeration, mild interstitial prominence, patchy alveolar infiltrates at the lung bases and cardiomegaly". EKG on 07/03/2018, shows AFib at a rate of 109 beats per minute, nonspecific ST-T wave changes. EKG 07/01/2018, shows normal sinus rhythm with first degree AV block. Echocardiogram on 07/03/2018, EF 60-65%, mild LVH. The patient noted to be in atrial fibrillation at that time. White count 6.5, hemoglobin 10.6, hematocrit 32.1, platelet count 186. Blood gas pH 7.38. The CO2 31, pO2 87. Sodium 139, potassium 4.4, chloride 105, bicarbonate 20.5, BUN 64, creatinine 1.80, phosphorus 2.2, magnesium 2.0, albumin 1.6. DIAGNOSES: 1. Atrial fibrillation with rapid ventricular response. 2. Coronary artery disease. 3. Chronic renal insufficiency. 4. Bacteremia. 5. Urinary tract infection. 6. Hyperglycemia. 7. Diabetes mellitus. 8. Hypoalbuminemia. 9. Anemia. ASSESSMENT AND PLAN: The patient's CHADS-VASc score is at least 3. Strongly recommended that she go on Coumadin and/or novel oral anticoagulant agent to prevent life threatening and/or debilitating stroke. The patient understands my recommendations and adamantly refuses these medications, which she has done at all times previous to this admission. Therefore, recommend aspirin 81 mg daily. The patient has sepsis, so would be cautious about blunting her heart rate, which will diminish her cardiac output and in the setting of high metabolic demand from sepsis, this will be deleterious. Also, suspect she has low intravascular volume due to low oncotic pressure from low albumin, so again would shoot for short-term goals of maintaining heart rate less than 130. Agree with Lopressor 12.5 twice a day. Otherwise, the patient is asymptomatic. We will continue to follow the trends in heart rate and hemodynamics. Nacho Gamez MD AWLynne/TL , 03:40 PM , 03:51 PM
[2018-07-05] MEDS: Metoprolol Tartrate 25 MG Tablet PO SCH (20:23)
[2018-07-05] MEDS: guaiFENesin 600 MG ER Tablet PO SCH (20:23)
[2018-07-05] MEDS: Latanoprost 0.005% Opth Drops 2.5 ML Bottle EACH EYE SCH (20:59)
[2018-07-06] MEDS: Insulin NovoLIN Regular Correctional Sugar Inj SQ SCH ×6 (00:18→20:13)
[2018-07-06] MEDS: Isosorbide Mononitrate 60 MG ER 24HR Tablet (Imdur) PO SCH (06:04)
[2018-07-06] MEDS: Heparin - SQ 10,000 UNITS/ML Vial SQ SCH ×3 (06:05→21:02)
[2018-07-06] MEDS: Levothyroxine 75 MCG Tablet PO SCH (06:05)
[2018-07-06] MEDS: ceFAZolin Inj 2,000 MG in Sodium Chlor 0.9% Inj 80 ML IV.SIG SCH ×2 (08:22→20:19)
[2018-07-06] MEDS: Timolol 0.25% Drops 5 ML Bottle EACH EYE SCH (08:23)
[2018-07-06] MEDS: guaiFENesin 600 MG ER Tablet PO SCH ×2 (08:23→20:13)
[2018-07-06] MEDS: Estradiol 1 MG Tablet PO SCH (08:23)
[2018-07-06] MEDS: Metoprolol Tartrate 25 MG Tablet PO SCH ×2 (08:23→20:13)
[2018-07-06 08:29] LABS: Calcium 8.9 mg/dL (8.5-10.1); Carbon Dioxide 24.2 meq/L (21.0-32.0); Potassium 4.5 meq/L (3.5-5.1)
--- NOTE | 2018-07-06 11:50 | P.PNID ---
Subjective Remarks: Patient says she is feeling better. Patient has scant sputum production. Awake and alert. Afebrile. Denies chills. Denies chest pain. Patient has neuropathy. No complaints of pain. Blood culture showing staph aureus in all 4 bottles. Repeat blood culture has staph aureus on 07/03/2016. Follow blood culture from 07/05/2016 has no growth in 1 day. This is an 88-year-old white female who was brought to the emergency department by ambulance. The patient was noted to have fallen in her home the night prior and was unable to get up and was found on the floor and brought to the emergency department the following morning. Past Medical History: PAST MEDICAL AND SURGICAL HISTORY: Diabetes mellitus, hypertension, hypercholesteremia, hypothyroidism, Charcot foot, chronic kidney disease, history of colon cancer, gastroesophageal reflux disease, myocardial infarction, history of hysterectomy, history of cardiac catheterization, history of coronary artery stent. Allergies/Adverse Reactions: Allergies kaye Allergy (Unknown, Verified 07/01/18 12:47) RASH SIMCOR Allergy (Severe, Uncoded 07/01/18 12:47) Edema Objective Vital Signs 07/05/18 12:00 07/05/18 12:03 07/05/18 13:00 Temperature 98.1 F Pulse Rate 78 119 H 79 Respiratory Rate 41 H 32 H 37 H Blood Pressure 134/63 Pulse Oximetry 96 99 97 07/05/18 13:01 07/05/18 14:00 07/05/18 14:22 Temperature Pulse Rate 80 124 H 102 H Respiratory Rate 34 H 32 H 18 Blood Pressure 131/61 115/62 Pulse Oximetry 98 98 07/05/18 15:00 07/05/18 16:00 07/05/18 16:01 Temperature 98.2 F Pulse Rate 111 H 117 H 118 H Respiratory Rate 27 H 29 H 27 H Blood Pressure 123/61 130/59 L Pulse Oximetry 98 99 100 07/05/18 17:00 07/05/18 18:00 07/05/18 19:00 Temperature Pulse Rate 120 H 122 H 128 H Respiratory Rate 27 H 30 H 36 H Blood Pressure 128/71 140/71 Pulse Oximetry 100 100 98 07/05/18 19:01 07/05/18 19:43 07/05/18 20:00 Temperature 99.9 F H Pulse Rate 127 H 122 H 125 H Respiratory Rate 27 H 24 37 H Blood Pressure 136/84 133/63 Pulse Oximetry 98 94 L 99 07/05/18 21:00 07/05/18 21:03 07/05/18 22:00 Temperature Pulse Rate 121 H 119 H 117 H Respiratory Rate 39 H 34 H 40 H Blood Pressure 119/58 L 116/56 L Pulse Oximetry 70 L 100 97 07/05/18 23:00 07/05/18 23:23 07/06/18 00:00 Temperature 98.5 F Pulse Rate 117 H 86 82 Respiratory Rate 34 H 24 28 H Blood Pressure 132/60 115/55 L Pulse Oximetry 96 97 07/06/18 01:00 07/06/18 02:00 07/06/18 03:00 Temperature Pulse Rate 124 H 78 113 H Respiratory Rate 29 H 32 H 22 Blood Pressure 127/60 137/81 Pulse Oximetry 96 96 99 07/06/18 03:01 07/06/18 04:00 07/06/18 04:01 Temperature 98 F Pulse Rate 118 H 76 75 Respiratory Rate 20 29 H 18 Blood Pressure 163/65 H 152/65 H 152/65 H Pulse Oximetry 100 99 100 07/06/18 05:00 07/06/18 05:01 07/06/18 06:00 Temperature Pulse Rate 77 75 78 Respiratory Rate 26 H 31 H 35 H Blood Pressure 173/70 H Pulse Oximetry 99 100 96 07/06/18 06:01 07/06/18 07:00 07/06/18 07:01 Temperature Pulse Rate 78 78 79 Respiratory Rate 24 33 H 22 Blood Pressure 175/76 H 177/73 H Pulse Oximetry 100 99 100 07/06/18 07:37 07/06/18 08:00 07/06/18 08:01 Temperature 98.7 F Pulse Rate 76 76 77 Respiratory Rate 21 25 H 16 Blood Pressure 159/66 H Pulse Oximetry 99 100 100 07/06/18 08:45 07/06/18 09:00 07/06/18 09:02 Temperature Pulse Rate 79 79 Respiratory Rate 31 H 25 H Blood Pressure 180/73 H Pulse Oximetry 99 100 98 07/06/18 09:28 07/06/18 10:00 Temperature Pulse Rate 74 77 Respiratory Rate 21 Blood Pressure 151/66 H Pulse Oximetry 100 Intake & Output 07/05/18 07/06/18 07/06/18 18:59 06:59 18:59 Intake Total 1100 / 1100 340 / 340 Output Total 200 / 200 750 / 750 Balance 900 / 900 -410 / -410 Weight 89 kg Intake: IV 100 / 100 100 / 100 Ancef Inj 2,000 MG In NS Inj 80 100 / 100 100 / 100 ML @ 200 mls/hr IV.SIG Q12HR [facility] Rx#:[id number] Oral 1000 / 1000 240 / 240 Output: Urine 200 / 200 750 / 750 Other: # Incontinent Voids 2 Date of Last Bowel Movement 07/05/18 07/05/18 07/05/18 # Bowel Movements 1 1 07/05/18 17:15 Blood - Peripheral Aerobic Blood Culture - Preliminary No growth in 1 day 07/05/18 17:15 Blood - Peripheral Anaerobic Blood Culture - Preliminary No growth in 1 day 07/05/18 17:10 Blood - Peripheral Aerobic Blood Culture - Preliminary No growth in 1 day 07/05/18 17:10 Blood - Peripheral Anaerobic Blood Culture - Preliminary No growth in 1 day 07/03/18 11:35 Blood - Peripheral Aerobic Blood Culture - Final Staphylococcus aureus 07/03/18 11:35 Blood - Peripheral Anaerobic Blood Culture - Preliminary No growth in 3 days 07/03/18 11:30 Blood - Peripheral Aerobic Blood Culture - Final Staphylococcus aureus 07/03/18 11:30 Blood - Peripheral Anaerobic Blood Culture - Preliminary No growth in 3 days 07/01/18 18:25 Blood - Peripheral Aerobic Blood Culture - Final Staphylococcus aureus 07/01/18 18:25 Blood - Peripheral Anaerobic Blood Culture - Final Staphylococcus aureus 07/01/18 18:34 Blood - Peripheral Aerobic Blood Culture - Final Staphylococcus aureus 07/01/18 18:34 Blood - Peripheral Anaerobic Blood Culture - Final Staphylococcus aureus 07/01/18 13:52 Catheterized Urine Urine Culture - Final Escherichia coli Lab - Hematology Results 07/05/18 03:34 WBC 6.5 RBC 3.45 L Hgb 10.6 L Hct 32.1 L MCV 93.1 MCH 30.7 MCHC 33.0 RDW 14.0 Plt Count 186 MPV 10.7 Neut % (Auto) 80.9 H Lymph % (Auto) 10.3 Hand % (Auto) 5.8 Eos % (Auto) 2.1 Baso % (Auto) 0.9 Neut # (Auto) 5.3 Lymph # (Auto) 0.7 L Hand # (Auto) 0.4 Eos # (Auto) 0.1 Baso # (Auto) 0.1 WBC Differential . Differential Comment Auto diff final Lab - Chemistry Results 07/04/18 07/04/18 07/05/18 15:17 19:59 00:05 Sodium Potassium Chloride Carbon Dioxide Anion Gap BUN Creatinine Estimated GFR POC Glucose 262 H 242 H 170 H Random Glucose Calcium Phosphorus Magnesium Total Bilirubin AST ALT Alkaline Phosphatase Total Protein Albumin 07/05/18 07/05/18 07/05/18 03:33 03:34 07:47 Sodium 139 Potassium 4.4 D Chloride 105 Carbon Dioxide 20.5 L Anion Gap 14 BUN 64 H Creatinine 1.80 H Estimated GFR 26 L POC Glucose 126 H 140 H Random Glucose 110 H Calcium 8.1 L Phosphorus 2.2 L Magnesium 2.0 Total Bilirubin 0.3 AST 39 H ALT 25 Alkaline Phosphatase 82 Total Protein 6.1 L Albumin 1.6 L 07/05/18 07/05/18 07/05/18 11:25 16:42 20:03 Sodium Potassium Chloride Carbon Dioxide Anion Gap BUN Creatinine Estimated GFR POC Glucose 191 H 262 H 260 H Random Glucose Calcium Phosphorus Magnesium Total Bilirubin AST ALT Alkaline Phosphatase Total Protein Albumin 07/05/18 07/06/18 07/06/18 23:38 03:36 06:20 Sodium 140 Potassium 4.5 Chloride 107 Carbon Dioxide 24.2 Anion Gap 9 BUN 57 H Creatinine 1.61 H Estimated GFR 30 L POC Glucose 143 H 111 H Random Glucose 122 H Calcium 8.9 D Phosphorus Magnesium 2.0 Total Bilirubin AST ALT Alkaline Phosphatase Total Protein Albumin 07/06/18 07/06/18 07:34 11:31 Sodium Potassium Chloride Carbon Dioxide Anion Gap BUN Creatinine Estimated GFR POC Glucose 156 H 231 H Random Glucose Calcium Phosphorus Magnesium Total Bilirubin AST ALT Alkaline Phosphatase Total Protein Albumin Imaging: ITS Impressions Shoulder X-Ray 07/02/18 00:00 CONCLUSION: 1. Intact right shoulder. 2. Mild to moderate degenerative changes. Foot X-Ray 07/03/18 00:00 CONCLUSION: 1. 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 2. Extensive soft tissue swelling. 3. No acute fracture. Venous Doppler Study 07/03/18 00:00 CONCLUSION: 1. No deep venous thrombosis left leg 2. Small popliteal fossa cyst measuring 2.4 x 0.9 x 2.1 cm. Chest X-Ray 07/05/18 06:00 CONCLUSION: Improved aeration. Physical Exam: PHYSICAL EXAMINATION: GENERAL: Alert. No acute distress. HEENT: Extraocular movements grossly intact. Pupils reactive to light. No icterus. Oropharynx has moist mucosa. No lesions. NECK: Supple without adenopathy. LUNGS: Decreased breath sounds at left base. HEART: Irregular S1, S2. No murmurs heard. ABDOMEN: Bowel sounds present. Soft, hyperactive, nontender. The abdomen is obese. EXTREMITIES: The left ankle has marked swelling and the foot has Charcot deformity. Very minimal erythema noted at the ankle at this point. The other extremities have no clubbing, cyanosis or edema. Patient has a callus at the bottom of the foot which is dry. SKIN: No diffuse rash. NEUROLOGIC: Non focal. PSYCHIATRIC: Calm and cooperative. Assessment and Plan - Plan IMPRESSION: 1. Sepsis due to staph aureus. Source unclear, but could be from the left foot. Repeat blood culture pending. Cellulitis of the left foot. Improved Patient has Charcot's foot deformity and has been receiving treatment. However she has no open or draining wound. 2. Urinary tract infection due to E. coli. 3. Lung infiltrate and coughing. ? PNA. 4. Acute kidney disease. 5. Diabetes mellitus. RECOMMENDATIONS: 1. Continue Ancef. 2. Continue Levaquin - pulmonary coverage. 3. Follow the repeat blood culture to check for clearance. 4. Obtain sputum culture if feasible. 5. Follow kidney function. 6. Continue to monitor the left foot. Wrap with jayla wrap and elevate. 7. Monitor clinical status.
[2018-07-06] MEDS: levoFLOXacin 250 MG Tablet PO SCH (12:07)
--- NOTE | 2018-07-06 12:26 | P.PN ---
Subjective Interval history: f/u fib and MSSA bacteremia patient has no complaints. Episodic brief tachycardia without symptoms. Per cardiology treat heart rate over 130 Physical Exam Vital signs: Vital Signs 07/05/18 13:00 07/05/18 13:01 07/05/18 14:00 Temperature Pulse Rate 79 80 124 H Respiratory Rate 37 H 34 H 32 H Blood Pressure 131/61 115/62 Pulse Oximetry 97 98 98 07/05/18 14:22 07/05/18 15:00 07/05/18 16:00 Temperature Pulse Rate 102 H 111 H 117 H Respiratory Rate 18 27 H 29 H Blood Pressure 123/61 Pulse Oximetry 98 99 07/05/18 16:01 07/05/18 17:00 07/05/18 18:00 Temperature 98.2 F Pulse Rate 118 H 120 H 122 H Respiratory Rate 27 H 27 H 30 H Blood Pressure 130/59 L 128/71 140/71 Pulse Oximetry 100 100 100 07/05/18 19:00 07/05/18 19:01 07/05/18 19:43 Temperature Pulse Rate 128 H 127 H 122 H Respiratory Rate 36 H 27 H 24 Blood Pressure 136/84 Pulse Oximetry 98 98 94 L 07/05/18 20:00 07/05/18 21:00 07/05/18 21:03 Temperature 99.9 F H Pulse Rate 125 H 121 H 119 H Respiratory Rate 37 H 39 H 34 H Blood Pressure 133/63 119/58 L Pulse Oximetry 99 70 L 100 07/05/18 22:00 07/05/18 23:00 07/05/18 23:23 Temperature Pulse Rate 117 H 117 H 86 Respiratory Rate 40 H 34 H 24 Blood Pressure 116/56 L 132/60 Pulse Oximetry 97 96 07/06/18 00:00 07/06/18 01:00 07/06/18 02:00 Temperature 98.5 F Pulse Rate 82 124 H 78 Respiratory Rate 28 H 29 H 32 H Blood Pressure 115/55 L 127/60 137/81 Pulse Oximetry 97 96 96 07/06/18 03:00 07/06/18 03:01 07/06/18 04:00 Temperature 98 F Pulse Rate 113 H 118 H 76 Respiratory Rate 22 20 29 H Blood Pressure 163/65 H 152/65 H Pulse Oximetry 99 100 99 07/06/18 04:01 07/06/18 05:00 07/06/18 05:01 Temperature Pulse Rate 75 77 75 Respiratory Rate 18 26 H 31 H Blood Pressure 152/65 H 173/70 H Pulse Oximetry 100 99 100 07/06/18 06:00 07/06/18 06:01 07/06/18 07:00 Temperature Pulse Rate 78 78 78 Respiratory Rate 35 H 24 33 H Blood Pressure 175/76 H Pulse Oximetry 96 100 99 07/06/18 07:01 07/06/18 07:37 07/06/18 08:00 Temperature 98.7 F Pulse Rate 79 76 76 Respiratory Rate 22 21 25 H Blood Pressure 177/73 H Pulse Oximetry 100 99 100 07/06/18 08:01 07/06/18 08:45 07/06/18 09:00 Temperature Pulse Rate 77 79 Respiratory Rate 16 31 H Blood Pressure 159/66 H Pulse Oximetry 100 99 100 07/06/18 09:02 07/06/18 09:28 07/06/18 10:00 Temperature Pulse Rate 79 74 77 Respiratory Rate 25 H 21 27 H Blood Pressure 180/73 H 151/66 H Pulse Oximetry 98 100 100 07/06/18 10:01 07/06/18 11:00 07/06/18 11:01 Temperature Pulse Rate 75 74 74 Respiratory Rate 20 31 H 26 H Blood Pressure 147/65 H 136/62 Pulse Oximetry 100 97 98 07/06/18 12:00 07/06/18 12:01 07/06/18 12:18 Temperature 98.4 F Pulse Rate 72 73 70 Respiratory Rate 35 H 31 H 18 Blood Pressure 143/63 H Pulse Oximetry 98 98 Intake & Output 07/05/18 07/06/18 07/06/18 18:59 06:59 18:59 Intake Total 1100 / 1100 340 / 340 100 / 100 Output Total 200 / 200 750 / 750 Balance 900 / 900 -410 / -410 100 / 100 Weight 89 kg Intake: IV 100 / 100 100 / 100 100 / 100 Ancef Inj 2,000 MG In NS Inj 80 100 / 100 100 / 100 100 / 100 ML @ 200 mls/hr IV.SIG Q12HR YAHIR Rx#:[id number] Oral 1000 / 1000 240 / 240 Output: Urine 200 / 200 750 / 750 Other: # Incontinent Voids 2 Date of Last Bowel Movement 08/08/18 08/08/18 08/08/18 # Bowel Movements 1 1 Narrative: GENERAL: Well-developed well-nourished in no respiratory distress SKIN: Dry ulcer on the bottom of the left foot. RESPIRATORY: Equal breath sounds GASTROINTESTINAL: Abdomen soft, non-tender, nondistended. Bowel sounds x4. MUSCULOSKELETAL: Left Charcot foot with resolved erythema and warmth of the left ankle, but no wounds noted. No edema. NEUROLOGICAL: Awake and alert. No focal neurological deficits. Moves upper and lower extremities spontaneously. Normal speech. PSYCHIATRIC: Appropriate mood and affect; insight and judgment normal. Results - Labs CBC & Chem 7: 07/05/18 03:34 07/06/18 06:20 Laboratory Results - last 24 hr 07/05/18 07/05/18 07/05/18 16:42 20:03 23:38 Sodium Potassium Chloride Carbon Dioxide Anion Gap BUN Creatinine Estimated GFR POC Glucose 262 H 260 H 143 H Random Glucose Calcium Magnesium 07/06/18 07/06/18 07/06/18 03:36 06:20 07:34 Sodium 140 Potassium 4.5 Chloride 107 Carbon Dioxide 24.2 Anion Gap 9 BUN 57 H Creatinine 1.61 H Estimated GFR 30 L POC Glucose 111 H 156 H Random Glucose 122 H Calcium 8.9 D Magnesium 2.0 07/06/18 11:31 Sodium Potassium Chloride Carbon Dioxide Anion Gap BUN Creatinine Estimated GFR POC Glucose 231 H Random Glucose Calcium Magnesium Microbiology 07/05/18 17:15 Blood - Peripheral Aerobic Blood Culture - Preliminary No growth in 1 day 07/05/18 17:15 Blood - Peripheral Anaerobic Blood Culture - Preliminary No growth in 1 day 07/05/18 17:10 Blood - Peripheral Aerobic Blood Culture - Preliminary No growth in 1 day 07/05/18 17:10 Blood - Peripheral Anaerobic Blood Culture - Preliminary No growth in 1 day 07/03/18 11:35 Blood - Peripheral Aerobic Blood Culture - Final Staphylococcus aureus 07/03/18 11:35 Blood - Peripheral Anaerobic Blood Culture - Preliminary No growth in 3 days 07/03/18 11:30 Blood - Peripheral Aerobic Blood Culture - Final Staphylococcus aureus 07/03/18 11:30 Blood - Peripheral Anaerobic Blood Culture - Preliminary No growth in 3 days - Procedures none Assessment and Plan - Plan 88-year-old female with a past medical history of IDDM, CAD, HTN, CKD, Charcot foot, hypothyroidism, HLD who presented for weakness and fall. 07/03/2018 patient developed respiratory distress from fluid overload transferred to ICU Fluid overload from IV hydration given for acute kidney injury secondary to rhabdomyolysis. Resolved status post Lasix. Sepsis with community-acquired pneumonia, E. coli UTI and MSSA bacteremia likely from ankle cellulitis. Continue IV Ancef and Levaquin per infectious disease Rhabdomyolysis: Resolving DAMARI on CKD 3: Creatinine 2.65, previously 1.45 on 11/22/17. Resolving almost close to baseline Insulin-dependent diabetes mellitus with hyperglycemia: Poor oral intake lately. Stable on Levemir twice a day. SSI with Accu-Cheks. A. fib with RVR. Currently sinus continue Lopressor. High chads vasc score refusing to be on anticoagulation continue aspirin. Echo noted. Consulted patient's director financial services. Left Charcot foot and ankle with possible cellulitis: Has been following with podiatry, Dr. Preston, at [facility]. Improving continue IV antibiotics as above. Monitor clinically. Consider podiatry evaluation if no improvement. History of CAD: No chest pain. Continue home aspirin, Imdur, atorvastatin. Fall and weakness: Probably multifactorial due to dehydration, hyperglycemia, UTI, pneumonia, sepsis and poor oral intake. PT DVT prophylaxis: SCDs and subcu heparin Discharge Planning: Patient may transfer to tele
--- NOTE | 2018-07-06 14:11 | P.PNCA ---
Subjective Interval history: alert in nad Physical Exam Vital signs: Vital Signs 07/05/18 14:22 07/05/18 15:00 07/05/18 16:00 Temperature Pulse Rate 102 H 111 H 117 H Respiratory Rate 18 27 H 29 H Blood Pressure 123/61 Pulse Oximetry 98 99 07/05/18 16:01 07/05/18 17:00 07/05/18 18:00 Temperature 98.2 F Pulse Rate 118 H 120 H 122 H Respiratory Rate 27 H 27 H 30 H Blood Pressure 130/59 L 128/71 140/71 Pulse Oximetry 100 100 100 07/05/18 19:00 07/05/18 19:01 07/05/18 19:43 Temperature Pulse Rate 128 H 127 H 122 H Respiratory Rate 36 H 27 H 24 Blood Pressure 136/84 Pulse Oximetry 98 98 94 L 07/05/18 20:00 07/05/18 21:00 07/05/18 21:03 Temperature 99.9 F H Pulse Rate 125 H 121 H 119 H Respiratory Rate 37 H 39 H 34 H Blood Pressure 133/63 119/58 L Pulse Oximetry 99 70 L 100 07/05/18 22:00 07/05/18 23:00 07/05/18 23:23 Temperature Pulse Rate 117 H 117 H 86 Respiratory Rate 40 H 34 H 24 Blood Pressure 116/56 L 132/60 Pulse Oximetry 97 96 07/06/18 00:00 07/06/18 01:00 07/06/18 02:00 Temperature 98.5 F Pulse Rate 82 124 H 78 Respiratory Rate 28 H 29 H 32 H Blood Pressure 115/55 L 127/60 137/81 Pulse Oximetry 97 96 96 07/06/18 03:00 07/06/18 03:01 07/06/18 04:00 Temperature 98 F Pulse Rate 113 H 118 H 76 Respiratory Rate 22 20 29 H Blood Pressure 163/65 H 152/65 H Pulse Oximetry 99 100 99 07/06/18 04:01 07/06/18 05:00 07/06/18 05:01 Temperature Pulse Rate 75 77 75 Respiratory Rate 18 26 H 31 H Blood Pressure 152/65 H 173/70 H Pulse Oximetry 100 99 100 07/06/18 06:00 07/06/18 06:01 07/06/18 07:00 Temperature Pulse Rate 78 78 78 Respiratory Rate 35 H 24 33 H Blood Pressure 175/76 H Pulse Oximetry 96 100 99 07/06/18 07:01 07/06/18 07:37 07/06/18 08:00 Temperature 98.7 F Pulse Rate 79 76 76 Respiratory Rate 22 21 25 H Blood Pressure 177/73 H Pulse Oximetry 100 99 100 07/06/18 08:01 07/06/18 08:45 07/06/18 09:00 Temperature Pulse Rate 77 79 Respiratory Rate 16 31 H Blood Pressure 159/66 H Pulse Oximetry 100 99 100 07/06/18 09:02 07/06/18 09:28 07/06/18 10:00 Temperature Pulse Rate 79 74 77 Respiratory Rate 25 H 21 27 H Blood Pressure 180/73 H 151/66 H Pulse Oximetry 98 100 100 07/06/18 10:01 07/06/18 11:00 07/06/18 11:01 Temperature Pulse Rate 75 74 74 Respiratory Rate 20 31 H 26 H Blood Pressure 147/65 H 136/62 Pulse Oximetry 100 97 98 07/06/18 12:00 07/06/18 12:01 07/06/18 12:18 Temperature 98.4 F Pulse Rate 72 73 70 Respiratory Rate 35 H 31 H 18 Blood Pressure 143/63 H Pulse Oximetry 98 98 Intake & Output 07/05/18 07/06/18 07/06/18 18:59 06:59 18:59 Intake Total 1100 / 1100 340 / 340 100 / 100 Output Total 200 / 200 750 / 750 Balance 900 / 900 -410 / -410 100 / 100 Weight 89 kg Intake: IV 100 / 100 100 / 100 100 / 100 Ancef Inj 2,000 MG In NS Inj 80 100 / 100 100 / 100 100 / 100 ML @ 200 mls/hr IV.SIG Q12HR YAHIR Rx#:[id number] Oral 1000 / 1000 240 / 240 Output: Urine 200 / 200 750 / 750 Other: # Incontinent Voids 2 Date of Last Bowel Movement 07/05/18 07/05/18 07/05/18 # Bowel Movements 1 1 Assessment and Plan - Assessment (1) Atrial fibrillation Code(s): I48.91 - Unspecified atrial fibrillation Status: Acute (2) Bacteremia Code(s): R78.81 - Bacteremia Status: Acute - Plan 1.) PAF - in nsr, i strongly advised her to take coumadin or noac due to [id number] score = 4 to reduce the risk of life threatening or debiliating cva , she understands but refuses, rec continue aspirin, lopressor
[2018-07-06] MEDS: Latanoprost 0.005% Opth Drops 2.5 ML Bottle EACH EYE SCH (20:13)
[2018-07-07] MEDS: Insulin NovoLIN Regular Correctional Sugar Inj SQ SCH ×7 (00:15→23:34)
[2018-07-07] MEDS: Heparin - SQ 10,000 UNITS/ML Vial SQ SCH ×3 (06:00→21:00)
[2018-07-07] MEDS: Isosorbide Mononitrate 60 MG ER 24HR Tablet (Imdur) PO SCH (06:00)
[2018-07-07] MEDS: Levothyroxine 75 MCG Tablet PO SCH (06:00)
--- NOTE | 2018-07-07 08:59 | P.PN ---
Subjective Interval history: F/u MSSA bacteremia. Feels warm. (Room is warm). No fever discussed with nursing. Physical Exam Vital signs: Vital Signs 07/06/18 09:00 07/06/18 09:02 07/06/18 09:28 Temperature Pulse Rate 79 79 74 Respiratory Rate 31 H 25 H 21 Blood Pressure 180/73 H 151/66 H Pulse Oximetry 100 98 100 07/06/18 10:00 07/06/18 10:01 07/06/18 11:00 Temperature Pulse Rate 77 75 74 Respiratory Rate 27 H 20 31 H Blood Pressure 147/65 H Pulse Oximetry 100 100 97 07/06/18 11:01 07/06/18 12:00 07/06/18 12:01 Temperature 98.4 F Pulse Rate 74 72 73 Respiratory Rate 26 H 35 H 31 H Blood Pressure 136/62 143/63 H Pulse Oximetry 98 98 98 07/06/18 12:18 07/06/18 13:00 07/06/18 13:03 Temperature Pulse Rate 70 76 76 Respiratory Rate 18 36 H 30 H Blood Pressure 154/68 H Pulse Oximetry 90 L 98 07/06/18 14:00 07/06/18 15:00 07/06/18 16:00 Temperature 98.4 F Pulse Rate 76 118 H 115 H Respiratory Rate 24 35 H 29 H Blood Pressure Pulse Oximetry 100 92 L 100 07/06/18 16:12 07/06/18 18:00 07/06/18 20:00 Temperature 99.1 F Pulse Rate 74 79 79 Respiratory Rate 18 26 H Blood Pressure 160/66 H Pulse Oximetry 96 07/06/18 21:14 07/06/18 22:00 07/07/18 00:00 Temperature 99.3 F Pulse Rate 114 H 78 77 Respiratory Rate 16 27 H Blood Pressure 142/68 H Pulse Oximetry 98 96 07/07/18 01:19 07/07/18 02:00 07/07/18 04:00 Temperature 99 F Pulse Rate 117 H 98 H 112 H Respiratory Rate 18 24 Blood Pressure 144/64 H Pulse Oximetry 97 97 07/07/18 06:00 07/07/18 07:00 07/07/18 08:52 Temperature Pulse Rate 124 H 80 Respiratory Rate 18 Blood Pressure Pulse Oximetry 98 Intake & Output 08/09/18 08/10/18 08/10/18 18:59 06:59 18:59 Intake Total 600 / 600 340 / 340 Output Total 450 / 450 675 / 675 Balance 150 / 150 -335 / -335 Weight 90.7 kg Intake: IV 100 / 100 100 / 100 Ancef Inj 2,000 MG In NS Inj 80 100 / 100 100 / 100 ML @ 200 mls/hr IV.SIG Q12HR YAHIR Rx#:[id number] Oral 500 / 500 240 / 240 Output: Urine 450 / 450 675 / 675 Other: # Incontinent Voids 2 Date of Last Bowel Movement 07/05/18 07/07/18 # Bowel Movements 1 Narrative: GENERAL: Well-developed well-nourished in no respiratory distress SKIN: Dry ulcer on the bottom of the left foot. RESPIRATORY: Equal breath sounds GASTROINTESTINAL: Abdomen soft, non-tender, nondistended. Bowel sounds x4. MUSCULOSKELETAL: Left Charcot foot with resolved erythema and warmth of the left ankle, but no wounds noted. No edema. NEUROLOGICAL: Awake and alert. No focal neurological deficits. Moves upper and lower extremities spontaneously. Normal speech. PSYCHIATRIC: Appropriate mood and affect; insight and judgment normal. Results - Labs CBC & Chem 7: 07/05/18 03:34 07/06/18 06:20 Laboratory Results - last 24 hr 07/06/18 07/06/18 07/06/18 11:31 15:32 19:09 POC Glucose 231 H 291 H 299 H 07/07/18 07/07/18 07/07/18 00:06 03:50 07:52 POC Glucose 134 H 128 H 160 H Microbiology 07/05/18 17:15 Blood - Peripheral Aerobic Blood Culture - Preliminary No growth in 1 day 07/05/18 17:15 Blood - Peripheral Anaerobic Blood Culture - Preliminary No growth in 1 day 07/05/18 17:10 Blood - Peripheral Aerobic Blood Culture - Preliminary No growth in 1 day 07/05/18 17:10 Blood - Peripheral Anaerobic Blood Culture - Preliminary No growth in 1 day 07/03/18 11:35 Blood - Peripheral Aerobic Blood Culture - Final Staphylococcus aureus 07/03/18 11:35 Blood - Peripheral Anaerobic Blood Culture - Preliminary No growth in 3 days 07/03/18 11:30 Blood - Peripheral Aerobic Blood Culture - Final Staphylococcus aureus 07/03/18 11:30 Blood - Peripheral Anaerobic Blood Culture - Preliminary No growth in 3 days - Imaging ITS Impressions Shoulder X-Ray 07/02/18 00:00 CONCLUSION: 1. Intact right shoulder. 2. Mild to moderate degenerative changes. Foot X-Ray 07/03/18 00:00 CONCLUSION: 1. 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 2. Extensive soft tissue swelling. 3. No acute fracture. Venous Doppler Study 07/03/18 00:00 CONCLUSION: 1. No deep venous thrombosis left leg 2. Small popliteal fossa cyst measuring 2.4 x 0.9 x 2.1 cm. Chest X-Ray 07/05/18 06:00 CONCLUSION: Improved aeration. - Procedures none Assessment and Plan - Plan 88-year-old female with a past medical history of IDDM, CAD, HTN, CKD, Charcot foot, hypothyroidism, HLD who presented for weakness and fall. 07/03/2018 patient developed respiratory distress from fluid overload transferred to ICU Fluid overload from IV hydration given for acute kidney injury secondary to rhabdomyolysis. Resolved status post Lasix. Sepsis with community-acquired pneumonia, E. coli UTI and MSSA bacteremia likely from ankle cellulitis. Continue IV Ancef and Levaquin per infectious disease f/u cx Rhabdomyolysis: Resolving DAMARI on CKD 3: Creatinine 2.65, previously 1.45 on 11/22/17. Resolving almost close to baseline rpt labs in am Insulin-dependent diabetes mellitus with hyperglycemia: Poor oral intake lately. Stable on Levemir twice a day. SSI with Accu-Cheks. A. fib with RVR. Currently sinus continue Lopressor. High chads vasc score refusing to be on anticoagulation continue aspirin. Echo noted. Consulted patient's compliance counsel treat if heart rate over 130. Left Charcot foot and ankle with possible cellulitis: Has been following with podiatry, Dr. Preston, at [facility]. Improving continue IV antibiotics as above. Monitor clinically. Consider podiatry evaluation if no improvement. History of CAD: No chest pain. Continue home aspirin, Imdur, atorvastatin. Fall and weakness: Probably multifactorial due to dehydration, hyperglycemia, UTI, pneumonia, sepsis and poor oral intake. PT DVT prophylaxis: SCDs and subcu heparin Discharge Planning: Patient may transfer to [facility] [place]. Needs rehab
[2018-07-07] MEDS: Metoprolol Tartrate 25 MG Tablet PO SCH ×2 (09:22→20:49)
[2018-07-07] MEDS: guaiFENesin 600 MG ER Tablet PO SCH ×2 (09:22→20:49)
[2018-07-07] MEDS: ceFAZolin Inj 2,000 MG in Sodium Chlor 0.9% Inj 80 ML IV.SIG SCH ×2 (09:52→20:48)
[2018-07-07] MEDS: Estradiol 1 MG Tablet PO SCH (09:53)
[2018-07-07] MEDS: Timolol 0.25% Drops 5 ML Bottle EACH EYE SCH (09:54)
--- NOTE | 2018-07-07 11:38 | P.PNCA ---
Subjective Interval history: alert in nad Physical Exam Vital signs: Vital Signs 07/06/18 12:00 07/06/18 12:01 07/06/18 12:18 Temperature 98.4 F Pulse Rate 72 73 70 Respiratory Rate 35 H 31 H 18 Blood Pressure 143/63 H Pulse Oximetry 98 98 07/06/18 13:00 07/06/18 13:03 07/06/18 14:00 Temperature Pulse Rate 76 76 76 Respiratory Rate 36 H 30 H 24 Blood Pressure 154/68 H Pulse Oximetry 90 L 98 100 07/06/18 15:00 07/06/18 16:00 07/06/18 16:12 Temperature 98.4 F Pulse Rate 118 H 115 H 74 Respiratory Rate 35 H 29 H 18 Blood Pressure Pulse Oximetry 92 L 100 07/06/18 18:00 07/06/18 20:00 07/06/18 21:14 Temperature 99.1 F Pulse Rate 79 79 114 H Respiratory Rate 26 H 16 Blood Pressure 160/66 H Pulse Oximetry 96 98 07/06/18 22:00 07/07/18 00:00 07/07/18 01:19 Temperature 99.3 F Pulse Rate 78 77 117 H Respiratory Rate 27 H 18 Blood Pressure 142/68 H Pulse Oximetry 96 97 07/07/18 02:00 07/07/18 04:00 07/07/18 06:00 Temperature 99 F Pulse Rate 98 H 112 H 124 H Respiratory Rate 24 Blood Pressure 144/64 H Pulse Oximetry 97 07/07/18 07:00 07/07/18 08:00 07/07/18 08:52 Temperature Pulse Rate 80 Respiratory Rate 18 Blood Pressure Pulse Oximetry 95 98 Intake & Output 07/06/18 07/07/18 07/07/18 18:59 06:59 18:59 Intake Total 600 / 600 340 / 340 Output Total 450 / 450 675 / 675 Balance 150 / 150 -335 / -335 Weight 90.7 kg Intake: IV 100 / 100 100 / 100 Ancef Inj 2,000 MG In NS Inj 80 100 / 100 100 / 100 ML @ 200 mls/hr IV.SIG Q12HR YAHIR Rx#:[id number] Oral 500 / 500 240 / 240 Output: Urine 450 / 450 675 / 675 Other: # Incontinent Voids 2 Date of Last Bowel Movement 07/05/18 07/07/18 07/07/18 # Bowel Movements 1 Assessment and Plan - Assessment (1) Atrial fibrillation Code(s): I48.91 - Unspecified atrial fibrillation Status: Acute (2) Bacteremia Code(s): R78.81 - Bacteremia Status: Acute - Plan 1.) PAF - in nsr, i strongly advised her to take coumadin or noac due to [id number] score = 4 to reduce the risk of life threatening or debiliating cva , she understands but refuses, rec continue aspirin, lopressor
[2018-07-07] MEDS: levoFLOXacin 250 MG Tablet PO SCH (13:22)
--- NOTE | 2018-07-07 15:36 | P.PNID ---
Subjective Remarks: Patient notes feeling weak. RN reports that she has fluctuating heart rate. Says her breathing is a little difficult. However she does not appear to be in any respiratory distress. Still has cough but not as bad as before. Awake and alert. Afebrile. Denies chills. Denies chest pain. Patient has neuropathy. No complaints of pain. Blood culture showing staph aureus in all 4 bottles. Repeat blood culture has staph aureus on 07/03/2016. Follow blood culture from 07/05/2016 has no growth in 2 days.. This is an 88-year-old white female who was brought to the emergency department by ambulance. The patient was noted to have fallen in her home the night prior and was unable to get up and was found on the floor and brought to the emergency department the following morning. Past Medical History: PAST MEDICAL AND SURGICAL HISTORY: Diabetes mellitus, hypertension, hypercholesteremia, hypothyroidism, Charcot foot, chronic kidney disease, history of colon cancer, gastroesophageal reflux disease, myocardial infarction, history of hysterectomy, history of cardiac catheterization, history of coronary artery stent. Allergies/Adverse Reactions: Allergies kaye Allergy (Unknown, Verified 07/01/18 12:47) RASH SIMCOR Allergy (Severe, Uncoded 07/01/18 12:47) Edema Objective Vital Signs 07/06/18 16:00 07/06/18 16:12 07/06/18 18:00 Temperature 98.4 F Pulse Rate 115 H 74 79 Respiratory Rate 29 H 18 Blood Pressure Pulse Oximetry 100 07/06/18 20:00 07/06/18 21:14 07/06/18 22:00 Temperature 99.1 F Pulse Rate 79 114 H 78 Respiratory Rate 26 H 16 Blood Pressure 160/66 H Pulse Oximetry 96 98 07/07/18 00:00 07/07/18 01:19 07/07/18 02:00 Temperature 99.3 F Pulse Rate 77 117 H 98 H Respiratory Rate 27 H 18 Blood Pressure 142/68 H Pulse Oximetry 96 97 07/07/18 04:00 07/07/18 06:00 07/07/18 07:00 Temperature 99 F Pulse Rate 112 H 124 H 80 Respiratory Rate 24 18 Blood Pressure 144/64 H Pulse Oximetry 97 07/07/18 08:00 07/07/18 08:52 07/07/18 11:00 Temperature Pulse Rate 109 H Respiratory Rate 18 Blood Pressure Pulse Oximetry 95 98 Intake & Output 07/06/18 07/07/18 07/07/18 18:59 06:59 18:59 Intake Total 600 / 600 340 / 340 Output Total 450 / 450 675 / 675 Balance 150 / 150 -335 / -335 Weight 90.7 kg Intake: IV 100 / 100 100 / 100 Ancef Inj 2,000 MG In NS Inj 80 100 / 100 100 / 100 ML @ 200 mls/hr IV.SIG Q12HR [facility] Rx#:[id number] Oral 500 / 500 240 / 240 Output: Urine 450 / 450 675 / 675 Other: # Incontinent Voids 2 Date of Last Bowel Movement 07/05/18 07/07/18 07/07/18 # Bowel Movements 1 07/06/18 15:00 Sputum - Expectorated Sputum Gram Stain - Final 07/06/18 15:00 Sputum - Expectorated Sputum Sputum Culture - Preliminary Results Pending 07/03/18 11:30 Blood - Peripheral Aerobic Blood Culture - Final Staphylococcus aureus 07/03/18 11:30 Blood - Peripheral Anaerobic Blood Culture - Final Staphylococcus aureus 07/05/18 17:15 Blood - Peripheral Aerobic Blood Culture - Preliminary No growth in 2 days 07/05/18 17:15 Blood - Peripheral Anaerobic Blood Culture - Preliminary No growth in 2 days 07/05/18 17:10 Blood - Peripheral Aerobic Blood Culture - Preliminary No growth in 2 days 07/05/18 17:10 Blood - Peripheral Anaerobic Blood Culture - Preliminary No growth in 2 days 07/03/18 11:35 Blood - Peripheral Aerobic Blood Culture - Final Staphylococcus aureus 07/03/18 11:35 Blood - Peripheral Anaerobic Blood Culture - Preliminary No growth in 4 days Lab - Chemistry Results 07/05/18 07/05/18 07/05/18 16:42 20:03 23:38 Sodium Potassium Chloride Carbon Dioxide Anion Gap BUN Creatinine Estimated GFR POC Glucose 262 H 260 H 143 H Random Glucose Calcium Magnesium 07/06/18 07/06/18 07/06/18 03:36 06:20 07:34 Sodium 140 Potassium 4.5 Chloride 107 Carbon Dioxide 24.2 Anion Gap 9 BUN 57 H Creatinine 1.61 H Estimated GFR 30 L POC Glucose 111 H 156 H Random Glucose 122 H Calcium 8.9 D Magnesium 2.0 07/06/18 07/06/18 07/06/18 11:31 15:32 19:09 Sodium Potassium Chloride Carbon Dioxide Anion Gap BUN Creatinine Estimated GFR POC Glucose 231 H 291 H 299 H Random Glucose Calcium Magnesium 07/07/18 07/07/18 07/07/18 00:06 03:50 07:52 Sodium Potassium Chloride Carbon Dioxide Anion Gap BUN Creatinine Estimated GFR POC Glucose 134 H 128 H 160 H Random Glucose Calcium Magnesium 07/07/18 07/07/18 09:24 13:21 Sodium Potassium Chloride Carbon Dioxide Anion Gap BUN Creatinine Estimated GFR POC Glucose 170 H 173 H Random Glucose Calcium Magnesium Imaging: ITS Impressions Shoulder X-Ray 07/02/18 00:00 CONCLUSION: 1. Intact right shoulder. 2. Mild to moderate degenerative changes. Foot X-Ray 07/03/18 00:00 CONCLUSION: 1. 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 2. Extensive soft tissue swelling. 3. No acute fracture. Venous Doppler Study 07/03/18 00:00 CONCLUSION: 1. No deep venous thrombosis left leg 2. Small popliteal fossa cyst measuring 2.4 x 0.9 x 2.1 cm. Chest X-Ray 07/05/18 06:00 CONCLUSION: Improved aeration. Physical Exam: PHYSICAL EXAMINATION: GENERAL: Alert. No acute distress. HEENT: Extraocular movements grossly intact. Pupils reactive to light. No icterus. Oropharynx has moist mucosa. No lesions. NECK: Supple without adenopathy. LUNGS: Decreased breath sounds. HEART: Irregular S1, S2. No murmurs. ABDOMEN: Bowel sounds present. Soft, hyperactive, nontender. The abdomen is obese. EXTREMITIES: The left ankle and foot swelling has markedly diminished. the foot has Charcot deformity. No erythema. The other extremities have no clubbing, cyanosis or edema. Patient has a callus at the bottom of the left foot which is dry. SKIN: No diffuse rash. NEUROLOGIC: Non focal. PSYCHIATRIC: Calm and cooperative. Assessment and Plan - Plan IMPRESSION: 1. Sepsis due to staph aureus. Source unclear, but could be from the left foot. Repeat blood culture pending. Cellulitis of the left foot. Improved Patient has Charcot's foot deformity and has been receiving treatment. However she has no open or draining wound. 2. Urinary tract infection due to E. coli. 3. Lung infiltrate and coughing. ? PNA. 4. Acute kidney disease. 5. Diabetes mellitus. RECOMMENDATIONS: 1. Continue Ancef. 2. Continue Levaquin - pulmonary coverage. 3. Follow the repeat blood culture to check for clearance. 4. Monitor sputum culture 5. Follow kidney function. 6. Continue to monitor the left foot. Stop use of Jose C wrap. The edema has improved. 7. Monitor clinical status. Dr. Gamez covering for ID this weekend if needed.
[2018-07-07] MEDS: Latanoprost 0.005% Opth Drops 2.5 ML Bottle EACH EYE SCH (20:50)
[2018-07-08] MEDS: Insulin NovoLIN Regular Correctional Sugar Inj SQ SCH ×5 (05:36→21:13)
[2018-07-08] MEDS: Heparin - SQ 10,000 UNITS/ML Vial SQ SCH ×3 (05:37→21:13)
[2018-07-08] MEDS: Levothyroxine 75 MCG Tablet PO SCH (05:37)
[2018-07-08] MEDS: Isosorbide Mononitrate 60 MG ER 24HR Tablet (Imdur) PO SCH (06:18)
[2018-07-08] MEDS: Estradiol 1 MG Tablet PO SCH (08:26)
[2018-07-08] MEDS: Metoprolol Tartrate 25 MG Tablet PO SCH ×2 (08:26→21:11)
[2018-07-08] MEDS: guaiFENesin 600 MG ER Tablet PO SCH ×2 (08:29→21:12)
[2018-07-08] MEDS: ceFAZolin Inj 2,000 MG in Sodium Chlor 0.9% Inj 80 ML IV.SIG SCH ×2 (08:30→21:12)
[2018-07-08] MEDS: Timolol 0.25% Drops 5 ML Bottle EACH EYE SCH (08:30)
[2018-07-08 09:10] LABS: Baso % (Auto) 0.6 % (0.0-2.0); Eos # (Auto) 0.2 th/mm3 (0.0-0.4); Eos % (Auto) 2.9 % (0.0-4.0); Hematocrit 32.2 % (35.0-46.0); Hemoglobin 10.9 gm/dL (11.6-15.3); Lymph # (Auto) 0.9 th/mm3 (1.0-4.8); Lymph % (Auto) 12.4 % (9.0-44.0); Mean Corpuscular HGB Conc 33.7 % (32.0-36.0); Mean Corpuscular Volume 91.9 fL (80.0-100.0); Mean Platelet Volume 9.3 fL (7.0-11.0); Mono # (Auto) 0.6 th/mm3 (0.0-0.9); Mono % (Auto) 7.7 % (0.0-8.0); Neut # (Auto) 5.6 th/mm3 (1.8-7.7); Neut % (Auto) 76.4 % (16.0-70.0); Platelet Count 238 th/mm3 (150-450); Red Blood Count 3.51 mil/mm3 (4.00-5.30); Red Cell Distribution Width 14.2 % (11.6-17.2); White Blood Count 7.3 th/mm3 (4.0-11.0)
[2018-07-08 09:27] LABS: Calcium 9.1 mg/dL (8.5-10.1); Carbon Dioxide 22.9 meq/L (21.0-32.0); Magnesium 1.4 mg/dL (1.5-2.5)
--- NOTE | 2018-07-08 11:35 | P.PNCA ---
Subjective Interval history: asleep in nad Physical Exam Vital signs: Vital Signs 07/07/18 12:00 07/07/18 14:00 07/07/18 16:00 Temperature 98.0 F 98.4 F Pulse Rate 111 H 121 H 74 Respiratory Rate 33 H 32 H Blood Pressure 110/56 L 150/60 H Pulse Oximetry 96 95 07/07/18 18:00 07/07/18 20:00 07/07/18 22:00 Temperature 98.5 F Pulse Rate 121 H 82 112 H Respiratory Rate 31 H Blood Pressure 114/87 Pulse Oximetry 94 L 07/08/18 00:00 07/08/18 02:00 07/08/18 04:00 Temperature 98 F 98.5 F Pulse Rate 76 110 H 79 Respiratory Rate 28 H 34 H Blood Pressure 116/59 L 108/57 L Pulse Oximetry 98 95 07/08/18 06:00 07/08/18 08:00 07/08/18 09:11 Temperature 98.8 F Pulse Rate 79 97 H Respiratory Rate 28 H Blood Pressure 109/58 L Pulse Oximetry 97 95 Intake & Output 07/07/18 07/08/18 07/08/18 18:59 06:59 18:59 Intake Total 700 / 700 340 / 340 100 / 100 Output Total 700 / 700 400 / 400 Balance 0 / 0 -60 / -60 100 / 100 Weight 89.1 kg Intake: IV 100 / 100 100 / 100 100 / 100 Ancef Inj 2,000 MG In NS Inj 80 100 / 100 100 / 100 100 / 100 ML @ 200 mls/hr IV.SIG Q12HR [facility] Rx#:[id number] Oral 600 / 600 240 / 240 Output: Urine 700 / 700 400 / 400 Other: Date of Last Bowel Movement 07/07/18 07/07/18 07/07/18 # Bowel Movements 2 0 Assessment and Plan - Assessment (1) Atrial fibrillation Code(s): I48.91 - Unspecified atrial fibrillation Status: Acute (2) Bacteremia Code(s): R78.81 - Bacteremia Status: Acute - Plan 1.) PAF - in nsr, i strongly advised her to take coumadin or noac due to [id number] score = 4 to reduce the risk of life threatening or debiliating cva , she understands but refuses, rec continue aspirin, lopressor
--- NOTE | 2018-07-08 12:07 | P.PN ---
Subjective Interval history: Follow-up MSSA bacteremia/acute on chronic stage III kidney disease/ encephalopathy/PAF July 08, 2018-patient seen and examined, alert and oriented to self, place but not to date. No acute event overnight. Currently in normal sinus rhythm. Improving renal indices. Afebrile. Physical Exam Vital signs: Vital Signs 07/07/18 14:00 07/07/18 16:00 07/07/18 18:00 Temperature 98.4 F Pulse Rate 121 H 74 121 H Respiratory Rate 32 H Blood Pressure 150/60 H Pulse Oximetry 95 07/07/18 20:00 07/07/18 22:00 07/08/18 00:00 Temperature 98.5 F 98 F Pulse Rate 82 112 H 76 Respiratory Rate 31 H 28 H Blood Pressure 114/87 116/59 L Pulse Oximetry 94 L 98 07/08/18 02:00 07/08/18 04:00 07/08/18 06:00 Temperature 98.5 F Pulse Rate 110 H 79 79 Respiratory Rate 34 H Blood Pressure 108/57 L Pulse Oximetry 95 07/08/18 08:00 07/08/18 09:11 Temperature 98.8 F Pulse Rate 97 H Respiratory Rate 28 H Blood Pressure 109/58 L Pulse Oximetry 97 95 Intake & Output 07/07/18 07/08/18 07/08/18 18:59 06:59 18:59 Intake Total 700 / 700 340 / 340 100 / 100 Output Total 700 / 700 400 / 400 Balance 0 / 0 -60 / -60 100 / 100 Weight 89.1 kg Intake: IV 100 / 100 100 / 100 100 / 100 Ancef Inj 2,000 MG In NS Inj 80 100 / 100 100 / 100 100 / 100 ML @ 200 mls/hr IV.SIG Q12HR [facility] Rx#:[id number] Oral 600 / 600 240 / 240 Output: Urine 700 / 700 400 / 400 Other: Date of Last Bowel Movement 07/07/18 07/07/18 07/07/18 # Bowel Movements 2 0 Narrative: GENERAL: NAD SKIN: Warm and dry. HEAD: Atraumatic. Normocephalic. EYES: Pupils equal and round. No scleral icterus. No injection or drainage. ENT: No nasal bleeding or discharge. Mucous membranes pink and moist. NECK: Trachea midline. No JVD. CARDIOVASCULAR: Regular rate and rhythm. RESPIRATORY: No accessory muscle use. Clear to auscultation. Breath sounds equal bilaterally. GASTROINTESTINAL: Abdomen soft, non-tender, nondistended. Hepatic and splenic margins not palpable. MUSCULOSKELETAL: Extremities without clubbing, cyanosis, or edema. No obvious deformities. NEUROLOGICAL: Awake and alert. No obvious cranial nerve deficits. Motor grossly within normal limits. Five out of 5 muscle strength in the arms and legs. Normal speech. PSYCHIATRIC: Appropriate mood and affect; insight and judgment normal. Results - Labs CBC & Chem 7: 07/08/18 08:32 07/08/18 08:32 Laboratory Results - last 24 hr 07/07/18 07/07/18 07/07/18 13:21 16:30 20:43 WBC RBC Hgb Hct MCV MCH MCHC RDW Plt Count MPV Neut % (Auto) Lymph % (Auto) [place] % (Auto) Eos % (Auto) Baso % (Auto) Neut # (Auto) Lymph # (Auto) [place] # (Auto) Eos # (Auto) Baso # (Auto) WBC Differential Differential Comment Sodium Potassium Chloride Carbon Dioxide Anion Gap BUN Creatinine Estimated GFR POC Glucose 173 H 195 H 228 H Random Glucose Calcium Magnesium 07/07/18 07/08/18 07/08/18 23:30 05:36 07:38 WBC RBC Hgb Hct MCV MCH MCHC RDW Plt Count MPV Neut % (Auto) Lymph % (Auto) [place] % (Auto) Eos % (Auto) Baso % (Auto) Neut # (Auto) Lymph # (Auto) [place] # (Auto) Eos # (Auto) Baso # (Auto) WBC Differential Differential Comment Sodium Potassium Chloride Carbon Dioxide Anion Gap BUN Creatinine Estimated GFR POC Glucose 187 H 75 83 Random Glucose Calcium Magnesium 07/08/18 07/08/18 07/08/18 08:32 08:32 11:51 WBC 7.3 RBC 3.51 L Hgb 10.9 L Hct 32.2 L MCV 91.9 MCH 31.0 MCHC 33.7 RDW 14.2 Plt Count 238 MPV 9.3 Neut % (Auto) 76.4 H Lymph % (Auto) 12.4 [place] % (Auto) 7.7 Eos % (Auto) 2.9 Baso % (Auto) 0.6 Neut # (Auto) 5.6 Lymph # (Auto) 0.9 L [place] # (Auto) 0.6 Eos # (Auto) 0.2 Baso # (Auto) 0.0 WBC Differential . Differential Comment Auto diff final Sodium 139 Potassium 5.0 Chloride 109 H Carbon Dioxide 22.9 Anion Gap 7 BUN 42 H Creatinine 1.38 H Estimated GFR 36 L POC Glucose 163 H Random Glucose 86 Calcium 9.1 Magnesium 1.4 L Microbiology 07/06/18 15:00 Sputum - Expectorated Sputum Gram Stain - Final 07/06/18 15:00 Sputum - Expectorated Sputum Sputum Culture - Final Heavy growth normal respiratory adonis 07/05/18 17:15 Blood - Peripheral Aerobic Blood Culture - Preliminary No growth in 3 days 07/05/18 17:15 Blood - Peripheral Anaerobic Blood Culture - Preliminary No growth in 3 days 07/05/18 17:10 Blood - Peripheral Aerobic Blood Culture - Preliminary No growth in 3 days 07/05/18 17:10 Blood - Peripheral Anaerobic Blood Culture - Preliminary No growth in 3 days 07/03/18 11:35 Blood - Peripheral Aerobic Blood Culture - Final Staphylococcus aureus 07/03/18 11:35 Blood - Peripheral Anaerobic Blood Culture - Final No growth in 5 days 07/03/18 11:30 Blood - Peripheral Aerobic Blood Culture - Final Staphylococcus aureus 07/03/18 11:30 Blood - Peripheral Anaerobic Blood Culture - Final Staphylococcus aureus - Procedures none Assessment and Plan - Assessment (1) Acute kidney injury superimposed on CKD Code(s): N17.9 - Acute kidney failure, unspecified; N18.9 - Chronic kidney disease, unspecified Status: Acute (2) Atrial fibrillation Code(s): I48.91 - Unspecified atrial fibrillation Status: Chronic (3) Bacteremia Code(s): R78.81 - Bacteremia Status: Acute - Plan 88-year-old female with Fluid overload from IV hydration given for acute kidney injury secondary to rhabdomyolysis. Resolved status post Lasix. Sepsis -resolved community-acquired pneumonia-currently on Levaquin MSSA bacteremia likely from ankle cellulitis. Continue IV Ancef per infectious disease f/u cx Rhabdomyolysis: Resolving DAMARI on CKD 3: Improving renal indices, monitor BUN and creatinine Insulin-dependent diabetes mellitus with hyperglycemia: Stable on Levemir twice a day. SSI with Accu-Cheks. A. fib with RVR. Currently sinus continue Lopressor, aspirin. High chads vasc score refusing to be on anticoagulation. Echo noted. Appreciate input from cardiology Left Charcot foot and ankle with possible cellulitis: Has been following with podiatry, Dr. Preston, at [facility]. Improving continue IV antibiotics as above. Monitor clinically. Consider podiatry evaluation if no improvement. History of CAD: No chest pain. Continue home aspirin, Imdur, atorvastatin. Fall and weakness: Continue with PT DVT prophylaxis: SCDs and subcu heparin
[2018-07-08] MEDS: levoFLOXacin 250 MG Tablet PO SCH (13:07)
[2018-07-08] MEDS: Latanoprost 0.005% Opth Drops 2.5 ML Bottle EACH EYE SCH (21:15)
[2018-07-09] MEDS: Insulin NovoLIN Regular Correctional Sugar Inj SQ SCH ×6 (00:36→21:01)
[2018-07-09] MEDS: Isosorbide Mononitrate 60 MG ER 24HR Tablet (Imdur) PO SCH (05:59)
[2018-07-09] MEDS: Heparin - SQ 10,000 UNITS/ML Vial SQ SCH ×3 (05:59→20:59)
[2018-07-09] MEDS: Levothyroxine 75 MCG Tablet PO SCH (05:59)
[2018-07-09] MEDS: guaiFENesin 600 MG ER Tablet PO SCH ×2 (08:39→21:02)
[2018-07-09] MEDS: Metoprolol Tartrate 25 MG Tablet PO SCH ×2 (08:39→21:02)
[2018-07-09] MEDS: Timolol 0.25% Drops 5 ML Bottle EACH EYE SCH (08:42)
[2018-07-09] MEDS: Estradiol 1 MG Tablet PO SCH (08:51)
[2018-07-09] MEDS: ceFAZolin Inj 2,000 MG in Sodium Chlor 0.9% Inj 80 ML IV.SIG SCH ×2 (08:52→21:02)
[2018-07-09 09:48] LABS: Baso # (Auto) 0.1 th/mm3 (0.0-0.2); Baso % (Auto) 0.7 % (0.0-2.0); Eos # (Auto) 0.2 th/mm3 (0.0-0.4); Hematocrit 33.2 % (35.0-46.0); Hemoglobin 11.7 gm/dL (11.6-15.3); Lymph # (Auto) 0.8 th/mm3 (1.0-4.8); Lymph % (Auto) 10.7 % (9.0-44.0); Mean Corpuscular HGB Conc 35.1 % (32.0-36.0); Mean Corpuscular Hemoglobin 31.7 pg (27.0-34.0); Mean Corpuscular Volume 90.1 fL (80.0-100.0); Mono # (Auto) 0.4 th/mm3 (0.0-0.9); Mono % (Auto) 5.9 % (0.0-8.0); Neut # (Auto) 5.9 th/mm3 (1.8-7.7); Neut % (Auto) 79.7 % (16.0-70.0); Platelet Count 207 th/mm3 (150-450); Red Blood Count 3.69 mil/mm3 (4.00-5.30); White Blood Count 7.4 th/mm3 (4.0-11.0)
[2018-07-09 10:08] LABS: Albumin 1.6 g/dL (3.4-5.0); Anion Gap 7 meq/L (5-15); Aspartate Aminotransferase 33 U/L (15-37); Blood Urea Nitrogen 37 mg/dL (7-18); Calcium 8.7 mg/dL (8.5-10.1); Carbon Dioxide 21.9 meq/L (21.0-32.0); Chloride 108 meq/L (98-107); Glomerular Filtration Rate 35 mL/min (>89); Glucose,Random 139 mg/dL (74-106); Potassium 5.1 meq/L (3.5-5.1); Sodium 137 meq/L (136-145)
[2018-07-09 10:09] LABS: Alanine Aminotransferase 10 U/L (10-53)
[2018-07-09 10:11] LABS: Alkaline Phosphatase 112 U/L (45-117)
[2018-07-09 10:16] LABS: Eosinophils 5 % (0-4); Lymphocytes 12 % (9-44); Metamyelocytes 1 % (0-1); Monocytes 5 % (0-8); Myelocytes 1 % (0-0); Platelet Estimate Normal (Normal); Platelet Morphology Normal (Normal)
[2018-07-09] MEDS: levoFLOXacin 250 MG Tablet PO SCH (12:50)
--- NOTE | 2018-07-09 13:00 | P.PN ---
Subjective Interval history: Nursing denies any deterioration since last night. Patient herself says that her breathing is better today. She reports that at home she has fallen twice in 2 days but does identify triggers, and one case she struck a door with her walker therefore lost her balance. On the second incident she reports more of an orthostatic picture where she was standing up from her bed and lost her balance. Physical Exam Vital signs: Vital Signs 07/08/18 16:00 07/08/18 20:00 07/09/18 00:00 Temperature 98 F 97.5 F L 97.8 F Pulse Rate 65 71 62 Respiratory Rate 18 22 22 Blood Pressure 130/63 153/67 H 158/70 H Pulse Oximetry 97 97 98 07/09/18 04:00 07/09/18 08:00 Temperature 98.1 F 97.9 F Pulse Rate 68 108 H Respiratory Rate 20 18 Blood Pressure 163/70 H 140/60 Pulse Oximetry 93 L 96 Intake & Output 07/08/18 07/09/18 07/09/18 18:59 06:59 18:59 Intake Total 580 / 580 1060 / 1060 100 / 100 Output Total 500 / 500 Balance 580 / 580 560 / 560 100 / 100 Weight 91.4 kg 98.2 kg Intake: IV 100 / 100 100 / 100 100 / 100 Ancef Inj 2,000 MG In NS Inj 80 100 / 100 100 / 100 100 / 100 ML @ 200 mls/hr IV.SIG Q12HR [facility] Rx#:[id number] Oral 480 / 480 960 / 960 Output: Urine 500 / 500 Other: # Voids 3 2 Date of Last Bowel Movement 07/07/18 07/09/18 # Bowel Movements 1 Narrative: Only trace erythema on medial aspect of left ankle Clear lungs bilaterally, unlabored breathing, on room air, no cyanosis Results - Labs CBC & Chem 7: 07/09/18 09:23 07/09/18 09:23 Laboratory Results - last 24 hr 07/08/18 07/08/18 07/09/18 17:12 19:59 00:33 WBC RBC Hgb Hct MCV MCH MCHC RDW Plt Count MPV Prelim Diff (Auto) Neut % (Auto) Lymph % (Auto) [place] % (Auto) Eos % (Auto) Baso % (Auto) Neut # (Auto) Lymph # (Auto) [place] # (Auto) Eos # (Auto) Baso # (Auto) WBC Differential Seg Neuts % (Manual) Band Neuts % (Manual) Lymphocytes % (Manual) Monocytes % (Manual) Eosinophils % (Manual) Metamyelocytes % (Man) Myelocytes % (Man) Abs Neuts (Manual) Differential Comment Platelet Estimate Platelet Morphology Hematology Comments Sodium Potassium Chloride Carbon Dioxide Anion Gap BUN Creatinine Estimated GFR POC Glucose 220 H 163 H 191 H Random Glucose Calcium Total Bilirubin AST ALT Alkaline Phosphatase Total Protein Albumin 07/09/18 07/09/18 07/09/18 04:10 08:38 09:23 WBC 7.4 RBC 3.69 L Hgb 11.7 Hct 33.2 L MCV 90.1 MCH 31.7 MCHC 35.1 RDW 14.0 Plt Count 207 MPV 9.0 Prelim Diff (Auto) Slide review pending Neut % (Auto) 79.7 H Lymph % (Auto) 10.7 [place] % (Auto) 5.9 Eos % (Auto) 3.0 Baso % (Auto) 0.7 Neut # (Auto) 5.9 Lymph # (Auto) 0.8 L [place] # (Auto) 0.4 Eos # (Auto) 0.2 Baso # (Auto) 0.1 WBC Differential Manual diff final Seg Neuts % (Manual) 73 H Band Neuts % (Manual) 3 Lymphocytes % (Manual) 12 Monocytes % (Manual) 5 Eosinophils % (Manual) 5 H Metamyelocytes % (Man) 1 Myelocytes % (Man) 1 H Abs Neuts (Manual) 5.8 Differential Comment . Platelet Estimate Normal Platelet Morphology Normal Hematology Comments Sodium Potassium Chloride Carbon Dioxide Anion Gap BUN Creatinine Estimated GFR POC Glucose 158 H 170 H Random Glucose Calcium Total Bilirubin AST ALT Alkaline Phosphatase Total Protein Albumin 07/09/18 07/09/18 09:23 11:11 WBC RBC Hgb Hct MCV MCH MCHC RDW Plt Count MPV Prelim Diff (Auto) Neut % (Auto) Lymph % (Auto) [place] % (Auto) Eos % (Auto) Baso % (Auto) Neut # (Auto) Lymph # (Auto) [place] # (Auto) Eos # (Auto) Baso # (Auto) WBC Differential Seg Neuts % (Manual) Band Neuts % (Manual) Lymphocytes % (Manual) Monocytes % (Manual) Eosinophils % (Manual) Metamyelocytes % (Man) Myelocytes % (Man) Abs Neuts (Manual) Differential Comment Platelet Estimate Platelet Morphology Hematology Comments Sodium 137 Potassium 5.1 Chloride 108 H Carbon Dioxide 21.9 Anion Gap 7 BUN 37 H Creatinine 1.42 H Estimated GFR 35 L POC Glucose 136 H Random Glucose 139 H Calcium 8.7 Total Bilirubin 0.4 AST 33 ALT 10 Alkaline Phosphatase 112 Total Protein 6.0 L Albumin 1.6 L Microbiology 07/05/18 17:15 Blood - Peripheral Aerobic Blood Culture - Preliminary No growth in 4 days 07/05/18 17:15 Blood - Peripheral Anaerobic Blood Culture - Preliminary No growth in 4 days 07/05/18 17:10 Blood - Peripheral Aerobic Blood Culture - Preliminary No growth in 4 days 07/05/18 17:10 Blood - Peripheral Anaerobic Blood Culture - Preliminary No growth in 4 days 07/06/18 15:00 Sputum - Expectorated Sputum Gram Stain - Final 07/06/18 15:00 Sputum - Expectorated Sputum Sputum Culture - Final Heavy growth normal respiratory adonis 07/03/18 11:35 Blood - Peripheral Aerobic Blood Culture - Final Staphylococcus aureus 07/03/18 11:35 Blood - Peripheral Anaerobic Blood Culture - Final No growth in 5 days - Procedures none Assessment and Plan - Assessment (1) Acute kidney injury superimposed on CKD Code(s): N17.9 - Acute kidney failure, unspecified; N18.9 - Chronic kidney disease, unspecified Status: Acute (2) Atrial fibrillation Code(s): I48.91 - Unspecified atrial fibrillation Status: Chronic (3) Bacteremia Code(s): R78.81 - Bacteremia Status: Acute - Plan 88-year-old female originally admitted with sepsis secondary to MSSA bacteremia and community-acquired pneumonia; so found to be in rhabdomyolysis resulting in acute kidney injury. Sepsis element had resolved with antibiotics, IV fluids, and infectious disease comanagement. Patient's renal function returned to baseline. community-acquired pneumonia -currently on Levaquin MSSA bacteremia likely from ankle cellulitis - Continue IV Ancef per infectious disease -Repeat cultures are negative CKD 3 -Back to baseline DM -Stable on Levemir twice a day. SSI with Accu-Cheks. A. fib with RVR. -Currently sinus continue Lopressor, aspirin. High chads vasc score refusing to be on anticoagulation. Echo noted. Appreciate input from cardiology Left Charcot foot and ankle with possible cellulitis -Has been following with podiatry, Dr. Preston, at [facility]. Improving continue IV antibiotics as above. Monitor clinically. Consider podiatry evaluation if no improvement. History of CAD -Continue home aspirin, Imdur, atorvastatin. Fall and weakness -Continue with PT DVT prophylaxis: subcu heparin
--- NOTE | 2018-07-09 13:12 | P.PNCA ---
Subjective Interval history: alert in nad Physical Exam Vital signs: Vital Signs 07/08/18 16:00 07/08/18 20:00 07/09/18 00:00 Temperature 98 F 97.5 F L 97.8 F Pulse Rate 65 71 62 Respiratory Rate 18 22 22 Blood Pressure 130/63 153/67 H 158/70 H Pulse Oximetry 97 97 98 07/09/18 04:00 07/09/18 08:00 Temperature 98.1 F 97.9 F Pulse Rate 68 108 H Respiratory Rate 20 18 Blood Pressure 163/70 H 140/60 Pulse Oximetry 93 L 96 Intake & Output 07/08/18 07/09/18 07/09/18 18:59 06:59 18:59 Intake Total 580 / 580 1060 / 1060 100 / 100 Output Total 500 / 500 Balance 580 / 580 560 / 560 100 / 100 Weight 91.4 kg 98.2 kg Intake: IV 100 / 100 100 / 100 100 / 100 Ancef Inj 2,000 MG In NS Inj 80 100 / 100 100 / 100 100 / 100 ML @ 200 mls/hr IV.SIG Q12HR [facility] Rx#:[id number] Oral 480 / 480 960 / 960 Output: Urine 500 / 500 Other: # Voids 3 2 Date of Last Bowel Movement 07/07/18 07/09/18 # Bowel Movements 1 Assessment and Plan - Assessment (1) Atrial fibrillation Code(s): I48.91 - Unspecified atrial fibrillation Status: Chronic (2) Bacteremia Code(s): R78.81 - Bacteremia Status: Acute - Plan 1.) PAF - in nsr, i strongly advised her to take coumadin or noac due to [id number] score = 4 to reduce the risk of life threatening or debiliating cva , she understands but refuses, rec continue aspirin, lopressor
[2018-07-09] MEDS: Latanoprost 0.005% Opth Drops 2.5 ML Bottle EACH EYE SCH (21:03)
[2018-07-10] MEDS: Insulin NovoLIN Regular Correctional Sugar Inj SQ SCH ×6 (00:24→20:42)
[2018-07-10] MEDS: Heparin - SQ 10,000 UNITS/ML Vial SQ SCH ×3 (05:16→23:08)
[2018-07-10] MEDS: Levothyroxine 75 MCG Tablet PO SCH (05:16)
[2018-07-10] MEDS: Isosorbide Mononitrate 60 MG ER 24HR Tablet (Imdur) PO SCH (06:08)
[2018-07-10] MEDS: ceFAZolin Inj 2,000 MG in Sodium Chlor 0.9% Inj 80 ML IV.SIG SCH ×2 (09:53→20:48)
[2018-07-10] MEDS: Metoprolol Tartrate 25 MG Tablet PO SCH ×2 (09:53→20:41)
[2018-07-10] MEDS: guaiFENesin 600 MG ER Tablet PO SCH ×2 (09:53→20:41)
[2018-07-10] MEDS: Estradiol 1 MG Tablet PO SCH (09:54)
[2018-07-10] MEDS: Timolol 0.25% Drops 5 ML Bottle EACH EYE SCH (10:04)
--- NOTE | 2018-07-10 12:32 | P.PNID ---
Subjective Remarks: Patient notes feeling extremely weak. Difficulty breathing. She is not tachypneic. Thinks it is because she is laying reclined in bed and her abdomen pushes up unto her chest. Less cough. Awake and alert. Afebrile. Denies chills. Denies chest pain. Patient has neuropathy. Blood culture showing staph aureus in all 4 bottles. Repeat blood culture has staph aureus on 07/03/2016. Follow blood culture from 07/05/2016 has no growth. This is an 88-year-old white female who was brought to the emergency department by ambulance. The patient was noted to have fallen in her home the night prior and was unable to get up and was found on the floor and brought to the emergency department the following morning. Past Medical History: PAST MEDICAL AND SURGICAL HISTORY: Diabetes mellitus, hypertension, hypercholesteremia, hypothyroidism, Charcot foot, chronic kidney disease, history of colon cancer, gastroesophageal reflux disease, myocardial infarction, history of hysterectomy, history of cardiac catheterization, history of coronary artery stent. Allergies/Adverse Reactions: Allergies kaye Allergy (Unknown, Verified 07/01/18 12:47) RASH SIMCOR Allergy (Severe, Uncoded 07/01/18 12:47) Edema Objective Vital Signs 07/09/18 16:00 07/09/18 20:00 07/10/18 00:00 Temperature 98.1 F 97.6 F 97.5 F L Pulse Rate 90 123 H 78 Respiratory Rate 18 20 20 Blood Pressure 147/67 H 102/54 L 129/64 Pulse Oximetry 99 98 96 07/10/18 04:00 07/10/18 08:00 Temperature 97.7 F 97.4 F L Pulse Rate 84 83 Respiratory Rate 20 20 Blood Pressure 127/59 L 130/61 Pulse Oximetry 98 96 Intake & Output 07/09/18 07/10/18 07/10/18 18:59 06:59 18:59 Intake Total 580 / 580 220 / 220 Balance 580 / 580 220 / 220 Weight 96.9 kg Intake: IV 100 / 100 100 / 100 Ancef Inj 2,000 MG In NS Inj 80 100 / 100 100 / 100 ML @ 200 mls/hr IV.SIG Q12HR [facility] Rx#:[id number] Oral 480 / 480 120 / 120 Other: # Voids 2 Date of Last Bowel Movement 07/09/18 07/09/18 # Bowel Movements 2 07/05/18 17:15 Blood - Peripheral Aerobic Blood Culture - Final No growth in 5 days 07/05/18 17:15 Blood - Peripheral Anaerobic Blood Culture - Final No growth in 5 days 07/05/18 17:10 Blood - Peripheral Aerobic Blood Culture - Final No growth in 5 days 07/05/18 17:10 Blood - Peripheral Anaerobic Blood Culture - Final No growth in 5 days 07/06/18 15:00 Sputum - Expectorated Sputum Gram Stain - Final 07/06/18 15:00 Sputum - Expectorated Sputum Sputum Culture - Final Heavy growth normal respiratory adonis 07/03/18 11:35 Blood - Peripheral Aerobic Blood Culture - Final Staphylococcus aureus 07/03/18 11:35 Blood - Peripheral Anaerobic Blood Culture - Final No growth in 5 days 07/03/18 11:30 Blood - Peripheral Aerobic Blood Culture - Final Staphylococcus aureus 07/03/18 11:30 Blood - Peripheral Anaerobic Blood Culture - Final Staphylococcus aureus Lab - Hematology Results 07/09/18 09:23 WBC 7.4 RBC 3.69 L Hgb 11.7 Hct 33.2 L MCV 90.1 MCH 31.7 MCHC 35.1 RDW 14.0 Plt Count 207 MPV 9.0 Prelim Diff (Auto) Slide review pending Neut % (Auto) 79.7 H Lymph % (Auto) 10.7 Dawson % (Auto) 5.9 Eos % (Auto) 3.0 Baso % (Auto) 0.7 Neut # (Auto) 5.9 Lymph # (Auto) 0.8 L Dawson # (Auto) 0.4 Eos # (Auto) 0.2 Baso # (Auto) 0.1 WBC Differential Manual diff final Seg Neuts % (Manual) 73 H Band Neuts % (Manual) 3 Lymphocytes % (Manual) 12 Monocytes % (Manual) 5 Eosinophils % (Manual) 5 H Metamyelocytes % (Man) 1 Myelocytes % (Man) 1 H Abs Neuts (Manual) 5.8 Differential Comment . Platelet Estimate Normal Platelet Morphology Normal Hematology Comments Lab - Chemistry Results 07/08/18 07/08/18 07/09/18 17:12 19:59 00:33 Sodium Potassium Chloride Carbon Dioxide Anion Gap BUN Creatinine Estimated GFR POC Glucose 220 H 163 H 191 H Random Glucose Calcium Total Bilirubin AST ALT Alkaline Phosphatase Total Protein Albumin 07/09/18 07/09/1818 04:10 08:38 09:23 Sodium 137 Potassium 5.1 Chloride 108 H Carbon Dioxide 21.9 Anion Gap 7 BUN 37 H Creatinine 1.42 H Estimated GFR 35 L POC Glucose 158 H 170 H Random Glucose 139 H Calcium 8.7 Total Bilirubin 0.4 AST 33 ALT 10 Alkaline Phosphatase 112 Total Protein 6.0 L Albumin 1.6 L 07/09/18 07/09/18 07/09/18 11:11 16:46 19:54 Sodium Potassium Chloride Carbon Dioxide Anion Gap BUN Creatinine Estimated GFR POC Glucose 136 H 132 H 225 H Random Glucose Calcium Total Bilirubin AST ALT Alkaline Phosphatase Total Protein Albumin 07/10/18 09:50 Sodium Potassium Chloride Carbon Dioxide Anion Gap BUN Creatinine Estimated GFR POC Glucose 220 H Random Glucose Calcium Total Bilirubin AST ALT Alkaline Phosphatase Total Protein Albumin Imaging: ITS Impressions Shoulder X-Ray 07/02/18 00:00 CONCLUSION: 1. Intact right shoulder. 2. Mild to moderate degenerative changes. Foot X-Ray 07/03/18 00:00 CONCLUSION: 1. 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 2. Extensive soft tissue swelling. 3. No acute fracture. Venous Doppler Study 07/03/18 00:00 CONCLUSION: 1. No deep venous thrombosis left leg 2. Small popliteal fossa cyst measuring 2.4 x 0.9 x 2.1 cm. Chest X-Ray 07/05/18 06:00 CONCLUSION: Improved aeration. Physical Exam: PHYSICAL EXAMINATION: GENERAL: Alert. No acute distress. HEENT: Extraocular movements grossly intact. Pupils reactive to light. No icterus. Oropharynx has moist mucosa. No lesions. NECK: Supple without adenopathy. LUNGS: Decreased breath sounds throughout. HEART: Irregular S1, S2. No murmurs. ABDOMEN: Bowel sounds present. Soft, hyperactive, nontender. The abdomen is obese. EXTREMITIES: The left ankle and foot has 3+ swelling. the foot has Charcot deformity. No erythema. The other extremities have no clubbing, cyanosis or edema. Callus at the bottom of the left foot which is dry. SKIN: No diffuse rash. NEUROLOGIC: Non focal. PSYCHIATRIC: Calm and cooperative. Assessment and Plan - Plan IMPRESSION: 1. Sepsis due to staph aureus. Source unclear, but most likely from the left foot source. Repeat blood culture has no growth. Cellulitis of the left foot improved Patient has Charcot's foot deformity and has been receiving treatment. However she has no open or draining wound. 2. Urinary tract infection due to E. coli. 3. Lung infiltrate and coughing. ? PNA. 4. Acute kidney disease. 5. Diabetes mellitus. RECOMMENDATIONS: 1. Continue Ancef. I anticipate another week of treatment for the bacteremia. 2. Stop Levaquin. 3. Repeat chest x-ray. 4. Follow kidney function. 5. Physical therapy to assist with exercises and ambulation. 6. Continue to monitor the left foot. Use Jose C wrap to the left ankle to help with swelling. 7. Monitor clinical status.
--- NOTE | 2018-07-10 12:50 | P.PN ---
Subjective Interval history: Nursing denies any deterioration since last night. Patient herself denies any new complaints. Says her leg erythema is not there, there is a swelling is improved. Physical Exam Vital signs: Vital Signs 07/09/18 16:00 07/09/18 20:00 07/10/18 00:00 Temperature 98.1 F 97.6 F 97.5 F L Pulse Rate 90 123 H 78 Respiratory Rate 18 20 20 Blood Pressure 147/67 H 102/54 L 129/64 Pulse Oximetry 99 98 96 07/10/18 04:00 07/10/18 08:00 Temperature 97.7 F 97.4 F L Pulse Rate 84 83 Respiratory Rate 20 20 Blood Pressure 127/59 L 130/61 Pulse Oximetry 98 96 Intake & Output 07/09/18 07/10/18 07/10/18 18:59 06:59 18:59 Intake Total 580 / 580 220 / 220 Balance 580 / 580 220 / 220 Weight 96.9 kg Intake: IV 100 / 100 100 / 100 Ancef Inj 2,000 MG In NS Inj 80 100 / 100 100 / 100 ML @ 200 mls/hr IV.SIG Q12HR [facility] Rx#:[id number] Oral 480 / 480 120 / 120 Other: # Voids 2 Date of Last Bowel Movement 07/09/18 07/09/18 # Bowel Movements 2 Narrative: Clear lungs bilaterally, unlabored breathing On room air No left ankle/foot erythema, about 2+ edema Results - Labs CBC & Chem 7: 07/09/18 09:23 07/09/18 09:23 Laboratory Results - last 24 hr 07/09/18 07/09/18 07/10/18 16:46 19:54 09:50 POC Glucose 132 H 225 H 220 H 07/10/18 12:27 POC Glucose 270 H Microbiology 07/05/18 17:15 Blood - Peripheral Aerobic Blood Culture - Final No growth in 5 days 07/05/18 17:15 Blood - Peripheral Anaerobic Blood Culture - Final No growth in 5 days 07/05/18 17:10 Blood - Peripheral Aerobic Blood Culture - Final No growth in 5 days 07/05/18 17:10 Blood - Peripheral Anaerobic Blood Culture - Final No growth in 5 days - Procedures none Assessment and Plan - Assessment (1) Acute kidney injury superimposed on CKD Code(s): N17.9 - Acute kidney failure, unspecified; N18.9 - Chronic kidney disease, unspecified Status: Acute (2) Atrial fibrillation Code(s): I48.91 - Unspecified atrial fibrillation Status: Chronic (3) Bacteremia Code(s): R78.81 - Bacteremia Status: Acute - Plan 88-year-old female originally admitted with sepsis secondary to MSSA bacteremia and community-acquired pneumonia; so found to be in rhabdomyolysis resulting in acute kidney injury. Sepsis element had resolved with antibiotics, IV fluids, and infectious disease comanagement. Patient's renal function returned to baseline. community-acquired pneumonia -Discontinuing Levaquin per ID. MSSA bacteremia likely from ankle cellulitis - Continue IV Ancef per infectious disease for now, anticipate being discharged with a PICC line -Repeat cultures are negative CKD 3 -Back to baseline DM -Stable on Levemir twice a day. SSI with Accu-Cheks. A. fib with RVR. -Currently sinus continue Lopressor, aspirin. High chads vasc score refusing to be on anticoagulation. Echo noted. Appreciate input from cardiology Left Charcot foot and ankle with possible cellulitis -Has been following with podiatry, Dr. Preston, at [facility]. Improving continue IV antibiotics as above. Monitor clinically. Consider podiatry evaluation if no improvement. History of CAD -Continue home aspirin, Imdur, atorvastatin. Fall and weakness -Continue with PT DVT prophylaxis: subcu heparin Discharge Planning: To be discharged once cleared with ID, for now continue IV antibiotics in-house per ID
--- NOTE | 2018-07-10 13:09 | XR ---
EXAM DATE: 07/10/2018 1:05 PM EDT AGE/SEX: 88 years / Female INDICATIONS: Shortness of breath. CLINICAL DATA: This is the patient's subsequent encounter. Patient reports that signs and symptoms h ave been present for 1 week and indicates a pain score of 0/10. MEDICAL/SURGICAL HISTORY: Hypertension. Diabetes mellitus type II. Coronary artery stent. COMPARISON: [facility], CHEST 1V SINGLE AP, 07/05/2018. . FINDINGS: Persistent elevation of the left hemidiaphragm with patchy airspace disease in the lower lobes bilate rally. Cardiomediastinal contours are stable. Remainder of the exam is unchanged. CONCLUSION: 1. No significant interval change. 2. Persistent patchy airspace disease in the lower lobes with volume loss in the left lower lung zon e. Electronically signed by: August Diaz MD 07/10/2018 1:08 PM EDT
--- NOTE | 2018-07-10 14:35 | P.PNCA ---
Subjective Interval history: alert in nad Physical Exam Vital signs: Vital Signs 07/09/18 16:00 07/09/18 20:00 07/10/18 00:00 Temperature 98.1 F 97.6 F 97.5 F L Pulse Rate 90 123 H 78 Respiratory Rate 18 20 20 Blood Pressure 147/67 H 102/54 L 129/64 Pulse Oximetry 99 98 96 07/10/18 04:00 07/10/18 08:00 07/10/18 12:00 Temperature 97.7 F 97.4 F L 97.9 F Pulse Rate 84 83 66 Respiratory Rate 20 20 20 Blood Pressure 127/59 L 130/61 105/55 L Pulse Oximetry 98 96 96 Intake & Output 07/09/18 07/10/18 07/10/18 18:59 06:59 18:59 Intake Total 580 / 580 220 / 220 Balance 580 / 580 220 / 220 Weight 96.9 kg Intake: IV 100 / 100 100 / 100 Ancef Inj 2,000 MG In NS Inj 80 100 / 100 100 / 100 ML @ 200 mls/hr IV.SIG Q12HR [facility] Rx#:[id number] Oral 480 / 480 120 / 120 Other: # Voids 2 Date of Last Bowel Movement 07/09/18 07/09/18 # Bowel Movements 2 Assessment and Plan - Assessment (1) Atrial fibrillation Code(s): I48.91 - Unspecified atrial fibrillation Status: Chronic (2) Bacteremia Code(s): R78.81 - Bacteremia Status: Acute - Plan 1.) PAF - in nsr, i strongly advised her to take coumadin or noac due to [id number] score = 4 to reduce the risk of life threatening or debiliating cva , she understands but refuses, rec continue aspirin, lopressor
[2018-07-10] MEDS: Latanoprost 0.005% Opth Drops 2.5 ML Bottle EACH EYE SCH (20:42)
[2018-07-11] MEDS: Insulin NovoLIN Regular Correctional Sugar Inj SQ SCH ×6 (00:46→20:56)
[2018-07-11] MEDS: Heparin - SQ 10,000 UNITS/ML Vial SQ SCH ×3 (05:31→21:01)
[2018-07-11] MEDS: Levothyroxine 75 MCG Tablet PO SCH (05:32)
[2018-07-11] MEDS: Isosorbide Mononitrate 60 MG ER 24HR Tablet (Imdur) PO SCH (06:00)
[2018-07-11] MEDS: ceFAZolin Inj 2,000 MG in Sodium Chlor 0.9% Inj 80 ML IV.SIG SCH ×2 (09:21→20:55)
[2018-07-11] MEDS: Metoprolol Tartrate 25 MG Tablet PO SCH ×2 (09:22→20:55)
[2018-07-11] MEDS: guaiFENesin 600 MG ER Tablet PO SCH ×2 (09:22→20:55)
[2018-07-11] MEDS: Estradiol 1 MG Tablet PO SCH (09:22)
[2018-07-11] MEDS: Timolol 0.25% Drops 5 ML Bottle EACH EYE SCH (09:23)
--- NOTE | 2018-07-11 12:42 | P.PNID ---
Subjective Remarks: Patient is sitting upright in chair. States that her breathing feels better. Afebrile. Denies chest pain. Denies shortness of breath. Took a few steps with in her room with a walker. Lip. Lower lips dry and cracked. Chest x-ray shows bibasilar airspace disease. Blood culture showing staph aureus in all 4 bottles. Repeat blood culture has staph aureus on 07/03/2016. Follow blood culture from 07/05/2016 has no growth. This is an 88-year-old white female who was brought to the emergency department by ambulance. The patient was noted to have fallen in her home the night prior and was unable to get up and was found on the floor and brought to the emergency department the following morning. Past Medical History: PAST MEDICAL AND SURGICAL HISTORY: Diabetes mellitus, hypertension, hypercholesteremia, hypothyroidism, Charcot foot, chronic kidney disease, history of colon cancer, gastroesophageal reflux disease, myocardial infarction, history of hysterectomy, history of cardiac catheterization, history of coronary artery stent. Allergies/Adverse Reactions: Allergies kaye Allergy (Unknown, Verified 07/01/18 12:47) RASH SIMCOR Allergy (Severe, Uncoded 07/01/18 12:47) Edema Objective Vital Signs 07/10/18 16:00 07/10/18 20:00 07/10/18 20:40 Temperature 97.8 F 98.5 F Pulse Rate 75 71 Respiratory Rate 20 18 Blood Pressure 115/57 L 142/57 H Pulse Oximetry 95 94 L 98 07/11/18 00:00 07/11/18 04:00 07/11/18 08:00 Temperature 98 F 98 F 97.8 F Pulse Rate 79 73 77 Respiratory Rate 18 18 20 Blood Pressure 151/66 H 131/56 L 132/64 Pulse Oximetry 97 96 99 07/11/18 10:05 Temperature Pulse Rate Respiratory Rate Blood Pressure Pulse Oximetry 92 L Intake & Output 07/10/18 07/11/18 07/11/18 18:59 06:59 18:59 Intake Total 1060 / 1060 100 / 100 100 / 100 Balance 1060 / 1060 100 / 100 100 / 100 Weight 98.5 kg Intake: IV 100 / 100 100 / 100 100 / 100 Ancef Inj 2,000 MG In NS Inj 80 100 / 100 100 / 100 100 / 100 ML @ 200 mls/hr IV.SIG Q12HR [facility] Rx#:[id number] Oral 480 / 480 Oral Supplement 480 / 480 Other: # Voids 1 Date of Last Bowel Movement 07/09/18 07/09/18 07/05/18 17:15 Blood - Peripheral Aerobic Blood Culture - Final No growth in 5 days 07/05/18 17:15 Blood - Peripheral Anaerobic Blood Culture - Final No growth in 5 days 07/05/18 17:10 Blood - Peripheral Aerobic Blood Culture - Final No growth in 5 days 07/05/18 17:10 Blood - Peripheral Anaerobic Blood Culture - Final No growth in 5 days 07/06/18 15:00 Sputum - Expectorated Sputum Gram Stain - Final 07/06/18 15:00 Sputum - Expectorated Sputum Sputum Culture - Final Heavy growth normal respiratory adonis 07/03/18 11:35 Blood - Peripheral Aerobic Blood Culture - Final Staphylococcus aureus 07/03/18 11:35 Blood - Peripheral Anaerobic Blood Culture - Final No growth in 5 days 07/03/18 11:30 Blood - Peripheral Aerobic Blood Culture - Final Staphylococcus aureus 07/03/18 11:30 Blood - Peripheral Anaerobic Blood Culture - Final Staphylococcus aureus Lab - Chemistry Results 07/09/18 07/09/18 07/10/18 16:46 19:54 09:50 POC Glucose 132 H 225 H 220 H 07/10/18 07/10/18 07/10/18 12:27 17:04 19:45 POC Glucose 270 H 272 H 288 H 07/10/18 07/11/18 07/11/18 23:48 03:03 03:53 POC Glucose 127 H 73 108 07/11/18 07:23 POC Glucose 121 H Imaging: ITS Impressions Shoulder X-Ray 07/02/18 00:00 CONCLUSION: 1. Intact right shoulder. 2. Mild to moderate degenerative changes. Foot X-Ray 07/03/18 00:00 CONCLUSION: 1. 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 2. Extensive soft tissue swelling. 3. No acute fracture. Venous Doppler Study 07/03/18 00:00 CONCLUSION: 1. No deep venous thrombosis left leg 2. Small popliteal fossa cyst measuring 2.4 x 0.9 x 2.1 cm. Chest X-Ray 07/10/18 00:00 CONCLUSION: 1. No significant interval change. 2. Persistent patchy airspace disease in the lower lobes with volume loss in the left lower lung zone. Physical Exam: PHYSICAL EXAMINATION: GENERAL: Alert. No acute distress. HEENT: Extraocular movements grossly intact. Pupils reactive to light. No icterus. Oropharynx has moist mucosa. The external lower lip has an ulceration. The lower lip is dry and has fissures. NECK: Supple without adenopathy. LUNGS: Decreased breath sounds. HEART: Irregular S1, S2. No murmurs. ABDOMEN: Bowel sounds present. Soft, hyperactive, nontender. The abdomen is obese. EXTREMITIES: The left ankle and foot has 3+ swelling. the foot has Charcot deformity. No erythema. The other extremities have no clubbing, cyanosis or edema. Callus at the bottom of the left foot which is dry. SKIN: No diffuse rash. NEUROLOGIC: Non focal. PSYCHIATRIC: Calm and cooperative. Assessment and Plan - Plan IMPRESSION: 1. Sepsis due to staph aureus. Source unclear, but most likely from the left foot source. Repeat blood culture has no growth. Cellulitis of the left foot improved Patient has Charcot's foot deformity and has been receiving treatment. However she has no open or draining wound. 2. Urinary tract infection due to E. coli. 3. Lung infiltrate. Questionable atelectasis versus CHF. Patient's weight has increased since admission. 4. Acute kidney disease. Slow to improve. 5. Diabetes mellitus. RECOMMENDATIONS: 1. Continue IV Ancef until 07/17/2018. Consider PICC line for completion of antibiotics. 2. Follow kidney function 3. Consider diuresis for the chest x-ray changes. Discussed with Dr. Purvis. 4. Monitor clinical status. 5. Topical acyclovir to be applied to the lower lip.
--- NOTE | 2018-07-11 13:20 | P.PN ---
Subjective Interval history: Nursing denies any deterioration since last night. Patient says she is short of breath a little bit yesterday. But when you examine her she seems actually very calm and has no conversive dyspnea. I independently reviewed the chest x-ray in comparison to the older one appears to have very mild pulmonary diffuse edema Physical Exam Vital signs: Vital Signs 07/10/18 16:00 07/10/18 20:00 07/10/18 20:40 Temperature 97.8 F 98.5 F Pulse Rate 75 71 Respiratory Rate 20 18 Blood Pressure 115/57 L 142/57 H Pulse Oximetry 95 94 L 98 07/11/18 00:00 07/11/18 04:00 07/11/18 08:00 Temperature 98 F 98 F 97.8 F Pulse Rate 79 73 77 Respiratory Rate 18 18 20 Blood Pressure 151/66 H 131/56 L 132/64 Pulse Oximetry 97 96 99 07/11/18 10:05 Temperature Pulse Rate Respiratory Rate Blood Pressure Pulse Oximetry 92 L Intake & Output 07/10/18 07/11/18 07/11/18 18:59 06:59 18:59 Intake Total 1060 / 1060 100 / 100 100 / 100 Balance 1060 / 1060 100 / 100 100 / 100 Weight 98.5 kg Intake: IV 100 / 100 100 / 100 100 / 100 Ancef Inj 2,000 MG In NS Inj 80 100 / 100 100 / 100 100 / 100 ML @ 200 mls/hr IV.SIG Q12HR [facility] Rx#:[id number] Oral 480 / 480 Oral Supplement 480 / 480 Other: # Voids 1 Date of Last Bowel Movement 07/09/18 07/09/18 Narrative: Lungs are actually clear bilaterally with no crackles heard, good aeration Left foot in wound dressing Heart sounds regular rate and rhythm Results - Labs CBC & Chem 7: 07/09/18 09:23 07/09/18 09:23 Laboratory Results - last 24 hr 07/10/18 07/10/18 07/10/18 17:04 19:45 23:48 POC Glucose 272 H 288 H 127 H 07/11/18 07/11/18 07/11/18 03:03 03:53 07:23 POC Glucose 73 108 121 H Microbiology 07/05/18 17:15 Blood - Peripheral Aerobic Blood Culture - Final No growth in 5 days 07/05/18 17:15 Blood - Peripheral Anaerobic Blood Culture - Final No growth in 5 days 07/05/18 17:10 Blood - Peripheral Aerobic Blood Culture - Final No growth in 5 days 07/05/18 17:10 Blood - Peripheral Anaerobic Blood Culture - Final No growth in 5 days - Procedures none Assessment and Plan - Assessment (1) Acute kidney injury superimposed on CKD Code(s): N17.9 - Acute kidney failure, unspecified; N18.9 - Chronic kidney disease, unspecified Status: Acute (2) Atrial fibrillation Code(s): I48.91 - Unspecified atrial fibrillation Status: Chronic (3) Bacteremia Code(s): R78.81 - Bacteremia Status: Acute - Plan 88-year-old female originally admitted with sepsis secondary to MSSA bacteremia and community-acquired pneumonia; so found to be in rhabdomyolysis resulting in acute kidney injury. Sepsis element had resolved with antibiotics, IV fluids, and infectious disease comanagement. Patient's renal function returned to baseline. MSSA bacteremia likely from ankle cellulitis - Continue IV Ancef per infectious disease for now until , anticipate being discharged with a PICC line -Repeat cultures are negative Mild shortness of breath -Possible pulmonary edema, ejection fraction intact, will do trial of mild diuresis and reassess in a.m. although clinically this is not impressive CKD 3 -Back to baseline DM -Stable on Levemir twice a day. SSI with Accu-Cheks. A. fib . -Currently sinus continue Lopressor, aspirin. Aspirin per patient's request, does not want to proceed with further anticoagulation although warranted. Left Charcot foot and ankle with possible cellulitis -Has been following with podiatry, Dr. Preston, at [facility]. Improving continue IV antibiotics as above. Monitor clinically. Consider podiatry evaluation if no improvement. History of CAD -Continue home aspirin, Imdur, atorvastatin. Fall and weakness -Continue with PT DVT prophylaxis: subcu heparin Discharge Planning: To be discharged once cleared with ID, for now continue IV antibiotics in-house per ID
--- NOTE | 2018-07-11 15:17 | P.PNCA ---
Subjective Interval history: alert in nad Physical Exam Vital signs: Vital Signs 07/10/18 16:00 07/10/18 20:00 07/10/18 20:40 Temperature 97.8 F 98.5 F Pulse Rate 75 71 Respiratory Rate 20 18 Blood Pressure 115/57 L 142/57 H Pulse Oximetry 95 94 L 98 07/11/18 00:00 07/11/18 04:00 07/11/18 08:00 Temperature 98 F 98 F 97.8 F Pulse Rate 79 73 77 Respiratory Rate 18 18 20 Blood Pressure 151/66 H 131/56 L 132/64 Pulse Oximetry 97 96 99 07/11/18 10:05 07/11/18 12:00 Temperature 98 F Pulse Rate 65 Respiratory Rate 20 Blood Pressure 135/65 Pulse Oximetry 92 L 99 Intake & Output 07/10/18 07/11/18 07/11/18 18:59 06:59 18:59 Intake Total 1060 / 1060 100 / 100 100 / 100 Output Total 2 / 2 Balance 1060 / 1060 100 / 100 98 / 98 Weight 98.5 kg Intake: IV 100 / 100 100 / 100 100 / 100 Ancef Inj 2,000 MG In NS Inj 80 100 / 100 100 / 100 100 / 100 ML @ 200 mls/hr IV.SIG Q12HR [facility] Rx#:[id number] Oral 480 / 480 Oral Supplement 480 / 480 Output: Urine Stool Other: # Voids 1 Date of Last Bowel Movement 07/09/18 07/09/18 07/11/18 Assessment and Plan - Assessment (1) Atrial fibrillation Code(s): I48.91 - Unspecified atrial fibrillation Status: Chronic (2) Bacteremia Code(s): R78.81 - Bacteremia Status: Acute - Plan 1.) PAF - in nsr, i strongly advised her to take coumadin or noac due to [id number] score = 4 to reduce the risk of life threatening or debiliating cva , she understands but refuses, rec continue aspirin, lopressor
[2018-07-11] MEDS: Latanoprost 0.005% Opth Drops 2.5 ML Bottle EACH EYE SCH (20:55)
[2018-07-12] MEDS: Insulin NovoLIN Regular Correctional Sugar Inj SQ SCH ×4 (01:01→12:55)
[2018-07-12] MEDS: Heparin - SQ 10,000 UNITS/ML Vial SQ SCH ×2 (06:00→14:02)
[2018-07-12] MEDS: Isosorbide Mononitrate 60 MG ER 24HR Tablet (Imdur) PO SCH (06:01)
[2018-07-12] MEDS: Levothyroxine 75 MCG Tablet PO SCH (06:01)
[2018-07-12 08:39] LABS: Calcium 8.8 mg/dL (8.5-10.1); Carbon Dioxide 24.7 meq/L (21.0-32.0); Potassium 4.1 meq/L (3.5-5.1)
--- NOTE | 2018-07-12 09:48 | XR ---
EXAM DATE: 07/12/2018 9:27 AM EDT AGE/SEX: 88 years / Female INDICATIONS: . Pneumonia. CLINICAL DATA: This is the patient's initial encounter. Patient reports that signs and symptoms have been present for 1 week and indicates a pain score of 0/10. MEDICAL/SURGICAL HISTORY: Hypertension. Diabetes mellitus type II. . 3 coronary artery stents COMPARISON: [facility], CHEST 1V SINGLE AP, 07/10/2018. . FINDINGS: There is stable, mild elevation of the left hemidiaphragm. However, significant improvement in the ae ration in both lung bases with resolving airspace disease. No significant effusions. Heart size is no rmal. Mild dextroscoliosis of the dorsal spine with multilevel degenerative spurring. Osseous structu res are otherwise intact CONCLUSION: Improving aeration in both lung bases. Electronically signed by: Jc Biggs MD 07/12/2018 9:47 AM EDT
[2018-07-12] MEDS: ceFAZolin Inj 2,000 MG in Sodium Chlor 0.9% Inj 80 ML IV.SIG SCH (11:01)
[2018-07-12] MEDS: guaiFENesin 600 MG ER Tablet PO SCH (11:02)
[2018-07-12] MEDS: Estradiol 1 MG Tablet PO SCH (11:02)
[2018-07-12] MEDS: Metoprolol Tartrate 25 MG Tablet PO SCH (11:03)
[2018-07-12] MEDS: Timolol 0.25% Drops 5 ML Bottle EACH EYE SCH (11:07)
--- NOTE | 2018-07-12 11:48 | P.DS ---
Date of admission: 07/01/18 16:11 Primary care physician: Muna Feliciano MD Brief History from admission: 88-year-old female with a past medical history of IDDM, CAD, HTN, CKD, Charcot foot, hypothyroidism, HLD who presented for weakness and fall. The patient states that she has had poor appetite for the past week. She has not been eating much and has not known how much insulin to give herself. She was feeling weak over the past few days. She has had 2 falls in the past day, was able to get up after the first 1, but not after the second 1. She fell because her legs were weak. She denies any other injury. She was on the ground from around 9 PM last night to around 10 AM this morning when she was able to find her phone and call her son. Since Tuesday she has noticed a cough and chills. She denies any chest pain, shortness of breath, nausea, vomiting, diarrhea, dysuria. Upon presentation to the ED the patient was found to be hyperglycemic, tachycardic, dehydrated with acute kidney injury and rhabdomyolysis. Reportedly heart rate was in the 130s and regular, no definite history of A. fib in the past, given IV metoprolol and heart rate currently 110s and regular. She was given IVF and 10 units of insulin for dehydration and hyperglycemia. DS: Diagnosis - Discharge Diagnosis (1) Acute kidney injury superimposed on CKD Status: Acute (2) Atrial fibrillation Status: Chronic (3) Bacteremia Status: Acute DS: Medications - Discharge Medications Prescriptions: furosemide 40 mg PO DAILY #30 tab metoprolol tartrate 12.5 mg PO BID #60 tab DS: Summary Hospital Course: Patient was admitted, started on IV antibiotics. Blood cultures grew out MSSA. Infectious disease help comanage antibiotics. Bacteremia cleared with repeat blood cultures. Patient was also treated for UTI E. coli. Patient also underwent mild diuresis with resolution of her dyspnea. Patient has met maximal benefit from hospitalization is clinically stable for discharge with PICC line in place for IV antibiotics, destination [facility] a [facility] facility. - Time Spent with Patient Total time spent providing and/or coordinating discharge services: Less than 30 minutes - Quality: VTE Deep Vein Thrombosis/Pulmonary Embolism Present on Admission: No Exam Vital signs: Vital Signs 07/11/18 12:00 07/11/18 15:45 07/11/18 16:00 Temperature 98 F 98.0 F 98.1 F Pulse Rate 65 77 79 Respiratory Rate 20 20 Blood Pressure 135/65 138/81 133/58 L Pulse Oximetry 99 99 99 07/11/18 17:10 07/11/18 17:37 07/11/18 18:00 Temperature 97.5 F L 97.8 F Pulse Rate 74 77 Respiratory Rate 18 18 Blood Pressure 152/67 H 163/67 H Pulse Oximetry 98 98 99 07/11/18 19:00 07/11/18 20:00 07/12/18 00:00 Temperature 98.0 F 97.9 F 97.4 F L Pulse Rate 77 79 67 Respiratory Rate 17 21 19 Blood Pressure 170/76 H 127/57 L 137/60 Pulse Oximetry 99 98 100 07/12/18 04:00 07/12/18 08:00 Temperature 97.8 F 98.2 F Pulse Rate 73 73 Respiratory Rate 18 16 Blood Pressure 127/60 142/63 H Pulse Oximetry 97 96 Intake & Output 07/11/18 07/12/18 07/12/18 18:59 06:59 18:59 Intake Total 100 / 100 340 / 340 Output Total 3 / 3 Balance 97 / 97 340 / 340 Weight 89.7 kg Intake: IV 100 / 100 100 / 100 Ancef Inj 2,000 MG In NS Inj 80 100 / 100 100 / 100 ML @ 200 mls/hr IV.SIG Q12HR [facility] Rx#:[id number] Oral 240 / 240 Output: Urine 2 / 2 Stool 1 / 1 Other: # Incontinent Voids 2 Date of Last Bowel Movement 07/11/18 07/11/18 Narrative: Clear lungs bilaterally, unlabored breathing Heart sounds regular rate rhythm, no murmurs Results Procedures completed during hospitalization: none Labs on day of discharge: Labs from last 24 hours 07/12/18 07/12/18 07/12/18 07:58 07:21 04:59 Sodium 139 Potassium 4.1 Chloride 107 Carbon Dioxide 24.7 Anion Gap 7 BUN 37 H Creatinine 1.43 H Estimated GFR 35 L POC Glucose 126 H 121 H Random Glucose 103 Calcium 8.8 07/11/18 07/11/18 07/11/18 23:50 19:37 17:01 Sodium Potassium Chloride Carbon Dioxide Anion Gap BUN Creatinine Estimated GFR POC Glucose 191 H 186 H 221 H Random Glucose Calcium 07/11/18 13:06 Sodium Potassium Chloride Carbon Dioxide Anion Gap BUN Creatinine Estimated GFR POC Glucose 202 H Random Glucose Calcium - Impressions ITS Impressions Shoulder X-Ray 07/02/18 00:00 CONCLUSION: 1. Intact right shoulder. 2. Mild to moderate degenerative changes. Foot X-Ray 07/03/18 00:00 CONCLUSION: 1. 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 2. Extensive soft tissue swelling. 3. No acute fracture. Venous Doppler Study 07/03/18 00:00 CONCLUSION: 1. No deep venous thrombosis left leg 2. Small popliteal fossa cyst measuring 2.4 x 0.9 x 2.1 cm. Chest X-Ray 07/12/18 08:00 CONCLUSION: Improving aeration in both lung bases. Discharge Plan - Discharge Disposition Patient Disposition: Discharge to SNF - Discharge Condition Condition: Stable - Discharge Order Discharge Orders: Discharge Order (Routine); Ordered 07/12/18 Ordered By: Johan Purvis - Physicians Team Primary Care Provider: Muna Feliciano Attending Provider: Johan Purvis Other Providers: Maged Brumfield MD ; Crescencio Prasad MD ; Nacho Gamez MD ; [facility],[place] ; [facility],[place]
--- NOTE | 2018-07-12 12:10 | P.DCO ---
Post Hospital Infusion Therapy Location of Infusion Therapy: [facility] Infusion Therapy Order Patient Weight: 89.7 kg - Diagnosis (1) Bacteremia Code(s): R78.81 - Bacteremia (2) Cellulitis Code(s): L03.90 - Cellulitis, unspecified - Administer Medication Cefazolin Dose: 2 grams IV Directions: q 12 hours Stop Treatment: 07/17/18 - Additional Information Venous Access: Other (midline) Additional Instructions: [x] Peripheral flush and dressing changes per protocol [x] Implanted port and central personal lines advisor: * Implanted port: 10 ml Normal Saline followed by 5 ml Heparin 100 units/ml Heparin flush after each use and monthly to maintain. [] May leave port accessed during therapy. [] May leave peripheral site accessed for duration of therapy. [x] If patient has SOB or respiratory distress, check oxygen saturation. If less than 90% or clinical signs of respiratory distress, administer oxygen at 2 L/min. via nasal cannula and notify physician. [x] Anaphylaxis/Reaction orders: * Stop infusion. * Keep IV line open with saline flush. * Notify physician. * Monitor vital signs every 15 minutes until symptoms resolve. * Check Oxygen saturation; Oxygen at 2 L/min. via nasal cannula if less than 90% or clinical signs of respiratory distress. * Administer diphenhydramine (Benadryl) 25 mg IV STAT, (unless patient has received as pre-med). May repeat once, if necessary. * Solu-Cortef 250 mg IVP over 30-60 seconds, use 100 mg vials for each dissolution. * Epinephrine (1mg/1 ml) 0.3 mg subcutaneously or IVP now with any signs of respiratory distress. * Check with physician for new additional pre-med orders if patient is re- challenged or re-treated. [x] May remove PICC line when treatment complete, after confirming with Physician. [x] If the patient is admitted to the hospital, the ED, or transferred via [facility] , complete transfer form including medication reconciliation order sheet. Weekly Labs: BMP Allergies kaye Allergy (Unknown, Verified 07/01/18 12:47) RASH SIMCOR Allergy (Severe, Uncoded 07/01/18 12:47) Edema (2) Cellulitis Qualifiers: Site of cellulitis: extremity Site of cellulitis of extremity: lower extremity Laterality: left Qualified Code(s): L03.116 - Cellulitis of left lower limb
--- NOTE | 2018-07-12 12:19 | P.PNID ---
Subjective Remarks: Patient notes that she fell while trying to walk to her bed with a walker from the bathroom. She denied dizziness before falling. She denies pain. She is laying in bed and is in no distress. No difficulty breathing. Denies shortness of breath. Awake and alert. Afebrile. Patient has neuropathy. Blood culture showing staph aureus in all 4 bottles. Repeat blood culture has staph aureus on 07/03/2016. Follow blood culture from 07/05/2016 has no growth. This is an 88-year-old white female who was brought to the emergency department by ambulance. The patient was noted to have fallen in her home the night prior and was unable to get up and was found on the floor and brought to the emergency department the following morning. Past Medical History: PAST MEDICAL AND SURGICAL HISTORY: Diabetes mellitus, hypertension, hypercholesteremia, hypothyroidism, Charcot foot, chronic kidney disease, history of colon cancer, gastroesophageal reflux disease, myocardial infarction, history of hysterectomy, history of cardiac catheterization, history of coronary artery stent. Allergies/Adverse Reactions: Allergies kaye Allergy (Unknown, Verified 07/01/18 12:47) RASH SIMCOR Allergy (Severe, Uncoded 07/01/18 12:47) Edema Objective Vital Signs 07/11/18 15:45 07/11/18 16:00 07/11/18 17:10 Temperature 98.0 F 98.1 F 97.5 F L Pulse Rate 77 79 74 Respiratory Rate 20 18 Blood Pressure 138/81 133/58 L 152/67 H Pulse Oximetry 99 99 98 07/11/18 17:37 07/11/18 18:00 07/11/18 19:00 Temperature 97.8 F 98.0 F Pulse Rate 77 77 Respiratory Rate 18 17 Blood Pressure 163/67 H 170/76 H Pulse Oximetry 98 99 99 07/11/18 20:00 07/12/18 00:00 07/12/18 04:00 Temperature 97.9 F 97.4 F L 97.8 F Pulse Rate 79 67 73 Respiratory Rate 21 19 18 Blood Pressure 127/57 L 137/60 127/60 Pulse Oximetry 98 100 97 07/12/18 08:00 Temperature 98.2 F Pulse Rate 73 Respiratory Rate 16 Blood Pressure 142/63 H Pulse Oximetry 96 Intake & Output 07/11/18 07/12/18 07/12/18 18:59 06:59 18:59 Intake Total 100 / 100 340 / 340 Output Total 3 / 3 Balance 97 / 97 340 / 340 Weight 89.7 kg 89.7 kg Intake: IV 100 / 100 100 / 100 Ancef Inj 2,000 MG In NS Inj 80 100 / 100 100 / 100 ML @ 200 mls/hr IV.SIG Q12HR [facility] Rx#:[id number] Oral 240 / 240 Output: Urine 2 / 2 Stool / Other: # Incontinent Voids 2 Date of Last Bowel Movement 07/11/18 07/11/18 07/05/18 17:15 Blood - Peripheral Aerobic Blood Culture - Final No growth in 5 days 07/05/18 17:15 Blood - Peripheral Anaerobic Blood Culture - Final No growth in 5 days 07/05/18 17:10 Blood - Peripheral Aerobic Blood Culture - Final No growth in 5 days 07/05/18 17:10 Blood - Peripheral Anaerobic Blood Culture - Final No growth in 5 days Lab - Chemistry Results 07/10/18 07/10/18 07/10/18 12:27 17:04 19:45 Sodium Potassium Chloride Carbon Dioxide Anion Gap BUN Creatinine Estimated GFR POC Glucose 270 H 272 H 288 H Random Glucose Calcium 07/10/18 07/11/18 07/11/18 23:48 03:03 03:53 Sodium Potassium Chloride Carbon Dioxide Anion Gap BUN Creatinine Estimated GFR POC Glucose 127 H 73 108 Random Glucose Calcium 07/11/18 07/11/18 07/11/18 07:23 13:06 17:01 Sodium Potassium Chloride Carbon Dioxide Anion Gap BUN Creatinine Estimated GFR POC Glucose 121 H 202 H 221 H Random Glucose Calcium 07/11/18 07/11/18 07/12/18 19:37 23:50 04:59 Sodium Potassium Chloride Carbon Dioxide Anion Gap BUN Creatinine Estimated GFR POC Glucose 186 H 191 H 121 H Random Glucose Calcium 07/12/18 07/12/18 07:21 07:58 Sodium 139 Potassium 4.1 Chloride 107 Carbon Dioxide 24.7 Anion Gap 7 BUN 37 H Creatinine 1.43 H Estimated GFR 35 L POC Glucose 126 H Random Glucose 103 Calcium 8.8 Imaging: ITS Impressions Shoulder X-Ray 07/02/18 00:00 CONCLUSION: 1. Intact right shoulder. 2. Mild to moderate degenerative changes. Foot X-Ray 07/03/18 00:00 CONCLUSION: 1. 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 2. Extensive soft tissue swelling. 3. No acute fracture. Venous Doppler Study 07/03/18 00:00 CONCLUSION: 1. No deep venous thrombosis left leg 2. Small popliteal fossa cyst measuring 2.4 x 0.9 x 2.1 cm. Chest X-Ray 07/12/18 08:00 CONCLUSION: Improving aeration in both lung bases. Physical Exam: PHYSICAL EXAMINATION: GENERAL: Awake and alert. No acute distress. HEENT: No pain on palpation of the head. No lesions visible. Extraocular movements grossly intact. Pupils reactive to light. No icterus. Oropharynx has moist mucosa. Scab at the external mucosal mucosa. NECK: Supple without adenopathy. LUNGS: Decreased, clear breath sounds. HEART: Irregular S1, S2. No murmurs. ABDOMEN: Bowel sounds present. Soft, nontender. EXTREMITIES: The left ankle has 2+ swelling. Swelling at the left tibia has improved. the left foot has Charcot deformity. No erythema. The other extremities have no clubbing, cyanosis or edema. Callus at the bottom of the left foot is dry. SKIN: No diffuse rash. NEUROLOGIC: Non focal. PSYCHIATRIC: Calm and cooperative. Assessment and Plan (1) Bacteremia Status: Acute Code(s): R78.81 - Bacteremia (2) Cellulitis Status: Acute Code(s): L03.90 - Cellulitis, unspecified - Plan IMPRESSION: 1. Sepsis due to staph aureus. Source unclear, but most likely from the left foot source. Repeat blood culture has no growth. Cellulitis of the left foot resolved with treatment. Patient has Charcot's foot deformity and has been receiving treatment. However she has no open or draining wound. 2. Urinary tract infection due to E. coli. Resolved 3. Lung infiltrate and coughing. ? PNA. Chest x-ray has improved. She received Lasix. 4. Acute kidney disease. Stable. 5. Diabetes mellitus. Medically stable. RECOMMENDATIONS: 1. Continue Ancef IV until 07/17/2018. 2. Midline incision for the IV antibiotic. Patient can be discharged to halfway facility to complete the antibiotics after the arrangements are finalized. (2) Cellulitis Qualifiers: Site of cellulitis: extremity Site of cellulitis of extremity: lower extremity Laterality: left Qualified Code(s): L03.116 - Cellulitis of left lower limb
[2018-07-12 13:39] VITALS: RESP 18; TEMP 98.1
[2018-07-12 15:41] VITALS: BP 115/56; PULSE 72; O2SAT 94
--- NOTE | 2018-07-12 16:32 | P.PNCA ---
Subjective Interval history: alert in nad Physical Exam Vital signs: Vital Signs 07/11/18 17:10 07/11/18 17:37 07/11/18 18:00 Temperature 97.5 F L 97.8 F Pulse Rate 74 77 Respiratory Rate 18 18 Blood Pressure 152/67 H 163/67 H Pulse Oximetry 98 98 99 07/11/18 19:00 07/11/18 20:00 07/12/18 00:00 Temperature 98.0 F 97.9 F 97.4 F L Pulse Rate 77 79 67 Respiratory Rate 17 21 19 Blood Pressure 170/76 H 127/57 L 137/60 Pulse Oximetry 99 98 100 07/12/18 04:00 07/12/18 07:15 07/12/18 08:00 Temperature 97.8 F 98.2 F 98.2 F Pulse Rate 73 73 66 Respiratory Rate 18 18 16 Blood Pressure 127/60 142/63 H 142/63 H Pulse Oximetry 97 96 96 07/12/18 11:15 07/12/18 12:00 07/12/18 15:15 Temperature 98.1 F 98.1 F Pulse Rate 71 71 72 Respiratory Rate 18 18 18 Blood Pressure 119/65 119/65 115/56 L Pulse Oximetry 99 99 94 L Intake & Output 07/11/18 07/12/18 07/12/18 18:59 06:59 18:59 Intake Total 100 / 100 340 / 340 100 / 100 Output Total 3 / 3 Balance 97 / 97 340 / 340 100 / 100 Weight 89.7 kg 89.7 kg Intake: IV 100 / 100 100 / 100 100 / 100 Ancef Inj 2,000 MG In NS Inj 80 100 / 100 100 / 100 100 / 100 ML @ 200 mls/hr IV.SIG Q12HR [facility] Rx#:[id number] Oral 240 / 240 Output: Urine 2 / 2 Stool 1 / 1 Other: # Incontinent Voids 2 Date of Last Bowel Movement 07/11/18 07/11/18 07/11/18 Assessment and Plan - Assessment (1) Atrial fibrillation Code(s): I48.91 - Unspecified atrial fibrillation Status: Chronic (2) Bacteremia Code(s): R78.81 - Bacteremia Status: Acute - Plan 1.) PAF - in nsr, i strongly advised her to take coumadin or noac due to [id number] score = 4 to reduce the risk of life threatening or debiliating cva , she understands but refuses, rec continue aspirin, lopressor
== END 2018-07-12 16:35 ==
LOC: NEPC 12:27 → NEDA 16:11 → N06 19:10 → HIMC 07-03 07:45 → N04 07-08 09:32
PROVIDERS: ADMIT Hospitalist; ATTEND Hospitalist

== ENCOUNTER 2018-08-19 22:03 | Inpatient (IN) ==
--- NOTE | 2018-08-19 22:07 | ED ---
HPI General Chief Complaint: Fever Stated Complaint: Evac/Medical Check Up Time Seen by Provider: 08/19/18 22:05 Source: patient Mode of arrival: EMS Limitations: no limitations History of Present Illness HPI narrative: Patient's main complaint is left lower extremity pain, she is she has Charcot foot deformity, and that she has been treated for previous infection on the left lower extremity. Patient states that she has atrial fibrillation, though this is not what is bothering her at this point. patient denies any cp, but does feel a little winded with minimal activity... patient is denying taking any blood thinners despite her history of afib. Related Data Home Medications Medication Instructions Recorded Confirmed alpha lipoic acid 600 mg PO HS PRN 07/01/18 08/19/18 ascorbic acid (vitamin C) [Vitamin 1,000 mg PO DAILY 07/01/18 08/19/18 C] aspirin 81 mg PO DAILY 07/01/18 08/19/18 atorvastatin 20 mg PO DAILY 07/01/18 08/19/18 calcium carbonate [Tums] 1 tab PO Q4-6H PRN 07/01/18 08/19/18 cetirizine [Zyrtec] 10 mg PO DAILY PRN 07/01/18 08/19/18 ergocalciferol (vitamin D2) 50,000 unit PO QWEEK 07/01/18 08/19/18 [Vitamin D2] estradiol 1 mg PO DAILY 07/01/18 08/19/18 ferrous sulfate 325 mg PO DAILY 07/01/18 08/19/18 insulin NPH isoph U-100 human 20 unit SUB-Q QPM 07/01/18 08/19/18 [Novolin N NPH U-100 Insulin] insulin NPH isoph U-100 human 30 unit SUB-Q QAM 07/01/18 08/19/18 [Novolin N NPH U-100 Insulin] isosorbide mononitrate 60 mg PO QAM 07/01/18 08/19/18 latanoprost [Xalatan] 1 drp EACH EYE QPM 07/01/18 08/19/18 levothyroxine 75 mcg PO DAILY 07/01/18 08/19/18 [id number]-kcc-fwkwf acid-lutein [Centrum 1 tab PO DAILY 07/01/18 08/19/18 Silver] timolol maleate [Timoptic] 1 drp OPHTHALMIC (EYE) QAM 07/01/18 08/19/18 vitamin A 8,000 unit PO DAILY 07/01/18 08/19/18 furosemide 20 mg PO DAILY 08/19/18 08/19/18 hydrochlorothiazide 50 mg PO QAM 08/19/18 08/19/18 Previous Rx's Medication Instructions Recorded metoprolol tartrate 12.5 mg PO BID #60 tab 07/12/18 potassium chloride 10 meq PO BID #60 cap 07/12/18 Allergies Allergy/AdvReac Type Severity Reaction Status Date / Time kaye Allergy Unknown RASH Verified 08/19/18 22:29 lisinopril Allergy Cough Verified 08/19/18 22:30 niacin [From Simcor] Allergy Edema Verified 08/19/18 22:29 simvastatin [From Simcor] Allergy Edema Verified 08/19/18 22:29 Review of Systems ROS: all other systems reviewed are negative PMFSH History History Provided By: Patient Medical History Medical History Colon cancer (Acute) Clavicle fracture (Acute) Femur fracture (Acute) CKD (chronic kidney disease) stage 3, GFR 30-59 ml/min (Acute) 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 (Acute) H/O: hysterectomy (Acute) Myocardial infarct (Acute) HTN (hypertension) (Acute) Diabetes (Acute) GERD (gastroesophageal reflux disease) (Acute) High cholesterol (Acute) Hypothyroid (Acute) Surgical History Surgical History H/O cardiac catheterization (Acute) H/O heart artery stent (Acute) Family History Family History Father Diabetes Mother Uterine cancer Social History Social History Substance History: No History of Abuse Second Hand Smoke Exposure: No Smoking Status: Never smoker How Often Do You Have a Drink Containing Alcohol: Never Recent Travel in [facility] within the Last 8 Weeks: No Recent Out of Country Travel within the Last 8 Weeks: No Exam Narrative Exam Narrative: GENERAL: Well-nourished, well-developed patient in no apparent distress. SKIN: Warm and dry. HEAD: Atraumatic. Normocephalic. EYES: Pupils equal and round. No scleral icterus. No injection or drainage. ENT: No nasal bleeding or discharge. Mucous membranes pink and moist. NECK: Trachea midline. No JVD. CARDIOVASCULAR: Regular rate and rhythm. no rubs or gallops RESPIRATORY: No accessory muscle use. Clear to auscultation. Breath sounds equal bilaterally. GASTROINTESTINAL: Abdomen soft, non-tender, nondistended. No rebound or guarding MUSCULOSKELETAL: Extremities without clubbing, cyanosis, or edema. left foot deformity (has history of charcot deformity), with associated cellulitic changes NEUROLOGICAL: Awake and alert. No obvious cranial nerve deficits. Motor grossly within normal limits. Five out of 5 muscle strength in the arms and legs. Normal speech. PSYCHIATRIC: Appropriate mood and affect; insight and judgment normal. Course Initial Documented Vital Signs Temperature 101.8 F H 08/19/18 22:07 Pulse Rate 106 H 08/19/18 22:07 Respiratory Rate 36 H 08/19/18 22:07 Blood Pressure 179/70 H 08/19/18 22:07 Pulse Oximetry 100 08/19/18 22:07 Last Documented Vital Signs Temperature 97.7 F 08/22/18 04:00 Pulse Rate 69 08/22/18 04:00 Respiratory Rate 18 08/22/18 04:00 Blood Pressure 119/59 L 08/22/18 04:00 Pulse Oximetry 99 08/22/18 04:00 Medical Decision Making MDM Narrative Medical Screen Exam Complete: Yes Emergency Medical Condition: Yes Medical Records Medical records reviewed: Yes I reviewed the patient's medical records. Past medical history significant for rhabdomyolysis dehydration hyperglycemia cellulitis A. fib bacteremia acute kidney injury on chronic kidney disease, stage III, 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, hysterectomy, Lab Data Result diagrams: 08/22/18 04:05 08/22/18 04:05 Lab Results 08/19/18 08/19/18 08/19/18 Range/Units 22:15 22:15 22:15 WBC 15.4 H (4.0-11.0) th/mm3 RBC 3.04 L (4.00-5.30) mil/mm3 Hgb 8.8 L (11.6-15.3) gm/dL Hct 26.7 L (35.0-46.0) % MCV 87.8 (80.0-100.0) fL MCH 29.0 (27.0-34.0) pg MCHC 33.0 (32.0-36.0) % RDW 15.4 (11.6-17.2) % Plt Count 491 H (150-450) th/mm3 MPV 8.4 (7.0-11.0) fL Neut % (Auto) 80.3 H (16.0-70.0) % Lymph % (Auto) 11.7 (9.0-44.0) % [place] % (Auto) 6.3 (0.0-8.0) % Eos % (Auto) 0.5 (0.0-4.0) % Baso % (Auto) 1.2 (0.0-2.0) % Neut # (Auto) 12.4 H (1.8-7.7) th/mm3 Lymph # (Auto) 1.8 (1.0-4.8) th/mm3 [place] # (Auto) 1.0 H (0.0-0.9) th/mm3 Eos # (Auto) 0.1 (0.0-0.4) th/mm3 Baso # (Auto) 0.2 (0.0-0.2) th/mm3 WBC Differential . Differential Comment Auto diff final Sodium (136-145) meq/L Potassium (3.5-5.1) meq/L Chloride (98-107) meq/L Carbon Dioxide (21.0-32.0) meq/L Anion Gap (5-15) meq/L BUN (7-18) mg/dL Creatinine (0.50-1.00) mg/dL Estimated GFR (>89) mL/min POC Glucose (68-110) mg/dl Random Glucose (74-106) mg/dL Lactic Acid (0.4-2.0) mmol/L Calcium (8.5-10.1) mg/dL Phosphorus (2.5-4.9) mg/dL Iron (50-170) mcg/dL TIBC (250-450) mcg/dL % Saturation (20-50) % Ferritin (8-252) ng/mL Total Bilirubin (0.2-1.0) mg/dL AST (15-37) U/L ALT (10-53) U/L Alkaline Phosphatase (45-117) U/L Total Creatine Kinase Cancelled Troponin I (0.02-0.05) ng/mL B-Natriuretic Peptide 481 H (0-100) pg/mL Total Protein (6.4-8.2) g/dL Total Protein (PEP) (6.4-8.2) gm/dL Albumin (3.4-5.0) g/dL Albumin (PEP) (3.50-5.00) gm/dL Albumin/Globulin Ratio (1.39-2.23) Qthie-1-Jkrlgfplh (0.11-0.29) gm/dL Rqbgw-8-Cyzkerjgl (0.22-1.00) gm/dL Beta Globulins (0.53-1.03) gm/dL Gamma Globulins (0.50-1.39) gm/dL Lipase Cancelled Urine Color (Yellw/Straw) Urine Clarity (Clear) Urine pH (5.0-8.5) Ur Specific [place] (1.002-1.035) Urine Protein (Neg-Trace) mg/dL Urine Glucose (UA) (Negative) mg/dL Urine Ketones (Negative) mg/dL Urine Occult Blood (Negative) Urine Nitrate (Negative) Urine Bilirubin (Negative) Urine Urobilinogen (Less than 2) mg/dL Ur Leukocyte Esterase (Negative) Urine RBC (0-3) /hpf Urine WBC (0-5) /hpf Urine WBC Clumps (None) Ur Squamous Epith Cells (0-5) /hpf Urine Bacteria (None) /hpf Hyaline Casts (0-3) /lpf Urine Mucus (Occasional) /lpf Micro UA Comment Ur Microscopic Review Urine Culture Comments Random Vancomycin Comment Serum Alcohol Cancelled Blood Type Blood Type Recheck Antibody Screen MTS Gel Crossmatch Bld Prod Order Comment 08/19/18 08/19/18 08/19/18 Range/Units 22:15 22:44 22:50 WBC (4.0-11.0) th/mm3 RBC (4.00-5.30) mil/mm3 Hgb (11.6-15.3) gm/dL Hct (35.0-46.0) % MCV (80.0-100.0) fL MCH (27.0-34.0) pg MCHC (32.0-36.0) % RDW (11.6-17.2) % Plt Count (150-450) th/mm3 MPV (7.0-11.0) fL Neut % (Auto) (16.0-70.0) % Lymph % (Auto) (9.0-44.0) % [place] % (Auto) (0.0-8.0) % Eos % (Auto) (0.0-4.0) % Baso % (Auto) (0.0-2.0) % Neut # (Auto) (1.8-7.7) th/mm3 Lymph # (Auto) (1.0-4.8) th/mm3 [place] # (Auto) (0.0-0.9) th/mm3 Eos # (Auto) (0.0-0.4) th/mm3 Baso # (Auto) (0.0-0.2) th/mm3 WBC Differential Differential Comment Sodium 134 L (136-145) meq/L Potassium 4.3 (3.5-5.1) meq/L Chloride 93 L (98-107) meq/L Carbon Dioxide 27.9 (21.0-32.0) meq/L Anion Gap 13 (5-15) meq/L BUN 41 H (7-18) mg/dL Creatinine 1.71 H (0.50-1.00) mg/dL Estimated GFR 28 L (>89) mL/min POC Glucose (68-110) mg/dl Random Glucose 311 H (74-106) mg/dL Lactic Acid 1.6 (0.4-2.0) mmol/L Calcium 9.2 (8.5-10.1) mg/dL Phosphorus (2.5-4.9) mg/dL Iron (50-170) mcg/dL TIBC (250-450) mcg/dL % Saturation (20-50) % Ferritin (8-252) ng/mL Total Bilirubin 0.5 (0.2-1.0) mg/dL AST 21 (15-37) U/L ALT 22 (10-53) U/L Alkaline Phosphatase 148 H (45-117) U/L Total Creatine Kinase 22 L Troponin I 0.43 H (0.02-0.05) ng/mL B-Natriuretic Peptide (0-100) pg/mL Total Protein 7.4 (6.4-8.2) g/dL Total Protein (PEP) (6.4-8.2) gm/dL Albumin 1.8 L (3.4-5.0) g/dL Albumin (PEP) (3.50-5.00) gm/dL Albumin/Globulin Ratio (1.39-2.23) Nsntc-7-Stagzoemj (0.11-0.29) gm/dL Enczc-0-Yguxepfxp (0.22-1.00) gm/dL Beta Globulins (0.53-1.03) gm/dL Gamma Globulins (0.50-1.39) gm/dL Lipase 91 Urine Color Yellow (Yellw/Straw) Urine Clarity Cloudy H (Clear) Urine pH 5.0 (5.0-8.5) Ur Specific [place] 1.013 (1.002-1.035) Urine Protein 30 H (Neg-Trace) mg/dL Urine Glucose (UA) 50 (Negative) mg/dL Urine Ketones Negative (Negative) mg/dL Urine Occult Blood Small H (Negative) Urine Nitrate Negative (Negative) Urine Bilirubin Negative (Negative) Urine Urobilinogen Less than 2 (Less than 2) mg/dL Ur Leukocyte Esterase Large H (Negative) Urine RBC 7 H (0-3) /hpf Urine WBC 73 H (0-5) /hpf Urine WBC Clumps Rare H (None) Ur Squamous Epith Cells 27 (0-5) /hpf Urine Bacteria Many H (None) /hpf Hyaline Casts 6 (0-3) /lpf Urine Mucus Few H (Occasional) /lpf Micro UA Comment Culture indicated Ur Microscopic Review Not Reportable Urine Culture Comments Culture indicated Random Vancomycin Comment Serum Alcohol Less than 3 Blood Type Blood Type Recheck Antibody Screen MTS Gel Crossmatch Bld Prod Order Comment 08/20/18 08/20/18 08/20/18 Range/Units 03:47 10:40 10:40 WBC 13.0 H (4.0-11.0) th/mm3 RBC 2.63 L (4.00-5.30) mil/mm3 Hgb 7.7 L (11.6-15.3) gm/dL Hct 23.2 L (35.0-46.0) % MCV 88.4 (80.0-100.0) fL MCH 29.4 (27.0-34.0) pg MCHC 33.2 (32.0-36.0) % RDW 15.2 (11.6-17.2) % Plt Count 436 (150-450) th/mm3 MPV 8.2 (7.0-11.0) fL Neut % (Auto) 79.2 H (16.0-70.0) % Lymph % (Auto) 11.8 (9.0-44.0) % [place] % (Auto) 6.1 (0.0-8.0) % Eos % (Auto) 1.9 (0.0-4.0) % Baso % (Auto) 1.0 (0.0-2.0) % Neut # (Auto) 10.3 H (1.8-7.7) th/mm3 Lymph # (Auto) 1.5 (1.0-4.8) th/mm3 [place] # (Auto) 0.8 (0.0-0.9) th/mm3 Eos # (Auto) 0.3 (0.0-0.4) th/mm3 Baso # (Auto) 0.1 (0.0-0.2) th/mm3 WBC Differential . Differential Comment Auto diff final Sodium 133 L (136-145) meq/L Potassium 3.9 (3.5-5.1) meq/L Chloride 95 L (98-107) meq/L Carbon Dioxide 29.7 (21.0-32.0) meq/L Anion Gap 8 (5-15) meq/L BUN 49 H (7-18) mg/dL Creatinine 2.22 H (0.50-1.00) mg/dL Estimated GFR 21 L (>89) mL/min POC Glucose 277 H (68-110) mg/dl Random Glucose 283 H (74-106) mg/dL Lactic Acid (0.4-2.0) mmol/L Calcium 8.9 (8.5-10.1) mg/dL Phosphorus (2.5-4.9) mg/dL Iron (50-170) mcg/dL TIBC (250-450) mcg/dL % Saturation (20-50) % Ferritin (8-252) ng/mL Total Bilirubin 0.5 (0.2-1.0) mg/dL AST 16 (15-37) U/L ALT 16 (10-53) U/L Alkaline Phosphatase 122 H (45-117) U/L Total Creatine Kinase Troponin I 0.24 H D (0.02-0.05) ng/mL B-Natriuretic Peptide (0-100) pg/mL Total Protein 6.6 D (6.4-8.2) g/dL Total Protein (PEP) (6.4-8.2) gm/dL Albumin 1.6 L (3.4-5.0) g/dL Albumin (PEP) (3.50-5.00) gm/dL Albumin/Globulin Ratio (1.39-2.23) Gwfwd-9-Yjvgrquta (0.11-0.29) gm/dL Kpjan-4-Clkznedbi (0.22-1.00) gm/dL Beta Globulins (0.53-1.03) gm/dL Gamma Globulins (0.50-1.39) gm/dL Lipase Urine Color (Yellw/Straw) Urine Clarity (Clear) Urine pH (5.0-8.5) Ur Specific [place] (1.002-1.035) Urine Protein (Neg-Trace) mg/dL Urine Glucose (UA) (Negative) mg/dL Urine Ketones (Negative) mg/dL Urine Occult Blood (Negative) Urine Nitrate (Negative) Urine Bilirubin (Negative) Urine Urobilinogen (Less than 2) mg/dL Ur Leukocyte Esterase (Negative) Urine RBC (0-3) /hpf Urine WBC (0-5) /hpf Urine WBC Clumps (None) Ur Squamous Epith Cells (0-5) /hpf Urine Bacteria (None) /hpf Hyaline Casts (0-3) /lpf Urine Mucus (Occasional) /lpf Micro UA Comment Ur Microscopic Review Urine Culture Comments Random Vancomycin Comment Serum Alcohol Blood Type Blood Type Recheck Antibody Screen MTS Gel Crossmatch Bld Prod Order Comment 08/20/18 08/20/18 08/20/18 Range/Units 10:40 11:14 17:25 WBC (4.0-11.0) th/mm3 RBC (4.00-5.30) mil/mm3 Hgb (11.6-15.3) gm/dL Hct (35.0-46.0) % MCV (80.0-100.0) fL MCH (27.0-34.0) pg MCHC (32.0-36.0) % RDW (11.6-17.2) % Plt Count (150-450) th/mm3 MPV (7.0-11.0) fL Neut % (Auto) (16.0-70.0) % Lymph % (Auto) (9.0-44.0) % [place] % (Auto) (0.0-8.0) % Eos % (Auto) (0.0-4.0) % Baso % (Auto) (0.0-2.0) % Neut # (Auto) (1.8-7.7) th/mm3 Lymph # (Auto) (1.0-4.8) th/mm3 [place] # (Auto) (0.0-0.9) th/mm3 Eos # (Auto) (0.0-0.4) th/mm3 Baso # (Auto) (0.0-0.2) th/mm3 WBC Differential Differential Comment Sodium (136-145) meq/L Potassium (3.5-5.1) meq/L Chloride (98-107) meq/L Carbon Dioxide (21.0-32.0) meq/L Anion Gap (5-15) meq/L BUN (7-18) mg/dL Creatinine (0.50-1.00) mg/dL Estimated GFR (>89) mL/min POC Glucose 354 H 243 H (68-110) mg/dl Random Glucose (74-106) mg/dL Lactic Acid (0.4-2.0) mmol/L Calcium (8.5-10.1) mg/dL Phosphorus (2.5-4.9) mg/dL Iron (50-170) mcg/dL TIBC (250-450) mcg/dL % Saturation (20-50) % Ferritin (8-252) ng/mL Total Bilirubin (0.2-1.0) mg/dL AST (15-37) U/L ALT (10-53) U/L Alkaline Phosphatase (45-117) U/L Total Creatine Kinase Troponin I (0.02-0.05) ng/mL B-Natriuretic Peptide (0-100) pg/mL Total Protein (6.4-8.2) g/dL Total Protein (PEP) (6.4-8.2) gm/dL Albumin (3.4-5.0) g/dL Albumin (PEP) (3.50-5.00) gm/dL Albumin/Globulin Ratio (1.39-2.23) Yonji-9-Obiwboooh (0.11-0.29) gm/dL Eivea-4-Cwcizgymt (0.22-1.00) gm/dL Beta Globulins (0.53-1.03) gm/dL Gamma Globulins (0.50-1.39) gm/dL Lipase Urine Color (Yellw/Straw) Urine Clarity (Clear) Urine pH (5.0-8.5) Ur Specific [place] (1.002-1.035) Urine Protein (Neg-Trace) mg/dL Urine Glucose (UA) (Negative) mg/dL Urine Ketones (Negative) mg/dL Urine Occult Blood (Negative) Urine Nitrate (Negative) Urine Bilirubin (Negative) Urine Urobilinogen (Less than 2) mg/dL Ur Leukocyte Esterase (Negative) Urine RBC (0-3) /hpf Urine WBC (0-5) /hpf Urine WBC Clumps (None) Ur Squamous Epith Cells (0-5) /hpf Urine Bacteria (None) /hpf Hyaline Casts (0-3) /lpf Urine Mucus (Occasional) /lpf Micro UA Comment Ur Microscopic Review Urine Culture Comments Random Vancomycin Comment Serum Alcohol Blood Type A Negative Blood Type Recheck Required Antibody Screen Negative MTS Gel Crossmatch See Detail Bld Prod Order Comment 08/20/18 08/21/18 08/21/18 Range/Units 20:22 05:25 05:25 WBC (4.0-11.0) th/mm3 RBC (4.00-5.30) mil/mm3 Hgb (11.6-15.3) gm/dL Hct (35.0-46.0) % MCV (80.0-100.0) fL MCH (27.0-34.0) pg MCHC (32.0-36.0) % RDW (11.6-17.2) % Plt Count (150-450) th/mm3 MPV (7.0-11.0) fL Neut % (Auto) (16.0-70.0) % Lymph % (Auto) (9.0-44.0) % [place] % (Auto) (0.0-8.0) % Eos % (Auto) (0.0-4.0) % Baso % (Auto) (0.0-2.0) % Neut # (Auto) (1.8-7.7) th/mm3 Lymph # (Auto) (1.0-4.8) th/mm3 [place] # (Auto) (0.0-0.9) th/mm3 Eos # (Auto) (0.0-0.4) th/mm3 Baso # (Auto) (0.0-0.2) th/mm3 WBC Differential Differential Comment Sodium 136 (136-145) meq/L Potassium 4.3 (3.5-5.1) meq/L Chloride 97 L (98-107) meq/L Carbon Dioxide 27.2 (21.0-32.0) meq/L Anion Gap 12 (5-15) meq/L BUN 52 H (7-18) mg/dL Creatinine 2.25 H (0.50-1.00) mg/dL Estimated GFR 20 L (>89) mL/min POC Glucose 202 H (68-110) mg/dl Random Glucose 177 H D (74-106) mg/dL Lactic Acid (0.4-2.0) mmol/L Calcium 8.8 (8.5-10.1) mg/dL Phosphorus (2.5-4.9) mg/dL Iron 24 L (50-170) mcg/dL TIBC 139 L (250-450) mcg/dL % Saturation 17.3 L (20-50) % Ferritin 1707 H (8-252) ng/mL Total Bilirubin (0.2-1.0) mg/dL AST (15-37) U/L ALT (10-53) U/L Alkaline Phosphatase (45-117) U/L Total Creatine Kinase Troponin I (0.02-0.05) ng/mL B-Natriuretic Peptide (0-100) pg/mL Total Protein (6.4-8.2) g/dL Total Protein (PEP) (6.4-8.2) gm/dL Albumin (3.4-5.0) g/dL Albumin (PEP) (3.50-5.00) gm/dL Albumin/Globulin Ratio (1.39-2.23) Otbib-2-Rewynndke (0.11-0.29) gm/dL Sheph-4-Sxhjvhben (0.22-1.00) gm/dL Beta Globulins (0.53-1.03) gm/dL Gamma Globulins (0.50-1.39) gm/dL Lipase Urine Color (Yellw/Straw) Urine Clarity (Clear) Urine pH (5.0-8.5) Ur Specific [place] (1.002-1.035) Urine Protein (Neg-Trace) mg/dL Urine Glucose (UA) (Negative) mg/dL Urine Ketones (Negative) mg/dL Urine Occult Blood (Negative) Urine Nitrate (Negative) Urine Bilirubin (Negative) Urine Urobilinogen (Less than 2) mg/dL Ur Leukocyte Esterase (Negative) Urine RBC (0-3) /hpf Urine WBC (0-5) /hpf Urine WBC Clumps (None) Ur Squamous Epith Cells (0-5) /hpf Urine Bacteria (None) /hpf Hyaline Casts (0-3) /lpf Urine Mucus (Occasional) /lpf Micro UA Comment Ur Microscopic Review Urine Culture Comments Random Vancomycin 12.9 Comment Serum Alcohol Blood Type Blood Type Recheck Antibody Screen MTS Gel Crossmatch Bld Prod Order Comment 08/21/18 08/21/18 08/21/18 Range/Units 05:25 08:15 11:21 WBC (4.0-11.0) th/mm3 RBC (4.00-5.30) mil/mm3 Hgb (11.6-15.3) gm/dL Hct (35.0-46.0) % MCV (80.0-100.0) fL MCH (27.0-34.0) pg MCHC (32.0-36.0) % RDW (11.6-17.2) % Plt Count (150-450) th/mm3 MPV (7.0-11.0) fL Neut % (Auto) (16.0-70.0) % Lymph % (Auto) (9.0-44.0) % [place] % (Auto) (0.0-8.0) % Eos % (Auto) (0.0-4.0) % Baso % (Auto) (0.0-2.0) % Neut # (Auto) (1.8-7.7) th/mm3 Lymph # (Auto) (1.0-4.8) th/mm3 [place] # (Auto) (0.0-0.9) th/mm3 Eos # (Auto) (0.0-0.4) th/mm3 Baso # (Auto) (0.0-0.2) th/mm3 WBC Differential Differential Comment Sodium (136-145) meq/L Potassium (3.5-5.1) meq/L Chloride (98-107) meq/L Carbon Dioxide (21.0-32.0) meq/L Anion Gap (5-15) meq/L BUN (7-18) mg/dL Creatinine (0.50-1.00) mg/dL Estimated GFR (>89) mL/min POC Glucose 198 H 278 H (68-110) mg/dl Random Glucose (74-106) mg/dL Lactic Acid (0.4-2.0) mmol/L Calcium (8.5-10.1) mg/dL Phosphorus (2.5-4.9) mg/dL Iron (50-170) mcg/dL TIBC (250-450) mcg/dL % Saturation (20-50) % Ferritin (8-252) ng/mL Total Bilirubin (0.2-1.0) mg/dL AST (15-37) U/L ALT (10-53) U/L Alkaline Phosphatase (45-117) U/L Total Creatine Kinase Troponin I (0.02-0.05) ng/mL B-Natriuretic Peptide 228 H (0-100) pg/mL Total Protein (6.4-8.2) g/dL Total Protein (PEP) (6.4-8.2) gm/dL Albumin (3.4-5.0) g/dL Albumin (PEP) (3.50-5.00) gm/dL Albumin/Globulin Ratio (1.39-2.23) Xaxbb-4-Anxcmruwy (0.11-0.29) gm/dL Jianv-8-Xohnxivby (0.22-1.00) gm/dL Beta Globulins (0.53-1.03) gm/dL Gamma Globulins (0.50-1.39) gm/dL Lipase Urine Color (Yellw/Straw) Urine Clarity (Clear) Urine pH (5.0-8.5) Ur Specific [place] (1.002-1.035) Urine Protein (Neg-Trace) mg/dL Urine Glucose (UA) (Negative) mg/dL Urine Ketones (Negative) mg/dL Urine Occult Blood (Negative) Urine Nitrate (Negative) Urine Bilirubin (Negative) Urine Urobilinogen (Less than 2) mg/dL Ur Leukocyte Esterase (Negative) Urine RBC (0-3) /hpf Urine WBC (0-5) /hpf Urine WBC Clumps (None) Ur Squamous Epith Cells (0-5) /hpf Urine Bacteria (None) /hpf Hyaline Casts (0-3) /lpf Urine Mucus (Occasional) /lpf Micro UA Comment Ur Microscopic Review Urine Culture Comments Random Vancomycin Comment Serum Alcohol Blood Type Blood Type Recheck Antibody Screen MTS Gel Crossmatch Bld Prod Order Comment 08/21/18 08/21/18 08/21/18 Range/Units 17:39 20:38 21:30 WBC (4.0-11.0) th/mm3 RBC (4.00-5.30) mil/mm3 Hgb (11.6-15.3) gm/dL Hct (35.0-46.0) % MCV (80.0-100.0) fL MCH (27.0-34.0) pg MCHC (32.0-36.0) % RDW (11.6-17.2) % Plt Count (150-450) th/mm3 MPV (7.0-11.0) fL Neut % (Auto) (16.0-70.0) % Lymph % (Auto) (9.0-44.0) % [place] % (Auto) (0.0-8.0) % Eos % (Auto) (0.0-4.0) % Baso % (Auto) (0.0-2.0) % Neut # (Auto) (1.8-7.7) th/mm3 Lymph # (Auto) (1.0-4.8) th/mm3 [place] # (Auto) (0.0-0.9) th/mm3 Eos # (Auto) (0.0-0.4) th/mm3 Baso # (Auto) (0.0-0.2) th/mm3 WBC Differential Differential Comment Sodium (136-145) meq/L Potassium (3.5-5.1) meq/L Chloride (98-107) meq/L Carbon Dioxide (21.0-32.0) meq/L Anion Gap (5-15) meq/L BUN (7-18) mg/dL Creatinine (0.50-1.00) mg/dL Estimated GFR (>89) mL/min POC Glucose 457 H* (68-110) mg/dl Random Glucose 385 H D (74-106) mg/dL Lactic Acid (0.4-2.0) mmol/L Calcium (8.5-10.1) mg/dL Phosphorus (2.5-4.9) mg/dL Iron (50-170) mcg/dL TIBC (250-450) mcg/dL % Saturation (20-50) % Ferritin (8-252) ng/mL Total Bilirubin (0.2-1.0) mg/dL AST (15-37) U/L ALT (10-53) U/L Alkaline Phosphatase (45-117) U/L Total Creatine Kinase Troponin I (0.02-0.05) ng/mL B-Natriuretic Peptide (0-100) pg/mL Total Protein (6.4-8.2) g/dL Total Protein (PEP) 5.8 L (6.4-8.2) gm/dL Albumin (3.4-5.0) g/dL Albumin (PEP) 1.90 L (3.50-5.00) gm/dL Albumin/Globulin Ratio 0.49 L (1.39-2.23) Jfrsj-5-Shqumxiyd 0.49 H (0.11-0.29) gm/dL Ljxfl-1-Ypbpztnfq 1.24 H (0.22-1.00) gm/dL Beta Globulins 0.81 (0.53-1.03) gm/dL Gamma Globulins 1.36 (0.50-1.39) gm/dL Lipase Urine Color (Yellw/Straw) Urine Clarity (Clear) Urine pH (5.0-8.5) Ur Specific [place] (1.002-1.035) Urine Protein (Neg-Trace) mg/dL Urine Glucose (UA) (Negative) mg/dL Urine Ketones (Negative) mg/dL Urine Occult Blood (Negative) Urine Nitrate (Negative) Urine Bilirubin (Negative) Urine Urobilinogen (Less than 2) mg/dL Ur Leukocyte Esterase (Negative) Urine RBC (0-3) /hpf Urine WBC (0-5) /hpf Urine WBC Clumps (None) Ur Squamous Epith Cells (0-5) /hpf Urine Bacteria (None) /hpf Hyaline Casts (0-3) /lpf Urine Mucus (Occasional) /lpf Micro UA Comment Ur Microscopic Review Urine Culture Comments Random Vancomycin Comment Serum Alcohol Blood Type Blood Type Recheck Antibody Screen MTS Gel Crossmatch Bld Prod Order Comment 08/22/18 08/22/18 08/22/18 Range/Units 01:09 04:05 04:05 WBC 10.6 (4.0-11.0) th/mm3 RBC 2.88 L (4.00-5.30) mil/mm3 Hgb 8.4 L (11.6-15.3) gm/dL Hct 25.0 L (35.0-46.0) % MCV 86.6 (80.0-100.0) fL MCH 29.2 (27.0-34.0) pg MCHC 33.7 (32.0-36.0) % RDW 15.3 (11.6-17.2) % Plt Count 369 (150-450) th/mm3 MPV 7.9 (7.0-11.0) fL Neut % (Auto) 82.7 H (16.0-70.0) % Lymph % (Auto) 8.8 L (9.0-44.0) % [place] % (Auto) 5.0 (0.0-8.0) % Eos % (Auto) 2.9 (0.0-4.0) % Baso % (Auto) 0.6 (0.0-2.0) % Neut # (Auto) 8.8 H (1.8-7.7) th/mm3 Lymph # (Auto) 0.9 L (1.0-4.8) th/mm3 [place] # (Auto) 0.5 (0.0-0.9) th/mm3 Eos # (Auto) 0.3 (0.0-0.4) th/mm3 Baso # (Auto) 0.1 (0.0-0.2) th/mm3 WBC Differential . Differential Comment Auto diff final Sodium 133 L (136-145) meq/L Potassium 4.1 (3.5-5.1) meq/L Chloride 98 (98-107) meq/L Carbon Dioxide 27.1 (21.0-32.0) meq/L Anion Gap 8 (5-15) meq/L BUN 52 H (7-18) mg/dL Creatinine 1.92 H (0.50-1.00) mg/dL Estimated GFR 25 L (>89) mL/min POC Glucose 384 H (68-110) mg/dl Random Glucose 282 H D (74-106) mg/dL Lactic Acid (0.4-2.0) mmol/L Calcium 8.2 L (8.5-10.1) mg/dL Phosphorus 3.1 (2.5-4.9) mg/dL Iron (50-170) mcg/dL TIBC (250-450) mcg/dL % Saturation (20-50) % Ferritin (8-252) ng/mL Total Bilirubin (0.2-1.0) mg/dL AST (15-37) U/L ALT (10-53) U/L Alkaline Phosphatase (45-117) U/L Total Creatine Kinase Troponin I (0.02-0.05) ng/mL B-Natriuretic Peptide (0-100) pg/mL Total Protein (6.4-8.2) g/dL Total Protein (PEP) (6.4-8.2) gm/dL Albumin 1.7 L (3.4-5.0) g/dL Albumin (PEP) (3.50-5.00) gm/dL Albumin/Globulin Ratio (1.39-2.23) Vovmr-0-[place]ras (0.11-0.29) gm/dL Yqzwd-0-Gcpzwprsr (0.22-1.00) gm/dL Beta Globulins (0.53-1.03) gm/dL Gamma Globulins (0.50-1.39) gm/dL Lipase Urine Color (Yellw/Straw) Urine Clarity (Clear) Urine pH (5.0-8.5) Ur Specific [place] (1.002-1.035) Urine Protein (Neg-Trace) mg/dL Urine Glucose (UA) (Negative) mg/dL Urine Ketones (Negative) mg/dL Urine Occult Blood (Negative) Urine Nitrate (Negative) Urine Bilirubin (Negative) Urine Urobilinogen (Less than 2) mg/dL Ur Leukocyte Esterase (Negative) Urine RBC (0-3) /hpf Urine WBC (0-5) /hpf Urine WBC Clumps (None) Ur Squamous Epith Cells (0-5) /hpf Urine Bacteria (None) /hpf Hyaline Casts (0-3) /lpf Urine Mucus (Occasional) /lpf Micro UA Comment Ur Microscopic Review Urine Culture Comments Random Vancomycin 13.8 Comment Serum Alcohol Blood Type Blood Type Recheck Antibody Screen MTS Gel Crossmatch Bld Prod Order Comment 08/22/18 Range/Units 07:17 WBC (4.0-11.0) th/mm3 RBC (4.00-5.30) mil/mm3 Hgb (11.6-15.3) gm/dL Hct (35.0-46.0) % MCV (80.0-100.0) fL MCH (27.0-34.0) pg MCHC (32.0-36.0) % RDW (11.6-17.2) % Plt Count (150-450) th/mm3 MPV (7.0-11.0) fL Neut % (Auto) (16.0-70.0) % Lymph % (Auto) (9.0-44.0) % [place] % (Auto) (0.0-8.0) % Eos % (Auto) (0.0-4.0) % Baso % (Auto) (0.0-2.0) % Neut # (Auto) (1.8-7.7) th/mm3 Lymph # (Auto) (1.0-4.8) th/mm3 [place] # (Auto) (0.0-0.9) th/mm3 Eos # (Auto) (0.0-0.4) th/mm3 Baso # (Auto) (0.0-0.2) th/mm3 WBC Differential Differential Comment Sodium (136-145) meq/L Potassium (3.5-5.1) meq/L Chloride (98-107) meq/L Carbon Dioxide (21.0-32.0) meq/L Anion Gap (5-15) meq/L BUN (7-18) mg/dL Creatinine (0.50-1.00) mg/dL Estimated GFR (>89) mL/min POC Glucose 292 H (68-110) mg/dl Random Glucose (74-106) mg/dL Lactic Acid (0.4-2.0) mmol/L Calcium (8.5-10.1) mg/dL Phosphorus (2.5-4.9) mg/dL Iron (50-170) mcg/dL TIBC (250-450) mcg/dL % Saturation (20-50) % Ferritin (8-252) ng/mL Total Bilirubin (0.2-1.0) mg/dL AST (15-37) U/L ALT (10-53) U/L Alkaline Phosphatase (45-117) U/L Total Creatine Kinase Troponin I (0.02-0.05) ng/mL B-Natriuretic Peptide (0-100) pg/mL Total Protein (6.4-8.2) g/dL Total Protein (PEP) (6.4-8.2) gm/dL Albumin (3.4-5.0) g/dL Albumin (PEP) (3.50-5.00) gm/dL Albumin/Globulin Ratio (1.39-2.23) Cfrht-7-Zxsgutoup (0.11-0.29) gm/dL Avzit-2-Mwsrcnmek (0.22-1.00) gm/dL Beta Globulins (0.53-1.03) gm/dL Gamma Globulins (0.50-1.39) gm/dL Lipase Urine Color (Yellw/Straw) Urine Clarity (Clear) Urine pH (5.0-8.5) Ur Specific [place] (1.002-1.035) Urine Protein (Neg-Trace) mg/dL Urine Glucose (UA) (Negative) mg/dL Urine Ketones (Negative) mg/dL Urine Occult Blood (Negative) Urine Nitrate (Negative) Urine Bilirubin (Negative) Urine Urobilinogen (Less than 2) mg/dL Ur Leukocyte Esterase (Negative) Urine RBC (0-3) /hpf Urine WBC (0-5) /hpf Urine WBC Clumps (None) Ur Squamous Epith Cells (0-5) /hpf Urine Bacteria (None) /hpf Hyaline Casts (0-3) /lpf Urine Mucus (Occasional) /lpf Micro UA Comment Ur Microscopic Review Urine Culture Comments Random Vancomycin Comment Serum Alcohol Blood Type Blood Type Recheck Antibody Screen MTS Gel Crossmatch Bld Prod Order Comment Imaging Data Radiologist's impression: Chest X-Ray 08/19/18 22:06 CONCLUSION: No acute cardiopulmonary disease. Abdomen/Bladder Ultrasound 08/20/18 00:00 CONCLUSION: 1. Possible medical renal disease without hydronephrosis. Ankle MRI 08/20/18 00:00 CONCLUSION: 1. Enlargement of previously seen lobulated synovial cyst anterior to the Achilles tendon. 2. Significant worsening of marrow edema in the bony structures particularly the medial lateral malleoli, distal tibia most of the talus since the prior exam. The extent of involvement would be somewhat unusual for osteomyelitis, however this possibility is not excluded and possibility of extensive Charcot's phenomenon should be entertained. 3. 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 Ankle X-Ray 08/20/18 00:00 CONCLUSION: Prominent soft tissue swelling at the ankle as before. No acute fractures. Foot X-Ray 08/20/18 00:00 CONCLUSION: Chronic arthropathy and dislocations at the tarsometatarsal articulations. Soft tissue swelling is again seen. Venous Doppler Study 08/20/18 00:00 CONCLUSION: 1. No DVT and there are nonspecific lymph nodes within the left groin should be correlated clinically. Pulmonary Perfusion Imaging 08/20/18 01:52 CONCLUSION: Low probability study for pulmonary embolus. ECG Data EKG Prior to Arrival: No Attestation: I personally reviewed and interpreted this ECG as follows: Prior ECG tracings: not available for review Interpretation: afib with cvr, no acute stemi pattern noted Discharge Plan Discharge Disposition Patient Disposition: 30 Still Patient Discharge Condition Condition: Stable Discharge Details Diagnosis: Acute UTI, Elevated troponin, Atrial fibrillation Physicians Team ED Provider: Ivan Hanson Primary Care Provider: Muna Feliciano Attending Provider: Everett Joyner Other Providers: Nacho Gamez ; Mercedes Rivera ; Maged Brumfield ; Vicenta Calderon Status ED Status: Left Department Discharge Information Discharge Date/Time: 08/20/18 04:58
[2018-08-19] MEDS ORDERED: Vancomycin Inj 1,000 MG in Sodium Chlor 0.9% Inj 250 ML IV.SIG STA (22:28)
[2018-08-19] MEDS ORDERED: Piperacil/Tazo 2.25 GM Premix 50 ML IV.SIG ONE (22:31)
--- NOTE | 2018-08-19 22:49 | XR ---
EXAM DATE: 08/19/2018 10:47 PM EDT AGE/SEX: 88 years / Female INDICATIONS: Short of breath. CLINICAL DATA: This is the patient's subsequent encounter. Patient reports that signs and symptoms h ave been present for 1 day and indicates a pain score of 4/10. MEDICAL/SURGICAL HISTORY: None. None. COMPARISON: [facility] – [place], CHEST 2V PA&LAT, 07/12/2018. . FINDINGS: The lungs are clear without infiltrate, nodule, or mass. There is no appreciable pleural effusion for technique. Heart and mediastinum are unremarkable. CONCLUSION: No acute cardiopulmonary disease. Electronically signed by: Boris Chavez MD 08/19/2018 10:47 PM EDT
[2018-08-19 23:01] LABS: Baso # (Auto) 0.2 th/mm3 (0.0-0.2); Baso % (Auto) 1.2 % (0.0-2.0); Eos # (Auto) 0.1 th/mm3 (0.0-0.4); Eos % (Auto) 0.5 % (0.0-4.0); Hematocrit 26.7 % (35.0-46.0); Hemoglobin 8.8 gm/dL (11.6-15.3); Lymph # (Auto) 1.8 th/mm3 (1.0-4.8); Lymph % (Auto) 11.7 % (9.0-44.0); Mean Corpuscular Volume 87.8 fL (80.0-100.0); Mean Platelet Volume 8.4 fL (7.0-11.0); Mono % (Auto) 6.3 % (0.0-8.0); Neut # (Auto) 12.4 th/mm3 (1.8-7.7); Neut % (Auto) 80.3 % (16.0-70.0); Platelet Count 491 th/mm3 (150-450); Red Blood Count 3.04 mil/mm3 (4.00-5.30); Red Cell Distribution Width 15.4 % (11.6-17.2); White Blood Count 15.4 th/mm3 (4.0-11.0)
[2018-08-20 00:17] LABS: Alanine Aminotransferase 22 U/L (10-53); Albumin 1.8 g/dL (3.4-5.0); Anion Gap 13 meq/L (5-15); Aspartate Aminotransferase 21 U/L (15-37); Blood Urea Nitrogen 41 mg/dL (7-18); Calcium 9.2 mg/dL (8.5-10.1); Carbon Dioxide 27.9 meq/L (21.0-32.0); Chloride 93 meq/L (98-107); Glomerular Filtration Rate 28 mL/min (>89); Glucose,Random 311 mg/dL (74-106); Lipase 91 U/L (73-393); Potassium 4.3 meq/L (3.5-5.1); Sodium 134 meq/L (136-145)
[2018-08-20] MEDS ORDERED: Morphine Inj 4 MG/ML Vial IV.PUSH ONE (00:17)
[2018-08-20 00:21] LABS: Alkaline Phosphatase 148 U/L (45-117); Total Protein 7.4 g/dL (6.4-8.2); Troponin I 0.43 ng/mL (0.02-0.05)
[2018-08-20 00:25] LABS: Creatine Kinase 22 U/L (26-192)
[2018-08-20] MEDS ORDERED: Ketorolac Inj 30 MG/ML (IVP) Vial IV.PUSH ONE (00:31)
[2018-08-20 02:29] LABS: Bacteria,Urine Many /hpf; Bilirubin,Urine Negative (Negative); Clarity,Urine Cloudy (Clear); Color,Urine Yellow (Yellw/Straw); Glucose,Urine (UA) 50 mg/dL (Negative); Hyaline Casts,Urine 6 /lpf (0-3); Leukocyte Esterase,Urine Large (Negative); Mucus,Urine Few /lpf (Occasional); Nitrite,Urine Negative (Negative); Specific Gravity,Urine 1.013 (1.002-1.035); Squamous Epithelial Cell,Urine 27 /hpf (0-5)
[2018-08-20] MEDS ORDERED: Bisacodyl 10 MG Supp RECTAL PRN (03:04)
[2018-08-20] MEDS ORDERED: Dextrose 50% in Water 50 ML Vial IV.PUSH PRN (03:09)
[2018-08-20] MEDS ORDERED: Vancomycin Consult Pharmacy OTHER PRN (03:17)
--- NOTE | 2018-08-20 03:32 | P.HPIM ---
History of Present Illness Primary Care Physician: Muna Feliciano MD History of Present Illness: This is an 88-year-old female with a PMH of HTN, Hyperlipidemia, DM, Charcot Foot and A-fib who presented to the ER w/ complaints of left foot pain for approx 1mo, now progressively worse over the last 2-3 days. Pain is constant, 7 -8/10, worse w/ movement, non-radiating, associated w/ some edema. Recent admit 07/01-07/12/18 w/ Rhabdo/DAMARI and new onset A-fib, s/p eval by Dr. Gamez, recommendation for Coumadin therapy, however pt declined, remains on ASA daily and Metoprolol 12.5mg bid. Found to have UTI w/ Bacteremia and was d/c'd to SNF w/ IV Abx via PICC, recently d/c'd home 2wks ago. Pt states she's been doing well at home except for worsening foot pain. Denies fever, chills or chest pain. On arrival, BP 179/70, HR 106, O2 sat 100% on RA, Temp 101.8. WBC 15.4. Hemoglobin 8.8, previously 11.7 on 07/09/2018. Creatinine 1.71, previously 1.43 on 07/12/2018. Troponin 0 0.43. BNP 481. UA positive for UTI. CXR with no acute findings. V/Q Scan pending. - Diagnosis (1) Sepsis (2) UTI (urinary tract infection) (3) A-fib (4) Elevated troponin (5) Anemia (6) Foot pain (7) DM (diabetes mellitus) Inpatient Certification: I certify that the inpatient services were ordered in accordance with Medicare regulations governing the order. This includes certification that hospital inpatient services are reasonable and necessary and in the case of services not specified as inpatient-only under 42 CFR 419.22(n), that they are appropriately provided as inpatient services in accordance to with the 2-midnight benchmark under 43 CFR 412.3(e) Estimated Total Length of Stay (Days): 2 Plans for Post Hospital Care: Not yet determined Review of Systems PAST FAMILY HISTORY: Reviewed. No h/o DM or CAD All other systems reviewed negative except as stated in HPI PMFSH - History History Provided By: Patient - Medical History Medical History: Medical History (Last Reviewed 08/20/18 @ 00:32 by Ivan Hanson) Colon cancer (Acute) Clavicle fracture (Acute) Femur fracture (Acute) CKD (chronic kidney disease) stage 3, GFR 30-59 ml/min (Acute) 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 (Acute) H/O: hysterectomy (Acute) Myocardial infarct (Acute) HTN (hypertension) (Acute) Diabetes GERD (gastroesophageal reflux disease) High cholesterol Hypothyroid - Surgical History Surgical History: Surgical History (Last Reviewed 08/20/18 @ 00:33 by Ivan Hanson) H/O cardiac catheterization (Acute) H/O heart artery stent (Acute) - Family History Family History: Family History (Last Reviewed 08/20/18 @ 00:33 by Ivan Hanson) Father Diabetes Mother Uterine cancer - Tobacco History Second Hand Smoke Exposure: No Smoking Status: Never smoker - Alcohol History How Often Do You Have a Drink Containing Alcohol: Never - Substance Use History Substance History: No History of Abuse - Travel History Recent Travel in the [place] Within the Last 8 Weeks: No Recent Travel Out of the Country Within the Last 8 Weeks: No - Immunization History Tetanus Immunization: <5 Years Hx Influenza Vaccine This Season: Yes Medications and Allergies Active Medications: Active Medications Acetaminophen (Tylenol) 650 mg PO Q4H PRN PRN Reason: Temp > 100.4 Al Hydroxide/Mg Hydroxide (Milk Of Magnpantera Liq) 30 ml PO Q12H PRN PRN Reason: Mild Constipation Aspirin (Ecotrin) 81 mg PO DAILY YAHIR Atorvastatin Calcium (Lipitor) 20 mg PO DAILY YAHIR Bisacodyl (Dulcolax Supp) 10 mg RECTAL DAILY PRN PRN Reason: SEVERE CONSITIPATION Dextrose (D50w Vial) 50 ml IV.PUSH UNSCH PRN PRN Reason: PER HYPOGLYCEMIA PROTOCOL Glucagon (Glucagon Inj) 1 mg OTHER PRN PRN PRN Reason: for Hypoglycemia Protocol Sodium Chloride (Ns Inj) 1,000 mls @ 100 mls/hr IV.CONT .Q10H YAHIR Cefepime HCl 1,000 mg/ Sodium (Chloride) 100 mls @ 200 mls/hr IV.SIG Q12H YAHIR Insulin Aspart (Novolog Insulin Correctional Sugar Inj) 0 unit SQ ACHS YAHIR; Protocol Isosorbide Mononitrate (Imdur) 60 mg PO DAILY YAHIR Lactulose (Lactulose Liq) 30 ml PO DAILY PRN PRN Reason: SEVERE CONSITIPATION Latanoprost (Xalatan 0.005% Opth Drops) 1 drop EACH EYE QPM [facility] Metoprolol Tartrate (Lopressor) 12.5 mg PO BID [facility] Ondansetron HCl (Zofran Inj) 4 mg IV.PUSH Q6H PRN PRN Reason: NAUSEA OR VOMITING Pharmacy Profile Note (Vancomycin Consult Pharmacy) 1 each OTHER UNSCH PRN PRN Reason: Pharmacy to dose Senna/Docusate Sodium (Catia-Colace) 1 tab PO BID [facility] Sennosides (Senokot) 17.2 mg PO Q12H PRN PRN Reason: Moderate Constipation Sodium Chloride (Ns Flush) 2 ml IV.FLUSH UNSCH PRN PRN Reason: FLUSH AFTER USING IV ACCESS Timolol Maleate (Timolol 0.25% Drops) 1 drops EACH EYE DAILY [facility] Allergies Allergy/AdvReac Type Severity Reaction Status Date / Time kaye Allergy Unknown RASH Verified 08/19/18 22:29 lisinopril Allergy Cough Verified 08/19/18 22:30 niacin [From Simcor] Allergy Edema Verified 08/19/18 22:29 simvastatin [From Simcor] Allergy Edema Verified 08/19/18 22:29 Home Medications Medication Instructions Recorded Confirmed Type alpha lipoic acid 600 mg PO HS PRN 07/01/18 08/19/18 History ascorbic acid (vitamin C) [Vitamin 1,000 mg PO DAILY 07/01/18 08/19/18 History C] aspirin 81 mg PO DAILY 07/01/18 08/19/18 History atorvastatin 20 mg PO DAILY 07/01/18 08/19/18 History calcium carbonate [Tums] 1 tab PO Q4-6H PRN 07/01/18 08/19/18 History cetirizine [Zyrtec] 10 mg PO DAILY PRN 07/01/18 08/19/18 History ergocalciferol (vitamin D2) 50,000 unit PO QWEEK 07/01/18 08/19/18 History [Vitamin D2] estradiol 1 mg PO DAILY 07/01/18 08/19/18 History ferrous sulfate 325 mg PO DAILY 07/01/18 08/19/18 History insulin NPH isoph U-100 human 20 unit SUB-Q QPM 07/01/18 08/19/18 History [Novolin N NPH U-100 Insulin] insulin NPH isoph U-100 human 30 unit SUB-Q QAM 07/01/18 08/19/18 History [Novolin N NPH U-100 Insulin] isosorbide mononitrate 60 mg PO QAM 07/01/18 08/19/18 History latanoprost [Xalatan] 1 drp EACH EYE QPM 07/01/18 08/19/18 History levothyroxine 75 mcg PO DAILY 07/01/18 08/19/18 History id-dfp-drtxn acid-lutein [Centrum 1 tab PO DAILY 07/01/18 08/19/18 History Silver] timolol maleate [Timoptic] 1 drp OPHTHALMIC (EYE) QAM 07/01/18 08/19/18 History vitamin A 8,000 unit PO DAILY 07/01/18 08/19/18 History furosemide 20 mg PO DAILY 08/19/18 08/19/18 History hydrochlorothiazide 50 mg PO QAM 08/19/18 08/19/18 History Exam Vital signs: Vital Signs 08/19/18 22:07 08/19/18 22:40 Temperature 101.8 F H 101.8 F H Pulse Rate 106 H Respiratory Rate 36 H Blood Pressure 179/70 H Pulse Oximetry 100 98 Intake & Output 08/19/18 08/19/18 08/20/18 06:59 18:59 06:59 Intake Total 300 / 300 Balance 300 / 300 Weight 85.275 kg Intake: IV 300 / 300 Zosyn 2.25 GM Premix 50 ML @ 50 / 50 100 mls/hr IV.SIG ONCE ONE Rx#: [id number] Vancomycin Inj 1,000 MG In NS 250 / 250 Inj 250 ML @ 250 mls/hr IV.SIG STAT STA Rx#:[id number] Narrative: PE: GENERAL: Extremely pleasant elderly white in no acute distress. SKIN: Focused skin assessment warm and dry. HEENT: PERRLA, EOMI. No scleral icterus or conjunctival pallor. No lid lag or facial droop. CARDIOVASCULAR: Regular rate and rhythm. No obvious murmurs to auscultation. No chest tenderness to palpation. RESPIRATORY: No obvious rhonchi or wheezing. Clear to auscultation. Breath sounds equal bilaterally. GASTROINTESTINAL: Abdomen soft, non-tender, nondistended. BS normal. MUSCULOSKELETAL: Extremities without clubbing, cyanosis, or edema. No obvious deformities. Left foot w/ charcot deformity, +edema, +erythema. NEUROLOGICAL: Awake, alert and oriented x4. No focal neurologic deficits. Moving both upper and lower extremities spontaneously. PSYCHIATRIC: Appropriate mood and affect. Insight and judgment normal. Results - Labs CBC & Chem 7: 08/19/18 22:15 08/19/18 22:15 Labs: Short CBC 08/19/18 Range/Units 22:15 WBC 15.4 H (4.0-11.0) th/mm3 Hgb 8.8 L (11.6-15.3) gm/dL Hct 26.7 L (35.0-46.0) % Plt Count 491 H (150-450) th/mm3 BMP 08/19/18 22:15 Sodium 134 L Potassium 4.3 Chloride 93 L Carbon Dioxide 27.9 BUN 41 H Creatinine 1.71 H Calcium 9.2 Cardiac Enzymes 08/19/18 08/19/18 Range/Units 22:15 22:15 Total Creatine Kinase Cancelled 22 L Troponin I 0.43 H (0.02-0.05) ng/mL Liver Function 08/19/18 Range/Units 22:15 Total Bilirubin 0.5 (0.2-1.0) mg/dL AST 21 (15-37) U/L ALT 22 (10-53) U/L Alkaline Phosphatase 148 H (45-117) U/L Albumin 1.8 L (3.4-5.0) g/dL Urine 08/19/18 Range/Units 22:50 Urine Color Yellow (Yellw/Straw) Urine Clarity Cloudy H (Clear) Urine pH 5.0 (5.0-8.5) Ur Specific [place] 1.013 (1.002-1.035) Urine Protein 30 H (Neg-Trace) mg/dL Urine Glucose (UA) 50 (Negative) mg/dL - Imaging Impressions Chest X-Ray 08/19/18 22:06 CONCLUSION: No acute cardiopulmonary disease. Caprini VTE Risk Assessment Caprini VTE Risk Assessment: No/Low Risk (score <= 1) Caprini Risk Assessment Model: Point Value = 1 Point Value = 2 Point Value = 3 Point Value = 5 Age 41-60 Minor surgery BMI > 25 kg/m2 Swollen legs Varicose veins or History of unexplained or recurrent spontaneous Oral contraceptives or hormone replacement Sepsis (< 1 month) Serious lung disease, including pneumonia (< 1 month) Abnormal pulmonary function Acute myocardial infarction Congestive heart failure (< 1 month) History of inflammatory bowel disease Medical patient at bed rest Age 61-74 Arthroscopic surgery Major open surgery (> 45 min) Laparoscopic surgery (> 45 min) Malignancy Confined to bed (> 72 hours) Immobilizing plaster cast Central venous access Age >= 75 History of VTE Family history of VTE Factor V Leiden Prothrombin [id number] Lupus anticoagulant Anticardiolipin antibodies Elevated serum homocysteine Heparin-induced thrombocytopenia Other congenital or acquired thrombophilia Stroke (< 1 month) Elective arthroplasty Hip, pelvis, or leg fracture Acute spinal cord injury (< 1 month) Prophylaxis Regimen: Total Risk Factor Score Risk Level Prophylaxis Regimen 0-1 Low Early ambulation 2 Moderate Order ONE of the following: *Sequential Compression Device (SCD) *Heparin 5000 units SQ BID 3-4 Higher Order ONE of the following medications: *Heparin 5000 units SQ TID *Enoxaparin/Lovenox 40 mg SQ daily (WT < 150 kg, CrCl > 30 mL/min) *Enoxaparin/Lovenox 30 mg SQ daily (WT < 150 kg, CrCl > 10-29 mL/min) *Enoxaparin/Lovenox 30 mg SQ BID (WT < 150 kg, CrCl > 30 mL/min) AND/OR *Sequential Compression Device (SCD) 5 or more Highest Order ONE of the following medications: *Heparin 5000 units SQ TID (Preferred with Epidurals) *Enoxaparin/Lovenox 40 mg SQ daily (WT < 150 kg, CrCl > 30 mL/min) *Enoxaparin/Lovenox 30 mg SQ daily (WT < 150 kg, CrCl > 10-29 mL/min) *Enoxaparin/Lovenox 30 mg SQ BID (WT < 150 kg, CrCl > 30 mL/min) AND *Sequential Compression Device (SCD) Assessment and Plan - Assessment (1) Sepsis Code(s): A41.9 - Sepsis, unspecified organism Status: Acute (2) UTI (urinary tract infection) Code(s): N39.0 - Urinary tract infection, site not specified Status: Acute (3) A-fib Code(s): I48.91 - Unspecified atrial fibrillation Status: Acute (4) Elevated troponin Code(s): R74.8 - Abnormal levels of other serum enzymes Status: Acute (5) Anemia Code(s): D64.9 - Anemia, unspecified Status: Acute (6) Foot pain Code(s): M79.673 - Pain in unspecified foot Status: Acute (7) DM (diabetes mellitus) Code(s): E11.9 - Type 2 diabetes mellitus without complications Status: Acute - Plan A/P: 1. Sepsis: Temp 101.8, HR 106, WBC 15, Source-UTI, possible Left foot cellulitis, s/p blood cultures, Vanc/Zosyn, continue w/ broad spectrum IV Abx, follow up cultures, IVF for hydration. 2. UTI: U/a w/ UTI, follow up urine cultures, continue IVF, IV Abx, monitor I/ O. 3. A-fib: recent dx of A-fib on last admit 07/06/18, currently on Metoprolol 12.5mg bid and ASA, declined Coumadin therapy in the past despite recommendations. Controlled. Resume home medications 4. Elevated Trop: Trop 0.38, no c/o chest pain or SOB. Admit to [facility], telemetry, check serial cardiac enzymes for trend. Follows w/ Dr. Gamez, will consult for further eval/intervention. ASA, Statin, Metoprolol. 5. Anemia: Hgb 8.8, previously 11.7 on 07/09/18, no evidence of bleeding, Type & Screen, check repeat Hgb/Hct, transfuse as needed. 6. Left Foot Pain: +Charcot foot, increased erythema/edema, will continue w/ broad spectrum antibiotics for cellulitis 7. DM: Sliding scale w/ Accu-Cheks 8. DVT Prophylaxis: Heparin 9. Social work for d/c planning as needed 10. Case discussed w/ ER physician at length, labs/records/imaging reviewed by me
[2018-08-20] MEDS: Sod Chloride 0.9% Inj 1,000 ML IV.CONT SCH ×2 (03:51→14:39)
--- NOTE | 2018-08-20 04:51 | NM ---
EXAM DATE: 08/20/2018 4:36 AM EDT AGE/SEX: 88 years / Female INDICATIONS: Dyspnea. CLINICAL DATA: This is the patient's initial encounter. Patient reports that signs and symptoms have been present for 1 day and indicates a pain score of 0/10. MEDICAL/SURGICAL HISTORY: Carcinoma, colon. Diabetes mellitus type II. Hypertension. CKD. A ngioplasty. [place] [facility] [facility] [place]. C, CHEST 1V SINGLE AP, 08/19/2018. . DOSE: 1.0 mCi Tc99m DTPA aerosol 8.8 mCi Tc99m DTPA aerosol TECHNIQUE: Following five minutes of tidal breathing of DTPA aerosol, planar images of the lungs wer e performed in eight projections. The patient was then injected with MAA, and eight-view perfusion s can was performed. FINDINGS: Comparison radiograph shows mild patchy parenchymal consolidation of both mid and lower lungs. There is chronic elevation of the left hemidiaphragm Slightly heterogeneous ventilation and perfusion demonstrated, generally in keeping with [facility]. No segmental or discrete subsegmental defects are demonstrated. CONCLUSION: Low probability study for pulmonary embolus. Electronically signed by: Felix Garcia MD 08/20/2018 4:50 AM EDT
[2018-08-20] MEDS: Isosorbide Mononitrate 60 MG ER 24HR Tablet (Imdur) PO SCH ×2 (05:25→08:47)
[2018-08-20] MEDS: Insulin NovoLOG Aspart Correctional Sugar Inj SQ SCH ×4 (08:46→21:03)
[2018-08-20] MEDS: Senna/Docusate Sodium 8.6/50 MG Tablet PO SCH ×2 (08:47→21:00)
[2018-08-20] MEDS: Heparin - SQ 10,000 UNITS/ML Vial SQ SCH ×2 (08:47→21:00)
[2018-08-20] MEDS: Metoprolol Tartrate 25 MG Tablet PO SCH ×2 (08:47→20:59)
[2018-08-20] MEDS ORDERED: Vancomycin Inj 500 MG in Sodium Chlor 0.9% Inj 100 ML IV.SIG ONE (09:00)
[2018-08-20] MEDS: Timolol 0.25% Drops 5 ML Bottle EACH EYE SCH (10:25)
[2018-08-20 10:58] LABS: Baso # (Auto) 0.1 th/mm3 (0.0-0.2); Eos # (Auto) 0.3 th/mm3 (0.0-0.4); Eos % (Auto) 1.9 % (0.0-4.0); Hematocrit 23.2 % (35.0-46.0); Hemoglobin 7.7 gm/dL (11.6-15.3); Lymph # (Auto) 1.5 th/mm3 (1.0-4.8); Lymph % (Auto) 11.8 % (9.0-44.0); Mean Corpuscular HGB Conc 33.2 % (32.0-36.0); Mean Corpuscular Hemoglobin 29.4 pg (27.0-34.0); Mean Corpuscular Volume 88.4 fL (80.0-100.0); Mean Platelet Volume 8.2 fL (7.0-11.0); Mono # (Auto) 0.8 th/mm3 (0.0-0.9); Mono % (Auto) 6.1 % (0.0-8.0); Neut # (Auto) 10.3 th/mm3 (1.8-7.7); Neut % (Auto) 79.2 % (16.0-70.0); Platelet Count 436 th/mm3 (150-450); Red Blood Count 2.63 mil/mm3 (4.00-5.30); Red Cell Distribution Width 15.2 % (11.6-17.2)
[2018-08-20 11:21] LABS: Alanine Aminotransferase 16 U/L (10-53); Albumin 1.6 g/dL (3.4-5.0); Anion Gap 8 meq/L (5-15); Aspartate Aminotransferase 16 U/L (15-37); Blood Urea Nitrogen 49 mg/dL (7-18); Calcium 8.9 mg/dL (8.5-10.1); Carbon Dioxide 29.7 meq/L (21.0-32.0); Chloride 95 meq/L (98-107); Glomerular Filtration Rate 21 mL/min (>89); Glucose,Random 283 mg/dL (74-106); Potassium 3.9 meq/L (3.5-5.1); Sodium 133 meq/L (136-145)
[2018-08-20 11:33] LABS: Alkaline Phosphatase 122 U/L (45-117); Total Protein 6.6 g/dL (6.4-8.2)
--- NOTE | 2018-08-20 11:48 | ECG ---
Date Performed: 08/19/2018 Time Performed: 22:35:20 PTAGE: 88 years EKG: ATRIAL FIBRILLATION WITH RAPID VENTRICULAR RESPONSE PROBABLE INFERIOR MYOCARDIAL INFARCTION ABNORMAL ECG Since the previous tracing, no significant change noted NO PREVIOUS TRACING DOCTOR: Kunal Winter Interpretating Date/Time 08/20/2018 11:47:08
[2018-08-20 11:53] LABS: Troponin I 0.24 ng/mL (0.02-0.05)
--- NOTE | 2018-08-20 13:56 | P.PN ---
Subjective Interval history: seen with family at bedside complains of left foot pain on and off quite a while now baseline uses a walker baseline uses a walker + cough for last 3-4 days- minimal sputum c/o left leg/foot pain on and off for quite a while History of CAD s/p stent, CHF history of a fib- on monitor in SR bilateral leg swelling-on and off "for quite a while" left more than right Physical Exam Vital signs: Vital Signs 08/19/18 22:07 08/19/18 22:40 08/20/18 03:04 Temperature 101.8 F H 101.8 F H 98.0 F Pulse Rate 106 H 76 Respiratory Rate 36 H 20 Blood Pressure 179/70 H 101/49 L Pulse Oximetry 100 98 100 08/20/18 05:05 08/20/18 05:56 08/20/18 08:00 Temperature 98.1 F 97.4 F L Pulse Rate 84 75 80 Respiratory Rate 18 20 Blood Pressure 125/62 119/56 L Pulse Oximetry 97 100 08/20/18 09:00 08/20/18 12:00 08/20/18 13:26 Temperature 97.8 F Pulse Rate 69 69 68 Respiratory Rate 18 Blood Pressure 100/48 L Pulse Oximetry 100 Intake & Output 08/19/18 08/20/18 08/20/18 18:59 06:59 18:59 Intake Total 550 / 550 200 / 200 Balance 550 / 550 200 / 200 Weight 80.1 kg Intake: IV 300 / 300 200 / 200 Maxipime Inj 1,000 MG In NS Inj 100 / 100 100 ML @ 200 mls/hr IV.SIG Q24H YAHIR Rx#:[id number] Zosyn 2.25 GM Premix 50 ML @ 50 / 50 100 mls/hr IV.SIG ONCE ONE Rx#: [id number] Vancomycin Inj 1,000 MG In NS 250 / 250 Inj 250 ML @ 250 mls/hr IV.SIG STAT STA Rx#:[id number] Vancomycin Inj 500 MG In NS Inj 100 / 100 100 ML @ 200 mls/hr IV.SIG ONCE ONE Rx#:[id number] Oral 250 / 250 Narrative: awake and alert, oriented x 3, speech clear anciteric' no nuchal rigidityl lungs- no rales, decreasd breath sounds, no wheezes regular rhythm abdomen soft, nontender LE- left leg/foot erythema, + swelling, earm to touch, good pulses left foot- with soft tissue swelling Results - Labs CBC & Chem 7: 08/20/18 10:40 08/21/18 05:25 Laboratory Results - last 24 hr 08/19/18 08/19/18 08/19/18 22:15 22:15 22:15 WBC 15.4 H RBC 3.04 L Hgb 8.8 L Hct 26.7 L MCV 87.8 MCH 29.0 MCHC 33.0 RDW 15.4 Plt Count 491 H MPV 8.4 Neut % (Auto) 80.3 H Lymph % (Auto) 11.7 Brantley % (Auto) 6.3 Eos % (Auto) 0.5 Baso % (Auto) 1.2 Neut # (Auto) 12.4 H Lymph # (Auto) 1.8 Brantley # (Auto) 1.0 H Eos # (Auto) 0.1 Baso # (Auto) 0.2 WBC Differential . Differential Comment Auto diff final Sodium Potassium Chloride Carbon Dioxide Anion Gap BUN Creatinine Estimated GFR POC Glucose Random Glucose Lactic Acid Calcium Total Bilirubin AST ALT Alkaline Phosphatase Total Creatine Kinase Cancelled Troponin I B-Natriuretic Peptide 481 H Total Protein Albumin Lipase Cancelled Urine Color Urine Clarity Urine pH Ur Specific Virgie Urine Protein Urine Glucose (UA) Urine Ketones Urine Occult Blood Urine Nitrate Urine Bilirubin Urine Urobilinogen Ur Leukocyte Esterase Urine RBC Urine WBC Urine WBC Clumps Ur Squamous Epith Cells Urine Bacteria Hyaline Casts Urine Mucus Micro UA Comment Ur Microscopic Review Urine Culture Comments Serum Alcohol Cancelled Blood Type Blood Type Recheck Antibody Screen MTS Gel Crossmatch Bld Prod Order Comment 08/19/18 08/19/18 08/19/18 22:15 22:44 22:50 WBC RBC Hgb Hct MCV MCH MCHC RDW Plt Count MPV Neut % (Auto) Lymph % (Auto) Brantley % (Auto) Eos % (Auto) Baso % (Auto) Neut # (Auto) Lymph # (Auto) Brantley # (Auto) Eos # (Auto) Baso # (Auto) WBC Differential Differential Comment Sodium 134 L Potassium 4.3 Chloride 93 L Carbon Dioxide 27.9 Anion Gap 13 BUN 41 H Creatinine 1.71 H Estimated GFR 28 L POC Glucose Random Glucose 311 H Lactic Acid 1.6 Calcium 9.2 Total Bilirubin 0.5 AST 21 ALT 22 Alkaline Phosphatase 148 H Total Creatine Kinase 22 L Troponin I 0.43 H B-Natriuretic Peptide Total Protein 7.4 Albumin 1.8 L Lipase 91 Urine Color Yellow Urine Clarity Cloudy H Urine pH 5.0 Ur Specific Virgie 1.013 Urine Protein 30 H Urine Glucose (UA) 50 Urine Ketones Negative Urine Occult Blood Small H Urine Nitrate Negative Urine Bilirubin Negative Urine Urobilinogen Less than 2 Ur Leukocyte Esterase Large H Urine RBC 7 H Urine WBC 73 H Urine WBC Clumps Rare H Ur Squamous Epith Cells 27 Urine Bacteria Many H Hyaline Casts 6 Urine Mucus Few H Micro UA Comment Culture indicated Ur Microscopic Review Not Reportable Urine Culture Comments Culture indicated Serum Alcohol Less than 3 Blood Type Blood Type Recheck Antibody Screen MTS Gel Crossmatch Bld Prod Order Comment 08/20/18 08/20/18 08/20/18 03:47 10:40 10:40 WBC 13.0 H RBC 2.63 L Hgb 7.7 L Hct 23.2 L MCV 88.4 MCH 29.4 MCHC 33.2 RDW 15.2 Plt Count 436 MPV 8.2 Neut % (Auto) 79.2 H Lymph % (Auto) 11.8 Brantley % (Auto) 6.1 Eos % (Auto) 1.9 Baso % (Auto) 1.0 Neut # (Auto) 10.3 H Lymph # (Auto) 1.5 Brantley # (Auto) 0.8 Eos # (Auto) 0.3 Baso # (Auto) 0.1 WBC Differential . Differential Comment Auto diff final Sodium 133 L Potassium 3.9 Chloride 95 L Carbon Dioxide 29.7 Anion Gap 8 BUN 49 H Creatinine 2.22 H Estimated GFR 21 L POC Glucose 277 H Random Glucose 283 H Lactic Acid Calcium 8.9 Total Bilirubin 0.5 AST 16 ALT 16 Alkaline Phosphatase 122 H Total Creatine Kinase Troponin I 0.24 H D B-Natriuretic Peptide Total Protein 6.6 D Albumin 1.6 L Lipase Urine Color Urine Clarity Urine pH Ur Specific Virgie Urine Protein Urine Glucose (UA) Urine Ketones Urine Occult Blood Urine Nitrate Urine Bilirubin Urine Urobilinogen Ur Leukocyte Esterase Urine RBC Urine WBC Urine WBC Clumps Ur Squamous Epith Cells Urine Bacteria Hyaline Casts Urine Mucus Micro UA Comment Ur Microscopic Review Urine Culture Comments Serum Alcohol Blood Type Blood Type Recheck Antibody Screen MTS Gel Crossmatch Bld Prod Order Comment 08/20/18 08/20/18 10:40 11:14 WBC RBC Hgb Hct MCV MCH MCHC RDW Plt Count MPV Neut % (Auto) Lymph % (Auto) Brantley % (Auto) Eos % (Auto) Baso % (Auto) Neut # (Auto) Lymph # (Auto) Brantley # (Auto) Eos # (Auto) Baso # (Auto) WBC Differential Differential Comment Sodium Potassium Chloride Carbon Dioxide Anion Gap BUN Creatinine Estimated GFR POC Glucose 354 H Random Glucose Lactic Acid Calcium Total Bilirubin AST ALT Alkaline Phosphatase Total Creatine Kinase Troponin I B-Natriuretic Peptide Total Protein Albumin Lipase Urine Color Urine Clarity Urine pH Ur Specific Virgie Urine Protein Urine Glucose (UA) Urine Ketones Urine Occult Blood Urine Nitrate Urine Bilirubin Urine Urobilinogen Ur Leukocyte Esterase Urine RBC Urine WBC Urine WBC Clumps Ur Squamous Epith Cells Urine Bacteria Hyaline Casts Urine Mucus Micro UA Comment Ur Microscopic Review Urine Culture Comments Serum Alcohol Blood Type A Negative Blood Type Recheck Required Antibody Screen Negative MTS Gel Crossmatch See Detail Bld Prod Order Comment Microbiology 08/19/18 22:40 Blood - Peripheral Aerobic Blood Culture - Preliminary No growth in 1 day 08/19/18 22:40 Blood - Peripheral Anaerobic Blood Culture - Preliminary No growth in 1 day 08/19/18 22:45 Blood - Peripheral Aerobic Blood Culture - Preliminary No growth in 1 day 08/19/18 22:45 Blood - Peripheral Anaerobic Blood Culture - Preliminary No growth in 1 day 08/19/18 22:50 Urine - Random Urine Streptococcus pneumoniae Antigen (M - Final POS S. pneumoniae antigen 08/19/18 22:55 Urine - Random Urine Legionella Antigen - Final Presumptive negative for Legionella pneumophila serogroup 1 antigen in urine, suggesting no recent or recurrent infection. Infection due to Legionella cannot be ruled out since other serogroups and species may cause disease, antigen may not be present in urine in early infection, and the level of antigen present in the urine may be below the detection limit of the test. 08/19/18 22:50 Nasal Wash Influenza Types A,B Antigen - Final Negative for FLU A and B antigen Infection due to influenza A or B cannot be ruled out since the antigen present in the sample may be below the detection limit of the test. - Imaging Impressions Chest X-Ray 08/19/18 22:06 CONCLUSION: No acute cardiopulmonary disease. Pulmonary Perfusion Imaging 08/20/18 01:52 CONCLUSION: Low probability study for pulmonary embolus. Assessment and Plan - Assessment (1) Sepsis Code(s): A41.9 - Sepsis, unspecified organism Status: Acute (2) UTI (urinary tract infection) Code(s): N39.0 - Urinary tract infection, site not specified Status: Acute (3) A-fib Code(s): I48.91 - Unspecified atrial fibrillation Status: Acute (4) Elevated troponin Code(s): R74.8 - Abnormal levels of other serum enzymes Status: Acute (5) Anemia Code(s): D64.9 - Anemia, unspecified Status: Acute (6) Foot pain Code(s): M79.673 - Pain in unspecified foot Status: Acute (7) DM (diabetes mellitus) Code(s): E11.9 - Type 2 diabetes mellitus without complications Status: Acute - Plan 88 years old female Sepsis: Temp 101.8, HR 106, WBC 15, mulitple source - UTI + Left foot cellulitis history of MSSA s/p Ancef course 07/17 UTI Left foot celluitis with marked soft tissue swelling- charcot Joint flare - MRI- charcot joint - Vanc/Zosyn, continue w/ broad spectrum IV Abx, follow up cultures, - get ID consult - seen by Dr. kelly in the past - S/P IV antiibotic course x 6 weeks with IV ancef 07/17- for S infectious - Left foot on exam- marked soft tissue swelling and hot. + erythema - seen by Podiatry-sees Dr. Ken as OP - A-fib: recent dx of A-fib on last admit 07/06/18, - NSR on exam now History of CHF- diatolic dysfunction Elevated Trop: - [place], BNP- give x 1 IV Lasix - heplock IVF - currently on Metoprolol 12.5mg bid and ASA, declined Coumadin therapy in the past despite recommendations. Trop 0.38, no c/o chest pain or SOB. Admit to [facility], telemetry, check serial cardiac enzymes for trend. - Dr. Gamez,ff ASA, Statin, Metoprolol. \\ Acute on top of chronic kidney injury - check renal ultrasound - ff BMP - Lasix 20 mg IV x 1 today - Nephrology consult Anemia: Hgb 8.8, previously 11.7 on 07/09/18, no evidence of bleeding, Type & Screen, check repeat Hgb/Hct, transfuse as needed. - CBC in am, Iron studies DM: Sliding scale w/ Accu-Cheks - ff blood sugars. A1C DVT Prophylaxis: Heparin d/w patient and family
--- NOTE | 2018-08-20 16:19 | XR ---
EXAM DATE: 08/20/2018 4:13 PM EDT AGE/SEX: 88 years / Female INDICATIONS: Left ankle pain and swelling. CLINICAL DATA: This is the patient's initial encounter. Patient reports that signs and symptoms have been present for 3 days and indicates a pain score of 0/10. MEDICAL/SURGICAL HISTORY: . Charcot foot. None. [place] [facility] [place] . FINDINGS: There is soft tissue swelling at the ankle. There are chronic arthropathic changes involving the tars ometatarsal articulations. CONCLUSION: Prominent soft tissue swelling at the ankle as before. No acute fractures. Electronically signed by: Timothy Conti MD 08/20/2018 4:17 PM EDT
--- NOTE | 2018-08-20 16:21 | XR ---
EXAM DATE: 08/20/2018 4:16 PM EDT AGE/SEX: 88 years / Female INDICATIONS: Pain and swelling of left foot. CLINICAL DATA: This is the patient's initial encounter. Patient reports that signs and symptoms have been present for 2 days and indicates a pain score of 2/10. MEDICAL/SURGICAL HISTORY: . Charcot foot. None. COMPARISON: [facility] – [place], [place]LE COMPLETE LEFT MIN 3V, 08/20/2018. [facility] [place] LEFT 2V, 07/03/2018. . FINDINGS: There is diffuse soft tissue swelling of the foot. There is chronic arthropathy at the tarsometatarsa l articulations with lateral divergence of the second through fifth metatarsals. There is patchy scle rosis and osteophytosis. There is what appears to represent heterotopic bone along the plantar aspect of the foot underlying the first metatarsal articulations. CONCLUSION: Chronic arthropathy and dislocations at the tarsometatarsal articulations. Soft tissue swelling is ag ain seen. Electronically signed by: Timothy Conti MD 08/20/2018 4:19 PM EDT
--- NOTE | 2018-08-20 17:03 | US ---
EXAM DATE: 08/20/2018 4:58 PM EDT AGE/SEX: 88 years / Female INDICATIONS: Left leg swelling, redness, and pain. CLINICAL DATA: This is the patient's subsequent encounter. Patient reports that signs and symptoms h ave been present for 2 months and indicates a pain score of 7/10. MEDICAL/SURGICAL HISTORY: Carcinoma, colon. Hypercholesterolemia. Hypothyroidism. CKD. Clavi luz fracture. Diabetes. Femur fracture. GERD. HTN. [place]. Charcot foot. Hysterectomy. Coronary artery stent. Cardiac cath. [place]PAR[place]: [facility] [place]EN[place]PLER LEG LEFT, 07/03/2018. . TECHNIQUE: Venous ultrasound of both lower extremities was performed from the inguinal ligament to t he proximal calf. Real-time, color Doppler and spectral tracing, compression and augmentation techni ques were used. FINDINGS: Normal compression of the deep venous system from the inguinal region to the proximal calf . No echogenic clot is seen. Normal response of the venous system to augmentation and respiration. Th ere is no evidence for Stovall's cyst. There are multiple lymph nodes in the left groin the largest susie sures 3 cm in size nonspecific and the subcutaneous edema is also seen. CONCLUSION: 1. No DVT and there are nonspecific lymph nodes within the left groin should be correlated clinicall y. Electronically signed by: Boris Chavez MD 08/20/2018 5:01 PM EDT
--- NOTE | 2018-08-20 17:11 | US ---
EXAM DATE: 08/20/2018 5:08 PM EDT AGE/SEX: 88 years / Female INDICATIONS: Increased BUN/creatinine. CLINICAL DATA: This is the patient's initial encounter. Patient reports that signs and symptoms have been present for 1 day and indicates a pain score of 7/10. MEDICAL/SURGICAL HISTORY: Carcinoma, colon. Hypercholesterolemia. Hypothyroidism. CKD. Clavi luz fracture. Diabetes. Femur fracture. GERD. HTN. [place]. Charcot foot. Hysterectomy. Coronary artery stent. Cardiac cath. COMPARISON: [facility], CT ABDOMEN AND PELVIS W/ CONTRAST, 10/28/2016. . MEASUREMENTS: Right Kidney:__10.2 x 5.2 x 5.6 cm Left Kidney:__11.1 x 6.1 x 6.8 cm FINDINGS: Right Kidney: Increased echotexture. No mass or hydronephrosis. Left Kidney: Increased echotexture. No mass or hydronephrosis. Bladder: Within normal limits given the degree of distension. Other: None. CONCLUSION: 1. Possible medical renal disease without hydronephrosis. Electronically signed by: Boris Chavez MD 08/20/2018 5:10 PM EDT
[2018-08-20] MEDS: Latanoprost 0.005% Opth Drops 2.5 ML Bottle EACH EYE SCH (17:49)
--- NOTE | 2018-08-20 19:53 | MB ---
cc: Mercedes Rivera DPM DATE: 08/20/2018 REASON FOR CONSULTATION: Left foot redness, swelling. HISTORY OF PRESENT ILLNESS: The patient is an 88-year-old female with a past medical history of hypertension, hyperlipidemia, DM, Charcot with left foot pain for a while, 1 month now, worse over the last 2-3 days. Last seen by her design supervisor, Dr. Ken, a week ago. Used Unna boots, but no offloading shoes. Continues to worsen. PAST MEDICAL HISTORY: Colon cancer, CKD, Charcot, DM, PA, HTN, hyperlipidemia, GERD, hypercholesterolemia. PAST SURGICAL HISTORY: She has a history of cardiac catheterization and heart stent. SOCIAL HISTORY: Denies smoking, alcohol or illicit drugs. MEDICATIONS: Per medical chart. PHYSICAL EXAMINATION: Left lower extremity with positive edema, erythema. No streaking. Warm, swollen. Pronated midfoot. Protective sensation grossly absent. Muscle strength is +5/5 in all quadrants. LABORATORY DATA: WBC 13.0, RBC 2.63, H and H 7.7 and 22.2. ASSESSMENT: 1. Diabetes mellitus with neuropathy. 2. Likely left Charcot acute flare. PLAN: Order x-rays and MRI of the left foot and ankle. We will offload the patient in a Cam boot, and if she can tolerate, Unna boots will be recommended. We will continue to follow the patient while in house and determine additional treatment or therapy pending x-rays and MRI. Dr. Blackmon will assume care on 08/21/2018. Mercedes Rivera DPM SR/aster , 03:53 PM , 04:00 PM
--- NOTE | 2018-08-20 20:05 | MR ---
EXAM DATE: 08/20/2018 7:51 PM EDT AGE/SEX: 88 years / Female INDICATIONS: Edema. Left foot pain and swelling. CLINICAL DATA: This is the patient's initial encounter. Patient reports that signs and symptoms have been present for 1 day and indicates a pain score of 3/10. MEDICAL/SURGICAL HISTORY: Carcinoma, colon. Renal failure, chronic. Diabetes mellitus type II . Hypertension. Coronary artery stent. Hysterectomy. GFR 21 COMPARISON: No prior exams available for comparison. TECHNIQUE: Multiplanar, multisequence MRI examination was performed without contrast. FINDINGS: Compared to the prior examination there is extensive marrow edema involving the distal tibial epiphys is medial lateral malleoli and talus. There is fluid collection anterior to the calcaneus probably a synovial loculated cyst significantly larger since the prior exam measures 7.3 cm in size. Extensive subcutaneous edema and soft tissue swelling is seen diffusely and there is significant degenerative a rthritis within multiple tarsal joints and tarsometatarsal joints and deformity of the tarsal bones p articularly the cuneiforms and parts of the proximal metatarsal bones and cuboid. There is also nonde script marrow edema involving some of the visualized metatarsal bones. CONCLUSION: 1. Enlargement of previously seen lobulated synovial cyst anterior to the Achilles tendon. 2. Significant worsening of marrow edema in the bony structures particularly the medial lateral mall eoli, distal tibia most of the talus since the prior exam. The extent of involvement would be somewha t unusual for osteomyelitis, however this possibility is not excluded and possibility of extensive Ch arcot's phenomenon should be entertained. 3. Extensive deformity of multiple bony structures and significant superimposed degenerative arthrit is chronic in nature with a cutaneous edema diffusely. Electronically signed by: Boris Chavez MD 08/20/2018 8:03 PM EDT
--- NOTE | 2018-08-20 20:58 | MB ---
cc: Nacho Gamez MD DATE: 08/20/2018 HISTORY OF PRESENT ILLNESS: Sarah is a very pleasant 88-year-old lady with a history of coronary artery disease, status post PCI, atrial fibrillation, chronic renal insufficiency who presents with left lower extremity edema and complaints of "Charcot joint pain" and edema. Otherwise, she notes some dyspnea, but denies chest pain, fever, chills, cough, GI or bleeding, PND, orthopnea, syncope or dizziness. PAST MEDICAL HISTORY: Per history of present illness. She has a history of colon cancer, clavicular fracture, femoral fracture, chronic renal insufficiency, stage III, hysterectomy, myocardial infarction, hypertension, diabetes, hyperlipidemia, hypothyroidism. SOCIAL HISTORY: Denies tobacco or alcohol use. ALLERGIES: ISIDRO, LISINOPRIL, NIACIN AND SIMVASTATIN. MEDICATIONS IN THE HOSPITAL: 1. Atorvastatin 20 mg daily. 2. Aspirin 81 mg daily. 3. Cefepime. 4. Heparin 5000 subcutaneous q.12 hours. 5. Insulin. 6. Imdur 60 mg daily. 7. Lopressor 12.5 mg b.i.d. 8. Vancomycin. PHYSICAL EXAMINATION: VITAL SIGNS: Blood pressure 100/48, pulse 69, respiratory rate 18, temperature 97.8. GENERAL: She is alert and oriented x 3, in no acute distress. NECK: Supple. No JVD, no bruit. CARDIOVASCULAR: S1, S2. No murmurs, rubs, gallops. LUNGS: Clear to auscultation bilaterally. ABDOMEN: Soft, nontender, nondistended with positive bowel sounds. EXTREMITIES: Lower extremity edema. LABORATORY DATA: White count 13.0, hemoglobin 7.7, hematocrit 23.2, platelet count 436. Sodium 133, potassium 3.9, chloride 95, BUN 49, creatinine 2.22. BNP is 481. Troponin 0.43 and 0.24. Albumin 1.6. EKG, atrial fibrillation at a rate of 103 beats per minute, nonspecific ST-T wave changes. Chest x-ray, no acute cardiopulmonary disease. DIAGNOSES: 1. [id number] myocardial infarction. 2. Acute decompensated congestive heart failure. 3. Anemia. 4. Coronary artery disease. 5. Atrial fibrillation. 6. Charcot joint. 7. Left lower extremity edema. 8. Anemia. 9. Hyponatremia. 10. Hypoalbuminemia. 11. Elevated white count. 12. Thrombocytosis. DISCUSSION: At this point in time, the patient is essentially asymptomatic. She does have some mild dyspnea. Suspect her troponin elevation and BNP elevation is related to anemia and possibly high output heart failure. Recommend considering a blood transfusion. Regarding her atrial fibrillation, she has refused Coumadin and novel oral anticoagulant agent in the past, even though I have strongly advised her to take it due to her CHADS score above 2. Currently, however, the patient's hemoglobin is below 8 and dropping and is unstable and therefore, a contraindication to anticoagulation at this point in time. We will follow trends in hemoglobin, BNP, symptoms, response to antibiotics for her Charcot joint. MD PAULINA Hernandez/aster , 05:40 PM , 05:49 PM
[2018-08-20] MEDS: Acetaminophen 325 MG Tablet PO PRN (21:00)
[2018-08-21 06:15] LABS: % Iron Saturation 17.3 % (20-50); Calcium 8.8 mg/dL (8.5-10.1); Carbon Dioxide 27.2 meq/L (21.0-32.0); Potassium 4.3 meq/L (3.5-5.1); Vancomycin,Random 12.9 Comment
[2018-08-21] MEDS: Senna/Docusate Sodium 8.6/50 MG Tablet PO SCH ×2 (09:13→22:22)
[2018-08-21] MEDS: Heparin - SQ 10,000 UNITS/ML Vial SQ SCH ×2 (09:13→22:20)
[2018-08-21] MEDS: Isosorbide Mononitrate 60 MG ER 24HR Tablet (Imdur) PO SCH (09:13)
[2018-08-21] MEDS: Insulin NovoLOG Aspart Correctional Sugar Inj SQ SCH ×4 (09:14→22:16)
[2018-08-21] MEDS: Metoprolol Tartrate 25 MG Tablet PO SCH ×2 (09:17→22:21)
[2018-08-21] MEDS: Timolol 0.25% Drops 5 ML Bottle EACH EYE SCH (09:18)
[2018-08-21] MEDS ORDERED: Vancomycin Inj 750 MG in Sodium Chlor 0.9% Inj 250 ML IV.SIG ONE (12:00)
--- NOTE | 2018-08-21 12:17 | P.PN ---
Subjective Interval history: t max 102. 3 last evening - T down patient no new complain poop po appetite "not coughing" any more no dysuria states no BM yet - on colace Physical Exam Vital signs: Vital Signs 08/20/18 13:26 08/20/18 16:00 08/20/18 18:00 Temperature 98.3 F Pulse Rate 68 77 85 Respiratory Rate 18 Blood Pressure 136/63 Pulse Oximetry 97 08/20/18 20:00 08/21/18 00:00 08/21/18 04:00 Temperature 102.3 F H 98.4 F 97.2 F L Pulse Rate 119 H 69 71 Respiratory Rate 20 18 18 Blood Pressure 150/65 H 128/62 137/56 L Pulse Oximetry 98 100 99 08/21/18 08:00 08/21/18 11:40 Temperature 97.1 F L Pulse Rate 64 Respiratory Rate 16 Blood Pressure 142/81 H Pulse Oximetry 100 99 Intake & Output 08/20/18 08/21/18 08/21/18 18:59 06:59 18:59 Intake Total 1000 / 1000 100 / 100 Balance 1000 / 1000 100 / 100 Weight 81.3 kg Intake: IV 1000 / 1000 100 / 100 NS Inj 1,000 ML @ 100 mls/hr IV 800 / 800 .CONT .Q10H [facility] Rx#:[id number] Maxipime Inj 1,000 MG In NS Inj 100 / 100 100 / 100 100 ML @ 200 mls/hr IV.SIG Q24H [facility] Rx#:[id number] Vancomycin Inj 500 MG In NS Inj 100 / 100 100 ML @ 200 mls/hr IV.SIG ONCE ONE Rx#:[id number] Other: # Voids 3 3 Narrative: awake and alert, oriented x 3, speech clear anicteric no nuchal rigidityl lungs- no rales, decreased breath sounds, no wheezes regular rhythm abdomen soft, nontender LE- left leg/foot + swelling, + mild erythema, good pulses Results - Labs CBC & Chem 7: 08/20/18 10:40 08/21/18 05:25 Laboratory Results - last 24 hr 08/19/18 08/20/18 08/20/18 22:50 10:40 17:25 Sodium Potassium Chloride Carbon Dioxide Anion Gap BUN Creatinine Estimated GFR POC Glucose 243 H Random Glucose Calcium Iron TIBC % Saturation Ferritin B-Natriuretic Peptide Urine Color Yellow Urine Clarity Cloudy H Urine pH 5.0 Ur Specific [place] 1.013 Urine Protein 30 H Urine Glucose (UA) 50 Urine Ketones Negative Urine Occult Blood Small H Urine Nitrate Negative Urine Bilirubin Negative Urine Urobilinogen Less than 2 Ur Leukocyte Esterase Large H Urine RBC 7 H Urine WBC 73 H Urine WBC Clumps Rare H Ur Squamous Epith Cells 27 Urine Bacteria Many H Hyaline Casts 6 Urine Mucus Few H Micro UA Comment Culture indicated Urine Culture Comments Culture indicated Random Vancomycin Blood Type A Negative Blood Type Recheck Required Antibody Screen Negative MTS Gel Crossmatch See Detail Bld Prod Order Comment 08/20/18 08/21/18 08/21/18 20:22 05:25 05:25 Sodium 136 Potassium 4.3 Chloride 97 L Carbon Dioxide 27.2 Anion Gap 12 BUN 52 H Creatinine 2.25 H Estimated GFR 20 L POC Glucose 202 H Random Glucose 177 H D Calcium 8.8 Iron 24 L TIBC 139 L % Saturation 17.3 L Ferritin 1707 H B-Natriuretic Peptide Urine Color Urine Clarity Urine pH Ur Specific [place] Urine Protein Urine Glucose (UA) Urine Ketones Urine Occult Blood Urine Nitrate Urine Bilirubin Urine Urobilinogen Ur Leukocyte Esterase Urine RBC Urine WBC Urine WBC Clumps Ur Squamous Epith Cells Urine Bacteria Hyaline Casts Urine Mucus Micro UA Comment Urine Culture Comments Random Vancomycin 12.9 Blood Type Blood Type Recheck Antibody Screen MTS Gel Crossmatch Bld Prod Order Comment 08/21/18 08/21/18 08/21/18 05:25 08:15 11:21 Sodium Potassium Chloride Carbon Dioxide Anion Gap BUN Creatinine Estimated GFR POC Glucose 198 H 278 H Random Glucose Calcium Iron TIBC % Saturation Ferritin B-Natriuretic Peptide 228 H Urine Color Urine Clarity Urine pH Ur Specific [place] Urine Protein Urine Glucose (UA) Urine Ketones Urine Occult Blood Urine Nitrate Urine Bilirubin Urine Urobilinogen Ur Leukocyte Esterase Urine RBC Urine WBC Urine WBC Clumps Ur Squamous Epith Cells Urine Bacteria Hyaline Casts Urine Mucus Micro UA Comment Urine Culture Comments Random Vancomycin Blood Type Blood Type Recheck Antibody Screen MTS Gel Crossmatch Bld Prod Order Comment Microbiology 08/19/18 22:40 Blood - Peripheral Aerobic Blood Culture - Preliminary No growth in 2 days 08/19/18 22:40 Blood - Peripheral Anaerobic Blood Culture - Preliminary gram positive cocci 08/19/18 22:50 Clean Catch Urine Urine Culture - Final Klebsiella pneumoniae 08/19/18 22:45 Blood - Peripheral Aerobic Blood Culture - Preliminary gram positive cocci 08/19/18 22:45 Blood - Peripheral Anaerobic Blood Culture - Preliminary gram positive cocci 08/19/18 22:50 Urine - Random Urine Streptococcus pneumoniae Antigen (M - Final POS S. pneumoniae antigen 08/19/18 22:55 Urine - Random Urine Legionella Antigen - Final Presumptive negative for Legionella pneumophila serogroup 1 antigen in urine, suggesting no recent or recurrent infection. Infection due to Legionella cannot be ruled out since other serogroups and species may cause disease, antigen may not be present in urine in early infection, and the level of antigen present in the urine may be below the detection limit of the test. - Imaging Impressions Abdomen/Bladder Ultrasound 08/20/18 00:00 CONCLUSION: 1. Possible medical renal disease without hydronephrosis. Ankle MRI 08/20/18 00:00 CONCLUSION: 1. Enlargement of previously seen lobulated synovial cyst anterior to the Achilles tendon. 2. Significant worsening of marrow edema in the bony structures particularly the medial lateral malleoli, distal tibia most of the talus since the prior exam. The extent of involvement would be somewhat unusual for osteomyelitis, however this possibility is not excluded and possibility of extensive Charcot's phenomenon should be entertained. 3. 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 Ankle X-Ray 08/20/18 00:00 CONCLUSION: Prominent soft tissue swelling at the ankle as before. No acute fractures. Foot X-Ray 08/20/18 00:00 CONCLUSION: Chronic arthropathy and dislocations at the tarsometatarsal articulations. Soft tissue swelling is again seen. Venous Doppler Study 08/20/18 00:00 CONCLUSION: 1. No DVT and there are nonspecific lymph nodes within the left groin should be correlated clinically. Assessment and Plan - Assessment (1) Sepsis Code(s): A41.9 - Sepsis, unspecified organism Status: Acute (2) UTI (urinary tract infection) Code(s): N39.0 - Urinary tract infection, site not specified Status: Acute (3) A-fib Code(s): I48.91 - Unspecified atrial fibrillation Status: Acute (4) Elevated troponin Code(s): R74.8 - Abnormal levels of other serum enzymes Status: Acute (5) Anemia Code(s): D64.9 - Anemia, unspecified Status: Acute (6) Foot pain Code(s): M79.673 - Pain in unspecified foot Status: Acute (7) DM (diabetes mellitus) Code(s): E11.9 - Type 2 diabetes mellitus without complications Status: Acute - Plan 88 years old female Temp 101.8, HR 106, WBC 15, mulitple source - UTI + Left foot cellulitis history of MSSA s/p Ancef course 07/17 Gram + sepsis Klebsiella UTI Left foot cellulitis with marked soft tissue swelling- 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 Brumfield in the past - S/P IV antiibotic course x 6 weeks with IV ancef 07/17- for S infectious - Left foot on exam- marked soft tissue swelling and hot. + erythema - seen by Podiatry-sees Dr. Ken as OP - - will repeat cultures in 1-2 days to ensure clearance A-fib: recent dx of A-fib on last admit 07/06/18, - NSR on exam now History of CHF- diatolic dysfunction Elevated Trop: - [place], BNP- give x 1 IV Lasix - heplock IVF - currently on Metoprolol 12.5mg bid and ASA, declined Coumadin therapy in the past despite recommendations. Trop 0.38, no c/o chest pain or SOB. Admit to [facility], telemetry, check serial cardiac enzymes for trend. - Dr. Gamez,ff ASA, Statin, Metoprolol. \\ Acute on top of chronic kidney injury -bialterally small kidneys - ff BMP - Nephrology consult Anemia: Hgb 8.8, previously 11.7 on 07/09/18, no evidence of bleeding, Type & Screen, check repeat Hgb/Hct, transfuse as needed. Iron studies suggestive of chronic disease - consider transfusion- give 1 unit RBC DM: Sliding scale w/ Accu-Cheks - ff blood sugars. chekc A!C - consider restarting home insulin regimen in am DVT Prophylaxis: Heparin PT eval and treat d/w patient
--- NOTE | 2018-08-21 14:48 | P.PNCA ---
Subjective Interval history: alert in nad Medications and Allergies Active Medications: Active Medications Acetaminophen (Tylenol) 650 mg PO Q4H PRN PRN Reason: Temp > 100.4 Last Admin: 08/20/18 21:00 Dose: 650 mg Al Hydroxide/Mg Hydroxide (Milk Of Magnesia Liq) 30 ml PO Q12H PRN PRN Reason: Mild Constipation Aspirin (Ecotrin) 81 mg PO DAILY [facility] Last Admin: 08/21/18 09:32 Dose: 81 mg Atorvastatin Calcium (Lipitor) 20 mg PO DAILY [facility] Last Admin: 08/21/18 09:13 Dose: 20 mg Bisacodyl (Dulcolax Supp) 10 mg RECTAL DAILY PRN PRN Reason: SEVERE CONSITIPATION Dextrose (D50w Vial) 50 ml IV.PUSH UNSCH PRN PRN Reason: PER HYPOGLYCEMIA PROTOCOL Glucagon (Glucagon Inj) 1 mg OTHER PRN PRN PRN Reason: for Hypoglycemia Protocol Heparin Sodium (Porcine) (Heparin Inj) 5,000 units SQ Q12HR [facility] Last Admin: 08/21/18 09:13 Dose: 5,000 units Cefepime HCl 1,000 mg/ Sodium (Chloride) 100 mls @ 200 mls/hr IV.SIG Q24H [facility] Last Infusion: 08/21/18 09:44 Dose: Infused Insulin Aspart (Novolog Insulin Correctional Sugar Inj) 0 unit SQ ACHS [facility]; Protocol Last Admin: 08/21/18 12:10 Dose: 5 unit Isosorbide Mononitrate (Imdur) 60 mg PO DAILY [facility] Last Admin: 08/21/18 09:13 Dose: 60 mg Lactulose (Lactulose Liq) 30 ml PO DAILY PRN PRN Reason: SEVERE CONSITIPATION Latanoprost (Xalatan 0.005% Opth Drops) 1 drop EACH EYE QPM [facility] Last Admin: 08/20/18 17:49 Dose: 1 drop Metoprolol Tartrate (Lopressor) 12.5 mg PO BID [facility] Last Admin: 08/21/18 09:17 Dose: 12.5 mg Ondansetron HCl (Zofran Inj) 4 mg IV.PUSH Q6H PRN PRN Reason: NAUSEA OR VOMITING Pharmacy Profile Note (Vancomycin Consult Pharmacy) 1 each OTHER UNSCH PRN PRN Reason: Pharmacy to dose Senna/Docusate Sodium (Catia-Colace) 1 tab PO BID [facility] Last Admin: 08/21/18 09:13 Dose: 1 tab Sennosides (Senokot) 17.2 mg PO Q12H PRN PRN Reason: Moderate Constipation Sodium Chloride (Ns Flush) 2 ml IV.FLUSH UNSCH PRN PRN Reason: FLUSH AFTER USING IV ACCESS Timolol Maleate (Timolol 0.25% Drops) 1 drops EACH EYE DAILY [facility] Last Admin: 08/21/18 09:18 Dose: 1 drops Allergies Allergy/AdvReac Type Severity Reaction Status Date / Time kaye Allergy Unknown RASH Verified 08/19/18 22:29 lisinopril Allergy Cough Verified 08/19/18 22:30 niacin [From Simcor] Allergy Edema Verified 08/19/18 22:29 simvastatin [From Simcor] Allergy Edema Verified 08/19/18 22:29 Home Medications Medication Instructions Recorded Confirmed Type alpha lipoic acid 600 mg PO HS PRN 07/01/18 08/19/18 History ascorbic acid (vitamin C) [Vitamin 1,000 mg PO DAILY 07/01/18 08/19/18 History C] aspirin 81 mg PO DAILY 07/01/18 08/19/18 History atorvastatin 20 mg PO DAILY 07/01/18 08/19/18 History calcium carbonate [Tums] 1 tab PO Q4-6H PRN 07/01/18 08/19/18 History cetirizine [Zyrtec] 10 mg PO DAILY PRN 07/01/18 08/19/18 History ergocalciferol (vitamin D2) 50,000 unit PO QWEEK 07/01/18 08/19/18 History [Vitamin D2] estradiol 1 mg PO DAILY 07/01/18 08/19/18 History ferrous sulfate 325 mg PO DAILY 07/01/18 08/19/18 History insulin NPH isoph U-100 human 20 unit SUB-Q QPM 07/01/18 08/19/18 History [Novolin N NPH U-100 Insulin] insulin NPH isoph U-100 human 30 unit SUB-Q QAM 07/01/18 08/19/18 History [Novolin N NPH U-100 Insulin] isosorbide mononitrate 60 mg PO QAM 07/01/18 08/19/18 History latanoprost [Xalatan] 1 drp EACH EYE QPM 07/01/18 08/19/18 History levothyroxine 75 mcg PO DAILY 07/01/18 08/19/18 History [id number] acid-lutein [Centrum 1 tab PO DAILY 07/01/18 08/19/18 History Silver] timolol maleate [Timoptic] 1 drp OPHTHALMIC (EYE) QAM 07/01/18 08/19/18 History vitamin A 8,000 unit PO DAILY 07/01/18 08/19/18 History furosemide 20 mg PO DAILY 08/19/18 08/19/18 History hydrochlorothiazide 50 mg PO QAM 08/19/18 08/19/18 History Physical Exam Vital signs: Vital Signs 08/20/18 16:00 08/20/18 18:00 08/20/18 20:00 Temperature 98.3 F 102.3 F H Pulse Rate 77 85 119 H Respiratory Rate 18 20 Blood Pressure 136/63 150/65 H Pulse Oximetry 97 98 08/21/18 00:00 08/21/18 04:00 08/21/18 08:00 Temperature 98.4 F 97.2 F L 97.1 F L Pulse Rate 69 71 64 Respiratory Rate 18 18 16 Blood Pressure 128/62 137/56 L 142/81 H Pulse Oximetry 100 99 100 08/21/18 11:40 08/21/18 12:00 Temperature 97.8 F Pulse Rate 71 Respiratory Rate 18 Blood Pressure 122/58 L Pulse Oximetry 99 100 Intake & Output 08/20/18 08/21/18 08/21/18 18:59 06:59 18:59 Intake Total 1000 / 1000 357.5 / 357.5 Balance 1000 / 1000 357.5 / 357.5 Weight 81.3 kg Intake: IV 1000 / 1000 357.5 / 357.5 NS Inj 1,000 ML @ 100 mls/hr IV 800 / 800 .CONT .Q10H [facility] Rx#:[id number] Maxipime Inj 1,000 MG In NS Inj 100 / 100 100 / 100 100 ML @ 200 mls/hr IV.SIG Q24H [facility] Rx#:[id number] Vancomycin Inj 750 MG In NS Inj 257.5 / 257.5 250 ML @ 250 mls/hr IV.SIG ONCE ONE Rx#:[id number] Vancomycin Inj 500 MG In NS Inj 100 / 100 100 ML @ 200 mls/hr IV.SIG ONCE ONE Rx#:[id number] Other: # Voids 3 3 Results 08/20/18 10:40 08/21/18 05:25 Cardiac Enzymes 08/19/18 08/19/18 08/20/18 Range/Units 22:15 22:15 10:40 AST 21 16 (15-37) U/L Troponin I 0.43 H 0.24 H D (0.02-0.05) ng/mL B-Natriuretic Peptide 481 H (0-100) pg/mL 08/21/18 Range/Units 05:25 AST (15-37) U/L Troponin I (0.02-0.05) ng/mL B-Natriuretic Peptide 228 H (0-100) pg/mL Coagulation 08/19/18 08/21/18 Range/Units 22:15 05:25 B-Natriuretic Peptide 481 H 228 H (0-100) pg/mL CBC 08/19/18 08/20/18 Range/Units 22:15 10:40 WBC 15.4 H 13.0 H (4.0-11.0) th/mm3 RBC 3.04 L 2.63 L (4.00-5.30) mil/mm3 Hgb 8.8 L 7.7 L (11.6-15.3) gm/dL Hct 26.7 L 23.2 L (35.0-46.0) % Plt Count 491 H 436 (150-450) th/mm3 Neut # (Auto) 12.4 H 10.3 H (1.8-7.7) th/mm3 Lymph # (Auto) 1.8 1.5 (1.0-4.8) th/mm3 [place] # (Auto) 1.0 H 0.8 (0.0-0.9) th/mm3 Eos # (Auto) 0.1 0.3 (0.0-0.4) th/mm3 Baso # (Auto) 0.2 0.1 (0.0-0.2) th/mm3 Comprehensive Metabolic Panel 08/19/18 08/20/18 08/21/18 Range/Units 22:15 10:40 05:25 Sodium 134 L 133 L 136 (136-145) meq/L Potassium 4.3 3.9 4.3 (3.5-5.1) meq/L Chloride 93 L 95 L 97 L (98-107) meq/L Carbon Dioxide 27.9 29.7 27.2 (21.0-32.0) meq/L BUN 41 H 49 H 52 H (7-18) mg/dL Creatinine 1.71 H 2.22 H 2.25 H (0.50-1.00) mg/dL Calcium 9.2 8.9 8.8 (8.5-10.1) mg/dL AST 21 16 (15-37) U/L ALT 22 16 (10-53) U/L Alkaline Phosphatase 148 H 122 H (45-117) U/L Total Protein 7.4 6.6 D (6.4-8.2) g/dL Albumin 1.8 L 1.6 L (3.4-5.0) g/dL Intake and Output 08/20/18 08/21/18 08/21/18 22:59 06:59 14:59 Intake Total 357.5 / 357.5 Balance 357.5 / 357.5 Intake: IV 357.5 / 357.5 Maxipime Inj 1,000 MG In NS Inj 100 / 100 100 ML @ 200 mls/hr IV.SIG Q24H [facility] Rx#:[id number] Vancomycin Inj 750 MG In NS Inj 257.5 / 257.5 250 ML @ 250 mls/hr IV.SIG ONCE ONE Rx#:[id number] Other: # Voids 3 3 Weight 81.3 kg - Imaging and Cardiology Imaging: Impressions Chest X-Ray 08/19/18 22:06 CONCLUSION: No acute cardiopulmonary disease. Abdomen/Bladder Ultrasound 08/20/18 00:00 CONCLUSION: 1. Possible medical renal disease without hydronephrosis. Ankle MRI 08/20/18 00:00 CONCLUSION: 1. Enlargement of previously seen lobulated synovial cyst anterior to the Achilles tendon. 2. Significant worsening of marrow edema in the bony structures particularly the medial lateral malleoli, distal tibia most of the talus since the prior exam. The extent of involvement would be somewhat unusual for osteomyelitis, however this possibility is not excluded and possibility of extensive Charcot's phenomenon should be entertained. 3. 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 Ankle X-Ray 08/20/18 00:00 CONCLUSION: Prominent soft tissue swelling at the ankle as before. No acute fractures. Foot X-Ray 08/20/18 00:00 CONCLUSION: Chronic arthropathy and dislocations at the tarsometatarsal articulations. Soft tissue swelling is again seen. Venous Doppler Study 08/20/18 00:00 CONCLUSION: 1. No DVT and there are nonspecific lymph nodes within the left groin should be correlated clinically. Pulmonary Perfusion Imaging 08/20/18 01:52 CONCLUSION: Low probability study for pulmonary embolus. Assessment and Plan - Assessment (1) NSTEMI (non-ST elevated myocardial infarction) Code(s): I21.4 - Non-ST elevation (NSTEMI) myocardial infarction Status: Acute (2) CAD (coronary artery disease) Code(s): I25.10 - Atherosclerotic heart disease of [place] coronary artery without angina pectoris Status: Acute (3) A-fib Code(s): I48.91 - Unspecified atrial fibrillation Status: Acute (4) Anemia Code(s): D64.9 - Anemia, unspecified Status: Acute (5) DM (diabetes mellitus) Code(s): E11.9 - Type 2 diabetes mellitus without complications Status: Acute (6) Elevated troponin Code(s): R74.8 - Abnormal levels of other serum enzymes Status: Acute - Plan 1.) Afib - rate controlled, assymptomatic, i strongly advised her to take coumadin or noac due to [id number] score = 5 to lower her risk for life threatening and or debilitating cva, she understands and refuses, her daughter ispresent at the bedside, coumadin or noac could not be started now due to anemia and unstable hgb, continue aspirin 81 mg qd 2.) NSTEMI - suspect secondary to anemia, rec transfuse to hgb > 10, d/w Dr Sin
--- NOTE | 2018-08-21 16:05 | P.CONNP ---
History of Present Illness Service: Nephrology Consult date: 08/21/18 Requesting Physician: Kane Sin Reason for Consult: Acute and chronic kidney disease Primary Care Provider: Muna Feliciano MD Family Provider: Muna Feliciano MD Chief Complaint: Weakness History of Present Illness: Patient is a 88-year-old white female with history of diabetes since age 49, history of recent falls and admission to the hospital for acute renal failure/ rhabdomyolysis/staph aureus infection/left foot infection, she was discharged but did not feel well and said she had been feeling tired and had a fall last Tuesday, she could not do anything and got very weak at this time she has a urinary tract infection with Klebsiella and her blood cultures showing gram- positive cocci again, she states her left foot is giving her problems for a long time and she has Charcot foot with chronic swelling and this contributes to her gait being unsteady. Her discharge creatinine was 1.4 currently is 2.25. Review of Systems Constitutional: Reports anorexia, Reports chills, Reports fever(s), Reports lack of energy, Reports malaise Cardiovascular: Reports irregular heart rhythm, Reports leg pain with activity, Reports leg swelling Respiratory: Reports shortness of breath with activity Gastrointestinal: Reports change in bowel habits Genitourinary: Reports other (UTI) Musculoskeletal: Reports abnormal walking, Reports deformity, Reports joint pain , Reports muscle weakness Neurologic: Reports weakness PMFSH - History History Provided By: Patient - Medical History Medical History: Medical History (Last Reviewed 08/21/18 @ 08:58 by Leatha Shafer) Colon cancer (Acute) Clavicle fracture (Acute) Femur fracture (Acute) CKD (chronic kidney disease) stage 3, GFR 30-59 ml/min (Acute) 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 (Acute) H/O: hysterectomy (Acute) Myocardial infarct (Acute) HTN (hypertension) (Acute) Diabetes GERD (gastroesophageal reflux disease) High cholesterol Hypothyroid - Surgical History Surgical History: Surgical History (Last Reviewed 08/21/18 @ 08:59 by Leatha Shafer) H/O cardiac catheterization (Acute) H/O heart artery stent (Acute) - Family History Family History: Family History (Last Reviewed 08/21/18 @ 08:59 by Leatha Shafer) Father Diabetes Mother Uterine cancer - Tobacco History Second Hand Smoke Exposure: No Smoking Status: Never smoker - Alcohol History How Often Do You Have a Drink Containing Alcohol: Never - Substance Use History Substance History: No History of Abuse - Travel History Recent Travel in the [place] Within the Last 8 Weeks: No Recent Travel Out of the Country Within the Last 8 Weeks: No - Immunization History Tetanus Immunization: <5 Years Hx Influenza Vaccine This Season: Yes Medications and Allergies Active Medications: Active Medications Acetaminophen (Tylenol) 650 mg PO Q4H PRN PRN Reason: Temp > 100.4 Last Admin: 08/20/18 21:00 Dose: 650 mg Al Hydroxide/Mg Hydroxide (Milk Of Magnesia Liq) 30 ml PO Q12H PRN PRN Reason: Mild Constipation Aspirin (Ecotrin) 81 mg PO DAILY [facility] Last Admin: 08/21/18 09:32 Dose: 81 mg Atorvastatin Calcium (Lipitor) 20 mg PO DAILY [facility] Last Admin: 08/21/18 09:13 Dose: 20 mg Bisacodyl (Dulcolax Supp) 10 mg RECTAL DAILY PRN PRN Reason: SEVERE CONSITIPATION Dextrose (D50w Vial) 50 ml IV.PUSH UNSCH PRN PRN Reason: PER HYPOGLYCEMIA PROTOCOL Glucagon (Glucagon Inj) 1 mg OTHER PRN PRN PRN Reason: for Hypoglycemia Protocol Heparin Sodium (Porcine) (Heparin Inj) 5,000 units SQ Q12HR [facility] Last Admin: 08/21/18 09:13 Dose: 5,000 units Cefepime HCl 1,000 mg/ Sodium (Chloride) 100 mls @ 200 mls/hr IV.SIG Q24H [facility] Last Infusion: 08/21/18 09:44 Dose: Infused Insulin Aspart (Novolog Insulin Correctional Sugar Inj) 0 unit SQ ACHS [facility]; Protocol Last Admin: 08/21/18 12:10 Dose: 5 unit Isosorbide Mononitrate (Imdur) 60 mg PO DAILY [facility] Last Admin: 08/21/18 09:13 Dose: 60 mg Lactulose (Lactulose Liq) 30 ml PO DAILY PRN PRN Reason: SEVERE CONSITIPATION Latanoprost (Xalatan 0.005% Opth Drops) 1 drop EACH EYE QPM [facility] Last Admin: 08/20/18 17:49 Dose: 1 drop Metoprolol Tartrate (Lopressor) 12.5 mg PO BID [facility] Last Admin: 08/21/18 09:17 Dose: 12.5 mg Ondansetron HCl (Zofran Inj) 4 mg IV.PUSH Q6H PRN PRN Reason: NAUSEA OR VOMITING Pharmacy Profile Note (Vancomycin Consult Pharmacy) 1 each OTHER UNSCH PRN PRN Reason: Pharmacy to dose Senna/Docusate Sodium (Catia-Colace) 1 tab PO BID [facility] Last Admin: 08/21/18 09:13 Dose: 1 tab Sennosides (Senokot) 17.2 mg PO Q12H PRN PRN Reason: Moderate Constipation Sodium Chloride (Ns Flush) 2 ml IV.FLUSH UNSCH PRN PRN Reason: FLUSH AFTER USING IV ACCESS Timolol Maleate (Timolol 0.25% Drops) 1 drops EACH EYE DAILY [facility] Last Admin: 08/21/18 09:18 Dose: 1 drops Allergies Allergy/AdvReac Type Severity Reaction Status Date / Time kaye Allergy Unknown RASH Verified 08/19/18 22:29 lisinopril Allergy Cough Verified 08/19/18 22:30 niacin [From Simcor] Allergy Edema Verified 08/19/18 22:29 simvastatin [From Simcor] Allergy Edema Verified 08/19/18 22:29 Home Medications Medication Instructions Recorded Confirmed Type alpha lipoic acid 600 mg PO HS PRN 07/01/18 08/19/18 History ascorbic acid (vitamin C) [Vitamin 1,000 mg PO DAILY 07/01/18 08/19/18 History C] aspirin 81 mg PO DAILY 07/01/18 08/19/18 History atorvastatin 20 mg PO DAILY 07/01/18 08/19/18 History calcium carbonate [Tums] 1 tab PO Q4-6H PRN 07/01/18 08/19/18 History cetirizine [Zyrtec] 10 mg PO DAILY PRN 07/01/18 08/19/18 History ergocalciferol (vitamin D2) 50,000 unit PO QWEEK 07/01/18 08/19/18 History [Vitamin D2] estradiol 1 mg PO DAILY 07/01/18 08/19/18 History ferrous sulfate 325 mg PO DAILY 07/01/18 08/19/18 History insulin NPH isoph U-100 human 20 unit SUB-Q QPM 07/01/18 08/19/18 History [Novolin N NPH U-100 Insulin] insulin NPH isoph U-100 human 30 unit SUB-Q QAM 07/01/18 08/19/18 History [Novolin N NPH U-100 Insulin] isosorbide mononitrate 60 mg PO QAM 07/01/18 08/19/18 History latanoprost [Xalatan] 1 drp EACH EYE QPM 07/01/18 08/19/18 History levothyroxine 75 mcg PO DAILY 07/01/18 08/19/18 History [id number] acid-lutein [Centrum 1 tab PO DAILY 07/01/18 08/19/18 History Silver] timolol maleate [Timoptic] 1 drp OPHTHALMIC (EYE) QAM 07/01/18 08/19/18 History vitamin A 8,000 unit PO DAILY 07/01/18 08/19/18 History furosemide 20 mg PO DAILY 08/19/18 08/19/18 History hydrochlorothiazide 50 mg PO QAM 08/19/18 08/19/18 History Exam Vital signs: Vital Signs 08/20/18 16:00 08/20/18 18:00 08/20/18 20:00 Temperature 98.3 F 102.3 F H Pulse Rate 77 85 119 H Respiratory Rate 18 20 Blood Pressure 136/63 150/65 H Pulse Oximetry 97 98 08/21/18 00:00 08/21/18 04:00 08/21/18 08:00 Temperature 98.4 F 97.2 F L 97.1 F L Pulse Rate 69 71 64 Respiratory Rate 18 18 16 Blood Pressure 128/62 137/56 L 142/81 H Pulse Oximetry 100 99 100 08/21/18 11:40 08/21/18 12:00 Temperature 97.8 F Pulse Rate 71 Respiratory Rate 18 Blood Pressure 122/58 L Pulse Oximetry 99 100 Intake & Output 08/20/18 08/21/18 08/21/18 18:59 06:59 18:59 Intake Total 1000 / 1000 357.5 / 357.5 Balance 1000 / 1000 357.5 / 357.5 Weight 81.3 kg Intake: IV 1000 / 1000 357.5 / 357.5 NS Inj 1,000 ML @ 100 mls/hr IV 800 / 800 .CONT .Q10H [facility] Rx#:[id number] Maxipime Inj 1,000 MG In NS Inj 100 / 100 100 / 100 100 ML @ 200 mls/hr IV.SIG Q24H [facility] Rx#:[id number] Vancomycin Inj 750 MG In NS Inj 257.5 / 257.5 250 ML @ 250 mls/hr IV.SIG ONCE ONE Rx#:[id number] Vancomycin Inj 500 MG In NS Inj 100 / 100 100 ML @ 200 mls/hr IV.SIG ONCE ONE Rx#:[id number] Other: # Voids 3 3 Narrative: GENERAL: Well-nourished, well-developed patient. SKIN: Warm and dry. HEAD: Normocephalic. EYES: No scleral icterus. No injection or drainage. NECK: Supple, trachea midline. No JVD or lymphadenopathy. CARDIOVASCULAR: Regular rate and rhythm without murmurs, gallops, or rubs. RESPIRATORY: Breath sounds equal bilaterally. No accessory muscle use. GASTROINTESTINAL: Abdomen soft, non-tender, nondistended. EXTREMITIES: Deformed left foot with chronic edema in foot stabilizer NEUROLOGICAL: Awake, alert, and oriented x 3. Non-focal. Results - Lab Results 08/20/18 10:40 08/21/18 05:25 Most recent lab results Calcium 8.8 mg/dL (8.5-10.1) 08/21/18 05:25 Assessment and Plan - Assessment (1) Dehydration Code(s): E86.0 - Dehydration Status: Acute (2) Bacteremia Code(s): R78.81 - Bacteremia Status: Acute (3) Acute kidney injury superimposed on CKD Code(s): N17.9 - Acute kidney failure, unspecified; N18.9 - Chronic kidney disease, unspecified Status: Acute (4) Acute UTI Code(s): N39.0 - Urinary tract infection, site not specified Status: Acute (5) DM (diabetes mellitus) Code(s): E11.9 - Type 2 diabetes mellitus without complications Status: Acute - Plan Patient is seen baseline creatinine around 1.4 on last admission Creatinine is elevated I will give her albumin Consider blood transfusion Continue to monitor BMP Patient has active UTI and this may be contributing to acute renal failure Patient also is growing gram-positive cocci last time she was treated for staph aureus with Ancef Ultrasound showed medical renal disease. Check JEWEL, protein electrophoresis, urine immunofixation Follow renal panel in the a.m.
[2018-08-21] MEDS: Albumin Human 5% Inj 250 ML IV.SIG SCH (17:22)
[2018-08-21] MEDS: Latanoprost 0.005% Opth Drops 2.5 ML Bottle EACH EYE SCH (17:28)
--- NOTE | 2018-08-21 19:14 | P.PNPOD ---
Subjective Interval history: Redness/swelling left foot Physical Exam Vital signs: Vital Signs 08/20/18 20:00 08/21/18 00:00 08/21/18 04:00 Temperature 102.3 F H 98.4 F 97.2 F L Pulse Rate 119 H 69 71 Respiratory Rate 20 18 18 Blood Pressure 150/65 H 128/62 137/56 L Pulse Oximetry 98 100 99 08/21/18 08:00 08/21/18 11:40 08/21/18 12:00 Temperature 97.1 F L 97.8 F Pulse Rate 64 71 Respiratory Rate 16 18 Blood Pressure 142/81 H 122/58 L Pulse Oximetry 100 99 100 08/21/18 16:00 08/21/18 16:06 Temperature 97.4 F L Pulse Rate 76 78 Respiratory Rate 18 Blood Pressure 134/61 Pulse Oximetry 100 Intake & Output 08/21/18 08/21/18 08/22/18 06:59 18:59 06:59 Intake Total 1087.5 / 1087.5 Balance 1087.5 / 1087.5 Weight 81.3 kg Intake: IV 607.5 / 607.5 Buminate 5% Inj 250 ML @ 250 250 / 250 mls/hr IV.SIG Q12H [facility] Rx#: [id number] Maxipime Inj 1,000 MG In NS Inj 100 / 100 100 ML @ 200 mls/hr IV.SIG Q24H [facility] Rx#:[id number] Vancomycin Inj 750 MG In NS Inj 257.5 / 257.5 250 ML @ 250 mls/hr IV.SIG ONCE ONE Rx#:[id number] Oral 480 / 480 Other: # Voids 3 2 # Bowel Movements 0 Medications and Allergies Active Medications: Active Medications Acetaminophen (Tylenol) 650 mg PO Q4H PRN PRN Reason: Temp > 100.4 Last Admin: 08/20/18 21:00 Dose: 650 mg Al Hydroxide/Mg Hydroxide (Milk Of Magnesia Liq) 30 ml PO Q12H PRN PRN Reason: Mild Constipation Aspirin (Ecotrin) 81 mg PO DAILY [facility] Last Admin: 08/21/18 09:32 Dose: 81 mg Atorvastatin Calcium (Lipitor) 20 mg PO DAILY [facility] Last Admin: 08/21/18 09:13 Dose: 20 mg Bisacodyl (Dulcolax Supp) 10 mg RECTAL DAILY PRN PRN Reason: SEVERE CONSITIPATION Dextrose (D50w Vial) 50 ml IV.PUSH UNSCH PRN PRN Reason: PER HYPOGLYCEMIA PROTOCOL Glucagon (Glucagon Inj) 1 mg OTHER PRN PRN PRN Reason: for Hypoglycemia Protocol Heparin Sodium (Porcine) (Heparin Inj) 5,000 units SQ Q12HR [facility] Last Admin: 08/21/18 09:13 Dose: 5,000 units Cefepime HCl 1,000 mg/ Sodium (Chloride) 100 mls @ 200 mls/hr IV.SIG Q24H [facility] Last Infusion: 08/21/18 09:44 Dose: Infused Albumin Human (Buminate 5% Inj) 250 mls @ 250 mls/hr IV.SIG Q12H [facility] Last Infusion: 08/21/18 18:45 Dose: Infused Insulin Aspart (Novolog Insulin Correctional Sugar Inj) 0 unit SQ ACHS [facility]; Protocol Last Admin: 08/21/18 16:59 Dose: 9 unit Insulin Human NPH (Novolin N Inj) 15 units SQ BID@0800,1700 [facility] Isosorbide Mononitrate (Imdur) 60 mg PO DAILY [facility] Last Admin: 08/21/18 09:13 Dose: 60 mg Lactulose (Lactulose Liq) 30 ml PO DAILY PRN PRN Reason: SEVERE CONSITIPATION Latanoprost (Xalatan 0.005% Opth Drops) 1 drop EACH EYE QPM [facility] Last Admin: 08/21/18 17:28 Dose: 1 drop Metoprolol Tartrate (Lopressor) 12.5 mg PO BID [facility] Last Admin: 08/21/18 09:17 Dose: 12.5 mg Ondansetron HCl (Zofran Inj) 4 mg IV.PUSH Q6H PRN PRN Reason: NAUSEA OR VOMITING Pharmacy Profile Note (Vancomycin Consult Pharmacy) 1 each OTHER UNSCH PRN PRN Reason: Pharmacy to dose Senna/Docusate Sodium (Catia-Colace) 1 tab PO BID [facility] Last Admin: 08/21/18 09:13 Dose: 1 tab Sennosides (Senokot) 17.2 mg PO Q12H PRN PRN Reason: Moderate Constipation Sodium Chloride (Ns Flush) 2 ml IV.FLUSH UNSCH PRN PRN Reason: FLUSH AFTER USING IV ACCESS Timolol Maleate (Timolol 0.25% Drops) 1 drops EACH EYE DAILY [facility] Last Admin: 08/21/18 09:18 Dose: 1 drops Allergies Allergy/AdvReac Type Severity Reaction Status Date / Time kaye Allergy Unknown RASH Verified 08/19/18 22:29 lisinopril Allergy Cough Verified 08/19/18 22:30 niacin [From Simcor] Allergy Edema Verified 08/19/18 22:29 simvastatin [From Simcor] Allergy Edema Verified 08/19/18 22:29 Home Medications Medication Instructions Recorded Confirmed Type alpha lipoic acid 600 mg PO HS PRN 07/01/18 08/19/18 History ascorbic acid (vitamin C) [Vitamin 1,000 mg PO DAILY 07/01/18 08/19/18 History C] aspirin 81 mg PO DAILY 07/01/18 08/19/18 History atorvastatin 20 mg PO DAILY 07/01/18 08/19/18 History calcium carbonate [Tums] 1 tab PO Q4-6H PRN 07/01/18 08/19/18 History cetirizine [Zyrtec] 10 mg PO DAILY PRN 07/01/18 08/19/18 History ergocalciferol (vitamin D2) 50,000 unit PO QWEEK 07/01/18 08/19/18 History [Vitamin D2] estradiol 1 mg PO DAILY 07/01/18 08/19/18 History ferrous sulfate 325 mg PO DAILY 07/01/18 08/19/18 History insulin NPH isoph U-100 human 20 unit SUB-Q QPM 07/01/18 08/19/18 History [Novolin N NPH U-100 Insulin] insulin NPH isoph U-100 human 30 unit SUB-Q QAM 07/01/18 08/19/18 History [Novolin N NPH U-100 Insulin] isosorbide mononitrate 60 mg PO QAM 07/01/18 08/19/18 History latanoprost [Xalatan] 1 drp EACH EYE QPM 07/01/18 08/19/18 History levothyroxine 75 mcg PO DAILY 07/01/18 08/19/18 History [id number] acid-lutein [Centrum 1 tab PO DAILY 07/01/18 08/19/18 History Silver] timolol maleate [Timoptic] 1 drp OPHTHALMIC (EYE) QAM 07/01/18 08/19/18 History vitamin A 8,000 unit PO DAILY 07/01/18 08/19/18 History furosemide 20 mg PO DAILY 08/19/18 08/19/18 History hydrochlorothiazide 50 mg PO QAM 08/19/18 08/19/18 History Results - Labs CBC & Chem 7: 08/20/18 10:40 08/21/18 05:25 Laboratory Results - last 24 hr 08/20/18 08/21/18 08/21/18 20:22 05:25 05:25 Sodium 136 Potassium 4.3 Chloride 97 L Carbon Dioxide 27.2 Anion Gap 12 BUN 52 H Creatinine 2.25 H Estimated GFR 20 L POC Glucose 202 H Random Glucose 177 H D Calcium 8.8 Iron 24 L TIBC 139 L % Saturation 17.3 L Ferritin 1707 H B-Natriuretic Peptide Total Protein (PEP) Random Vancomycin 12.9 08/21/18 08/21/18 08/21/18 05:25 08:15 11:21 Sodium Potassium Chloride Carbon Dioxide Anion Gap BUN Creatinine Estimated GFR POC Glucose 198 H 278 H Random Glucose Calcium Iron TIBC % Saturation Ferritin B-Natriuretic Peptide 228 H Total Protein (PEP) Random Vancomycin 08/21/18 17:39 Sodium Potassium Chloride Carbon Dioxide Anion Gap BUN Creatinine Estimated GFR POC Glucose Random Glucose Calcium Iron TIBC % Saturation Ferritin B-Natriuretic Peptide Total Protein (PEP) 5.8 L Random Vancomycin Microbiology 08/19/18 22:45 Blood - Peripheral Aerobic Blood Culture - Preliminary Staphylococcus aureus 08/19/18 22:45 Blood - Peripheral Anaerobic Blood Culture - Preliminary gram positive cocci 08/19/18 22:40 Blood - Peripheral Aerobic Blood Culture - Preliminary No growth in 2 days 08/19/18 22:40 Blood - Peripheral Anaerobic Blood Culture - Preliminary gram positive cocci 08/19/18 22:50 Clean Catch Urine Urine Culture - Final Klebsiella pneumoniae - Imaging Impressions Ankle MRI 08/20/18 00:00 CONCLUSION: 1. Enlargement of previously seen lobulated synovial cyst anterior to the Achilles tendon. 2. Significant worsening of marrow edema in the bony structures particularly the medial lateral malleoli, distal tibia most of the talus since the prior exam. The extent of involvement would be somewhat unusual for osteomyelitis, however this possibility is not excluded and possibility of extensive Charcot's phenomenon should be entertained. 3. 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 No wound and no sign of infection. Recommend nonweightbearing and protection of the extremity in fracture boot and follow up with her photographic technician within 2-3 weeks of discharge for serial Xrays. No further treatment planned. Podiatry signing off.
--- NOTE | 2018-08-21 20:48 | MB ---
cc: Maged Brumfield MD DATE: 08/21/2018 REQUESTING PHYSICIAN: Kane Sin MD REASON FOR CONSULTATION: Gram-positive sepsis. HISTORY OF PRESENT ILLNESS: This is an 88-year-old white female who was recently hospitalized and treated for sepsis due to Staphylococcus aureus. The patient was treated with IV antibiotics up until 07/17/2018. She was given antibiotics for 2 weeks. Her cultures were negative prior to discharge from the hospital. Blood cultures were positive on 2 different occasions on 07/01/18 and 07/03/18. The patient developed an episode of fever and chills about a week ago. She states that after that she felt a little better throughout the week, though she felt lousy. The fever did not come back. She saw her cut off saw operator 7 days ago and a boot was placed on the left leg because of Charcot deformity. After 2 days, she complained of tightness of the boot and the nurse called the cut off saw operator and the boot was removed and the leg was wrapped with Jose C bandage. After another couple of days, the patient complained of tightness of the bandage and at that time she also started developing chills and she also had an episode of fever and she presented to the emergency department on 08/19/2018. Blood cultures were taken on admission and 3 of 4 bottles are gram-positive organism and one identified as Staph aureus. Urine culture has Klebsiella pneumoniae. The patient also has positive pneumococcal antigen urine test. On the last admission, she had a urinary culture which had Escherichia coli. She denies nausea, vomiting or shortness of breath. On admission, her temperature was 101.8 and then spiked to 102.3 yesterday evening. She denies dysuria, but states that she continued to get some chills. Her white blood cell count was 15.4 yesterday and today it is 13.0. PAST MEDICAL HISTORY: Charcot foot, diabetes mellitus, gastroesophageal reflux disease, pelvic and femur fractures, hypercholesterolemia, hypothyroidism, hypertension, myocardial infarction, history of coronary stent, history of colon cancer. ALLERGIES: SIMVASTATIN, NIACIN, LISINOPRIL. THE PATIENT IS ALSO ALLERGIC TO ISIDRO. MEDICATIONS: 1. Vancomycin. 2. Cefepime. 3. Timolol eyedrops. 4. Catia-Colace. 5. Lopressor. 6. Imdur. 7. Ecotrin. 8. Lipitor. SOCIAL HISTORY: No tobacco, no alcohol, no illicit drugs. FAMILY HISTORY: Noncontributory. REVIEW OF SYSTEMS: All systems have been reviewed and are negative, except for fever and chills. PHYSICAL EXAMINATION: GENERAL: This is a well-developed female who is in no acute distress. She is awake. She is alert and oriented. VITAL SIGNS: Temperature 97.8, BP 122/58, respirations 18, heart rate 71. HEENT: The head is atraumatic. Extraocular muscles grossly intact. Pupils reactive to light without icterus. Oropharynx: Moist mucosa. No lesions. NECK: Supple without adenopathy. LUNGS: Clear, decreased breath sounds. HEART: Regular S1 and S2 without murmurs, rubs or gallops. ABDOMEN: Bowel sounds present. Soft, no tenderness appreciated. RECTAL: Not performed. EXTREMITIES: No clubbing, cyanosis. No edema. Charcot deformity of the feet, severe on the left. SKIN: No rash. NEUROLOGIC: No gross focal finding. PSYCHIATRIC: Calm and cooperative. LABORATORY DATA: WBC 15.0, platelets 436, 79% neutrophils, hemoglobin 7.7, creatinine 2.25. Estimated GFR of 20, sodium 136. Urinalysis revealed 73 white cells. IMPRESSION: 1. Staphylococcus aureus bacteremia, recurrent. Questionable etiology. The patient without hardware of the heart valve. However, she does have pelvic hardware, although I do not think that is the source of the recurrent bacteremia. She has no significant symptom relating as to the pelvis. MRI of the left ankle, as the patient has severe Charcot deformity, shows worsening marrow edema of the bony structures and also degenerative arthritic changes, chronic in nature. 2. Urinary tract infection due to Klebsiella. The patient also getting recurrent urinary tract infection, but the previous urinary tract infection was due to Escherichia coli and now she has Klebsiella pneumoniae and her urinary antigen for strep pneumonia is also positive. 3. Chronic kidney disease. She does not have any changes of the lower extremity suggesting cellulitis as the source of the Staphylococcus aureus in the blood. RECOMMENDATIONS: 1. Continue vancomycin. 2. Monitor Staphylococcus aureus sensitivity in the blood cultures. 3. Continue cefepime for Klebsiella in the urine. 4. Monitor white blood cell count. 5. Monitor clinical status. 6. Repeat the blood cultures. 7. 2-D echocardiogram for further evaluation. 8. Monitor response to antibiotic treatment. Thank you for this consultation. I will follow the patient's progress along with you and will make further recommendations on followup. MD MARIE Klein/kyle , 05:13 PM , 05:38 PM PAYAL
[2018-08-22] MEDS: Acetaminophen 325 MG Tablet PO PRN ×4 (01:21→20:36)
[2018-08-22 04:30] LABS: Baso # (Auto) 0.1 th/mm3 (0.0-0.2); Baso % (Auto) 0.6 % (0.0-2.0); Eos # (Auto) 0.3 th/mm3 (0.0-0.4); Eos % (Auto) 2.9 % (0.0-4.0); Hemoglobin 8.4 gm/dL (11.6-15.3); Lymph # (Auto) 0.9 th/mm3 (1.0-4.8); Lymph % (Auto) 8.8 % (9.0-44.0); Mean Corpuscular HGB Conc 33.7 % (32.0-36.0); Mean Corpuscular Hemoglobin 29.2 pg (27.0-34.0); Mean Corpuscular Volume 86.6 fL (80.0-100.0); Mean Platelet Volume 7.9 fL (7.0-11.0); Mono # (Auto) 0.5 th/mm3 (0.0-0.9); Neut # (Auto) 8.8 th/mm3 (1.8-7.7); Neut % (Auto) 82.7 % (16.0-70.0); Platelet Count 369 th/mm3 (150-450); Red Blood Count 2.88 mil/mm3 (4.00-5.30); Red Cell Distribution Width 15.3 % (11.6-17.2); White Blood Count 10.6 th/mm3 (4.0-11.0)
[2018-08-22 04:51] LABS: Albumin 1.7 g/dL (3.4-5.0); Calcium 8.2 mg/dL (8.5-10.1); Carbon Dioxide 27.1 meq/L (21.0-32.0); Phosphorus 3.1 mg/dL (2.5-4.9); Potassium 4.1 meq/L (3.5-5.1); Vancomycin,Random 13.8 Comment
[2018-08-22] MEDS: Albumin Human 5% Inj 250 ML IV.SIG SCH ×2 (05:35→18:19)
[2018-08-22] MEDS: Senna/Docusate Sodium 8.6/50 MG Tablet PO SCH ×2 (08:28→20:36)
[2018-08-22] MEDS: Metoprolol Tartrate 25 MG Tablet PO SCH ×2 (08:29→20:34)
[2018-08-22] MEDS: Isosorbide Mononitrate 60 MG ER 24HR Tablet (Imdur) PO SCH (08:29)
[2018-08-22] MEDS: Heparin - SQ 10,000 UNITS/ML Vial SQ SCH ×2 (08:30→20:33)
[2018-08-22] MEDS: Insulin NovoLOG Aspart Correctional Sugar Inj SQ SCH ×4 (08:30→21:02)
[2018-08-22] MEDS: Timolol 0.25% Drops 5 ML Bottle EACH EYE SCH (09:07)
[2018-08-22] MEDS: Sodium Chloride 0.9% 2 ML Flush BID IV.FLUSH SCH ×2 (09:07→20:37)
--- NOTE | 2018-08-22 10:45 | ECHRPT ---
Indication: SEPSIS CONCLUSIONS The left ventricular systolic function is normal with an estimated ejection fraction in the range of 55-60%. Normal left ventricular size. Wall thickness is normal. 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 Moderate mitral annular calcification. Trace mitral valve regurgitation. The aortic valve is not adequately visualized to assess the number cusps - it is moderately calcifie d. There is no aortic regurgitation Aortic valve area is 0.7 cm but mean gradient is only 11 mmHg - overall stenosis likely mild The tricuspid valve is not well visualized. There is trace tricuspid valve regurgitation. The estimated pulmonary arterial pressure is 39.4 mmHg. The inferior vena cava is normal in size and collapses with inspiration. BP: / HR: Rhythm: Sinus MEASUREMENTS (Male / Female) Normal Values Technical Quality:Technically difficult study 2D ECHO LV Diastolic Diameter PLAX 5.3 cm 4.2 - 5.9 / 3.9 - 5.3 cm LV Systolic Diameter PLAX 3.9 cm IVS Diastolic Thickness 1.0 cm 0.6 - 1.0 / 0.6 - 0.9 cm LVPW Diastolic Thickness 1.0 cm 0.6 - 1.0 / 0.6 - 0.9 cm LV Relative Wall Thickness 0.4 LVOT Diameter 1.5 cm LA Systolic Diameter LX 3.0 cm 3.0 - 4.0 / 2.7 - 3.8 cm LV Ejection Fraction MOD 4C 47.1 % LV Ejection Fraction 4C AL 50.2 % M-MODE Aortic Root Diameter MM 2.4 cm LA Systolic Diameter MM 3.4 cm LA Ao Ratio MM 1.4 AV Cusp Separation MM 0.7 cm DOPPLER AV Peak Velocity 241.0 cm/s AV Peak Gradient 23.2 mmHg AV Mean Gradient 11.0 mmHg AV Velocity Time Integral 53.1 cm LVOT Peak Velocity 88.7 cm/s LVOT Peak Gradient 3.1 mmHg LVOT Velocity Time Integral 21.0 cm AV Area Cont Eq vti 0.7 cm AV Area Cont Eq pk 0.7 cm MV Area PHT 4.3 cm Mitral E Point Velocity 120.0 cm/s Mitral A Point Velocity 112.0 cm/s Mitral E to A Ratio 1.1 LV E' Lateral Velocity 8.7 cm/s Mitral E to LV E' Lateral Ratio 13.8 LV E' Septal Velocity 6.2 cm/s Mitral E to LV E' Septal Ratio 19.2 TR Peak Velocity 271.0 cm/s TR Peak Gradient 29.4 mmHg Right Atrial Pressure 10.0 mmHg Pulmonary Artery Systolic Pressu 39.4 mmHg Right Ventricular Systolic Press 39.4 mmHg FINDINGS LEFT VENTRICLE The left ventricular systolic function is normal with an estimated ejection fraction in the range of 55-60%. Normal left ventricular size. Wall thickness is normal. 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 RIGHT VENTRICLE Normal right ventricular size and systolic function. LEFT ATRIUM The left atrial size is normal. RIGHT ATRIUM The right atrial size is normal. ATRIAL SEPTUM Normal atrial septal thickness without atrial level shunting by limited color doppler interrogation. AORTA The aortic root and proximal ascending aorta are normal in size on limited imaging. MITRAL VALVE Moderate mitral annular calcification. Trace mitral valve regurgitation. AORTIC VALVE The aortic valve is not adequately visualized to assess the number cusps - it is moderately calcifie d. There is no aortic regurgitation Aortic valve area is 0.7 cm but mean gradient is only 11 mmHg - overall stenosis likely mild TRICUSPID VALVE The tricuspid valve is not well visualized. There is trace tricuspid valve regurgitation. The estimated pulmonary arterial pressure is 39.4 mmHg. PULMONARY VALVE No pulmonary valve regurgitation or stenosis. VESSELS The inferior vena cava is normal in size and collapses with inspiration. PERICARDIUM No pericardial effusion. Jhonny Quan MD (Electronically Signed) Final Date:22 August 2018 10:43
--- NOTE | 2018-08-22 12:21 | P.PNIM ---
Subjective Interval history: f/u; bacteremia in no acute distress. has some pain to the left foot. no fever. no other complaints. Physical Exam Vital signs: Vital Signs 08/21/18 16:00 08/21/18 16:06 08/21/18 20:00 Temperature 97.4 F L 98.2 F Pulse Rate 76 78 108 H Respiratory Rate 18 20 Blood Pressure 134/61 145/72 H Pulse Oximetry 100 100 08/21/18 20:10 08/21/18 20:27 08/22/18 00:00 Temperature 98.3 F 98.2 F 97.9 F Pulse Rate 86 87 89 Respiratory Rate 24 20 18 Blood Pressure 152/69 H 148/72 H 143/61 H Pulse Oximetry 100 100 100 08/22/18 01:25 08/22/18 04:00 08/22/18 08:00 Temperature 97.9 F 97.7 F 97.8 F Pulse Rate 90 69 73 Respiratory Rate 20 18 20 Blood Pressure 143/61 H 119/59 L 138/62 Pulse Oximetry 100 99 99 Intake & Output 08/21/18 08/22/18 08/22/18 18:59 06:59 18:59 Intake Total 1087.5 / 1087.5 650 / 650 100 / 100 Balance 1087.5 / 1087.5 650 / 650 100 / 100 Weight 83.1 kg Intake: IV 607.5 / 607.5 250 / 250 100 / 100 Buminate 5% Inj 250 ML @ 250 250 / 250 250 / 250 mls/hr IV.SIG Q12H [facility] Rx#: [id number] Maxipime Inj 1,000 MG In NS Inj 100 / 100 100 / 100 100 ML @ 200 mls/hr IV.SIG Q24H [facility] Rx#:[id number] Vancomycin Inj 750 MG In NS Inj 257.5 / 257.5 250 ML @ 250 mls/hr IV.SIG ONCE ONE Rx#:[id number] Oral 480 / 480 Intake (Blood Product) Amt 400 / 400 Rbc As-3 Leukoreduced Unit 400 / 400 [id number] Other: # Voids 2 1 Date of Last Bowel Movement 08/21/18 # Bowel Movements 0 - Constitutional no acute distress - Routine Respiratory Exam Present: CTA bilaterally - Routine Cardiovascular Exam Present: RRR - Routine Abdominal Exam Present: soft - Routine Extremities Exam Comments: left foot is swollen with mild erythema. - Routine Neurological Exam Present: alert, oriented X3 Results - Labs CBC & Chem 7: 08/22/18 04:05 08/22/18 04:05 Laboratory Results - last 24 hr 08/20/18 08/21/18 08/21/18 10:40 17:39 20:38 WBC RBC Hgb Hct MCV MCH MCHC RDW Plt Count MPV Neut % (Auto) Lymph % (Auto) [place] % (Auto) Eos % (Auto) Baso % (Auto) Neut # (Auto) Lymph # (Auto) [place] # (Auto) Eos # (Auto) Baso # (Auto) WBC Differential Differential Comment Sodium Potassium Chloride Carbon Dioxide Anion Gap BUN Creatinine Estimated GFR POC Glucose 457 H* Random Glucose Calcium Phosphorus Total Protein (PEP) 5.8 L Albumin Albumin (PEP) 1.90 L Albumin/Globulin Ratio 0.49 L Ttngh-0-Lgdzarwdt 0.49 H Kfsgm-0-Brjsxrghr 1.24 H Beta Globulins 0.81 Gamma Globulins 1.36 PEP Pathologist Comment Random Vancomycin Blood Type A Negative Blood Type Recheck Required Antibody Screen Negative MTS Gel Crossmatch See Detail Bld Prod Order Comment 08/21/18 08/22/18 08/22/18 21:30 01:09 04:05 WBC RBC Hgb Hct MCV MCH MCHC RDW Plt Count MPV Neut % (Auto) Lymph % (Auto) [place] % (Auto) Eos % (Auto) Baso % (Auto) Neut # (Auto) Lymph # (Auto) [place] # (Auto) Eos # (Auto) Baso # (Auto) WBC Differential Differential Comment Sodium 133 L Potassium 4.1 Chloride 98 Carbon Dioxide 27.1 Anion Gap 8 BUN 52 H Creatinine 1.92 H Estimated GFR 25 L POC Glucose 384 H Random Glucose 385 H D 282 H D Calcium 8.2 L Phosphorus 3.1 Total Protein (PEP) Albumin 1.7 L Albumin (PEP) Albumin/Globulin Ratio Qkaik-4-Mpzvpvikc Cwftx-6-Mdgstgnym Beta Globulins Gamma Globulins PEP Pathologist Comment Random Vancomycin 13.8 Blood Type Blood Type Recheck Antibody Screen MTS Gel Crossmatch Bld Prod Order Comment 08/22/18 08/22/18 08/22/18 04:05 07:17 11:38 WBC 10.6 RBC 2.88 L Hgb 8.4 L Hct 25.0 L MCV 86.6 MCH 29.2 MCHC 33.7 RDW 15.3 Plt Count 369 MPV 7.9 Neut % (Auto) 82.7 H Lymph % (Auto) 8.8 L [place] % (Auto) 5.0 Eos % (Auto) 2.9 Baso % (Auto) 0.6 Neut # (Auto) 8.8 H Lymph # (Auto) 0.9 L [place] # (Auto) 0.5 Eos # (Auto) 0.3 Baso # (Auto) 0.1 WBC Differential . Differential Comment Auto diff final Sodium Potassium Chloride Carbon Dioxide Anion Gap BUN Creatinine Estimated GFR POC Glucose 292 H 329 H Random Glucose Calcium Phosphorus Total Protein (PEP) Albumin Albumin (PEP) Albumin/Globulin Ratio Eohmo-3-Ndvpxkeva Gpkpb-5-[place]ouh[place]qut Beta Globulins Gamma Globulins PEP Pathologist Comment Random Vancomycin Blood Type Blood Type Recheck Antibody Screen MTS Gel Crossmatch Bld Prod Order Comment Microbiology 08/19/18 22:40 Blood - Peripheral Aerobic Blood Culture - Preliminary No growth in 3 days 08/19/18 22:40 Blood - Peripheral Anaerobic Blood Culture - Preliminary Staphylococcus aureus 08/19/18 22:45 Blood - Peripheral Aerobic Blood Culture - Preliminary Staphylococcus aureus 08/19/18 22:45 Blood - Peripheral Anaerobic Blood Culture - Preliminary Staphylococcus aureus 08/19/18 22:50 Clean Catch Urine Urine Culture - Final Klebsiella pneumoniae Assessment and Plan - Assessment (1) Sepsis Code(s): A41.9 - Sepsis, unspecified organism Status: Acute (2) UTI (urinary tract infection) Code(s): N39.0 - Urinary tract infection, site not specified Status: Acute (3) A-fib Code(s): I48.91 - Unspecified atrial fibrillation Status: Acute (4) Elevated troponin Code(s): R74.8 - Abnormal levels of other serum enzymes Status: Acute (5) Anemia Code(s): D64.9 - Anemia, unspecified Status: Acute (6) Foot pain Code(s): M79.673 - Pain in unspecified foot Status: Acute (7) DM (diabetes mellitus) Code(s): E11.9 - Type 2 diabetes mellitus without complications Status: Acute - Plan bacteremia with staph aureus Klebsiella UTI Left foot cellulitis with marked 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 - S/P IV antiibotic course x 6 weeks with IV ancef 07/17- for S infectious -podiatry consult appreciated and recommended outpatient f/u. A-fib: recent dx of A-fib on last admit 07/06/18, - NSR on exam now History of CHF- diatolic dysfunction Elevated Trop: - [place], BNP- give x 1 IV Lasix - heplock IVF - currently on Metoprolol 12.5mg bid and ASA, declined Coumadin therapy in the past despite recommendations. Trop 0.38, no c/o chest pain or SOB. Admit to [facility], telemetry, check serial cardiac enzymes for trend. - Dr. Gamez,ff ASA, Statin, Metoprolol. \ Acute on top of chronic kidney injury -bialterally small kidneys - ff BMP - Nephrology consulted Anemia: Hgb 8.8, previously 11.7 on 07/09/18, no evidence of bleeding, Type & Screen, check repeat Hgb/Hct, transfuse as needed. Iron studies suggestive of chronic disease - s/p PRBC transfusion. DM: Sliding scale w/ Accu-Cheks - ff blood sugars. chekc A1C - started on NPH DVT Prophylaxis: Heparin PT eval and treat
--- NOTE | 2018-08-22 13:04 | P.PNNP ---
Subjective Interval history: Leg swelling and pain patient complaining of left leg swelling and pain Physical Exam Vital signs: Vital Signs 08/21/18 16:00 08/21/18 16:06 08/21/18 20:00 Temperature 97.4 F L 98.2 F Pulse Rate 76 78 108 H Respiratory Rate 18 20 Blood Pressure 134/61 145/72 H Pulse Oximetry 100 100 08/21/18 20:10 08/21/18 20:27 08/22/18 00:00 Temperature 98.3 F 98.2 F 97.9 F Pulse Rate 86 87 89 Respiratory Rate 24 20 18 Blood Pressure 152/69 H 148/72 H 143/61 H Pulse Oximetry 100 100 100 08/22/18 01:25 08/22/18 04:00 08/22/18 08:00 Temperature 97.9 F 97.7 F 97.8 F Pulse Rate 90 69 73 Respiratory Rate 20 18 20 Blood Pressure 143/61 H 119/59 L 138/62 Pulse Oximetry 100 99 99 08/22/18 12:00 Temperature 97.4 F L Pulse Rate 73 Respiratory Rate 20 Blood Pressure 139/61 Pulse Oximetry 98 Intake & Output 08/21/18 08/22/18 08/22/18 18:59 06:59 18:59 Intake Total 1087.5 / 1087.5 650 / 650 100 / 100 Balance 1087.5 / 1087.5 650 / 650 100 / 100 Weight 83.1 kg Intake: IV 607.5 / 607.5 250 / 250 100 / 100 Buminate 5% Inj 250 ML @ 250 250 / 250 250 / 250 mls/hr IV.SIG Q12H [facility] Rx#: [id number] Maxipime Inj 1,000 MG In NS Inj 100 / 100 100 / 100 100 ML @ 200 mls/hr IV.SIG Q24H [facility] Rx#:[id number] Vancomycin Inj 750 MG In NS Inj 257.5 / 257.5 250 ML @ 250 mls/hr IV.SIG ONCE ONE Rx#:[id number] Oral 480 / 480 Intake (Blood Product) Amt 400 / 400 Rbc As-3 Leukoreduced Unit 400 / 400 [id number] Other: # Voids 2 1 Date of Last Bowel Movement 08/21/18 # Bowel Movements 0 Narrative: awake and alert, oriented x 3, speech clear anicteric no nuchal rigidityl lungs- no rales, decreased breath sounds, no wheezes regular rhythm abdomen soft, nontender LE- left leg/foot + swelling, + mild erythema, good pulses Assessment and Plan - Assessment (1) Dehydration Code(s): E86.0 - Dehydration Status: Acute (2) Bacteremia Code(s): R78.81 - Bacteremia Status: Acute (3) Acute kidney injury superimposed on CKD Code(s): N17.9 - Acute kidney failure, unspecified; N18.9 - Chronic kidney disease, unspecified Status: Acute (4) Acute UTI Code(s): N39.0 - Urinary tract infection, site not specified Status: Acute (5) DM (diabetes mellitus) Code(s): E11.9 - Type 2 diabetes mellitus without complications Status: Acute - Plan Patient is seen baseline creatinine around 1.4 on last admission Creatinine is declining Patient has active UTI and this may be contributing to acute renal failure Patient also is growing gram-positive cocci last time she was treated for staph aureus with Ancef Ultrasound showed medical renal disease. Check JEWEL, protein electrophoresis, urine immunofixation Creatinine declined after blood transfusion and is 1.9 patient has severe cellulitis left leg
--- NOTE | 2018-08-22 13:12 | P.PNCA ---
Subjective Interval history: alert in nad Medications and Allergies Active Medications: Active Medications Acetaminophen (Tylenol) 650 mg PO Q4H PRN PRN Reason: Temp > 100.4/pain Last Admin: 08/22/18 12:38 Dose: 650 mg Al Hydroxide/Mg Hydroxide (Milk Of Magnesia Liq) 30 ml PO Q12H PRN PRN Reason: Mild Constipation Aspirin (Ecotrin) 81 mg PO DAILY [facility] Last Admin: 08/22/18 08:29 Dose: 81 mg Atorvastatin Calcium (Lipitor) 20 mg PO DAILY [facility] Last Admin: 08/22/18 08:28 Dose: 20 mg Bisacodyl (Dulcolax Supp) 10 mg RECTAL DAILY PRN PRN Reason: SEVERE CONSITIPATION Dextrose (D50w Vial) 50 ml IV.PUSH UNSCH PRN PRN Reason: PER HYPOGLYCEMIA PROTOCOL Glucagon (Glucagon Inj) 1 mg OTHER PRN PRN PRN Reason: for Hypoglycemia Protocol Heparin Sodium (Porcine) (Heparin Inj) 5,000 units SQ Q12HR [facility] Last Admin: 08/22/18 08:30 Dose: 5,000 units Cefepime HCl 1,000 mg/ Sodium (Chloride) 100 mls @ 200 mls/hr IV.SIG Q24H [facility] Last Infusion: 08/22/18 09:07 Dose: Infused Albumin Human (Buminate 5% Inj) 250 mls @ 250 mls/hr IV.SIG Q12H [facility] Last Infusion: 08/22/18 06:35 Dose: Infused Insulin Aspart (Novolog Insulin Correctional Sugar Inj) 0 unit SQ ACHS [facility]; Protocol Last Admin: 08/22/18 12:32 Dose: 7 unit Insulin Human NPH (Novolin N Inj) 15 units SQ BID@0800,1700 [facility] Last Admin: 08/22/18 08:31 Dose: 15 units Isosorbide Mononitrate (Imdur) 60 mg PO DAILY [facility] Last Admin: 08/22/18 08:29 Dose: 60 mg Lactulose (Lactulose Liq) 30 ml PO DAILY PRN PRN Reason: SEVERE CONSITIPATION Latanoprost (Xalatan 0.005% Opth Drops) 1 drop EACH EYE QPM [facility] Last Admin: 08/21/18 17:28 Dose: 1 drop Metoprolol Tartrate (Lopressor) 12.5 mg PO BID [facility] Last Admin: 08/22/18 08:29 Dose: 12.5 mg Ondansetron HCl (Zofran Inj) 4 mg IV.PUSH Q6H PRN PRN Reason: NAUSEA OR VOMITING Pharmacy Profile Note (Vancomycin Consult Pharmacy) 1 each OTHER UNSCH PRN PRN Reason: Pharmacy to dose Senna/Docusate Sodium (Catia-Colace) 1 tab PO BID [facility] Last Admin: 08/22/18 08:28 Dose: Not Given Sennosides (Senokot) 17.2 mg PO Q12H PRN PRN Reason: Moderate Constipation Sodium Chloride (Ns Flush) 2 ml IV.FLUSH BID [facility] Last Admin: 08/22/18 09:07 Dose: 2 ml Sodium Chloride (Ns Flush) 2 ml IV.FLUSH PRN PRN PRN Reason: FLUSH AFTER USING IV ACCESS Timolol Maleate (Timolol 0.25% Drops) 1 drops EACH EYE DAILY [facility] Last Admin: 08/22/18 09:07 Dose: 1 drops Allergies Allergy/AdvReac Type Severity Reaction Status Date / Time kaye Allergy Unknown RASH Verified 08/19/18 22:29 lisinopril Allergy Cough Verified 08/19/18 22:30 niacin [From Simcor] Allergy Edema Verified 08/19/18 22:29 simvastatin [From Simcor] Allergy Edema Verified 08/19/18 22:29 Home Medications Medication Instructions Recorded Confirmed Type alpha lipoic acid 600 mg PO HS PRN 07/01/18 08/19/18 History ascorbic acid (vitamin C) [Vitamin 1,000 mg PO DAILY 07/01/18 08/19/18 History C] aspirin 81 mg PO DAILY 07/01/18 08/19/18 History atorvastatin 20 mg PO DAILY 07/01/18 08/19/18 History calcium carbonate [Tums] 1 tab PO Q4-6H PRN 07/01/18 08/19/18 History cetirizine [Zyrtec] 10 mg PO DAILY PRN 07/01/18 08/19/18 History ergocalciferol (vitamin D2) 50,000 unit PO QWEEK 07/01/18 08/19/18 History [Vitamin D2] estradiol 1 mg PO DAILY 07/01/18 08/19/18 History ferrous sulfate 325 mg PO DAILY 07/01/18 08/19/18 History insulin NPH isoph U-100 human 20 unit SUB-Q QPM 07/01/18 08/19/18 History [Novolin N NPH U-100 Insulin] insulin NPH isoph U-100 human 30 unit SUB-Q QAM 07/01/18 08/19/18 History [Novolin N NPH U-100 Insulin] isosorbide mononitrate 60 mg PO QAM 07/01/18 08/19/18 History latanoprost [Xalatan] 1 drp EACH EYE QPM 07/01/18 08/19/18 History levothyroxine 75 mcg PO DAILY 07/01/18 08/19/18 History [id number] acid-lutein [Centrum 1 tab PO DAILY 07/01/18 08/19/18 History Silver] timolol maleate [Timoptic] 1 drp OPHTHALMIC (EYE) QAM 07/01/18 08/19/18 History vitamin A 8,000 unit PO DAILY 07/01/18 08/19/18 History furosemide 20 mg PO DAILY 08/19/18 08/19/18 History hydrochlorothiazide 50 mg PO QAM 08/19/18 08/19/18 History Physical Exam Vital signs: Vital Signs 08/21/18 16:00 08/21/18 16:06 08/21/18 20:00 Temperature 97.4 F L 98.2 F Pulse Rate 76 78 108 H Respiratory Rate 18 20 Blood Pressure 134/61 145/72 H Pulse Oximetry 100 100 08/21/18 20:10 08/21/18 20:27 08/22/18 00:00 Temperature 98.3 F 98.2 F 97.9 F Pulse Rate 86 87 89 Respiratory Rate 24 20 18 Blood Pressure 152/69 H 148/72 H 143/61 H Pulse Oximetry 100 100 100 08/22/18 01:25 08/22/18 04:00 08/22/18 08:00 Temperature 97.9 F 97.7 F 97.8 F Pulse Rate 90 69 73 Respiratory Rate 20 18 20 Blood Pressure 143/61 H 119/59 L 138/62 Pulse Oximetry 100 99 99 08/22/18 12:00 Temperature 97.4 F L Pulse Rate 73 Respiratory Rate 20 Blood Pressure 139/61 Pulse Oximetry 98 Intake & Output 08/21/18 08/22/18 08/22/18 18:59 06:59 18:59 Intake Total 1087.5 / 1087.5 650 / 650 100 / 100 Balance 1087.5 / 1087.5 650 / 650 100 / 100 Weight 83.1 kg Intake: IV 607.5 / 607.5 250 / 250 100 / 100 Buminate 5% Inj 250 ML @ 250 250 / 250 250 / 250 mls/hr IV.SIG Q12H [facility] Rx#: [id number] Maxipime Inj 1,000 MG In NS Inj 100 / 100 100 / 100 100 ML @ 200 mls/hr IV.SIG Q24H [facility] Rx#:[id number] Vancomycin Inj 750 MG In NS Inj 257.5 / 257.5 250 ML @ 250 mls/hr IV.SIG ONCE ONE Rx#:[id number] Oral 480 / 480 Intake (Blood Product) Amt 400 / 400 Rbc As-3 Leukoreduced Unit 400 / 400 [id number] Other: # Voids 2 1 Date of Last Bowel Movement 08/21/18 # Bowel Movements 0 Results 08/22/18 04:05 08/22/18 04:05 Cardiac Enzymes 08/21/18 Range/Units 05:25 B-Natriuretic Peptide 228 H (0-100) pg/mL Coagulation 08/21/18 Range/Units 05:25 B-Natriuretic Peptide 228 H (0-100) pg/mL CBC 08/22/18 Range/Units 04:05 WBC 10.6 (4.0-11.0) th/mm3 RBC 2.88 L (4.00-5.30) mil/mm3 Hgb 8.4 L (11.6-15.3) gm/dL Hct 25.0 L (35.0-46.0) % Plt Count 369 (150-450) th/mm3 Neut # (Auto) 8.8 H (1.8-7.7) th/mm3 Lymph # (Auto) 0.9 L (1.0-4.8) th/mm3 [place] # (Auto) 0.5 (0.0-0.9) th/mm3 Eos # (Auto) 0.3 (0.0-0.4) th/mm3 Baso # (Auto) 0.1 (0.0-0.2) th/mm3 Comprehensive Metabolic Panel 08/21/18 08/22/18 Range/Units 05:25 04:05 Sodium 136 133 L (136-145) meq/L Potassium 4.3 4.1 (3.5-5.1) meq/L Chloride 97 L 98 (98-107) meq/L Carbon Dioxide 27.2 27.1 (21.0-32.0) meq/L BUN 52 H 52 H (7-18) mg/dL Creatinine 2.25 H 1.92 H (0.50-1.00) mg/dL Calcium 8.8 8.2 L (8.5-10.1) mg/dL Albumin 1.7 L (3.4-5.0) g/dL Intake and Output 08/21/18 08/22/18 08/22/18 22:59 06:59 14:59 Intake Total 250 / 250 650 / 650 100 / 100 Balance 250 / 250 650 / 650 100 / 100 Intake: IV 250 / 250 250 / 250 100 / 100 Buminate 5% Inj 250 ML @ 250 250 / 250 250 / 250 mls/hr IV.SIG Q12H [facility] Rx#: [id number] Maxipime Inj 1,000 MG In NS Inj 100 / 100 100 ML @ 200 mls/hr IV.SIG Q24H [facility] Rx#:[id number] Intake (Blood Product) Amt 0 / 0 400 / 400 Rbc As-3 Leukoreduced Unit 0 / 0 400 / 400 [id number] Other: # Voids 1 Date of Last Bowel Movement 08/21/18 Weight 83.1 kg - Imaging and Cardiology Imaging: Impressions Abdomen/Bladder Ultrasound 08/20/18 00:00 CONCLUSION: 1. Possible medical renal disease without hydronephrosis. Ankle MRI 08/20/18 00:00 CONCLUSION: 1. Enlargement of previously seen lobulated synovial cyst anterior to the Achilles tendon. 2. Significant worsening of marrow edema in the bony structures particularly the medial lateral malleoli, distal tibia most of the talus since the prior exam. The extent of involvement would be somewhat unusual for osteomyelitis, however this possibility is not excluded and possibility of extensive Charcot's phenomenon should be entertained. 3. 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 Ankle X-Ray 08/20/18 00:00 CONCLUSION: Prominent soft tissue swelling at the ankle as before. No acute fractures. Foot X-Ray 08/20/18 00:00 CONCLUSION: Chronic arthropathy and dislocations at the tarsometatarsal articulations. Soft tissue swelling is again seen. Venous Doppler Study 08/20/18 00:00 CONCLUSION: 1. No DVT and there are nonspecific lymph nodes within the left groin should be correlated clinically. Assessment and Plan - Assessment (1) NSTEMI (non-ST elevated myocardial infarction) Code(s): I21.4 - Non-ST elevation (NSTEMI) myocardial infarction Status: Acute (2) CAD (coronary artery disease) Code(s): I25.10 - Atherosclerotic heart disease of [place] coronary artery without angina pectoris Status: Acute (3) A-fib Code(s): I48.91 - Unspecified atrial fibrillation Status: Acute (4) Anemia Code(s): D64.9 - Anemia, unspecified Status: Acute (5) DM (diabetes mellitus) Code(s): E11.9 - Type 2 diabetes mellitus without complications Status: Acute (6) Elevated troponin Code(s): R74.8 - Abnormal levels of other serum enzymes Status: Acute - Plan 1.) Afib - rate controlled, assymptomatic, i strongly advised her to take coumadin or noac due to [id number] score = 5 to lower her risk for life threatening and or debilitating cva, she understands and refuses, her daughter ispresent at the bedside, coumadin or noac could not be started now due to anemia and unstable hgb, continue aspirin 81 mg qd 2.) NSTEMI - suspect secondary to anemia, rec transfuse to hgb > 10, d/w Dr Sin
[2018-08-22] MEDS ORDERED: Vancomycin Inj 1,000 MG in Sodium Chlor 0.9% Inj 250 ML IV.SIG ONE (14:00)
[2018-08-22 16:02] LABS: Hemoglobin A1c 7.8 % (4.3-6.0)
--- NOTE | 2018-08-22 16:32 | P.PNID ---
Subjective Remarks: Patient notes pain in the left upper extremity where her IVs located. Reports pain in her left ankle. Afebrile. Repeat blood cultures pending. This is an 88-year-old white female who was recently hospitalized and treated for sepsis due to Staphylococcus aureus. The patient was treated with IV antibiotics up until 07/17/2018. She was given antibiotics for 2 weeks. Her cultures were negative prior to discharge from the hospital. The patient developed an episode of fever and chills about a week ago. She states that after that she felt a little better throughout the week, though she felt lousy. The fever did not come back. She saw her control room technician 7 days ago and a boot was placed on the left leg because of Charcot deformity. After 2 days, she complained of tightness of the boot and the nurse called the control room technician and the boot was removed and the leg was wrapped with Jose C bandage. After another couple of days, the patient complained of tightness of the bandage and at that time she also started developing chills and she also had an episode of fever and she presented to the emergency department on 08/19/2018. Past Medical History: PAST MEDICAL HISTORY: Charcot foot, diabetes mellitus, gastroesophageal reflux disease, pelvic and femur fractures, hypercholesterolemia, hypothyroidism, hypertension, myocardial infarction, history of coronary stent, history of colon cancer. Allergies/Adverse Reactions: Allergies kaye Allergy (Unknown, Verified 08/19/18 22:29) RASH lisinopril Allergy (Verified 08/19/18 22:30) Cough niacin [From Simcor] Allergy (Verified 08/19/18 22:29) Edema simvastatin [From Simcor] Allergy (Verified 08/19/18 22:29) Edema Objective Vital Signs 08/21/18 20:00 08/21/18 20:10 08/21/18 20:27 Temperature 98.2 F 98.3 F 98.2 F Pulse Rate 108 H 86 87 Respiratory Rate 20 Blood Pressure 145/72 H 152/69 H 148/72 H Pulse Oximetry 100 100 100 08/22/18 00:00 08/22/18 01:25 08/22/18 04:00 Temperature 97.9 F 97.9 F 97.7 F Pulse Rate 89 90 69 Respiratory Rate 18 18 Blood Pressure 143/61 H 143/61 H 119/59 L Pulse Oximetry 100 100 99 08/22/18 08:00 08/22/18 12:00 Temperature 97.8 F 97.4 F L Pulse Rate 84 73 Respiratory Rate 20 20 Blood Pressure 138/62 139/61 Pulse Oximetry 99 98 Intake & Output 08/21/18 08/22/18 08/22/18 18:59 06:59 18:59 Intake Total 1087.5 / 1087.5 650 / 650 100 / 100 Balance 1087.5 / 1087.5 650 / 650 100 / 100 Weight 83.1 kg Intake: IV 607.5 / 607.5 250 / 250 100 / 100 Buminate 5% Inj 250 ML @ 250 250 / 250 250 / 250 mls/hr IV.SIG Q12H [facility] Rx#: [id number] Maxipime Inj 1,000 MG In NS Inj 100 / 100 100 / 100 100 ML @ 200 mls/hr IV.SIG Q24H [facility] Rx#:[id number] Vancomycin Inj 750 MG In NS Inj 257.5 / 257.5 250 ML @ 250 mls/hr IV.SIG ONCE ONE Rx#:[id number] Oral 480 / 480 Intake (Blood Product) Amt 400 / 400 Rbc As-3 Leukoreduced Unit 400 / 400 [id number] Other: # Voids 2 1 Date of Last Bowel Movement 08/21/18 08/21/18 # Bowel Movements 0 08/19/18 22:40 Blood - Peripheral Aerobic Blood Culture - Preliminary No growth in 3 days 08/19/18 22:40 Blood - Peripheral Anaerobic Blood Culture - Preliminary Staphylococcus aureus 08/19/18 22:45 Blood - Peripheral Aerobic Blood Culture - Preliminary Staphylococcus aureus 08/19/18 22:45 Blood - Peripheral Anaerobic Blood Culture - Preliminary Staphylococcus aureus 08/22/18 04:10 Blood - Peripheral Aerobic Blood Culture - Pending 08/22/18 04:10 Blood - Peripheral Anaerobic Blood Culture - Pending 08/22/18 04:05 Blood - Peripheral Aerobic Blood Culture - Pending 08/22/18 04:05 Blood - Peripheral Anaerobic Blood Culture - Pending 08/19/18 22:50 Clean Catch Urine Urine Culture - Final Klebsiella pneumoniae 08/19/18 22:50 Urine - Random Urine Streptococcus pneumoniae Antigen (M - Final POS S. pneumoniae antigen 08/19/18 22:55 Urine - Random Urine Legionella Antigen - Final Presumptive negative for Legionella pneumophila serogroup 1 antigen in urine, suggesting no recent or recurrent infection. Infection due to Legionella cannot be ruled out since other serogroups and species may cause disease, antigen may not be present in urine in early infection, and the level of antigen present in the urine may be below the detection limit of the test. 08/19/18 22:50 Nasal Wash Influenza Types A,B Antigen - Final Negative for FLU A and B antigen Infection due to influenza A or B cannot be ruled out since the antigen present in the sample may be below the detection limit of the test. Lab - Hematology Results 08/22/18 04:05 WBC 10.6 RBC 2.88 L Hgb 8.4 L Hct 25.0 L MCV 86.6 MCH 29.2 MCHC 33.7 RDW 15.3 Plt Count 369 MPV 7.9 Neut % (Auto) 82.7 H Lymph % (Auto) 8.8 L [place] % (Auto) 5.0 Eos % (Auto) 2.9 Baso % (Auto) 0.6 Neut # (Auto) 8.8 H Lymph # (Auto) 0.9 L [place] # (Auto) 0.5 Eos # (Auto) 0.3 Baso # (Auto) 0.1 WBC Differential . Differential Comment Auto diff final Lab - Chemistry Results 08/20/18 08/20/18 08/21/18 17:25 20:22 05:25 Sodium Potassium Chloride Carbon Dioxide Anion Gap BUN Creatinine Estimated GFR POC Glucose 243 H 202 H Random Glucose Calcium Phosphorus Iron TIBC % Saturation Ferritin 1707 H B-Natriuretic Peptide Total Protein (PEP) Albumin Albumin (PEP) Albumin/Globulin Ratio Qfxer-5-Eenscixjn Dzdiw-9-Ikeexcpvg Beta Globulins Gamma Globulins PEP Pathologist Comment 08/21/18 08/21/18 08/21/18 05:25 05:25 08:15 Sodium 136 Potassium 4.3 Chloride 97 L Carbon Dioxide 27.2 Anion Gap 12 BUN 52 H Creatinine 2.25 H Estimated GFR 20 L POC Glucose 198 H Random Glucose 177 H D Calcium 8.8 Phosphorus Iron 24 L TIBC 139 L % Saturation 17.3 L Ferritin B-Natriuretic Peptide 228 H Total Protein (PEP) Albumin Albumin (PEP) Albumin/Globulin Ratio Crofq-2-Tkblgakjt Qegod-4-Qiyffjazs Beta Globulins Gamma Globulins PEP Pathologist Comment 08/21/18 08/21/18 08/21/18 11:21 17:39 20:38 Sodium Potassium Chloride Carbon Dioxide Anion Gap BUN Creatinine Estimated GFR POC Glucose 278 H 457 H* Random Glucose Calcium Phosphorus Iron TIBC % Saturation Ferritin B-Natriuretic Peptide Total Protein (PEP) 5.8 L Albumin Albumin (PEP) 1.90 L Albumin/Globulin Ratio 0.49 L Bagoh-8-Seqeahcuy 0.49 H Rujyj-7-Kwlwvjvlr 1.24 H Beta Globulins 0.81 Gamma Globulins 1.36 PEP Pathologist Comment 08/21/18 08/22/18 08/22/18 21:30 01:09 04:05 Sodium 133 L Potassium 4.1 Chloride 98 Carbon Dioxide 27.1 Anion Gap 8 BUN 52 H Creatinine 1.92 H Estimated GFR 25 L POC Glucose 384 H Random Glucose 385 H D 282 H D Calcium 8.2 L Phosphorus 3.1 Iron TIBC % Saturation Ferritin B-Natriuretic Peptide Total Protein (PEP) Albumin 1.7 L Albumin (PEP) Albumin/Globulin Ratio Utbte-1-Bptcmmrim Snxyn-9-Tftsnnuib Beta Globulins Gamma Globulins PEP Pathologist Comment 08/22/18 08/22/18 07:17 11:38 Sodium Potassium Chloride Carbon Dioxide Anion Gap BUN Creatinine Estimated GFR POC Glucose 292 H 329 H Random Glucose Calcium Phosphorus Iron TIBC % Saturation Ferritin B-Natriuretic Peptide Total Protein (PEP) Albumin Albumin (PEP) Albumin/Globulin Ratio Ykysy-2-Zzumztrln Ghcnh-6-Fvdrqgwej Beta Globulins Gamma Globulins PEP Pathologist Comment Imaging: ITS Impressions Chest X-Ray 08/19/18 22:06 CONCLUSION: No acute cardiopulmonary disease. Abdomen/Bladder Ultrasound 08/20/18 00:00 CONCLUSION: 1. Possible medical renal disease without hydronephrosis. Ankle MRI 08/20/18 00:00 CONCLUSION: 1. Enlargement of previously seen lobulated synovial cyst anterior to the Achilles tendon. 2. Significant worsening of marrow edema in the bony structures particularly the medial lateral malleoli, distal tibia most of the talus since the prior exam. The extent of involvement would be somewhat unusual for osteomyelitis, however this possibility is not excluded and possibility of extensive Charcot's phenomenon should be entertained. 3. 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 Ankle X-Ray 08/20/18 00:00 CONCLUSION: Prominent soft tissue swelling at the ankle as before. No acute fractures. Foot X-Ray 08/20/18 00:00 CONCLUSION: Chronic arthropathy and dislocations at the tarsometatarsal articulations. Soft tissue swelling is again seen. Venous Doppler Study 08/20/18 00:00 CONCLUSION: 1. No DVT and there are nonspecific lymph nodes within the left groin should be correlated clinically. Pulmonary Perfusion Imaging 08/20/18 01:52 CONCLUSION: Low probability study for pulmonary embolus. Physical Exam: PHYSICAL EXAMINATION: GENERAL: This is a well-developed female who is in no acute distress. She is awake. She is alert and oriented. HEENT: The head is atraumatic. Extraocular muscles grossly intact. Pupils reactive to light without icterus. Oropharynx: Moist mucosa. No lesions. NECK: Supple without adenopathy. LUNGS: Decreased breath sounds. HEART: Regular S1 and S2 without murmurs, rubs or gallops. ABDOMEN: Bowel sounds present. Soft, no tenderness appreciated. EXTREMITIES: No clubbing, cyanosis. Charcot deformity of the feet. Erythema and swelling at the inner left ankle approximately the size of a tennis ball. Also swelling at the lateral left ankle. Erythema involving the dorsum of the left foot and ankle and distal tibia. SKIN: No rash. NEUROLOGIC: No gross focal finding. PSYCHIATRIC: Calm and cooperative. Assessment and Plan - Plan IMPRESSION: 1. Staphylococcus aureus bacteremia, recurrent. Originating from the Charcot's left foot. Now with abscess formation at the inner left ankle and now with cellulitis of the left ankle and distal left tibia. 2. Abscess of the left ankle. 3. Cellulitis of the left ankle. 4. Urinary tract infection due to Klebsiella. The patient also getting recurrent urinary tract infection, but the previous urinary tract infection was due to Escherichia coli and now she has Klebsiella pneumoniae and her urinary antigen for strep pneumonia is also positive. 3. Chronic kidney disease. RECOMMENDATIONS: 1. Continue vancomycin. Monitor vancomycin levels. Monitor kidney function. 2. Continue cefepime for Klebsiella in the urine. 3. Monitor white blood cell count. 4. Monitor repeat the blood cultures. 5. Incision and debridement of left ankle abscess discussed with podiatry. Will probably have that procedure to be done tomorrow. 6. Monitor response to antibiotic treatment.
--- NOTE | 2018-08-22 17:07 | P.PNPOD ---
Physical Exam Vital signs: Vital Signs 08/21/18 20:00 08/21/18 20:10 08/21/18 20:27 Temperature 98.2 F 98.3 F 98.2 F Pulse Rate 108 H 86 87 Respiratory Rate 20 24 20 Blood Pressure 145/72 H 152/69 H 148/72 H Pulse Oximetry 100 100 100 08/22/18 00:00 08/22/18 01:25 08/22/18 04:00 Temperature 97.9 F 97.9 F 97.7 F Pulse Rate 89 90 69 Respiratory Rate 18 20 18 Blood Pressure 143/61 H 143/61 H 119/59 L Pulse Oximetry 100 100 99 08/22/18 08:00 08/22/18 12:00 08/22/18 16:00 Temperature 97.8 F 97.4 F L 97.5 F L Pulse Rate 84 73 65 Respiratory Rate 20 20 18 Blood Pressure 138/62 139/61 133/60 Pulse Oximetry 99 98 95 Intake & Output 08/21/18 08/22/18 08/22/18 18:59 06:59 18:59 Intake Total 1087.5 / 1087.5 650 / 650 100 / 100 Balance 1087.5 / 1087.5 650 / 650 100 / 100 Weight 83.1 kg Intake: IV 607.5 / 607.5 250 / 250 100 / 100 Buminate 5% Inj 250 ML @ 250 250 / 250 250 / 250 mls/hr IV.SIG Q12H [facility] Rx#: [id number] Maxipime Inj 1,000 MG In NS Inj 100 / 100 100 / 100 100 ML @ 200 mls/hr IV.SIG Q24H [facility] Rx#:[id number] Vancomycin Inj 750 MG In NS Inj 257.5 / 257.5 250 ML @ 250 mls/hr IV.SIG ONCE ONE Rx#:[id number] Oral 480 / 480 Intake (Blood Product) Amt 400 / 400 Rbc As-3 Leukoreduced Unit 400 / 400 [id number] Other: # Voids 2 1 Date of Last Bowel Movement 08/21/18 08/21/18 # Bowel Movements 0 Narrative: erythema with fluctuance in subcutaneous tissue to both medial and lateral aspects of left ankle Medications and Allergies Active Medications: Active Medications Acetaminophen (Tylenol) 650 mg PO Q4H PRN PRN Reason: Temp > 100.4/pain Last Admin: 08/22/18 12:38 Dose: 650 mg Al Hydroxide/Mg Hydroxide (Milk Of Magnesia Liq) 30 ml PO Q12H PRN PRN Reason: Mild Constipation Aspirin (Ecotrin) 81 mg PO DAILY [facility] Last Admin: 08/22/18 08:29 Dose: 81 mg Atorvastatin Calcium (Lipitor) 20 mg PO DAILY [facility] Last Admin: 08/22/18 08:28 Dose: 20 mg Bisacodyl (Dulcolax Supp) 10 mg RECTAL DAILY PRN PRN Reason: SEVERE CONSITIPATION Dextrose (D50w Vial) 50 ml IV.PUSH UNSCH PRN PRN Reason: PER HYPOGLYCEMIA PROTOCOL Glucagon (Glucagon Inj) 1 mg OTHER PRN PRN PRN Reason: for Hypoglycemia Protocol Heparin Sodium (Porcine) (Heparin Inj) 5,000 units SQ Q12HR [facility] Last Admin: 08/22/18 08:30 Dose: 5,000 units Cefepime HCl 1,000 mg/ Sodium (Chloride) 100 mls @ 200 mls/hr IV.SIG Q24H [facility] Last Infusion: 08/22/18 09:07 Dose: Infused Albumin Human (Buminate 5% Inj) 250 mls @ 250 mls/hr IV.SIG Q12H [facility] Last Infusion: 08/22/18 06:35 Dose: Infused Insulin Aspart (Novolog Insulin Correctional Sugar Inj) 0 unit SQ ACHS [facility]; Protocol Last Admin: 08/22/18 12:32 Dose: 7 unit Insulin Human NPH (Novolin N Inj) 15 units SQ BID@0800,1700 [facility] Last Admin: 08/22/18 08:31 Dose: 15 units Isosorbide Mononitrate (Imdur) 60 mg PO DAILY [facility] Last Admin: 08/22/18 08:29 Dose: 60 mg Lactulose (Lactulose Liq) 30 ml PO DAILY PRN PRN Reason: SEVERE CONSITIPATION Latanoprost (Xalatan 0.005% Opth Drops) 1 drop EACH EYE QPM [facility] Last Admin: 08/21/18 17:28 Dose: 1 drop Metoprolol Tartrate (Lopressor) 12.5 mg PO BID [facility] Last Admin: 08/22/18 08:29 Dose: 12.5 mg Ondansetron HCl (Zofran Inj) 4 mg IV.PUSH Q6H PRN PRN Reason: NAUSEA OR VOMITING Pharmacy Profile Note (Vancomycin Consult Pharmacy) 1 each OTHER UNSCH PRN PRN Reason: Pharmacy to dose Senna/Docusate Sodium (Catia-Colace) 1 tab PO BID [facility] Last Admin: 08/22/18 08:28 Dose: Not Given Sennosides (Senokot) 17.2 mg PO Q12H PRN PRN Reason: Moderate Constipation Sodium Chloride (Ns Flush) 2 ml IV.FLUSH BID [facility] Last Admin: 08/22/18 09:07 Dose: 2 ml Sodium Chloride (Ns Flush) 2 ml IV.FLUSH PRN PRN PRN Reason: FLUSH AFTER USING IV ACCESS Timolol Maleate (Timolol 0.25% Drops) 1 drops EACH EYE DAILY [facility] Last Admin: 08/22/18 09:07 Dose: 1 drops Allergies Allergy/AdvReac Type Severity Reaction Status Date / Time kaye Allergy Unknown RASH Verified 08/19/18 22:29 lisinopril Allergy Cough Verified 08/19/18 22:30 niacin [From Simcor] Allergy Edema Verified 08/19/18 22:29 simvastatin [From Simcor] Allergy Edema Verified 08/19/18 22:29 Home Medications Medication Instructions Recorded Confirmed Type alpha lipoic acid 600 mg PO HS PRN 07/01/18 08/19/18 History ascorbic acid (vitamin C) [Vitamin 1,000 mg PO DAILY 07/01/18 08/19/18 History C] aspirin 81 mg PO DAILY 07/01/18 08/19/18 History atorvastatin 20 mg PO DAILY 07/01/18 08/19/18 History calcium carbonate [Tums] 1 tab PO Q4-6H PRN 07/01/18 08/19/18 History cetirizine [Zyrtec] 10 mg PO DAILY PRN 07/01/18 08/19/18 History ergocalciferol (vitamin D2) 50,000 unit PO QWEEK 07/01/18 08/19/18 History [Vitamin D2] estradiol 1 mg PO DAILY 07/01/18 08/19/18 History ferrous sulfate 325 mg PO DAILY 07/01/18 08/19/18 History insulin NPH isoph U-100 human 20 unit SUB-Q QPM 07/01/18 08/19/18 History [Novolin N NPH U-100 Insulin] insulin NPH isoph U-100 human 30 unit SUB-Q QAM 07/01/18 08/19/18 History [Novolin N NPH U-100 Insulin] isosorbide mononitrate 60 mg PO QAM 07/01/18 08/19/18 History latanoprost [Xalatan] 1 drp EACH EYE QPM 07/01/18 08/19/18 History levothyroxine 75 mcg PO DAILY 07/01/18 08/19/18 History lj-amx-csoxj acid-lutein [Centrum 1 tab PO DAILY 07/01/18 08/19/18 History Silver] timolol maleate [Timoptic] 1 drp OPHTHALMIC (EYE) QAM 07/01/18 08/19/18 History vitamin A 8,000 unit PO DAILY 07/01/18 08/19/18 History furosemide 20 mg PO DAILY 08/19/18 08/19/18 History hydrochlorothiazide 50 mg PO QAM 08/19/18 08/19/18 History Results - Labs CBC & Chem 7: 08/22/18 04:05 08/22/18 04:05 Laboratory Results - last 24 hr 08/20/18 08/21/18 08/21/18 10:40 17:39 20:38 WBC RBC Hgb Hct MCV MCH MCHC RDW Plt Count MPV Neut % (Auto) Lymph % (Auto) [place] % (Auto) Eos % (Auto) Baso % (Auto) Neut # (Auto) Lymph # (Auto) [place] # (Auto) Eos # (Auto) Baso # (Auto) WBC Differential Differential Comment Sodium Potassium Chloride Carbon Dioxide Anion Gap BUN Creatinine Estimated GFR POC Glucose 457 H* Random Glucose Calcium Phosphorus Total Protein (PEP) 5.8 L Albumin Albumin (PEP) 1.90 L Albumin/Globulin Ratio 0.49 L Srrsp-0-Lswaergnb 0.49 H Cwesh-6-Uftxxzyev 1.24 H Beta Globulins 0.81 Gamma Globulins 1.36 PEP Pathologist Comment Random Vancomycin Blood Type A Negative Blood Type Recheck Required Antibody Screen Negative MTS Gel Crossmatch See Detail Bld Prod Order Comment 08/21/18 08/22/18 08/22/18 21:30 01:09 04:05 WBC RBC Hgb Hct MCV MCH MCHC RDW Plt Count MPV Neut % (Auto) Lymph % (Auto) [place] % (Auto) Eos % (Auto) Baso % (Auto) Neut # (Auto) Lymph # (Auto) [place] # (Auto) Eos # (Auto) Baso # (Auto) WBC Differential Differential Comment Sodium 133 L Potassium 4.1 Chloride 98 Carbon Dioxide 27.1 Anion Gap 8 BUN 52 H Creatinine 1.92 H Estimated GFR 25 L POC Glucose 384 H Random Glucose 385 H D 282 H D Calcium 8.2 L Phosphorus 3.1 Total Protein (PEP) Albumin 1.7 L Albumin (PEP) Albumin/Globulin Ratio Zceuo-4-Fpkpxsoty Ippuv-1-Spgdsdooh Beta Globulins Gamma Globulins PEP Pathologist Comment Random Vancomycin 13.8 Blood Type Blood Type Recheck Antibody Screen MTS Gel Crossmatch Bld Prod Order Comment 08/22/18 08/22/18 08/22/18 04:05 07:17 11:38 WBC 10.6 RBC 2.88 L Hgb 8.4 L Hct 25.0 L MCV 86.6 MCH 29.2 MCHC 33.7 RDW 15.3 Plt Count 369 MPV 7.9 Neut % (Auto) 82.7 H Lymph % (Auto) 8.8 L [place] % (Auto) 5.0 Eos % (Auto) 2.9 Baso % (Auto) 0.6 Neut # (Auto) 8.8 H Lymph # (Auto) 0.9 L [place] # (Auto) 0.5 Eos # (Auto) 0.3 Baso # (Auto) 0.1 WBC Differential . Differential Comment Auto diff final Sodium Potassium Chloride Carbon Dioxide Anion Gap BUN Creatinine Estimated GFR POC Glucose 292 H 329 H Random Glucose Calcium Phosphorus Total Protein (PEP) Albumin Albumin (PEP) Albumin/Globulin Ratio Nvxna-0-Vrkekqgpt Xsfab-5-Ukvzhfihj Beta Globulins Gamma Globulins PEP Pathologist Comment Random Vancomycin Blood Type Blood Type Recheck Antibody Screen MTS Gel Crossmatch Bld Prod Order Comment Microbiology 08/19/18 22:40 Blood - Peripheral Aerobic Blood Culture - Preliminary No growth in 3 days 08/19/18 22:40 Blood - Peripheral Anaerobic Blood Culture - Preliminary Staphylococcus aureus 08/19/18 22:45 Blood - Peripheral Aerobic Blood Culture - Preliminary Staphylococcus aureus 08/19/18 22:45 Blood - Peripheral Anaerobic Blood Culture - Preliminary Staphylococcus aureus Assessment and Plan - Assessment (1) 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 Showing signs of abscess. Plan to OR tomorrow for incision and drainage of abscess left ankle NPO after midnight (2) Abscess of bursa, left ankle and foot Code(s): M71.072 - Abscess of bursa, left ankle and foot Status: Acute Plan: To OR for I&D tomorrow
[2018-08-22] MEDS: Latanoprost 0.005% Opth Drops 2.5 ML Bottle EACH EYE SCH (18:19)
[2018-08-23 03:56] LABS: Baso # (Auto) 0.1 th/mm3 (0.0-0.2); Baso % (Auto) 0.9 % (0.0-2.0); Eos # (Auto) 0.6 th/mm3 (0.0-0.4); Eos % (Auto) 5.4 % (0.0-4.0); Hematocrit 26.7 % (35.0-46.0); Hemoglobin 8.8 gm/dL (11.6-15.3); Lymph # (Auto) 0.9 th/mm3 (1.0-4.8); Lymph % (Auto) 8.9 % (9.0-44.0); Mean Corpuscular HGB Conc 33.1 % (32.0-36.0); Mean Corpuscular Hemoglobin 29.1 pg (27.0-34.0); Mean Corpuscular Volume 87.8 fL (80.0-100.0); Mean Platelet Volume 7.9 fL (7.0-11.0); Mono # (Auto) 0.5 th/mm3 (0.0-0.9); Mono % (Auto) 5.1 % (0.0-8.0); Neut # (Auto) 8.3 th/mm3 (1.8-7.7); Neut % (Auto) 79.7 % (16.0-70.0); Platelet Count 393 th/mm3 (150-450); Red Blood Count 3.03 mil/mm3 (4.00-5.30); Red Cell Distribution Width 15.4 % (11.6-17.2); White Blood Count 10.4 th/mm3 (4.0-11.0)
[2018-08-23 04:26] LABS: Calcium 8.6 mg/dL (8.5-10.1); Carbon Dioxide 24.8 meq/L (21.0-32.0); Potassium 3.8 meq/L (3.5-5.1); Vancomycin,Random 20.6 Comment
[2018-08-23] MEDS: Albumin Human 5% Inj 250 ML IV.SIG SCH ×2 (04:57→16:36)
[2018-08-23] MEDS: Insulin NovoLOG Aspart Correctional Sugar Inj SQ SCH ×4 (08:27→21:22)
--- NOTE | 2018-08-23 11:10 | P.PNIM ---
Subjective Interval history: in no acute distress. pain to the left foot seems to be controlled. no fever or new complaints. Physical Exam Vital signs: Vital Signs 08/22/18 12:00 08/22/18 16:00 08/22/18 20:00 Temperature 97.4 F L 97.5 F L 97.6 F Pulse Rate 73 65 74 Respiratory Rate 20 18 16 Blood Pressure 139/61 133/60 163/68 H Pulse Oximetry 98 95 99 08/22/18 22:15 08/23/18 00:00 08/23/18 04:00 Temperature 97.8 F 98.1 F Pulse Rate 71 79 Respiratory Rate 20 16 16 Blood Pressure 122/74 161/73 H Pulse Oximetry 96 97 08/23/18 08:00 Temperature 98.1 F Pulse Rate 81 Respiratory Rate 22 Blood Pressure 125/82 Pulse Oximetry 96 Intake & Output 08/22/18 08/23/18 08/23/18 18:59 06:59 18:59 Intake Total 710 / 710 500 / 500 Balance 710 / 710 500 / 500 Weight 84.1 kg Intake: IV 350 / 350 500 / 500 Buminate 5% Inj 250 ML @ 250 500 / 500 mls/hr IV.SIG Q12H [facility] Rx#: [id number] Maxipime Inj 1,000 MG In NS Inj 100 / 100 100 ML @ 200 mls/hr IV.SIG Q24H [facility] Rx#:[id number] Vancomycin Inj 1,000 MG In NS 250 / 250 Inj 250 ML @ 250 mls/hr IV.SIG ONCE ONE Rx#:[id number] Oral 360 / 360 0 / 0 Other: # Voids 2 3 Date of Last Bowel Movement 08/21/18 08/22/18 # Bowel Movements 2 # Incontinent Bowel Movements 0 - Constitutional no acute distress - Routine Respiratory Exam Present: CTA bilaterally - Routine Cardiovascular Exam Present: RRR - Routine Abdominal Exam Present: soft - Routine Extremities Exam Comments: left foot is still swollen with some erythema. - Routine Neurological Exam Present: alert, oriented X3 Results - Labs CBC & Chem 7: 08/23/18 03:44 08/23/18 03:44 Laboratory Results - last 24 hr 08/22/18 08/22/18 08/22/18 04:05 08:45 11:38 WBC RBC Hgb Hct MCV MCH MCHC RDW Plt Count MPV Neut % (Auto) Lymph % (Auto) [place] % (Auto) Eos % (Auto) Baso % (Auto) Neut # (Auto) Lymph # (Auto) [place] # (Auto) Eos # (Auto) Baso # (Auto) WBC Differential Differential Comment Sodium Potassium Chloride Carbon Dioxide Anion Gap BUN Creatinine Estimated GFR POC Glucose 329 H Random Glucose Hemoglobin A1c 7.8 H Calcium Random Vancomycin Urine Immunofixation 08/22/18 08/23/18 08/23/18 20:15 03:44 03:44 WBC 10.4 RBC 3.03 L Hgb 8.8 L Hct 26.7 L MCV 87.8 MCH 29.1 MCHC 33.1 RDW 15.4 Plt Count 393 MPV 7.9 Neut % (Auto) 79.7 H Lymph % (Auto) 8.9 L [place] % (Auto) 5.1 Eos % (Auto) 5.4 H Baso % (Auto) 0.9 Neut # (Auto) 8.3 H Lymph # (Auto) 0.9 L [place] # (Auto) 0.5 Eos # (Auto) 0.6 H Baso # (Auto) 0.1 WBC Differential . Differential Comment Auto diff final Sodium 135 L Potassium 3.8 Chloride 102 Carbon Dioxide 24.8 Anion Gap 8 BUN 44 H Creatinine 1.41 H Estimated GFR 35 L POC Glucose 260 H Random Glucose 135 H D Hemoglobin A1c Calcium 8.6 Random Vancomycin 20.6 Urine Immunofixation Microbiology 08/22/18 04:10 Blood - Peripheral Aerobic Blood Culture - Preliminary No growth in 1 day 08/22/18 04:10 Blood - Peripheral Anaerobic Blood Culture - Preliminary No growth in 1 day 08/22/18 04:05 Blood - Peripheral Aerobic Blood Culture - Preliminary No growth in 1 day 08/22/18 04:05 Blood - Peripheral Anaerobic Blood Culture - Preliminary No growth in 1 day 08/19/18 22:40 Blood - Peripheral Aerobic Blood Culture - Preliminary No growth in 4 days 08/19/18 22:40 Blood - Peripheral Anaerobic Blood Culture - Final Staphylococcus aureus 08/19/18 22:45 Blood - Peripheral Aerobic Blood Culture - Final Staphylococcus aureus 08/19/18 22:45 Blood - Peripheral Anaerobic Blood Culture - Final Staphylococcus aureus Assessment and Plan - Assessment (1) Sepsis Code(s): A41.9 - Sepsis, unspecified organism Status: Acute (2) UTI (urinary tract infection) Code(s): N39.0 - Urinary tract infection, site not specified Status: Acute (3) A-fib Code(s): I48.91 - Unspecified atrial fibrillation Status: Acute (4) Elevated troponin Code(s): R74.8 - Abnormal levels of other serum enzymes Status: Acute (5) Anemia Code(s): D64.9 - Anemia, unspecified Status: Acute (6) Foot pain Code(s): M79.673 - Pain in unspecified foot Status: Acute (7) DM (diabetes mellitus) Code(s): E11.9 - Type 2 diabetes mellitus without complications Status: Acute - Plan bacteremia with staph aureus Klebsiella UTI Left foot cellulitis with marked soft tissue swelling-with possible abscess formation. charcot Joint flare - MRI- charcot joint - on Cefepime and Vancomycin- follow the repeated blood cultures - -podiatry following; for OR today for I/D. - ID following. - S/P IV antiibotic course x 6 weeks with IV ancef 07/17- for S infectious A-fib: recent dx of A-fib on last admit 07/06/18, - NSR on exam now History of CHF- diatolic dysfunction Elevated Trop: - [place], BNP- give x 1 IV Lasix - heplock IVF - currently on Metoprolol 12.5mg bid and ASA, declined Coumadin therapy in the past despite recommendations. Trop 0.38, no c/o chest pain or SOB. Admit to [facility], telemetry, check serial cardiac enzymes for trend. - Dr. Gamez,ff ASA, Statin, Metoprolol. \ Acute on top of chronic kidney injury -bialterally small kidneys - ff BMP - Nephrology consulted Anemia: Hgb 8.8, previously 11.7 on 07/09/18, no evidence of bleeding, Type & Screen, check repeat Hgb/Hct, transfuse as needed. Iron studies suggestive of chronic disease - s/p PRBC transfusion. DM: Sliding scale w/ Accu-Cheks - ff blood sugars. - started on NPH -A1c 7.8. DVT Prophylaxis: Heparin PT eval and treat Discharge Planning: for OR today.
[2018-08-23] MEDS: Isosorbide Mononitrate 60 MG ER 24HR Tablet (Imdur) PO SCH (11:28)
[2018-08-23] MEDS: Sodium Chloride 0.9% 2 ML Flush BID IV.FLUSH SCH ×2 (11:29→23:38)
[2018-08-23] MEDS: Metoprolol Tartrate 25 MG Tablet PO SCH ×2 (11:29→23:38)
[2018-08-23] MEDS: Senna/Docusate Sodium 8.6/50 MG Tablet PO SCH ×2 (11:29→23:38)
[2018-08-23] MEDS: Heparin - SQ 10,000 UNITS/ML Vial SQ SCH ×2 (11:29→23:37)
[2018-08-23] MEDS: Timolol 0.25% Drops 5 ML Bottle EACH EYE SCH (11:30)
--- NOTE | 2018-08-23 12:39 | P.PNID ---
Subjective Remarks: Patient says she feels okay. Reports pain in her left ankle earlier and some chills. No pain currently. Afebrile. Repeat blood cultures has no growth in one day. Awaiting I&D planned for today. This is an 88-year-old white female who was recently hospitalized and treated for sepsis due to Staphylococcus aureus. The patient was treated with IV antibiotics up until 07/17/2018. She was given antibiotics for 2 weeks. Her cultures were negative prior to discharge from the hospital. The patient developed an episode of fever and chills about a week ago. She states that after that she felt a little better throughout the week, though she felt lousy. The fever did not come back. She saw her city dispatcher 7 days ago and a boot was placed on the left leg because of Charcot deformity. After 2 days, she complained of tightness of the boot and the nurse called the city dispatcher and the boot was removed and the leg was wrapped with Jose C bandage. After another couple of days, the patient complained of tightness of the bandage and at that time she also started developing chills and she also had an episode of fever and she presented to the emergency department on 08/19/2018. Past Medical History: PAST MEDICAL HISTORY: Charcot foot, diabetes mellitus, gastroesophageal reflux disease, pelvic and femur fractures, hypercholesterolemia, hypothyroidism, hypertension, myocardial infarction, history of coronary stent, history of colon cancer. Allergies/Adverse Reactions: Allergies kaye Allergy (Unknown, Verified 08/19/18 22:29) RASH lisinopril Allergy (Verified 08/19/18 22:30) Cough niacin [From Simcor] Allergy (Verified 08/19/18 22:29) Edema simvastatin [From Simcor] Allergy (Verified 08/19/18 22:29) Edema Objective Vital Signs 08/22/18 16:00 08/22/18 20:00 08/22/18 22:15 Temperature 97.5 F L 97.6 F Pulse Rate 65 74 Respiratory Rate 18 16 20 Blood Pressure 133/60 163/68 H Pulse Oximetry 95 99 08/23/18 00:00 08/23/18 04:00 08/23/18 08:00 Temperature 97.8 F 98.1 F 98.1 F Pulse Rate 71 79 81 Respiratory Rate 16 16 22 Blood Pressure 122/74 161/73 H 125/82 Pulse Oximetry 96 97 96 Intake & Output 08/22/18 08/23/18 08/23/18 18:59 06:59 18:59 Intake Total 710 / 710 500 / 500 100 / 100 Balance 710 / 710 500 / 500 100 / 100 Weight 84.1 kg Intake: IV 350 / 350 500 / 500 100 / 100 Buminate 5% Inj 250 ML @ 250 500 / 500 mls/hr IV.SIG Q12H [facility] Rx#: [id number] Maxipime Inj 1,000 MG In NS Inj 100 / 100 100 / 100 100 ML @ 200 mls/hr IV.SIG Q24H [facility] Rx#:[id number] Vancomycin Inj 1,000 MG In NS 250 / 250 Inj 250 ML @ 250 mls/hr IV.SIG ONCE ONE Rx#:[id number] Oral 360 / 360 0 / 0 Other: # Voids 2 3 Date of Last Bowel Movement 08/21/18 08/22/18 # Bowel Movements 2 # Incontinent Bowel Movements 0 08/22/18 04:10 Blood - Peripheral Aerobic Blood Culture - Preliminary No growth in 1 day 08/22/18 04:10 Blood - Peripheral Anaerobic Blood Culture - Preliminary No growth in 1 day 08/22/18 04:05 Blood - Peripheral Aerobic Blood Culture - Preliminary No growth in 1 day 08/22/18 04:05 Blood - Peripheral Anaerobic Blood Culture - Preliminary No growth in 1 day 08/19/18 22:40 Blood - Peripheral Aerobic Blood Culture - Preliminary No growth in 4 days 08/19/18 22:40 Blood - Peripheral Anaerobic Blood Culture - Final Staphylococcus aureus 08/19/18 22:45 Blood - Peripheral Aerobic Blood Culture - Final Staphylococcus aureus 08/19/18 22:45 Blood - Peripheral Anaerobic Blood Culture - Final Staphylococcus aureus 08/19/18 22:50 Clean Catch Urine Urine Culture - Final Klebsiella pneumoniae Lab - Hematology Results 08/22/18 08/23/18 04:05 03:44 WBC 10.6 10.4 RBC 2.88 L 3.03 L Hgb 8.4 L 8.8 L Hct 25.0 L 26.7 L MCV 86.6 87.8 MCH 29.2 29.1 MCHC 33.7 33.1 RDW 15.3 15.4 Plt Count 369 393 MPV 7.9 7.9 Neut % (Auto) 82.7 H 79.7 H Lymph % (Auto) 8.8 L 8.9 L [place] % (Auto) 5.0 5.1 Eos % (Auto) 2.9 5.4 H Baso % (Auto) 0.6 0.9 Neut # (Auto) 8.8 H 8.3 H Lymph # (Auto) 0.9 L 0.9 L [place] # (Auto) 0.5 0.5 Eos # (Auto) 0.3 0.6 H Baso # (Auto) 0.1 0.1 WBC Differential . . Differential Comment Auto diff final Auto diff final Lab - Chemistry Results 08/21/18 08/21/18 08/21/18 17:39 20:38 21:30 Sodium Potassium Chloride Carbon Dioxide Anion Gap BUN Creatinine Estimated GFR POC Glucose 457 H* Random Glucose 385 H D Hemoglobin A1c Calcium Phosphorus Total Protein (PEP) 5.8 L Albumin Albumin (PEP) 1.90 L Albumin/Globulin Ratio 0.49 L Qslqy-9-Aktajmcbt 0.49 H Cvgtf-2-Lnwoxjgai 1.24 H Beta Globulins 0.81 Gamma Globulins 1.36 PEP Pathologist Comment 08/22/18 08/22/18 08/22/18 01:09 04:05 04:05 Sodium 133 L Potassium 4.1 Chloride 98 Carbon Dioxide 27.1 Anion Gap 8 BUN 52 H Creatinine 1.92 H Estimated GFR 25 L POC Glucose 384 H Random Glucose 282 H D Hemoglobin A1c 7.8 H Calcium 8.2 L Phosphorus 3.1 Total Protein (PEP) Albumin 1.7 L Albumin (PEP) Albumin/Globulin Ratio Qgveu-7-Pgbbbvueu Hlapp-5-Fuxvplbqg Beta Globulins Gamma Globulins PEP Pathologist Comment 08/22/18 08/22/18 08/22/18 07:17 11:38 20:15 Sodium Potassium Chloride Carbon Dioxide Anion Gap BUN Creatinine Estimated GFR POC Glucose 292 H 329 H 260 H Random Glucose Hemoglobin A1c Calcium Phosphorus Total Protein (PEP) Albumin Albumin (PEP) Albumin/Globulin Ratio Agnpg-5-Dwumbzzlz Vrciw-2-Lainycenr Beta Globulins Gamma Globulins PEP Pathologist Comment 08/23/18 03:44 Sodium 135 L Potassium 3.8 Chloride 102 Carbon Dioxide 24.8 Anion Gap 8 BUN 44 H Creatinine 1.41 H Estimated GFR 35 L POC Glucose Random Glucose 135 H D Hemoglobin A1c Calcium 8.6 Phosphorus Total Protein (PEP) Albumin Albumin (PEP) Albumin/Globulin Ratio Eejkw-4-Hvfiylrna Espdm-3-Kmrsfilsx Beta Globulins Gamma Globulins PEP Pathologist Comment Imaging: ITS Impressions Chest X-Ray 08/19/18 22:06 CONCLUSION: No acute cardiopulmonary disease. Abdomen/Bladder Ultrasound 08/20/18 00:00 CONCLUSION: 1. Possible medical renal disease without hydronephrosis. Ankle MRI 08/20/18 00:00 CONCLUSION: 1. Enlargement of previously seen lobulated synovial cyst anterior to the Achilles tendon. 2. Significant worsening of marrow edema in the bony structures particularly the medial lateral malleoli, distal tibia most of the talus since the prior exam. The extent of involvement would be somewhat unusual for osteomyelitis, however this possibility is not excluded and possibility of extensive Charcot's phenomenon should be entertained. 3. 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 Ankle X-Ray 08/20/18 00:00 CONCLUSION: Prominent soft tissue swelling at the ankle as before. No acute fractures. Foot X-Ray 08/20/18 00:00 CONCLUSION: Chronic arthropathy and dislocations at the tarsometatarsal articulations. Soft tissue swelling is again seen. Venous Doppler Study 08/20/18 00:00 CONCLUSION: 1. No DVT and there are nonspecific lymph nodes within the left groin should be correlated clinically. Pulmonary Perfusion Imaging 08/20/18 01:52 CONCLUSION: Low probability study for pulmonary embolus. Physical Exam: PHYSICAL EXAMINATION: GENERAL: This is a well-developed female who is in no acute distress. She is awake. She is alert and oriented. HEENT: The head is atraumatic. Extraocular muscles grossly intact. Pupils reactive to light without icterus. Oropharynx: Moist mucosa. No lesions. NECK: Supple without adenopathy. LUNGS: Clear breath sounds. HEART: Regular S1 and S2 without murmurs, rubs or gallops. ABDOMEN: Bowel sounds present. Soft, no tenderness. EXTREMITIES: No clubbing, cyanosis. Charcot deformity of the feet. Erythema has decreased but swelling is unchanged at the inner left ankle approximately the size of a tennis ball. Also swelling at the lateral left ankle. Erythema involving the dorsum of the left foot and ankle and distal tibia. SKIN: No rash. NEUROLOGIC: No gross focal finding. PSYCHIATRIC: Calm and cooperative. Assessment and Plan - Plan IMPRESSION: 1. Staphylococcus aureus bacteremia, recurrent. Originating from the Charcot's left foot. Now with abscess formation at the inner left ankle and now with cellulitis of the left ankle and distal left tibia. 2. Abscess of the left ankle. 3. Cellulitis of the left ankle. 4. Urinary tract infection due to Klebsiella. The patient also getting recurrent urinary tract infection, but the previous urinary tract infection was due to Escherichia coli and now she has Klebsiella pneumoniae and her urinary antigen for strep pneumonia is also positive. 3. Chronic kidney disease. RECOMMENDATIONS: 1. Stop vancomycin. 2. Start Ancef. 3. Stop cefepime. 3. Monitor white blood cell count. 4. Monitor repeat the blood cultures. 5. Incision and debridement of left ankle abscess discussed with podiatry. Will probably have that procedure to be done today. 6. Monitor response to antibiotic treatment.
--- NOTE | 2018-08-23 13:07 | P.PNCA ---
Subjective Interval history: alert in nad, denies chest pain or dyspnea Medications and Allergies Active Medications: Active Medications Acetaminophen (Tylenol) 650 mg PO Q4H PRN PRN Reason: Temp > 100.4/pain Last Admin: 08/22/18 20:36 Dose: 650 mg Al Hydroxide/Mg Hydroxide (Milk Of Magnesia Liq) 30 ml PO Q12H PRN PRN Reason: Mild Constipation Aspirin (Ecotrin) 81 mg PO DAILY [facility] Last Admin: 08/23/18 11:28 Dose: Not Given Atorvastatin Calcium (Lipitor) 20 mg PO DAILY [facility] Last Admin: 08/23/18 11:29 Dose: Not Given Bisacodyl (Dulcolax Supp) 10 mg RECTAL DAILY PRN PRN Reason: SEVERE CONSITIPATION Dextrose (D50w Vial) 50 ml IV.PUSH UNSCH PRN PRN Reason: PER HYPOGLYCEMIA PROTOCOL Glucagon (Glucagon Inj) 1 mg OTHER PRN PRN PRN Reason: for Hypoglycemia Protocol Heparin Sodium (Porcine) (Heparin Inj) 5,000 units SQ Q12HR [facility] Last Admin: 08/23/18 11:29 Dose: 5,000 units Albumin Human (Buminate 5% Inj) 250 mls @ 250 mls/hr IV.SIG Q12H [facility] Last Infusion: 08/23/18 06:11 Dose: Infused Cefazolin Sodium 2,000 mg/ (Sodium Chloride) 100 mls @ 200 mls/hr IV.SIG Q12H [facility] Insulin Aspart (Novolog Insulin Correctional Sugar Inj) 0 unit SQ ACHS [facility]; Protocol Last Admin: 08/23/18 08:27 Dose: Not Given Insulin Human NPH (Novolin N Inj) 15 units SQ BID@0800,1700 [facility] Last Admin: 08/23/18 08:27 Dose: Not Given Isosorbide Mononitrate (Imdur) 60 mg PO DAILY [facility] Last Admin: 08/23/18 11:28 Dose: Not Given Lactulose (Lactulose Liq) 30 ml PO DAILY PRN PRN Reason: SEVERE CONSITIPATION Latanoprost (Xalatan 0.005% Opth Drops) 1 drop EACH EYE QPM [facility] Last Admin: 08/22/18 18:19 Dose: 1 drop Metoprolol Tartrate (Lopressor) 12.5 mg PO BID [facility] Last Admin: 08/23/18 11:29 Dose: Not Given Ondansetron HCl (Zofran Inj) 4 mg IV.PUSH Q6H PRN PRN Reason: NAUSEA OR VOMITING Senna/Docusate Sodium (Catia-Colace) 1 tab PO BID [facility] Last Admin: 08/23/18 11:29 Dose: Not Given Sennosides (Senokot) 17.2 mg PO Q12H PRN PRN Reason: Moderate Constipation Sodium Chloride (Ns Flush) 2 ml IV.FLUSH BID [facility] Last Admin: 08/23/18 11:29 Dose: 2 ml Sodium Chloride (Ns Flush) 2 ml IV.FLUSH PRN PRN PRN Reason: FLUSH AFTER USING IV ACCESS Timolol Maleate (Timolol 0.25% Drops) 1 drops EACH EYE DAILY [facility] Last Admin: 08/23/18 11:30 Dose: 1 drops Allergies Allergy/AdvReac Type Severity Reaction Status Date / Time kaye Allergy Unknown RASH Verified 08/19/18 22:29 lisinopril Allergy Cough Verified 08/19/18 22:30 niacin [From Simcor] Allergy Edema Verified 08/19/18 22:29 simvastatin [From Simcor] Allergy Edema Verified 08/19/18 22:29 Home Medications Medication Instructions Recorded Confirmed Type alpha lipoic acid 600 mg PO HS PRN 07/01/18 08/19/18 History ascorbic acid (vitamin C) [Vitamin 1,000 mg PO DAILY 07/01/18 08/19/18 History C] aspirin 81 mg PO DAILY 07/01/18 08/19/18 History atorvastatin 20 mg PO DAILY 07/01/18 08/19/18 History calcium carbonate [Tums] 1 tab PO Q4-6H PRN 07/01/18 08/19/18 History cetirizine [Zyrtec] 10 mg PO DAILY PRN 07/01/18 08/19/18 History ergocalciferol (vitamin D2) 50,000 unit PO QWEEK 07/01/18 08/19/18 History [Vitamin D2] estradiol 1 mg PO DAILY 07/01/18 08/19/18 History ferrous sulfate 325 mg PO DAILY 07/01/18 08/19/18 History insulin NPH isoph U-100 human 20 unit SUB-Q QPM 07/01/18 08/19/18 History [Novolin N NPH U-100 Insulin] insulin NPH isoph U-100 human 30 unit SUB-Q QAM 07/01/18 08/19/18 History [Novolin N NPH U-100 Insulin] isosorbide mononitrate 60 mg PO QAM 07/01/18 08/19/18 History latanoprost [Xalatan] 1 drp EACH EYE QPM 07/01/18 08/19/18 History levothyroxine 75 mcg PO DAILY 07/01/18 08/19/18 History fe-rrd-qjwuk acid-lutein [Centrum 1 tab PO DAILY 07/01/18 08/19/18 History Silver] timolol maleate [Timoptic] 1 drp OPHTHALMIC (EYE) QAM 07/01/18 08/19/18 History vitamin A 8,000 unit PO DAILY 07/01/18 08/19/18 History furosemide 20 mg PO DAILY 08/19/18 08/19/18 History hydrochlorothiazide 50 mg PO QAM 08/19/18 08/19/18 History Physical Exam Vital signs: Vital Signs 08/22/18 16:00 08/22/18 20:00 08/22/18 22:15 Temperature 97.5 F L 97.6 F Pulse Rate 65 74 Respiratory Rate 18 16 20 Blood Pressure 133/60 163/68 H Pulse Oximetry 95 99 08/23/18 00:00 08/23/18 04:00 08/23/18 08:00 Temperature 97.8 F 98.1 F 98.1 F Pulse Rate 71 79 81 Respiratory Rate 16 16 22 Blood Pressure 122/74 161/73 H 125/82 Pulse Oximetry 96 97 96 Intake & Output 08/22/18 08/23/18 08/23/18 18:59 06:59 18:59 Intake Total 710 / 710 500 / 500 100 / 100 Balance 710 / 710 500 / 500 100 / 100 Weight 84.1 kg Intake: IV 350 / 350 500 / 500 100 / 100 Buminate 5% Inj 250 ML @ 250 500 / 500 mls/hr IV.SIG Q12H [facility] Rx#: [id number] Maxipime Inj 1,000 MG In NS Inj 100 / 100 100 / 100 100 ML @ 200 mls/hr IV.SIG Q24H [facility] Rx#:[id number] Vancomycin Inj 1,000 MG In NS 250 / 250 Inj 250 ML @ 250 mls/hr IV.SIG ONCE ONE Rx#:[id number] Oral 360 / 360 0 / 0 Other: # Voids 2 3 Date of Last Bowel Movement 08/21/18 08/22/18 # Bowel Movements 2 # Incontinent Bowel Movements 0 Results 08/23/18 03:44 08/23/18 03:44 CBC 08/22/18 08/23/18 Range/Units 04:05 03:44 WBC 10.6 10.4 (4.0-11.0) th/mm3 RBC 2.88 L 3.03 L (4.00-5.30) mil/mm3 Hgb 8.4 L 8.8 L (11.6-15.3) gm/dL Hct 25.0 L 26.7 L (35.0-46.0) % Plt Count 369 393 (150-450) th/mm3 Neut # (Auto) 8.8 H 8.3 H (1.8-7.7) th/mm3 Lymph # (Auto) 0.9 L 0.9 L (1.0-4.8) th/mm3 [place] # (Auto) 0.5 0.5 (0.0-0.9) th/mm3 Eos # (Auto) 0.3 0.6 H (0.0-0.4) th/mm3 Baso # (Auto) 0.1 0.1 (0.0-0.2) th/mm3 Comprehensive Metabolic Panel 08/22/18 08/23/18 Range/Units 04:05 03:44 Sodium 133 L 135 L (136-145) meq/L Potassium 4.1 3.8 (3.5-5.1) meq/L Chloride 98 102 (98-107) meq/L Carbon Dioxide 27.1 24.8 (21.0-32.0) meq/L BUN 52 H 44 H (7-18) mg/dL Creatinine 1.92 H 1.41 H (0.50-1.00) mg/dL Calcium 8.2 L 8.6 (8.5-10.1) mg/dL Albumin 1.7 L (3.4-5.0) g/dL Intake and Output 08/22/18 08/23/18 08/23/18 22:59 06:59 14:59 Intake Total 860 / 860 250 / 250 100 / 100 Balance 860 / 860 250 / 250 100 / 100 Intake: IV 500 / 500 250 / 250 100 / 100 Buminate 5% Inj 250 ML @ 250 250 / 250 250 / 250 mls/hr IV.SIG Q12H [facility] Rx#: [id number] Maxipime Inj 1,000 MG In NS Inj 100 / 100 100 ML @ 200 mls/hr IV.SIG Q24H [facility] Rx#:[id number] Vancomycin Inj 1,000 MG In NS 250 / 250 Inj 250 ML @ 250 mls/hr IV.SIG ONCE ONE Rx#:[id number] Oral 360 / 360 0 / 0 Other: # Voids 2 3 Date of Last Bowel Movement 08/21/18 08/22/18 # Bowel Movements 2 # Incontinent Bowel Movements 0 Weight 84.1 kg Assessment and Plan - Assessment (1) NSTEMI (non-ST elevated myocardial infarction) Code(s): I21.4 - Non-ST elevation (NSTEMI) myocardial infarction Status: Acute (2) CAD (coronary artery disease) Code(s): I25.10 - Atherosclerotic heart disease of [place] coronary artery without angina pectoris Status: Acute (3) A-fib Code(s): I48.91 - Unspecified atrial fibrillation Status: Acute (4) Anemia Code(s): D64.9 - Anemia, unspecified Status: Acute (5) DM (diabetes mellitus) Code(s): E11.9 - Type 2 diabetes mellitus without complications Status: Acute (6) Elevated troponin Code(s): R74.8 - Abnormal levels of other serum enzymes Status: Acute - Plan 1.) Afib - rate controlled, assymptomatic, i strongly advised her to take coumadin or noac due to [id number] score = 5 to lower her risk for life threatening and or debilitating cva, she understands and refuses, her daughter ispresent at the bedside, coumadin or noac could not be started now due to anemia and unstable hgb, continue aspirin 81 mg qd 2.) NSTEMI - suspect secondary to anemia, rec transfuse to hgb > 10, d/w Dr Sin
[2018-08-23] MEDS: ceFAZolin 2 GM Premix Inj 2 GM/100 ML BAG IV.SIG SCH (13:35)
[2018-08-23 13:58] LABS: Anti-Nuclear Antibody Screen Pos (Neg)
[2018-08-23] MEDS: Sodium Chloride 0.9% 2 ML Flush PRN IV.FLUSH (16:38)
--- NOTE | 2018-08-23 17:00 | P.PNNP ---
Subjective Interval history: Left foot pain Physical Exam Vital signs: Vital Signs 08/22/18 20:00 08/22/18 22:15 08/23/18 00:00 Temperature 97.6 F 97.8 F Pulse Rate 74 71 Respiratory Rate 16 20 16 Blood Pressure 163/68 H 122/74 Pulse Oximetry 99 96 08/23/18 04:00 08/23/18 08:00 08/23/18 09:00 Temperature 98.1 F 98.1 F Pulse Rate 79 81 77 Respiratory Rate 16 22 Blood Pressure 161/73 H 125/82 Pulse Oximetry 97 96 08/23/18 12:00 Temperature 98.0 F Pulse Rate 81 Respiratory Rate 22 Blood Pressure 159/67 H Pulse Oximetry 97 Intake & Output 08/22/18 08/23/18 08/23/18 18:59 06:59 18:59 Intake Total 710 / 710 500 / 500 200 / 200 Balance 710 / 710 500 / 500 200 / 200 Weight 84.1 kg Intake: IV 350 / 350 500 / 500 200 / 200 Buminate 5% Inj 250 ML @ 250 500 / 500 mls/hr IV.SIG Q12H [facility] Rx#: [id number] Maxipime Inj 1,000 MG In NS Inj 100 / 100 100 / 100 100 ML @ 200 mls/hr IV.SIG Q24H [facility] Rx#:[id number] Vancomycin Inj 1,000 MG In NS 250 / 250 Inj 250 ML @ 250 mls/hr IV.SIG ONCE ONE Rx#:[id number] Ancef 2 GM Premix Inj 2 gm In 100 / 100 100 ml @ 200 mls/hr IV.SIG Q12H [facility] Rx#:[id number] Oral 360 / 360 0 / 0 Other: # Voids 2 3 Date of Last Bowel Movement 08/21/18 08/22/18 # Bowel Movements 2 # Incontinent Bowel Movements 0 Narrative: awake and alert, oriented x 3, speech clear anicteric no nuchal rigidityl lungs- no rales, decreased breath sounds, no wheezes regular rhythm abdomen soft, nontender LE- left leg/foot + swelling, + mild erythema, good pulses Assessment and Plan - Assessment (1) Dehydration Code(s): E86.0 - Dehydration Status: Acute (2) Bacteremia Code(s): R78.81 - Bacteremia Status: Acute (3) Acute kidney injury superimposed on CKD Code(s): N17.9 - Acute kidney failure, unspecified; N18.9 - Chronic kidney disease, unspecified Status: Acute (4) Acute UTI Code(s): N39.0 - Urinary tract infection, site not specified Status: Acute (5) DM (diabetes mellitus) Code(s): E11.9 - Type 2 diabetes mellitus without complications Status: Acute - Plan Patient is seen baseline creatinine around 1.4 on last admission Creatinine is declining Patient has active UTI and this may be contributing to acute renal failure Patient also is growing gram-positive cocci last time she was treated for staph aureus with Ancef Ultrasound showed medical renal disease. Creatinine improved to 1.4 nephrology to sign off patient is going to have left foot debridement
[2018-08-23] MEDS: Latanoprost 0.005% Opth Drops 2.5 ML Bottle EACH EYE SCH (17:42)
[2018-08-23] MEDS ORDERED: Bupivacaine PF 0.5% Inj 30 ML Vial ONE (20:34)
[2018-08-23] MEDS ORDERED: Phenylephrine/NS 1000 MCG/10ML Syringe IV.PUSH ONE (21:25)
[2018-08-23] MEDS ORDERED: Lidocaine PF 1% Inj 5 ML Syringe OTHER ONE (21:25)
--- NOTE | 2018-08-23 22:23 | P.BOP ---
- Preoperative Diagnosis (1) Abscess of bursa, left ankle and foot - Postoperative Diagnosis (1) Abscess of bursa, left ankle and foot Date of procedure: 08/23/18 Procedure: 1. Incision and drainage left ankle abscess Incision made over medial ankle tense bullous area and copious amount of purulent drainage shot out, approximately 30mL. Culture obtained. Irrigation with 3L normal saline and curettage/rongeur of nonviable tissue. Partial closure with 2-0 nylon, followed by packing with 1/2'' iodoform gauze, 4x4, abd pads, cast padding, jayla. No tourniquet utilized. On scheduled ancef IV Disposition: Weightbearing as tolerated in surgical shoe left foot Ordered daily irrigation /packing per nursing. Dr Leija will evaluate wound to see if any further procedures are necessary vs continuing with daily wound care/packing changes. Follow up at wound care center with Dr Preston, as she has been doing all along, recommended upon discharge. Antibiotics per cultures. Anesthesia: MAC Surgeon: Bryson Blackmon DPM Electro Mechanical Assembler: staff Estimated blood loss (mL): 30 Pathology: other (Culture left ankle) Condition: stable Disposition: PACU
[2018-08-23] MEDS ORDERED: fentaNYL Citrate Inj 100 MCG/2 ML Ampul ONE (22:24)
[2018-08-23] MEDS ORDERED: *morphine SULFATE 4 MG/ML PERIprocedure ONLY ONE ×2 (22:26→22:38)
[2018-08-24] MEDS: ceFAZolin 2 GM Premix Inj 2 GM/100 ML BAG IV.SIG SCH ×2 (03:40→14:32)
[2018-08-24] MEDS: Albumin Human 5% Inj 250 ML IV.SIG SCH ×2 (04:51→18:20)
[2018-08-24] MEDS: Heparin - SQ 10,000 UNITS/ML Vial SQ SCH ×2 (09:34→20:47)
[2018-08-24] MEDS: Isosorbide Mononitrate 60 MG ER 24HR Tablet (Imdur) PO SCH (09:36)
[2018-08-24] MEDS: Senna/Docusate Sodium 8.6/50 MG Tablet PO SCH ×2 (09:36→20:47)
[2018-08-24] MEDS: Metoprolol Tartrate 25 MG Tablet PO SCH ×2 (09:36→20:47)
[2018-08-24] MEDS: Sodium Chloride 0.9% 2 ML Flush BID IV.FLUSH SCH ×2 (09:37→20:47)
[2018-08-24] MEDS: Insulin NovoLOG Aspart Correctional Sugar Inj SQ SCH ×4 (09:37→23:01)
[2018-08-24] MEDS: Timolol 0.25% Drops 5 ML Bottle EACH EYE SCH (09:37)
--- NOTE | 2018-08-24 09:56 | P.PNIM ---
Subjective Interval history: f/u; left ankle abscess in no acute distress. denies pain. no fever. no new complaints. Physical Exam Vital signs: Vital Signs 08/23/18 12:00 08/23/18 16:00 08/23/18 19:14 Temperature 98.0 F 98.5 F 98.7 F Pulse Rate 81 79 86 Respiratory Rate 22 20 16 Blood Pressure 159/67 H 151/63 H 167/70 H Pulse Oximetry 97 96 94 L 08/23/18 19:16 08/23/18 20:00 08/23/18 21:06 Temperature 98.0 F Pulse Rate 99 H 89 Respiratory Rate 14 Blood Pressure 142/67 H Pulse Oximetry 94 L 97 08/23/18 22:15 08/23/18 22:30 08/23/18 22:45 Temperature 97.6 F 97.6 F 97.6 F Pulse Rate 80 73 68 Respiratory Rate 16 14 14 Blood Pressure 150/67 H 143/63 H 138/63 Pulse Oximetry 99 92 L 97 08/23/18 23:40 08/24/18 00:00 08/24/18 04:00 Temperature 97.4 F L 97.3 F L Pulse Rate 70 63 Respiratory Rate 4 L 18 18 Blood Pressure 103/49 L 167/72 H Pulse Oximetry 100 98 08/24/18 08:00 Temperature 97.4 F L Pulse Rate 68 Respiratory Rate 16 Blood Pressure 152/64 H Pulse Oximetry Intake & Output 08/23/18 08/24/18 08/24/18 18:59 06:59 18:59 Intake Total 780 / 780 1040 / 1040 Output Total 30 / 30 Balance 780 / 780 1010 / 1010 Weight 86.4 kg Intake: IV 450 / 450 550 / 550 Ofirmev Inj 1,000 mg In 100 ml 100 / 100 @ 0 mls/hr IV.SIG .STK-MED ONE Rx#:[id number] Buminate 5% Inj 250 ML @ 250 250 / 250 250 / 250 mls/hr IV.SIG Q12H [facility] Rx#: [id number] Maxipime Inj 1,000 MG In NS Inj 100 / 100 100 ML @ 200 mls/hr IV.SIG Q24H [facility] Rx#:[id number] Ancef 2 GM Premix Inj 2 gm In 100 / 100 200 / 200 100 ml @ 200 mls/hr IV.SIG Q12H [facility] Rx#:[id number] Oral 330 / 330 240 / 240 Anesthesia Amount 250 / 250 Output: Estimated Blood Loss 30 / 30 Other: # Voids 3 2 Date of Last Bowel Movement 08/23/18 # Bowel Movements 0 0 - Constitutional no acute distress - Routine Respiratory Exam Present: CTA bilaterally - Routine Cardiovascular Exam Present: RRR - Routine Abdominal Exam Present: soft - Routine Extremities Exam Comments: no pedal edema. - Routine Neurological Exam Present: alert, oriented X3 Results - Labs CBC & Chem 7: 08/23/18 03:44 08/23/18 03:44 Laboratory Results - last 24 hr 08/21/18 08/22/18 08/23/18 17:39 08:45 16:56 POC Glucose 150 H Urine Immunofixation JEWEL Screen Pos H 08/23/18 20:29 POC Glucose 147 H Urine Immunofixation JEWEL Screen Microbiology 08/23/18 22:00 Abscess - Ankle Gram Stain - Final 08/22/18 04:10 Blood - Peripheral Aerobic Blood Culture - Preliminary No growth in 1 day 08/22/18 04:10 Blood - Peripheral Anaerobic Blood Culture - Preliminary No growth in 1 day 08/22/18 04:05 Blood - Peripheral Aerobic Blood Culture - Preliminary No growth in 1 day 08/22/18 04:05 Blood - Peripheral Anaerobic Blood Culture - Preliminary No growth in 1 day 08/19/18 22:40 Blood - Peripheral Aerobic Blood Culture - Preliminary No growth in 4 days 08/19/18 22:40 Blood - Peripheral Anaerobic Blood Culture - Final Staphylococcus aureus 08/19/18 22:45 Blood - Peripheral Aerobic Blood Culture - Final Staphylococcus aureus 08/19/18 22:45 Blood - Peripheral Anaerobic Blood Culture - Final Staphylococcus aureus Assessment and Plan - Assessment (1) Sepsis Code(s): A41.9 - Sepsis, unspecified organism Status: Acute (2) UTI (urinary tract infection) Code(s): N39.0 - Urinary tract infection, site not specified Status: Acute (3) A-fib Code(s): I48.91 - Unspecified atrial fibrillation Status: Acute (4) Elevated troponin Code(s): R74.8 - Abnormal levels of other serum enzymes Status: Acute (5) Anemia Code(s): D64.9 - Anemia, unspecified Status: Acute (6) Foot pain Code(s): M79.673 - Pain in unspecified foot Status: Acute (7) DM (diabetes mellitus) Code(s): E11.9 - Type 2 diabetes mellitus without complications Status: Acute - Plan bacteremia with staph aureus ( MSSA) Klebsiella UTI Left foot cellulitis with marked soft tissue swelling-with possible abscess formation. [facility] Joint flare - MRI- [facility] -s/p I/D of the left ankle abscess 08/23 - on Ancef now. -podiatry following and ID following. - S/P IV antiibotic course x 6 weeks with IV ancef 07/17- for S infectious A-fib: recent dx of A-fib on last admit 07/06/18, - NSR on exam now History of CHF- diatolic dysfunction Elevated Trop: - [place], BNP- give x 1 IV Lasix - heplock IVF - currently on Metoprolol 12.5mg bid and ASA, declined Coumadin therapy in the past despite recommendations. Trop 0.38, no c/o chest pain or SOB. Admit to [facility], telemetry, check serial cardiac enzymes for trend. - Dr. Gamez,ff ASA, Statin, Metoprolol. \ Acute on top of chronic kidney injury -bialterally small kidneys - renal function stable. - Nephrology consulted and signed off. Anemia: Hgb 8.8, previously 11.7 on 07/09/18, no evidence of bleeding, Type & Screen, check repeat Hgb/Hct, transfuse as needed. Iron studies suggestive of chronic disease - s/p PRBC transfusion. DM: Sliding scale w/ Accu-Cheks - ff blood sugars. - started on NPH -A1c 7.8. DVT Prophylaxis: Heparin PT eval and treat Discharge Planning: when cleared by ID and podiatry- pending cultures.
--- NOTE | 2018-08-24 11:50 | P.PNCA ---
Subjective Interval history: alert in nad, feels better after i and d Medications and Allergies Active Medications: Active Medications Acetaminophen (Tylenol) 650 mg PO Q4H PRN PRN Reason: Temp > 100.4/pain Last Admin: 08/22/18 20:36 Dose: 650 mg Al Hydroxide/Mg Hydroxide (Milk Of Magnesia Liq) 30 ml PO Q12H PRN PRN Reason: Mild Constipation Aspirin (Ecotrin) 81 mg PO DAILY [facility] Last Admin: 08/24/18 09:35 Dose: 81 mg Atorvastatin Calcium (Lipitor) 20 mg PO DAILY [facility] Last Admin: 08/24/18 09:35 Dose: 20 mg Bisacodyl (Dulcolax Supp) 10 mg RECTAL DAILY PRN PRN Reason: SEVERE CONSITIPATION Dextrose (D50w Vial) 50 ml IV.PUSH UNSCH PRN PRN Reason: PER HYPOGLYCEMIA PROTOCOL Glucagon (Glucagon Inj) 1 mg OTHER PRN PRN PRN Reason: for Hypoglycemia Protocol Heparin Sodium (Porcine) (Heparin Inj) 5,000 units SQ Q12HR [facility] Last Admin: 08/24/18 09:34 Dose: 5,000 units Albumin Human (Buminate 5% Inj) 250 mls @ 250 mls/hr IV.SIG Q12H [facility] Last Infusion: 08/24/18 05:55 Dose: Infused Cefazolin/Sodium Chloride (Ancef 2 Gm Premix Inj) 2 gm in 100 mls @ 200 mls/hr IV.SIG Q12H [facility] Last Infusion: 08/24/18 04:57 Dose: Infused Insulin Aspart (Novolog Insulin Correctional Sugar Inj) 0 unit SQ ACHS [facility]; Protocol Last Admin: 08/24/18 09:37 Dose: Not Given Insulin Human NPH (Novolin N Inj) 15 units SQ BID@0800,1700 [facility] Last Admin: 08/24/18 09:33 Dose: 15 units Isosorbide Mononitrate (Imdur) 60 mg PO DAILY [facility] Last Admin: 08/24/18 09:36 Dose: 60 mg Lactulose (Lactulose Liq) 30 ml PO DAILY PRN PRN Reason: SEVERE CONSITIPATION Latanoprost (Xalatan 0.005% Opth Drops) 1 drop EACH EYE QPM [facility] Last Admin: 08/23/18 17:42 Dose: 1 drop Metoprolol Tartrate (Lopressor) 12.5 mg PO BID [facility] Last Admin: 08/24/18 09:36 Dose: 12.5 mg Miscellaneous Information ([facility]) 1 each OTHER UNSCH PRN PRN Reason: SEE LABEL COMMENTS Stop: 08/24/18 22:53 Ondansetron HCl (Zofran Inj) 4 mg IV.PUSH Q6H PRN PRN Reason: NAUSEA OR VOMITING Senna/Docusate Sodium (Catia-Colace) 1 tab PO BID [facility] Last Admin: 08/24/18 09:36 Dose: Not Given Sennosides (Senokot) 17.2 mg PO Q12H PRN PRN Reason: Moderate Constipation Sodium Chloride (Ns Flush) 2 ml IV.FLUSH BID [facility] Last Admin: 08/24/18 09:37 Dose: 2 ml Sodium Chloride (Ns Flush) 2 ml IV.FLUSH PRN PRN PRN Reason: FLUSH AFTER USING IV ACCESS Last Admin: 08/23/18 16:38 Dose: 2 ml Timolol Maleate (Timolol 0.25% Drops) 1 drops EACH EYE DAILY [facility] Last Admin: 08/24/18 09:37 Dose: 1 drops Allergies Allergy/AdvReac Type Severity Reaction Status Date / Time kaye Allergy Unknown RASH Verified 08/19/18 22:29 lisinopril Allergy Cough Verified 08/19/18 22:30 niacin [From Simcor] Allergy Edema Verified 08/19/18 22:29 simvastatin [From Simcor] Allergy Edema Verified 08/19/18 22:29 Home Medications Medication Instructions Recorded Confirmed Type alpha lipoic acid 600 mg PO HS PRN 07/01/18 08/19/18 History ascorbic acid (vitamin C) [Vitamin 1,000 mg PO DAILY 07/01/18 08/19/18 History C] aspirin 81 mg PO DAILY 07/01/18 08/19/18 History atorvastatin 20 mg PO DAILY 07/01/18 08/19/18 History calcium carbonate [Tums] 1 tab PO Q4-6H PRN 07/01/18 08/19/18 History cetirizine [Zyrtec] 10 mg PO DAILY PRN 07/01/18 08/19/18 History ergocalciferol (vitamin D2) 50,000 unit PO QWEEK 07/01/18 08/19/18 History [Vitamin D2] estradiol 1 mg PO DAILY 07/01/18 08/19/18 History ferrous sulfate 325 mg PO DAILY 07/01/18 08/19/18 History insulin NPH isoph U-100 human 20 unit SUB-Q QPM 07/01/18 08/19/18 History [Novolin N NPH U-100 Insulin] insulin NPH isoph U-100 human 30 unit SUB-Q QAM 07/01/18 08/19/18 History [Novolin N NPH U-100 Insulin] isosorbide mononitrate 60 mg PO QAM 07/01/18 08/19/18 History latanoprost [Xalatan] 1 drp EACH EYE QPM 07/01/18 08/19/18 History levothyroxine 75 mcg PO DAILY 07/01/18 08/19/18 History [id number] acid-lutein [Centrum 1 tab PO DAILY 07/01/18 08/19/18 History Silver] timolol maleate [Timoptic] 1 drp OPHTHALMIC (EYE) QAM 07/01/18 08/19/18 History vitamin A 8,000 unit PO DAILY 07/01/18 08/19/18 History furosemide 20 mg PO DAILY 08/19/18 08/19/18 History hydrochlorothiazide 50 mg PO QAM 08/19/18 08/19/18 History Physical Exam Vital signs: Vital Signs 08/23/18 12:00 08/23/18 16:00 08/23/18 19:14 Temperature 98.0 F 98.5 F 98.7 F Pulse Rate 81 79 86 Respiratory Rate 22 20 16 Blood Pressure 159/67 H 151/63 H 167/70 H Pulse Oximetry 97 96 94 L 08/23/18 19:16 08/23/18 20:00 08/23/18 21:06 Temperature 98.0 F Pulse Rate 99 H 89 Respiratory Rate 14 Blood Pressure 142/67 H Pulse Oximetry 94 L 97 08/23/18 22:15 08/23/18 22:30 08/23/18 22:45 Temperature 97.6 F 97.6 F 97.6 F Pulse Rate 80 73 68 Respiratory Rate 16 14 14 Blood Pressure 150/67 H 143/63 H 138/63 Pulse Oximetry 99 92 L 97 08/23/18 23:40 08/24/18 00:00 08/24/18 04:00 Temperature 97.4 F L 97.3 F L Pulse Rate 70 63 Respiratory Rate 4 L 18 18 Blood Pressure 103/49 L 167/72 H Pulse Oximetry 100 98 08/24/18 08:00 Temperature 97.4 F L Pulse Rate 68 Respiratory Rate 16 Blood Pressure 152/64 H Pulse Oximetry Intake & Output 08/23/18 08/24/18 08/24/18 18:59 06:59 18:59 Intake Total 780 / 780 1040 / 1040 Output Total 30 / 30 Balance 780 / 780 1010 / 1010 Weight 86.4 kg Intake: IV 450 / 450 550 / 550 Ofirmev Inj 1,000 mg In 100 ml 100 / 100 @ 0 mls/hr IV.SIG .STK-MED ONE Rx#:[id number] Buminate 5% Inj 250 ML @ 250 250 / 250 250 / 250 mls/hr IV.SIG Q12H [facility] Rx#: [id number] Maxipime Inj 1,000 MG In NS Inj 100 / 100 100 ML @ 200 mls/hr IV.SIG Q24H [facility] Rx#:[id number] Ancef 2 GM Premix Inj 2 gm In 100 / 100 200 / 200 100 ml @ 200 mls/hr IV.SIG Q12H [facility] Rx#:[id number] Oral 330 / 330 240 / 240 Anesthesia Amount 250 / 250 Output: Estimated Blood Loss 30 Other: # Voids 3 2 Date of Last Bowel Movement 08/23/18 # Bowel Movements 0 0 Results 08/23/18 03:44 08/23/18 03:44 CBC 08/23/18 Range/Units 03:44 WBC 10.4 (4.0-11.0) th/mm3 RBC 3.03 L (4.00-5.30) mil/mm3 Hgb 8.8 L (11.6-15.3) gm/dL Hct 26.7 L (35.0-46.0) % Plt Count 393 (150-450) th/mm3 Neut # (Auto) 8.3 H (1.8-7.7) th/mm3 Lymph # (Auto) 0.9 L (1.0-4.8) th/mm3 [place] # (Auto) 0.5 (0.0-0.9) th/mm3 Eos # (Auto) 0.6 H (0.0-0.4) th/mm3 Baso # (Auto) 0.1 (0.0-0.2) th/mm3 Comprehensive Metabolic Panel 08/23/18 Range/Units 03:44 Sodium 135 L (136-145) meq/L Potassium 3.8 (3.5-5.1) meq/L Chloride 102 (98-107) meq/L Carbon Dioxide 24.8 (21.0-32.0) meq/L BUN 44 H (7-18) mg/dL Creatinine 1.41 H (0.50-1.00) mg/dL Calcium 8.6 (8.5-10.1) mg/dL Intake and Output 08/23/18 08/24/18 08/24/18 22:59 06:59 14:59 Intake Total 930 / 930 690 / 690 Output Total / 30 Balance 900 / 900 690 / 690 Intake: IV 350 / 350 450 / 450 Ofirmev Inj 1,000 mg In 100 ml 100 / 100 @ 0 mls/hr IV.SIG .STK-MED ONE Rx#:[id number] Buminate 5% Inj 250 ML @ 250 250 / 250 250 / 250 mls/hr IV.SIG Q12H [facility] Rx#: [id number] Ancef 2 GM Premix Inj 2 gm In 200 / 200 100 ml @ 200 mls/hr IV.SIG Q12H [facility] Rx#:[id number] Oral 330 / 330 240 / 240 Anesthesia Amount 250 / 250 Output: Estimated Blood Loss Other: # Voids 3 2 Date of Last Bowel Movement 08/23/18 # Bowel Movements 0 0 Weight 86.4 kg Assessment and Plan - Assessment (1) NSTEMI (non-ST elevated myocardial infarction) Code(s): I21.4 - Non-ST elevation (NSTEMI) myocardial infarction Status: Acute (2) CAD (coronary artery disease) Code(s): I25.10 - Atherosclerotic heart disease of [place] coronary artery without angina pectoris Status: Acute (3) A-fib Code(s): I48.91 - Unspecified atrial fibrillation Status: Acute (4) Anemia Code(s): D64.9 - Anemia, unspecified Status: Acute (5) DM (diabetes mellitus) Code(s): E11.9 - Type 2 diabetes mellitus without complications Status: Acute (6) Elevated troponin Code(s): R74.8 - Abnormal levels of other serum enzymes Status: Acute - Plan 1.) Afib - rate controlled, assymptomatic, i strongly advised her to take coumadin or noac due to [id number] score = 5 to lower her risk for life threatening and or debilitating cva, she understands and refuses, her daughter ispresent at the bedside, coumadin or noac could not be started now due to anemia and unstable hgb, continue aspirin 81 mg qd 2.) NSTEMI - suspect secondary to anemia, rec transfuse to hgb > 10, d/w Dr Sin 3.) POD # 1 - clinically improved, assymptomatic
--- NOTE | 2018-08-24 13:16 | P.PNID ---
Subjective Remarks: Patient says she feels okay. Status post aspiration of left ankle. Cultures sent. No pain currently. Afebrile. Repeat blood cultures has no growth. This is an 88-year-old white female who was recently hospitalized and treated for sepsis due to Staphylococcus aureus. The patient was treated with IV antibiotics up until 07/17/2018. She was given antibiotics for 2 weeks. Her cultures were negative prior to discharge from the hospital. The patient developed an episode of fever and chills about a week ago. She states that after that she felt a little better throughout the week, though she felt lousy. The fever did not come back. She saw her project account manager 7 days ago and a boot was placed on the left leg because of Charcot deformity. After 2 days, she complained of tightness of the boot and the nurse called the project account manager and the boot was removed and the leg was wrapped with Jose C bandage. After another couple of days, the patient complained of tightness of the bandage and at that time she also started developing chills and she also had an episode of fever and she presented to the emergency department on 08/19/2018. Past Medical History: PAST MEDICAL HISTORY: Charcot foot, diabetes mellitus, gastroesophageal reflux disease, pelvic and femur fractures, hypercholesterolemia, hypothyroidism, hypertension, myocardial infarction, history of coronary stent, history of colon cancer. Allergies/Adverse Reactions: Allergies kaye Allergy (Unknown, Verified 08/19/18 22:29) RASH lisinopril Allergy (Verified 08/19/18 22:30) Cough niacin [From Simcor] Allergy (Verified 08/19/18 22:29) Edema simvastatin [From Simcor] Allergy (Verified 08/19/18 22:29) Edema Objective Vital Signs 08/23/18 16:00 08/23/18 19:14 08/23/18 19:16 Temperature 98.5 F 98.7 F Pulse Rate 79 86 Respiratory Rate 20 16 Blood Pressure 151/63 H 167/70 H Pulse Oximetry 96 94 L 94 L 08/23/18 20:00 08/23/18 21:06 08/23/18 22:15 Temperature 98.0 F 97.6 F Pulse Rate 99 H 89 80 Respiratory Rate 14 16 Blood Pressure 142/67 H 150/67 H Pulse Oximetry 97 99 08/23/18 22:30 08/23/18 22:45 08/23/18 23:40 Temperature 97.6 F 97.6 F Pulse Rate 73 68 Respiratory Rate 14 14 4 L Blood Pressure 143/63 H 138/63 Pulse Oximetry 92 L 97 08/24/18 00:00 08/24/18 04:00 08/24/18 08:00 Temperature 97.4 F L 97.3 F L 97.4 F L Pulse Rate 70 63 68 Respiratory Rate 18 18 16 Blood Pressure 103/49 L 167/72 H 152/64 H Pulse Oximetry 100 98 08/24/18 12:00 Temperature 98.5 F Pulse Rate 67 Respiratory Rate 17 Blood Pressure 143/75 H Pulse Oximetry 99 Intake & Output 08/23/18 08/24/18 08/24/18 18:59 06:59 18:59 Intake Total 780 / 780 1040 / 1040 Output Total 30 / 30 Balance 780 / 780 1010 / 1010 Weight 86.4 kg Intake: IV 450 / 450 550 / 550 Ofirmev Inj 1,000 mg In 100 ml 100 / 100 @ 0 mls/hr IV.SIG .STK-MED ONE Rx#:[id number] Buminate 5% Inj 250 ML @ 250 250 / 250 250 / 250 mls/hr IV.SIG Q12H [facility] Rx#: [id number] Maxipime Inj 1,000 MG In NS Inj 100 / 100 100 ML @ 200 mls/hr IV.SIG Q24H [facility] Rx#:[id number] Ancef 2 GM Premix Inj 2 gm In 100 / 100 200 / 200 100 ml @ 200 mls/hr IV.SIG Q12H [facility] Rx#:[id number] Oral 330 / 330 240 / 240 Anesthesia Amount 250 / 250 Output: Estimated Blood Loss 30 / 30 Other: # Voids 3 2 Date of Last Bowel Movement 08/23/18 # Bowel Movements 0 0 08/22/18 04:10 Blood - Peripheral Aerobic Blood Culture - Preliminary No growth in 2 days 08/22/18 04:10 Blood - Peripheral Anaerobic Blood Culture - Preliminary No growth in 2 days 08/22/18 04:05 Blood - Peripheral Aerobic Blood Culture - Preliminary No growth in 2 days 08/22/18 04:05 Blood - Peripheral Anaerobic Blood Culture - Preliminary No growth in 2 days 08/19/18 22:40 Blood - Peripheral Aerobic Blood Culture - Final No growth in 5 days 08/19/18 22:40 Blood - Peripheral Anaerobic Blood Culture - Final Staphylococcus aureus 08/23/18 22:00 Abscess - Ankle Gram Stain - Final 08/23/18 22:00 Abscess - Ankle Wound Culture - Pending 08/23/18 22:00 Abscess - Ankle Fungal Smear - Pending 08/23/18 22:00 Abscess - Ankle Fungal Culture - Pending 08/23/18 22:00 Abscess - Ankle Acid Fast Bacilli Smear - Pending 08/23/18 22:00 Abscess - Ankle Mycobacterial Culture - Pending 08/19/18 22:45 Blood - Peripheral Aerobic Blood Culture - Final Staphylococcus aureus 08/19/18 22:45 Blood - Peripheral Anaerobic Blood Culture - Final Staphylococcus aureus 08/19/18 22:50 Clean Catch Urine Urine Culture - Final Klebsiella pneumoniae Lab - Hematology Results 08/23/18 03:44 WBC 10.4 RBC 3.03 L Hgb 8.8 L Hct 26.7 L MCV 87.8 MCH 29.1 MCHC 33.1 RDW 15.4 Plt Count 393 MPV 7.9 Neut % (Auto) 79.7 H Lymph % (Auto) 8.9 L [place] % (Auto) 5.1 Eos % (Auto) 5.4 H Baso % (Auto) 0.9 Neut # (Auto) 8.3 H Lymph # (Auto) 0.9 L [place] # (Auto) 0.5 Eos # (Auto) 0.6 H Baso # (Auto) 0.1 WBC Differential . Differential Comment Auto diff final Lab - Chemistry Results 08/22/18 08/22/18 08/23/18 04:05 20:15 03:44 Sodium 135 L Potassium 3.8 Chloride 102 Carbon Dioxide 24.8 Anion Gap 8 BUN 44 H Creatinine 1.41 H Estimated GFR 35 L POC Glucose 260 H Random Glucose 135 H D Hemoglobin A1c 7.8 H Calcium 8.6 08/23/18 08/23/18 08/24/18 16:56 20:29 11:24 Sodium Potassium Chloride Carbon Dioxide Anion Gap BUN Creatinine Estimated GFR POC Glucose 150 H 147 H 210 H Random Glucose Hemoglobin A1c Calcium Imaging: ITS Impressions Chest X-Ray 08/19/18 22:06 CONCLUSION: No acute cardiopulmonary disease. Abdomen/Bladder Ultrasound 08/20/18 00:00 CONCLUSION: 1. Possible medical renal disease without hydronephrosis. Ankle MRI 08/20/18 00:00 CONCLUSION: 1. Enlargement of previously seen lobulated synovial cyst anterior to the Achilles tendon. 2. Significant worsening of marrow edema in the bony structures particularly the medial lateral malleoli, distal tibia most of the talus since the prior exam. The extent of involvement would be somewhat unusual for osteomyelitis, however this possibility is not excluded and possibility of extensive Charcot's phenomenon should be entertained. 3. 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 Ankle X-Ray 08/20/18 00:00 CONCLUSION: Prominent soft tissue swelling at the ankle as before. No acute fractures. Foot X-Ray 08/20/18 00:00 CONCLUSION: Chronic arthropathy and dislocations at the tarsometatarsal articulations. Soft tissue swelling is again seen. Venous Doppler Study 08/20/18 00:00 CONCLUSION: 1. No DVT and there are nonspecific lymph nodes within the left groin should be correlated clinically. Pulmonary Perfusion Imaging 08/20/18 01:52 CONCLUSION: Low probability study for pulmonary embolus. Physical Exam: PHYSICAL EXAMINATION: GENERAL: This is a well-developed female who is in no acute distress. She is awake. She is alert and oriented. HEENT: The head is atraumatic. Extraocular muscles grossly intact. Pupils reactive to light without icterus. Oropharynx: Moist mucosa. No lesions. NECK: Supple without adenopathy. LUNGS: Clear breath sounds. HEART: Regular S1 and S2 without murmurs, rubs or gallops. ABDOMEN: Bowel sounds present. Soft, no tenderness. EXTREMITIES: No clubbing, cyanosis. Charcot deformity of the feet. Erythema has decreased at left ankle. Dressing in place. SKIN: No rash. NEUROLOGIC: No gross focal finding. PSYCHIATRIC: Calm and cooperative. Assessment and Plan - Plan IMPRESSION: 1. Staphylococcus aureus bacteremia, recurrent. Originating from the Charcot's left foot. Now with abscess formation at the inner left ankle and now with cellulitis of the left ankle and distal left tibia. 2. Abscess of the left ankle. 3. Cellulitis of the left ankle. 4. Urinary tract infection due to Klebsiella. The patient also getting recurrent urinary tract infection, but the previous urinary tract infection was due to Escherichia coli and now she has Klebsiella pneumoniae and her urinary antigen for strep pneumonia is also positive. 3. Chronic kidney disease. RECOMMENDATIONS: 1. Continue Ancef. 2. Repeat UA. 3. Monitor wound culture. Patient will need IV antibiotics for 3 - 4 weeks.
--- NOTE | 2018-08-24 14:13 | P.PNPOD ---
Subjective Interval history: s/p left ankle wound debridement and I&D with 08/23. Pt denies any n /v/f/h/c/sob/pain. Physical Exam Vital signs: Vital Signs 08/23/18 16:00 08/23/18 19:14 08/23/18 19:16 Temperature 98.5 F 98.7 F Pulse Rate 79 86 Respiratory Rate 20 16 Blood Pressure 151/63 H 167/70 H Pulse Oximetry 96 94 L 94 L 08/23/18 20:00 08/23/18 21:06 08/23/18 22:15 Temperature 98.0 F 97.6 F Pulse Rate 99 H 89 80 Respiratory Rate 14 16 Blood Pressure 142/67 H 150/67 H Pulse Oximetry 97 99 08/23/18 22:30 08/23/18 22:45 08/23/18 23:40 Temperature 97.6 F 97.6 F Pulse Rate 73 68 Respiratory Rate 14 14 4 L Blood Pressure 143/63 H 138/63 Pulse Oximetry 92 L 97 08/24/18 00:00 08/24/18 04:00 08/24/18 08:00 Temperature 97.4 F L 97.3 F L 97.4 F L Pulse Rate 70 63 68 Respiratory Rate 18 18 16 Blood Pressure 103/49 L 167/72 H 152/64 H Pulse Oximetry 100 98 08/24/18 12:00 Temperature 98.5 F Pulse Rate 67 Respiratory Rate 17 Blood Pressure 143/75 H Pulse Oximetry 99 Intake & Output 08/23/18 08/24/18 08/24/18 18:59 06:59 18:59 Intake Total 780 / 780 1040 / 1040 Output Total 30 / 30 Balance 780 / 780 1010 / 1010 Weight 86.4 kg Intake: IV 450 / 450 550 / 550 Ofirmev Inj 1,000 mg In 100 ml 100 / 100 @ 0 mls/hr IV.SIG .STK-MED ONE Rx#:[id number] Buminate 5% Inj 250 ML @ 250 250 / 250 250 / 250 mls/hr IV.SIG Q12H [facility] Rx#: [id number] Maxipime Inj 1,000 MG In NS Inj 100 / 100 100 ML @ 200 mls/hr IV.SIG Q24H [facility] Rx#:[id number] Ancef 2 GM Premix Inj 2 gm In 100 / 100 200 / 200 100 ml @ 200 mls/hr IV.SIG Q12H [facility] Rx#:[id number] Oral 330 / 330 240 / 240 Anesthesia Amount 250 / 250 Output: Estimated Blood Loss 30 / 30 Other: # Voids 3 2 Date of Last Bowel Movement 08/23/18 # Bowel Movements 0 0 Narrative: Left ankle with some residual redness but no warmth or streaking. Sutures intact to medial ankle, packing showing moderate serosanginous drainage, no purulence. Medications and Allergies Active Medications: Active Medications Acetaminophen (Tylenol) 650 mg PO Q4H PRN PRN Reason: Temp > 100.4/pain Last Admin: 08/22/18 20:36 Dose: 650 mg Al Hydroxide/Mg Hydroxide (Milk Of Silvia Limikey) 30 ml PO Q12H PRN PRN Reason: Mild Constipation Aspirin (Ecotrin) 81 mg PO DAILY [facility] Last Admin: 08/24/18 09:35 Dose: 81 mg Atorvastatin Calcium (Lipitor) 20 mg PO DAILY [facility] Last Admin: 08/24/18 09:35 Dose: 20 mg Bisacodyl (Dulcolax Supp) 10 mg RECTAL DAILY PRN PRN Reason: SEVERE CONSITIPATION Dextrose (D50w Vial) 50 ml IV.PUSH UNSCH PRN PRN Reason: PER HYPOGLYCEMIA PROTOCOL Glucagon (Glucagon Inj) 1 mg OTHER PRN PRN PRN Reason: for Hypoglycemia Protocol Heparin Sodium (Porcine) (Heparin Inj) 5,000 units SQ Q12HR [facility] Last Admin: 08/24/18 09:34 Dose: 5,000 units Albumin Human (Buminate 5% Inj) 250 mls @ 250 mls/hr IV.SIG Q12H [facility] Last Infusion: 08/24/18 05:55 Dose: Infused Cefazolin/Sodium Chloride (Ancef 2 Gm Premix Inj) 2 gm in 100 mls @ 200 mls/hr IV.SIG Q12H [facility] Last Infusion: 08/24/18 04:57 Dose: Infused Insulin Aspart (Novolog Insulin Correctional Sugar Inj) 0 unit SQ ACHS [facility]; Protocol Last Admin: 08/24/18 11:55 Dose: 3 unit Insulin Human NPH (Novolin N Inj) 15 units SQ BID@0800,1700 [facility] Last Admin: 08/24/18 09:33 Dose: 15 units Isosorbide Mononitrate (Imdur) 60 mg PO DAILY [facility] Last Admin: 08/24/18 09:36 Dose: 60 mg Lactulose (Lactulose Liq) 30 ml PO DAILY PRN PRN Reason: SEVERE CONSITIPATION Latanoprost (Xalatan 0.005% Opth Drops) 1 drop EACH EYE QPM [facility] Last Admin: 08/23/18 17:42 Dose: 1 drop Metoprolol Tartrate (Lopressor) 12.5 mg PO BID [facility] Last Admin: 08/24/18 09:36 Dose: 12.5 mg Miscellaneous Information ([facility] Nursing Information) 1 each OTHER UNSCH PRN PRN Reason: SEE LABEL COMMENTS Stop: 08/24/18 22:53 Ondansetron HCl (Zofran Inj) 4 mg IV.PUSH Q6H PRN PRN Reason: NAUSEA OR VOMITING Senna/Docusate Sodium (Catia-Colace) 1 tab PO BID [facility] Last Admin: 08/24/18 09:36 Dose: Not Given Sennosides (Senokot) 17.2 mg PO Q12H PRN PRN Reason: Moderate Constipation Sodium Chloride (Ns Flush) 2 ml IV.FLUSH BID [facility] Last Admin: 08/24/18 09:37 Dose: 2 ml Sodium Chloride (Ns Flush) 2 ml IV.FLUSH PRN PRN PRN Reason: FLUSH AFTER USING IV ACCESS Last Admin: 08/23/18 16:38 Dose: 2 ml Timolol Maleate (Timolol 0.25% Drops) 1 drops EACH EYE DAILY [facility] Last Admin: 08/24/18 09:37 Dose: 1 drops Allergies Allergy/AdvReac Type Severity Reaction Status Date / Time kaye Allergy Unknown RASH Verified 08/19/18 22:29 lisinopril Allergy Cough Verified 08/19/18 22:30 niacin [From Simcor] Allergy Edema Verified 08/19/18 22:29 simvastatin [From Simcor] Allergy Edema Verified 08/19/18 22:29 Home Medications Medication Instructions Recorded Confirmed Type alpha lipoic acid 600 mg PO HS PRN 07/01/18 08/19/18 History ascorbic acid (vitamin C) [Vitamin 1,000 mg PO DAILY 07/01/18 08/19/18 History C] aspirin 81 mg PO DAILY 07/01/18 08/19/18 History atorvastatin 20 mg PO DAILY 07/01/18 08/19/18 History calcium carbonate [Tums] 1 tab PO Q4-6H PRN 07/01/18 08/19/18 History cetirizine [Zyrtec] 10 mg PO DAILY PRN 07/01/18 08/19/18 History ergocalciferol (vitamin D2) 50,000 unit PO QWEEK 07/01/18 08/19/18 History [Vitamin D2] estradiol 1 mg PO DAILY 07/01/18 08/19/18 History ferrous sulfate 325 mg PO DAILY 07/01/18 08/19/18 History insulin NPH isoph U-100 human 20 unit SUB-Q QPM 07/01/18 08/19/18 History [Novolin N NPH U-100 Insulin] insulin NPH isoph U-100 human 30 unit SUB-Q QAM 07/01/18 08/19/18 History [Novolin N NPH U-100 Insulin] isosorbide mononitrate 60 mg PO QAM 07/01/18 08/19/18 History latanoprost [Xalatan] 1 drp EACH EYE QPM 07/01/18 08/19/18 History levothyroxine 75 mcg PO DAILY 07/01/18 08/19/18 History [id number] acid-lutein [Centrum 1 tab PO DAILY 07/01/18 08/19/18 History Silver] timolol maleate [Timoptic] 1 drp OPHTHALMIC (EYE) QAM 07/01/18 08/19/18 History vitamin A 8,000 unit PO DAILY 07/01/18 08/19/18 History furosemide 20 mg PO DAILY 08/19/18 08/19/18 History hydrochlorothiazide 50 mg PO QAM 08/19/18 08/19/18 History Results - Labs CBC & Chem 7: 08/23/18 03:44 08/23/18 03:44 Laboratory Results - last 24 hr 08/23/18 08/23/18 08/24/18 16:56 20:29 11:24 POC Glucose 150 H 147 H 210 H Microbiology 08/22/18 04:10 Blood - Peripheral Aerobic Blood Culture - Preliminary No growth in 2 days 08/22/18 04:10 Blood - Peripheral Anaerobic Blood Culture - Preliminary No growth in 2 days 08/22/18 04:05 Blood - Peripheral Aerobic Blood Culture - Preliminary No growth in 2 days 08/22/18 04:05 Blood - Peripheral Anaerobic Blood Culture - Preliminary No growth in 2 days 08/19/18 22:40 Blood - Peripheral Aerobic Blood Culture - Final No growth in 5 days 08/19/18 22:40 Blood - Peripheral Anaerobic Blood Culture - Final Staphylococcus aureus 08/23/18 22:00 Abscess - Ankle Gram Stain - Final Assessment and Plan - Assessment (1) 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 Code(s): E11.610 - Type 2 diabetes mellitus with diabetic neuropathic arthropathy Status: Acute (2) Abscess of bursa, left ankle and foot Code(s): M71.072 - Abscess of bursa, left ankle and foot Status: Acute - Plan -cont daily packing and dressing changes, will need HHC set up before d/c -agree with ID plan for 2-3 weeks iv abx -Keep WBing minimal, resume CAM boot when swelling decreases -Pt sees , but indicates that she has difficulty scheduling appointments with him due to her schedule, she was advised she is welcome to f/ u with at d/c if it is easier for her -Elevate leg while at rest -Likely d/c in 2-3 days when all outpt arrangements are made
[2018-08-24] MEDS: Latanoprost 0.005% Opth Drops 2.5 ML Bottle EACH EYE SCH (18:29)
[2018-08-24 19:32] LABS: Bacteria,Urine Occasional /hpf; Bilirubin,Urine Negative (Negative); Clarity,Urine Cloudy (Clear); Color,Urine Yellow (Yellw/Straw); Glucose,Urine (UA) Negative (Negative); Leukocyte Esterase,Urine Large (Negative); Nitrite,Urine Negative (Negative); Specific Gravity,Urine 1.023 (1.002-1.035); Squamous Epithelial Cell,Urine 11 /hpf (0-5)
[2018-08-25] MEDS: ceFAZolin 2 GM Premix Inj 2 GM/100 ML BAG IV.SIG SCH ×2 (02:15→15:52)
[2018-08-25] MEDS: Sodium Chloride 0.9% 2 ML Flush PRN IV.FLUSH (02:15)
[2018-08-25] MEDS: Albumin Human 5% Inj 250 ML IV.SIG SCH ×2 (06:27→17:00)
--- NOTE | 2018-08-25 08:03 | MP ---
cc: Bryson Blackmon DPM DATE OF OPERATION: 08/23/2018 INDICATIONS: The patient presented to the hospital with erythema to the left lower leg. Over the period of 4-5 days an eruption of an abscess to the medial aspect of the left ankle was noted by infectious diseases and the patient's symptoms were worsening. On MRI, it was read as being a cyst to the Achilles tendon area just anterior to that area. However, with the clinical signs of erythema, fluctuance, and patient deteriorating condition, I discussed with the patient since she had a history of having an abscess in that spot before that we undergo incision and drainage of left ankle abscess. She agreed to move forward with surgery after risks, benefits, and potential complications were explained. DETAILS OF PROCEDURE: The patient was seen in preop holding by myself, nursing staff, and anesthesia, where the correct patient, side, and site were all confirmed to be correct on the left ankle. She was then taken to the surgical suite in supine position. The left foot was prepped and draped in normal sterile fashion. Following timeout as per facility protocol, attention was directed to the medial aspect of the left ankle where an incision approximately 3 cm was made over the fluctuant bullous area. When incision was made, copious amounts of purulent drainage literally shot out of the area and was approximately 30 mL in volume. A culture was obtained of this drainage, followed by copious irrigation with 3 liters of normal saline. Curettage and rongeur of nonviable tissue and partial closure with 2-0 nylon, followed by packing with half-inch iodoform gauze. Dressing with 4 x 4's, ABD pads, cast padding, and Jose C was applied to the left lower extremity. The patient tolerated the procedure and anesthesia well without complications and will be weightbearing as tolerated left lower extremity and may undergo surgery again pending tissue viability. SURGEON: Bryson Blackmon DPM. MEDICAL NUMERICAL CONTROL OPERATOR: Staff. PREOPERATIVE DIAGNOSIS: Abscess, left ankle. POSTOPERATIVE DIAGNOSIS: Abscess, left ankle. PROCEDURE PERFORMED: Incision and drainage of left ankle abscess. ANESTHESIA: MAC. HEMOSTASIS: No tourniquet utilized. ESTIMATED BLOOD LOSS: 30 mL. PATHOLOGY: Culture, left ankle. COMPLICATIONS: None. CONDITION: Stable to PACU. DISPOSITION: Weightbearing as tolerated, surgical shoe, left foot. Daily irrigation and packing per nursing and we will continue to monitor tissue for viability. YAN Mcmillan , 05:08 AM , 05:15 AM
[2018-08-25 08:11] LABS: Baso # (Auto) 0.1 th/mm3 (0.0-0.2); Baso % (Auto) 1.3 % (0.0-2.0); Eos # (Auto) 0.4 th/mm3 (0.0-0.4); Eos % (Auto) 4.5 % (0.0-4.0); Hematocrit 25.7 % (35.0-46.0); Hemoglobin 8.3 gm/dL (11.6-15.3); Lymph # (Auto) 0.9 th/mm3 (1.0-4.8); Lymph % (Auto) 11.1 % (9.0-44.0); Mean Corpuscular HGB Conc 32.3 % (32.0-36.0); Mean Corpuscular Hemoglobin 28.8 pg (27.0-34.0); Mean Corpuscular Volume 89.2 fL (80.0-100.0); Mean Platelet Volume 8.3 fL (7.0-11.0); Mono # (Auto) 0.4 th/mm3 (0.0-0.9); Mono % (Auto) 5.2 % (0.0-8.0); Neut # (Auto) 6.3 th/mm3 (1.8-7.7); Neut % (Auto) 77.9 % (16.0-70.0); Platelet Count 360 th/mm3 (150-450); Red Blood Count 2.88 mil/mm3 (4.00-5.30); Red Cell Distribution Width 15.4 % (11.6-17.2); White Blood Count 8.1 th/mm3 (4.0-11.0)
[2018-08-25] MEDS: Isosorbide Mononitrate 60 MG ER 24HR Tablet (Imdur) PO SCH (08:23)
[2018-08-25] MEDS: Senna/Docusate Sodium 8.6/50 MG Tablet PO SCH ×2 (08:23→20:22)
[2018-08-25] MEDS: Sodium Chloride 0.9% 2 ML Flush BID IV.FLUSH SCH ×2 (08:24→20:32)
[2018-08-25] MEDS: Heparin - SQ 10,000 UNITS/ML Vial SQ SCH ×2 (08:24→20:29)
[2018-08-25] MEDS: Insulin NovoLOG Aspart Correctional Sugar Inj SQ SCH ×4 (08:24→20:32)
[2018-08-25] MEDS: Metoprolol Tartrate 25 MG Tablet PO SCH ×2 (08:24→20:32)
[2018-08-25] MEDS: Timolol 0.25% Drops 5 ML Bottle EACH EYE SCH (08:26)
[2018-08-25 08:33] LABS: Calcium 8.8 mg/dL (8.5-10.1); Carbon Dioxide 24.8 meq/L (21.0-32.0); Potassium 3.9 meq/L (3.5-5.1)
--- NOTE | 2018-08-25 10:44 | P.PNIM ---
Subjective Interval history: in no acute distress. no fever. pain seems to be controlled. no new complaints. Physical Exam Vital signs: Vital Signs 08/24/18 12:00 08/24/18 16:00 08/24/18 20:00 Temperature 98.5 F 98.1 F 98.4 F Pulse Rate 67 71 78 Respiratory Rate 17 16 18 Blood Pressure 143/75 H 161/71 H 145/92 H Pulse Oximetry 99 100 98 08/24/18 23:37 08/25/18 00:00 08/25/18 04:00 Temperature 98.4 F 98.2 F Pulse Rate 74 69 71 Respiratory Rate 18 18 Blood Pressure 172/75 H 110/68 Pulse Oximetry 99 98 08/25/18 08:00 Temperature 97.9 F Pulse Rate 71 Respiratory Rate 20 Blood Pressure 143/65 H Pulse Oximetry 98 Intake & Output 08/24/18 08/25/18 08/25/18 18:59 06:59 18:59 Intake Total 700 / 700 950 / 950 250 / 250 Output Total 300 / 300 800 / 800 Balance 400 / 400 150 / 150 250 / 250 Weight 84.4 kg Intake: IV 100 / 100 350 / 350 250 / 250 Buminate 5% Inj 250 ML @ 250 250 / 250 250 / 250 mls/hr IV.SIG Q12H [facility] Rx#: [id number] Ancef 2 GM Premix Inj 2 gm In 100 / 100 100 / 100 100 ml @ 200 mls/hr IV.SIG Q12H [facility] Rx#:[id number] Oral 600 / 600 600 / 600 Output: Urine 300 / 300 800 / 800 Other: Date of Last Bowel Movement 08/23/18 08/25/18 # Bowel Movements 0 0 - Constitutional no acute distress - Routine Respiratory Exam Present: CTA bilaterally - Routine Cardiovascular Exam Present: RRR - Routine Abdominal Exam Present: soft - Routine Extremities Exam Comments: left leg/foot covered with clean dressing. - Routine Neurological Exam Present: alert, oriented X3 Results - Labs CBC & Chem 7: 08/25/18 07:22 08/25/18 07:22 Laboratory Results - last 24 hr 08/24/18 08/24/18 08/25/18 11:24 18:58 07:02 WBC RBC Hgb Hct MCV MCH MCHC RDW Plt Count MPV Neut % (Auto) Lymph % (Auto) [place] % (Auto) Eos % (Auto) Baso % (Auto) Neut # (Auto) Lymph # (Auto) [place] # (Auto) Eos # (Auto) Baso # (Auto) WBC Differential Differential Comment Sodium Potassium Chloride Carbon Dioxide Anion Gap BUN Creatinine Estimated GFR POC Glucose 210 H 192 H Random Glucose Calcium Urine Color Yellow Urine Clarity Cloudy H Urine pH 5.0 Ur Specific Josephine 1.023 Urine Protein 100 H Urine Glucose (UA) Negative Urine Ketones Trace H Urine Occult Blood Small H Urine Nitrate Negative Urine Bilirubin Negative Urine Urobilinogen Less than 2 Ur Leukocyte Esterase Large H Urine RBC 9 H Urine WBC 19 H Ur Squamous Epith Cells 11 Urine Bacteria Occasional H Granular Casts 3 Micro UA Comment Culture indicated Ur Microscopic Review Not Reportable Urine Culture Comments Culture indicated 08/25/18 08/25/18 07:22 07:22 WBC 8.1 RBC 2.88 L Hgb 8.3 L Hct 25.7 L MCV 89.2 MCH 28.8 MCHC 32.3 RDW 15.4 Plt Count 360 MPV 8.3 Neut % (Auto) 77.9 H Lymph % (Auto) 11.1 [place] % (Auto) 5.2 Eos % (Auto) 4.5 H Baso % (Auto) 1.3 Neut # (Auto) 6.3 Lymph # (Auto) 0.9 L [place] # (Auto) 0.4 Eos # (Auto) 0.4 Baso # (Auto) 0.1 WBC Differential . Differential Comment Auto diff final Sodium 138 Potassium 3.9 Chloride 104 Carbon Dioxide 24.8 Anion Gap 9 BUN 34 H Creatinine 1.27 H Estimated GFR 40 L POC Glucose Random Glucose 181 H Calcium 8.8 Urine Color Urine Clarity Urine pH Ur Specific [place] Urine Protein Urine Glucose (UA) Urine Ketones Urine Occult Blood Urine Nitrate Urine Bilirubin Urine Urobilinogen Ur Leukocyte Esterase Urine RBC Urine WBC Ur Squamous Epith Cells Urine Bacteria Granular Casts Micro UA Comment Ur Microscopic Review Urine Culture Comments Microbiology 08/23/18 22:00 Abscess - Ankle Gram Stain - Final 08/23/18 22:00 Abscess - Ankle Wound Culture - Preliminary Staphylococcus aureus 08/22/18 04:10 Blood - Peripheral Aerobic Blood Culture - Preliminary No growth in 2 days 08/22/18 04:10 Blood - Peripheral Anaerobic Blood Culture - Preliminary No growth in 2 days 08/22/18 04:05 Blood - Peripheral Aerobic Blood Culture - Preliminary No growth in 2 days 08/22/18 04:05 Blood - Peripheral Anaerobic Blood Culture - Preliminary No growth in 2 days 08/19/18 22:40 Blood - Peripheral Aerobic Blood Culture - Final No growth in 5 days 08/19/18 22:40 Blood - Peripheral Anaerobic Blood Culture - Final Staphylococcus aureus Assessment and Plan - Assessment (1) Sepsis Code(s): A41.9 - Sepsis, unspecified organism Status: Acute (2) UTI (urinary tract infection) Code(s): N39.0 - Urinary tract infection, site not specified Status: Acute (3) A-fib Code(s): I48.91 - Unspecified atrial fibrillation Status: Acute (4) Elevated troponin Code(s): R74.8 - Abnormal levels of other serum enzymes Status: Acute (5) Anemia Code(s): D64.9 - Anemia, unspecified Status: Acute (6) Foot pain Code(s): M79.673 - Pain in unspecified foot Status: Acute (7) DM (diabetes mellitus) Code(s): E11.9 - Type 2 diabetes mellitus without complications Status: Acute - Plan bacteremia with staph aureus ( MSSA) Klebsiella UTI Left foot cellulitis with marked soft tissue swelling-with possible abscess formation. char[place] Joint flare - MRI- charcot joint -s/p I/D of the left ankle abscess 08/23 - on Ancef now. -podiatry following and ID following. - S/P IV antiibotic course x 6 weeks with IV ancef 07/17- for S infectious A-fib: recent dx of A-fib on last admit 07/06/18, - NSR on exam now History of CHF- diatolic dysfunction Elevated Trop: - [place], BNP- give x 1 IV Lasix - heplock IVF - currently on Metoprolol 12.5mg bid and ASA, declined Coumadin therapy in the past despite recommendations. Trop 0.38, no c/o chest pain or SOB. Admit to [facility], telemetry, check serial cardiac enzymes for trend. - Dr. Gamez,ff ASA, Statin, Metoprolol. \ Acute on top of chronic kidney injury -bilaterally small kidneys - renal function stable. - Nephrology consulted and signed off. Anemia: Hgb 8.8, previously 11.7 on 07/09/18, no evidence of bleeding, Type & Screen, check repeat Hgb/Hct, transfuse as needed. Iron studies suggestive of chronic disease - s/p PRBC transfusion. DM: Sliding scale w/ Accu-Cheks - ff blood sugars. - started on NPH -A1c 7.8. DVT Prophylaxis: Heparin PT eval and treat Discharge Planning: when cleared by ID and podiatry- pending cultures.
--- NOTE | 2018-08-25 10:53 | P.PNCA ---
Subjective Interval history: alert in nad Medications and Allergies Active Medications: Active Medications Acetaminophen (Tylenol) 650 mg PO Q4H PRN PRN Reason: Temp > 100.4/pain Last Admin: 08/22/18 20:36 Dose: 650 mg Al Hydroxide/Mg Hydroxide (Milk Of Magnesia Liq) 30 ml PO Q12H PRN PRN Reason: Mild Constipation Aspirin (Ecotrin) 81 mg PO DAILY [facility] Last Admin: 08/25/18 08:23 Dose: 81 mg Atorvastatin Calcium (Lipitor) 20 mg PO DAILY [facility] Last Admin: 08/25/18 08:23 Dose: 20 mg Bisacodyl (Dulcolax Supp) 10 mg RECTAL DAILY PRN PRN Reason: SEVERE CONSITIPATION Dextrose (D50w Vial) 50 ml IV.PUSH UNSCH PRN PRN Reason: PER HYPOGLYCEMIA PROTOCOL Glucagon (Glucagon Inj) 1 mg OTHER PRN PRN PRN Reason: for Hypoglycemia Protocol Heparin Sodium (Porcine) (Heparin Inj) 5,000 units SQ Q12HR [facility] Last Admin: 08/25/18 08:24 Dose: 5,000 units Albumin Human (Buminate 5% Inj) 250 mls @ 250 mls/hr IV.SIG Q12H [facility] Last Infusion: 08/25/18 07:30 Dose: Infused Cefazolin/Sodium Chloride (Ancef 2 Gm Premix Inj) 2 gm in 100 mls @ 200 mls/hr IV.SIG Q12H [facility] Last Infusion: 08/25/18 02:45 Dose: Infused Insulin Aspart (Novolog Insulin Correctional Sugar Inj) 0 unit SQ ACHS [facility]; Protocol Last Admin: 08/25/18 08:24 Dose: 1 unit Insulin Human NPH (Novolin N Inj) 15 units SQ BID@0800,1700 [facility] Last Admin: 08/25/18 08:24 Dose: 15 units Isosorbide Mononitrate (Imdur) 60 mg PO DAILY [facility] Last Admin: 08/25/18 08:23 Dose: 60 mg Lactulose (Lactulose Liq) 30 ml PO DAILY PRN PRN Reason: SEVERE CONSITIPATION Latanoprost (Xalatan 0.005% Opth Drops) 1 drop EACH EYE QPM [facility] Last Admin: 08/24/18 18:29 Dose: 1 drop Metoprolol Tartrate (Lopressor) 12.5 mg PO BID [facility] Last Admin: 08/25/18 08:24 Dose: 12.5 mg Ondansetron HCl (Zofran Inj) 4 mg IV.PUSH Q6H PRN PRN Reason: NAUSEA OR VOMITING Senna/Docusate Sodium (Catia-Colace) 1 tab PO BID [facility] Last Admin: 08/25/18 08:23 Dose: 1 tab Sennosides (Senokot) 17.2 mg PO Q12H PRN PRN Reason: Moderate Constipation Sodium Chloride (Ns Flush) 2 ml IV.FLUSH BID [facility] Last Admin: 08/25/18 08:24 Dose: 2 ml Sodium Chloride (Ns Flush) 2 ml IV.FLUSH PRN PRN PRN Reason: FLUSH AFTER USING IV ACCESS Last Admin: 08/25/18 02:15 Dose: 2 ml Timolol Maleate (Timolol 0.25% Drops) 1 drops EACH EYE DAILY [facility] Last Admin: 08/25/18 08:26 Dose: 1 drops Allergies Allergy/AdvReac Type Severity Reaction Status Date / Time kaye Allergy Unknown RASH Verified 08/19/18 22:29 lisinopril Allergy Cough Verified 08/19/18 22:30 niacin [From Simcor] Allergy Edema Verified 08/19/18 22:29 simvastatin [From Simcor] Allergy Edema Verified 08/19/18 22:29 Home Medications Medication Instructions Recorded Confirmed Type alpha lipoic acid 600 mg PO HS PRN 07/01/18 08/19/18 History ascorbic acid (vitamin C) [Vitamin 1,000 mg PO DAILY 07/01/18 08/19/18 History C] aspirin 81 mg PO DAILY 07/01/18 08/19/18 History atorvastatin 20 mg PO DAILY 07/01/18 08/19/18 History calcium carbonate [Tums] 1 tab PO Q4-6H PRN 07/01/18 08/19/18 History cetirizine [Zyrtec] 10 mg PO DAILY PRN 07/01/18 08/19/18 History ergocalciferol (vitamin D2) 50,000 unit PO QWEEK 07/01/18 08/19/18 History [Vitamin D2] estradiol 1 mg PO DAILY 07/01/18 08/19/18 History ferrous sulfate 325 mg PO DAILY 07/01/18 08/19/18 History insulin NPH isoph U-100 human 20 unit SUB-Q QPM 07/01/18 08/19/18 History [Novolin N NPH U-100 Insulin] insulin NPH isoph U-100 human 30 unit SUB-Q QAM 07/01/18 08/19/18 History [Novolin N NPH U-100 Insulin] isosorbide mononitrate 60 mg PO QAM 07/01/18 08/19/18 History latanoprost [Xalatan] 1 drp EACH EYE QPM 07/01/18 08/19/18 History levothyroxine 75 mcg PO DAILY 07/01/18 08/19/18 History [id number] acid-lutein [Centrum 1 tab PO DAILY 07/01/18 08/19/18 History Silver] timolol maleate [Timoptic] 1 drp OPHTHALMIC (EYE) QAM 07/01/18 08/19/18 History vitamin A 8,000 unit PO DAILY 07/01/18 08/19/18 History furosemide 20 mg PO DAILY 08/19/18 08/19/18 History hydrochlorothiazide 50 mg PO QAM 08/19/18 08/19/18 History Physical Exam Vital signs: Vital Signs 08/24/18 12:00 08/24/18 16:00 08/24/18 20:00 Temperature 98.5 F 98.1 F 98.4 F Pulse Rate 67 71 78 Respiratory Rate 17 16 18 Blood Pressure 143/75 H 161/71 H 145/92 H Pulse Oximetry 99 100 98 08/24/18 23:37 08/25/18 00:00 08/25/18 04:00 Temperature 98.4 F 98.2 F Pulse Rate 74 69 71 Respiratory Rate 18 18 Blood Pressure 172/75 H 110/68 Pulse Oximetry 99 98 08/25/18 08:00 Temperature 97.9 F Pulse Rate 71 Respiratory Rate 20 Blood Pressure 143/65 H Pulse Oximetry 98 Intake & Output 08/24/18 08/25/18 08/25/18 18:59 06:59 18:59 Intake Total 700 / 700 950 / 950 250 / 250 Output Total 300 / 300 800 / 800 Balance 400 / 400 150 / 150 250 / 250 Weight 84.4 kg Intake: IV 100 / 100 350 / 350 250 / 250 Buminate 5% Inj 250 ML @ 250 250 / 250 250 / 250 mls/hr IV.SIG Q12H [facility] Rx#: [id number] Ancef 2 GM Premix Inj 2 gm In 100 / 100 100 / 100 100 ml @ 200 mls/hr IV.SIG Q12H [facility] Rx#:[id number] Oral 600 / 600 600 / 600 Output: Urine 300 / 300 800 / 800 Other: Date of Last Bowel Movement 08/23/18 08/25/18 # Bowel Movements 0 0 Results 08/25/18 07:22 08/25/18 07:22 CBC 08/25/18 Range/Units 07:22 WBC 8.1 (4.0-11.0) th/mm3 RBC 2.88 L (4.00-5.30) mil/mm3 Hgb 8.3 L (11.6-15.3) gm/dL Hct 25.7 L (35.0-46.0) % Plt Count 360 (150-450) th/mm3 Neut # (Auto) 6.3 (1.8-7.7) th/mm3 Lymph # (Auto) 0.9 L (1.0-4.8) th/mm3 [place] # (Auto) 0.4 (0.0-0.9) th/mm3 Eos # (Auto) 0.4 (0.0-0.4) th/mm3 Baso # (Auto) 0.1 (0.0-0.2) th/mm3 Comprehensive Metabolic Panel 08/25/18 Range/Units 07:22 Sodium 138 (136-145) meq/L Potassium 3.9 (3.5-5.1) meq/L Chloride 104 (98-107) meq/L Carbon Dioxide 24.8 (21.0-32.0) meq/L BUN 34 H (7-18) mg/dL Creatinine 1.27 H (0.50-1.00) mg/dL Calcium 8.8 (8.5-10.1) mg/dL Intake and Output 08/24/18 08/25/18 08/25/18 22:59 06:59 14:59 Intake Total 950 / 950 700 / 700 250 / 250 Output Total 300 / 300 800 / 800 Balance 650 / 650 -100 / -100 250 / 250 Intake: IV 350 / 350 100 / 100 250 / 250 Buminate 5% Inj 250 ML @ 250 250 / 250 250 / 250 mls/hr IV.SIG Q12H [facility] Rx#: [id number] Ancef 2 GM Premix Inj 2 gm In 100 / 100 100 / 100 100 ml @ 200 mls/hr IV.SIG Q12H [facility] Rx#:[id number] Oral 600 / 600 600 / 600 Output: Urine 300 / 300 800 / 800 Other: Date of Last Bowel Movement 08/25/18 # Bowel Movements 0 0 Weight 84.4 kg Assessment and Plan - Assessment (1) NSTEMI (non-ST elevated myocardial infarction) Code(s): I21.4 - Non-ST elevation (NSTEMI) myocardial infarction Status: Acute (2) CAD (coronary artery disease) Code(s): I25.10 - Atherosclerotic heart disease of [place] coronary artery without angina pectoris Status: Acute (3) A-fib Code(s): I48.91 - Unspecified atrial fibrillation Status: Acute (4) Anemia Code(s): D64.9 - Anemia, unspecified Status: Acute (5) DM (diabetes mellitus) Code(s): E11.9 - Type 2 diabetes mellitus without complications Status: Acute (6) Elevated troponin Code(s): R74.8 - Abnormal levels of other serum enzymes Status: Acute - Plan 1.) Afib - rate controlled, assymptomatic, i strongly advised her to take coumadin or noac due to [id number] score = 5 to lower her risk for life threatening and or debilitating cva, she understands and refuses, her daughter ispresent at the bedside, coumadin or noac could not be started now due to anemia and unstable hgb, continue aspirin 81 mg qd 2.) NSTEMI - suspect secondary to anemia, rec transfuse to hgb > 10, d/w Dr Sin 3.) POD # 2 - clinically improved, assymptomatic
--- NOTE | 2018-08-25 13:35 | P.DCO ---
Post Hospital Infusion Therapy Location of Infusion Therapy: [facility] Infusion Therapy Order Patient Weight: 84.4 kg - Diagnosis (1) Bacteremia Code(s): R78.81 - Bacteremia (2) Abscess of left foot - Administer Medication Ceftriaxone Dose: 2 grams IV Directions: q 24 hours Stop Treatment: 09/22/18 - Additional Information Venous Access: PICC Line Additional Instructions: [x] Peripheral flush and dressing changes per protocol [x] Implanted port and central line operator: * Implanted port: 10 ml Normal Saline followed by 5 ml Heparin 100 units/ml Heparin flush after each use and monthly to maintain. [] May leave port accessed during therapy. [] May leave peripheral site accessed for duration of therapy. [x] If patient has SOB or respiratory distress, check oxygen saturation. If less than 90% or clinical signs of respiratory distress, administer oxygen at 2 L/min. via nasal cannula and notify physician. [x] Anaphylaxis/Reaction orders: * Stop infusion. * Keep IV line open with saline flush. * Notify physician. * Monitor vital signs every 15 minutes until symptoms resolve. * Check Oxygen saturation; Oxygen at 2 L/min. via nasal cannula if less than 90% or clinical signs of respiratory distress. * Administer diphenhydramine (Benadryl) 25 mg IV STAT, (unless patient has received as pre-med). May repeat once, if necessary. * Solu-Cortef 250 mg IVP over 30-60 seconds, use 100 mg vials for each dissolution. * Epinephrine (1mg/1 ml) 0.3 mg subcutaneously or IVP now with any signs of respiratory distress. * Check with physician for new additional pre-med orders if patient is re- challenged or re-treated. [x] May remove PICC line when treatment complete, after confirming with Physician. [x] If the patient is admitted to the hospital, the ED, or transferred via [facility] , complete transfer form including medication reconciliation order sheet. Weekly Labs: BMP Allergies kaye Allergy (Unknown, Verified 08/19/18 22:29) RASH lisinopril Allergy (Verified 08/19/18 22:30) Cough niacin [From Simcor] Allergy (Verified 08/19/18 22:29) Edema simvastatin [From Simcor] Allergy (Verified 08/19/18 22:29) Edema
--- NOTE | 2018-08-25 13:40 | P.PNID ---
Subjective Remarks: Patient without complaints. Wound culture of left ankle has staph aureus. No pain currently. Afebrile. Repeat blood cultures has no growth. This is an 88-year-old white female who was recently hospitalized and treated for sepsis due to Staphylococcus aureus. The patient was treated with IV antibiotics up until 07/17/2018. She was given antibiotics for 2 weeks. Her cultures were negative prior to discharge from the hospital. The patient developed an episode of fever and chills about a week ago. She states that after that she felt a little better throughout the week, though she felt lousy. The fever did not come back. She saw her mortgage underwriter 7 days ago and a boot was placed on the left leg because of Charcot deformity. After 2 days, she complained of tightness of the boot and the nurse called the mortgage underwriter and the boot was removed and the leg was wrapped with Jose C bandage. After another couple of days, the patient complained of tightness of the bandage and at that time she also started developing chills and she also had an episode of fever and she presented to the emergency department on 08/19/2018. Past Medical History: PAST MEDICAL HISTORY: Charcot foot, diabetes mellitus, gastroesophageal reflux disease, pelvic and femur fractures, hypercholesterolemia, hypothyroidism, hypertension, myocardial infarction, history of coronary stent, history of colon cancer. Allergies/Adverse Reactions: Allergies kaye Allergy (Unknown, Verified 08/19/18 22:29) RASH lisinopril Allergy (Verified 08/19/18 22:30) Cough niacin [From Simcor] Allergy (Verified 08/19/18 22:29) Edema simvastatin [From Simcor] Allergy (Verified 08/19/18 22:29) Edema Objective Vital Signs 08/24/18 16:00 08/24/18 20:00 08/24/18 23:37 Temperature 98.1 F 98.4 F 98.4 F Pulse Rate 71 78 74 Respiratory Rate 16 18 18 Blood Pressure 161/71 H 145/92 H 172/75 H Pulse Oximetry 100 98 99 08/25/18 00:00 08/25/18 04:00 08/25/18 08:00 Temperature 98.2 F 97.9 F Pulse Rate 69 71 71 Respiratory Rate 18 20 Blood Pressure 110/68 143/65 H Pulse Oximetry 98 98 08/25/18 12:00 Temperature 97.9 F Pulse Rate 68 Respiratory Rate 20 Blood Pressure 144/63 H Pulse Oximetry 98 Intake & Output 08/24/18 08/25/18 08/25/18 18:59 06:59 18:59 Intake Total 700 / 700 950 / 950 250 / 250 Output Total 300 / 300 800 / 800 Balance 400 / 400 150 / 150 250 / 250 Weight 84.4 kg 84.4 kg Intake: IV 100 / 100 350 / 350 250 / 250 Buminate 5% Inj 250 ML @ 250 250 / 250 250 / 250 mls/hr IV.SIG Q12H [facility] Rx#: [id number] Ancef 2 GM Premix Inj 2 gm In 100 / 100 100 / 100 100 ml @ 200 mls/hr IV.SIG Q12H [facility] Rx#:[id number] Oral 600 / 600 600 / 600 Output: Urine 300 / 300 800 / 800 Other: Date of Last Bowel Movement 08/23/18 08/25/18 # Bowel Movements 0 0 08/24/18 18:58 Clean Catch Urine Urine Culture - Preliminary No growth in 24 hours 08/22/18 04:10 Blood - Peripheral Aerobic Blood Culture - Preliminary No growth in 3 days 08/22/18 04:10 Blood - Peripheral Anaerobic Blood Culture - Preliminary No growth in 3 days 08/22/18 04:05 Blood - Peripheral Aerobic Blood Culture - Preliminary No growth in 3 days 08/22/18 04:05 Blood - Peripheral Anaerobic Blood Culture - Preliminary No growth in 3 days 08/23/18 22:00 Abscess - Ankle Gram Stain - Final 08/23/18 22:00 Abscess - Ankle Wound Culture - Preliminary Staphylococcus aureus 08/23/18 22:00 Abscess - Ankle Fungal Smear - Pending 08/23/18 22:00 Abscess - Ankle Fungal Culture - Pending 08/23/18 22:00 Abscess - Ankle Acid Fast Bacilli Smear - Pending 08/23/18 22:00 Abscess - Ankle Mycobacterial Culture - Pending 08/19/18 22:40 Blood - Peripheral Aerobic Blood Culture - Final No growth in 5 days 08/19/18 22:40 Blood - Peripheral Anaerobic Blood Culture - Final Staphylococcus aureus 08/19/18 22:45 Blood - Peripheral Aerobic Blood Culture - Final Staphylococcus aureus 08/19/18 22:45 Blood - Peripheral Anaerobic Blood Culture - Final Staphylococcus aureus Lab - Hematology Results 08/25/18 07:22 WBC 8.1 RBC 2.88 L Hgb 8.3 L Hct 25.7 L MCV 89.2 MCH 28.8 MCHC 32.3 RDW 15.4 Plt Count 360 MPV 8.3 Neut % (Auto) 77.9 H Lymph % (Auto) 11.1 [place] % (Auto) 5.2 Eos % (Auto) 4.5 H Baso % (Auto) 1.3 Neut # (Auto) 6.3 Lymph # (Auto) 0.9 L [place] # (Auto) 0.4 Eos # (Auto) 0.4 Baso # (Auto) 0.1 WBC Differential . Differential Comment Auto diff final Lab - Chemistry Results 08/23/18 08/23/18 08/24/18 16:56 20:29 11:24 Sodium Potassium Chloride Carbon Dioxide Anion Gap BUN Creatinine Estimated GFR POC Glucose 150 H 147 H 210 H Random Glucose Calcium 08/25/18 08/25/18 07:02 07:22 Sodium 138 Potassium 3.9 Chloride 104 Carbon Dioxide 24.8 Anion Gap 9 BUN 34 H Creatinine 1.27 H Estimated GFR 40 L POC Glucose 192 H Random Glucose 181 H Calcium 8.8 Imaging: ITS Impressions Chest X-Ray 08/19/18 22:06 CONCLUSION: No acute cardiopulmonary disease. Abdomen/Bladder Ultrasound 08/20/18 00:00 CONCLUSION: 1. Possible medical renal disease without hydronephrosis. Ankle MRI 08/20/18 00:00 CONCLUSION: 1. Enlargement of previously seen lobulated synovial cyst anterior to the Achilles tendon. 2. Significant worsening of marrow edema in the bony structures particularly the medial lateral malleoli, distal tibia most of the talus since the prior exam. The extent of involvement would be somewhat unusual for osteomyelitis, however this possibility is not excluded and possibility of extensive Charcot's phenomenon should be entertained. 3. 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 Ankle X-Ray 08/20/18 00:00 CONCLUSION: Prominent soft tissue swelling at the ankle as before. No acute fractures. Foot X-Ray 08/20/18 00:00 CONCLUSION: Chronic arthropathy and dislocations at the tarsometatarsal articulations. Soft tissue swelling is again seen. Venous Doppler Study 08/20/18 00:00 CONCLUSION: 1. No DVT and there are nonspecific lymph nodes within the left groin should be correlated clinically. Pulmonary Perfusion Imaging 08/20/18 01:52 CONCLUSION: Low probability study for pulmonary embolus. Physical Exam: PHYSICAL EXAMINATION: GENERAL: No acute distress. HEENT: The head is atraumatic. Extraocular muscles grossly intact. Pupils reactive to light without icterus. Oropharynx: Moist mucosa. No lesions. NECK: Supple without adenopathy. LUNGS: Clear breath sounds. HEART: Regular S1 and S2 without murmurs, rubs or gallops. ABDOMEN: Bowel sounds present. Soft, no tenderness. EXTREMITIES: No clubbing, cyanosis. Charcot deformity of the feet. Erythema has decreased at left ankle. Dressing in place. SKIN: No rash. NEUROLOGIC: No gross focal finding. PSYCHIATRIC: Calm and cooperative. Assessment and Plan (1) Bacteremia Status: Acute Code(s): R78.81 - Bacteremia (2) Abscess of left foot Status: Acute - Plan IMPRESSION: 1. Staphylococcus aureus bacteremia, recurrent. Originating from the Charcot's left foot. 2. Abscess of the left ankle. 3. Cellulitis of the left ankle. 4. Urinary tract infection due to Klebsiella. The patient also getting recurrent urinary tract infection, but the previous urinary tract infection was due to Escherichia coli and now she has Klebsiella pneumoniae and her urinary antigen for strep pneumonia is also positive. 3. Chronic kidney disease. RECOMMENDATIONS: Ceftriaxone IV 2gms x 4 weeks until 09/22/2018. PIC line ordered for IV antibiotics. Discussed with case management.
[2018-08-25] MEDS: Latanoprost 0.005% Opth Drops 2.5 ML Bottle EACH EYE SCH (18:02)
[2018-08-26] MEDS: ceFAZolin 2 GM Premix Inj 2 GM/100 ML BAG IV.SIG SCH ×2 (03:45→15:11)
[2018-08-26] MEDS: Albumin Human 5% Inj 250 ML IV.SIG SCH (04:21)
--- NOTE | 2018-08-26 07:25 | P.PNCA ---
Subjective Interval history: asleep in nad Medications and Allergies Active Medications: Active Medications Acetaminophen (Tylenol) 650 mg PO Q4H PRN PRN Reason: Temp > 100.4/pain Last Admin: 08/22/18 20:36 Dose: 650 mg Al Hydroxide/Mg Hydroxide (Milk Of Magnesia Liq) 30 ml PO Q12H PRN PRN Reason: Mild Constipation Aspirin (Ecotrin) 81 mg PO DAILY [facility] Last Admin: 08/25/18 08:23 Dose: 81 mg Atorvastatin Calcium (Lipitor) 20 mg PO DAILY [facility] Last Admin: 08/25/18 08:23 Dose: 20 mg Bisacodyl (Dulcolax Supp) 10 mg RECTAL DAILY PRN PRN Reason: SEVERE CONSITIPATION Dextrose (D50w Vial) 50 ml IV.PUSH UNSCH PRN PRN Reason: PER HYPOGLYCEMIA PROTOCOL Glucagon (Glucagon Inj) 1 mg OTHER PRN PRN PRN Reason: for Hypoglycemia Protocol Heparin Sodium (Porcine) (Heparin Inj) 5,000 units SQ Q12HR [facility] Last Admin: 08/25/18 20:29 Dose: 5,000 units Albumin Human (Buminate 5% Inj) 250 mls @ 250 mls/hr IV.SIG Q12H [facility] Last Infusion: 08/26/18 05:31 Dose: Infused Cefazolin/Sodium Chloride (Ancef 2 Gm Premix Inj) 2 gm in 100 mls @ 200 mls/hr IV.SIG Q12H [facility] Last Infusion: 08/26/18 04:21 Dose: Infused Insulin Aspart (Novolog Insulin Correctional Sugar Inj) 0 unit SQ ACHS [facility]; Protocol Last Admin: 08/25/18 20:32 Dose: 3 unit Insulin Human NPH (Novolin N Inj) 15 units SQ BID@0800,1700 [facility] Last Admin: 08/25/18 17:00 Dose: 15 units Isosorbide Mononitrate (Imdur) 60 mg PO DAILY [facility] Last Admin: 08/25/18 08:23 Dose: 60 mg Lactulose (Lactulose Liq) 30 ml PO DAILY PRN PRN Reason: SEVERE CONSITIPATION Latanoprost (Xalatan 0.005% Opth Drops) 1 drop EACH EYE QPM [facility] Last Admin: 08/25/18 18:02 Dose: 1 drop Metoprolol Tartrate (Lopressor) 12.5 mg PO BID [facility] Last Admin: 08/25/18 20:32 Dose: 12.5 mg Ondansetron HCl (Zofran Inj) 4 mg IV.PUSH Q6H PRN PRN Reason: NAUSEA OR VOMITING Senna/Docusate Sodium (Catia-Colace) 1 tab PO BID [facility] Last Admin: 08/25/18 20:22 Dose: Not Given Sennosides (Senokot) 17.2 mg PO Q12H PRN PRN Reason: Moderate Constipation Sodium Chloride (Ns Flush) 2 ml IV.FLUSH BID [facility] Last Admin: 08/25/18 20:32 Dose: 2 ml Sodium Chloride (Ns Flush) 2 ml IV.FLUSH PRN PRN PRN Reason: FLUSH AFTER USING IV ACCESS Last Admin: 08/25/18 02:15 Dose: 2 ml Timolol Maleate (Timolol 0.25% Drops) 1 drops EACH EYE DAILY [facility] Last Admin: 08/25/18 08:26 Dose: 1 drops Allergies Allergy/AdvReac Type Severity Reaction Status Date / Time kaye Allergy Unknown RASH Verified 08/19/18 22:29 lisinopril Allergy Cough Verified 08/19/18 22:30 niacin [From Simcor] Allergy Edema Verified 08/19/18 22:29 simvastatin [From Simcor] Allergy Edema Verified 08/19/18 22:29 Home Medications Medication Instructions Recorded Confirmed Type alpha lipoic acid 600 mg PO HS PRN 07/01/18 08/19/18 History ascorbic acid (vitamin C) [Vitamin 1,000 mg PO DAILY 07/01/18 08/19/18 History C] aspirin 81 mg PO DAILY 07/01/18 08/19/18 History atorvastatin 20 mg PO DAILY 07/01/18 08/19/18 History calcium carbonate [Tums] 1 tab PO Q4-6H PRN 07/01/18 08/19/18 History cetirizine [Zyrtec] 10 mg PO DAILY PRN 07/01/18 08/19/18 History ergocalciferol (vitamin D2) 50,000 unit PO QWEEK 07/01/18 08/19/18 History [Vitamin D2] estradiol 1 mg PO DAILY 07/01/18 08/19/18 History ferrous sulfate 325 mg PO DAILY 07/01/18 08/19/18 History insulin NPH isoph U-100 human 20 unit SUB-Q QPM 07/01/18 08/19/18 History [Novolin N NPH U-100 Insulin] insulin NPH isoph U-100 human 30 unit SUB-Q QAM 07/01/18 08/19/18 History [Novolin N NPH U-100 Insulin] isosorbide mononitrate 60 mg PO QAM 07/01/18 08/19/18 History latanoprost [Xalatan] 1 drp EACH EYE QPM 07/01/18 08/19/18 History levothyroxine 75 mcg PO DAILY 07/01/18 08/19/18 History la-nxg-nulop acid-lutein [Centrum 1 tab PO DAILY 07/01/18 08/19/18 History Silver] timolol maleate [Timoptic] 1 drp OPHTHALMIC (EYE) QAM 07/01/18 08/19/18 History vitamin A 8,000 unit PO DAILY 07/01/18 08/19/18 History furosemide 20 mg PO DAILY 08/19/18 08/19/18 History hydrochlorothiazide 50 mg PO QAM 08/19/18 08/19/18 History Physical Exam Vital signs: Vital Signs 08/25/18 08:00 08/25/18 12:00 08/25/18 16:00 Temperature 97.9 F 97.9 F 97.5 F L Pulse Rate 71 73 74 Respiratory Rate 20 20 20 Blood Pressure 143/65 H 144/63 H 158/70 H Pulse Oximetry 98 98 97 08/25/18 20:00 08/26/18 00:00 08/26/18 04:00 Temperature 97.7 F 97.4 F L 97.1 F L Pulse Rate 73 65 72 Respiratory Rate 19 18 20 Blood Pressure 136/85 178/79 H 170/70 H Pulse Oximetry 98 99 100 Intake & Output 08/25/18 08/26/18 08/26/18 18:59 06:59 18:59 Intake Total 1200 / 1200 590 / 590 Balance 1200 / 1200 590 / 590 Weight 84.4 kg 84.7 kg Intake: IV 600 / 600 350 / 350 Buminate 5% Inj 250 ML @ 250 500 / 500 250 / 250 mls/hr IV.SIG Q12H [facility] Rx#: [id number] Ancef 2 GM Premix Inj 2 gm In 100 / 100 100 / 100 100 ml @ 200 mls/hr IV.SIG Q12H [facility] Rx#:[id number] Oral 600 / 600 240 / 240 Other: # Voids 4 3 Date of Last Bowel Movement 08/25/18 08/25/18 # Bowel Movements 3 Results 08/25/18 07:22 08/25/18 07:22 CBC 08/25/18 Range/Units 07:22 WBC 8.1 (4.0-11.0) th/mm3 RBC 2.88 L (4.00-5.30) mil/mm3 Hgb 8.3 L (11.6-15.3) gm/dL Hct 25.7 L (35.0-46.0) % Plt Count 360 (150-450) th/mm3 Neut # (Auto) 6.3 (1.8-7.7) th/mm3 Lymph # (Auto) 0.9 L (1.0-4.8) th/mm3 [place] # (Auto) 0.4 (0.0-0.9) th/mm3 Eos # (Auto) 0.4 (0.0-0.4) th/mm3 Baso # (Auto) 0.1 (0.0-0.2) th/mm3 Comprehensive Metabolic Panel 08/25/18 Range/Units 07:22 Sodium 138 (136-145) meq/L Potassium 3.9 (3.5-5.1) meq/L Chloride 104 (98-107) meq/L Carbon Dioxide 24.8 (21.0-32.0) meq/L BUN 34 H (7-18) mg/dL Creatinine 1.27 H (0.50-1.00) mg/dL Calcium 8.8 (8.5-10.1) mg/dL Intake and Output 08/25/18 08/26/18 08/26/18 22:59 06:59 14:59 Intake Total 950 / 950 590 / 590 Balance 950 / 950 590 / 590 Intake: IV 350 / 350 350 / 350 Buminate 5% Inj 250 ML @ 250 250 / 250 250 / 250 mls/hr IV.SIG Q12H [facility] Rx#: [id number] Ancef 2 GM Premix Inj 2 gm In 100 / 100 100 / 100 100 ml @ 200 mls/hr IV.SIG Q12H [facility] Rx#:[id number] Oral 600 / 600 240 / 240 Other: # Voids 4 3 Date of Last Bowel Movement 08/25/18 # Bowel Movements 3 Weight 84.7 kg Assessment and Plan - Assessment (1) NSTEMI (non-ST elevated myocardial infarction) Code(s): I21.4 - Non-ST elevation (NSTEMI) myocardial infarction Status: Acute (2) CAD (coronary artery disease) Code(s): I25.10 - Atherosclerotic heart disease of [place] coronary artery without angina pectoris Status: Acute (3) A-fib Code(s): I48.91 - Unspecified atrial fibrillation Status: Acute (4) Anemia Code(s): D64.9 - Anemia, unspecified Status: Acute (5) DM (diabetes mellitus) Code(s): E11.9 - Type 2 diabetes mellitus without complications Status: Acute (6) Elevated troponin Code(s): R74.8 - Abnormal levels of other serum enzymes Status: Acute - Plan 1.) Afib - rate controlled, assymptomatic, i strongly advised her to take coumadin or noac due to [id number] score = 5 to lower her risk for life threatening and or debilitating cva, she understands and refuses, her daughter ispresent at the bedside, coumadin or noac could not be started now due to anemia and unstable hgb, continue aspirin 81 mg qd 2.) NSTEMI - suspect secondary to anemia, rec transfuse to hgb > 10, d/w Dr Sin 3.) POD # 3 - clinically improved, assymptomatic
--- NOTE | 2018-08-26 08:16 | P.PNIM ---
Subjective Interval history: f/u; left foot abscess in no acute distress. denies pain and with no fever. says that had a good sleep last night. d/w the RN and no acute issues over night. Physical Exam Vital signs: Vital Signs 08/25/18 12:00 08/25/18 16:00 08/25/18 20:00 Temperature 97.9 F 97.5 F L 97.7 F Pulse Rate 73 74 73 Respiratory Rate 20 20 19 Blood Pressure 144/63 H 158/70 H 136/85 Pulse Oximetry 98 97 98 08/26/18 00:00 08/26/18 04:00 Temperature 97.4 F L 97.1 F L Pulse Rate 65 72 Respiratory Rate 18 20 Blood Pressure 178/79 H 170/70 H Pulse Oximetry 99 100 Intake & Output 08/25/18 08/26/18 08/26/18 18:59 06:59 18:59 Intake Total 1200 / 1200 590 / 590 Balance 1200 / 1200 590 / 590 Weight 84.4 kg 84.7 kg Intake: IV 600 / 600 350 / 350 Buminate 5% Inj 250 ML @ 250 500 / 500 250 / 250 mls/hr IV.SIG Q12H [facility] Rx#: [id number] Ancef 2 GM Premix Inj 2 gm In 100 / 100 100 / 100 100 ml @ 200 mls/hr IV.SIG Q12H [facility] Rx#:[id number] Oral 600 / 600 240 / 240 Other: # Voids 4 3 Date of Last Bowel Movement 08/25/18 08/25/18 # Bowel Movements 3 - Constitutional no acute distress - Routine Respiratory Exam Present: CTA bilaterally - Routine Cardiovascular Exam Present: RRR - Routine Abdominal Exam Present: soft - Routine Extremities Exam Comments: left ankle covered with clean dressing. - Routine Neurological Exam Present: alert, oriented X3 Results - Labs CBC & Chem 7: 08/26/18 10:57 08/25/18 07:22 Laboratory Results - last 24 hr 08/21/18 08/25/18 08/25/18 17:39 07:22 07:22 WBC 8.1 RBC 2.88 L Hgb 8.3 L Hct 25.7 L MCV 89.2 MCH 28.8 MCHC 32.3 RDW 15.4 Plt Count 360 MPV 8.3 Neut % (Auto) 77.9 H Lymph % (Auto) 11.1 [place] % (Auto) 5.2 Eos % (Auto) 4.5 H Baso % (Auto) 1.3 Neut # (Auto) 6.3 Lymph # (Auto) 0.9 L [place] # (Auto) 0.4 Eos # (Auto) 0.4 Baso # (Auto) 0.1 WBC Differential . Differential Comment Auto diff final Sodium 138 Potassium 3.9 Chloride 104 Carbon Dioxide 24.8 Anion Gap 9 BUN 34 H Creatinine 1.27 H Estimated GFR 40 L POC Glucose Random Glucose 181 H Calcium 8.8 JEWEL Titer 1:160 H JEWEL Pattern Diffuse H JEWEL Interpretation 08/25/18 08/25/18 17:01 20:20 WBC RBC Hgb Hct MCV MCH MCHC RDW Plt Count MPV Neut % (Auto) Lymph % (Auto) [place] % (Auto) Eos % (Auto) Baso % (Auto) Neut # (Auto) Lymph # (Auto) [place] # (Auto) Eos # (Auto) Baso # (Auto) WBC Differential Differential Comment Sodium Potassium Chloride Carbon Dioxide Anion Gap BUN Creatinine Estimated GFR POC Glucose 220 H 272 H Random Glucose Calcium JEWEL Titer JEWEL Pattern JEWEL Interpretation Microbiology 08/23/18 22:00 Abscess - Ankle Gram Stain - Final 08/23/18 22:00 Abscess - Ankle Wound Culture - Final Staphylococcus aureus 08/23/18 22:00 Abscess - Ankle Fungal Smear - Final No fungal elements seen 08/23/18 22:00 Abscess - Ankle Acid Fast Bacilli Smear - Final No acid fast bacilli seen 08/24/18 18:58 Clean Catch Urine Urine Culture - Preliminary No growth in 24 hours 08/22/18 04:10 Blood - Peripheral Aerobic Blood Culture - Preliminary No growth in 3 days 08/22/18 04:10 Blood - Peripheral Anaerobic Blood Culture - Preliminary No growth in 3 days 08/22/18 04:05 Blood - Peripheral Aerobic Blood Culture - Preliminary No growth in 3 days 08/22/18 04:05 Blood - Peripheral Anaerobic Blood Culture - Preliminary No growth in 3 days - Procedures I/D of the left foot abscess Assessment and Plan - Assessment (1) Sepsis Code(s): A41.9 - Sepsis, unspecified organism Status: Acute (2) UTI (urinary tract infection) Code(s): N39.0 - Urinary tract infection, site not specified Status: Acute (3) A-fib Code(s): I48.91 - Unspecified atrial fibrillation Status: Acute (4) Elevated troponin Code(s): R74.8 - Abnormal levels of other serum enzymes Status: Acute (5) Anemia Code(s): D64.9 - Anemia, unspecified Status: Acute (6) Foot pain Code(s): M79.673 - Pain in unspecified foot Status: Acute (7) DM (diabetes mellitus) Code(s): E11.9 - Type 2 diabetes mellitus without complications Status: Acute - Plan bacteremia with staph aureus ( MSSA) Klebsiella UTI Left foot cellulitis with marked soft tissue swelling-with possible abscess formation. char[place] Joint flare - MRI- char[place] joint -s/p I/D of the left ankle abscess 08/23 - on IV Rocephin now; will need 4 weeks of IV antibiotics- PICC line is in place. -podiatry following and ID following. - S/P IV antiibotic course x 6 weeks with IV ancef 07/17- for S infectious A-fib: recent dx of A-fib on last admit 07/06/18, - NSR on exam now History of CHF- diatolic dysfunction Elevated Trop: - [place], BNP- give x 1 IV Lasix - heplock IVF - currently on Metoprolol 12.5mg bid and ASA, declined Coumadin therapy in the past despite recommendations. Trop 0.38, no c/o chest pain or SOB. - Dr. Gamez,ff ASA, Statin, Metoprolol. Acute on top of chronic kidney injury -bilaterally small kidneys - renal function stable. - Nephrology consulted and signed off. Anemia: H/H fairly stable and is asymptomatic. Iron studies suggestive of chronic disease - s/p PRBC transfusion. DM: Sliding scale w/ Accu-Cheks - ff blood sugars. - started on NPH -A1c 7.8. positive JEWEL- rheumatology w/u as outpatient. DVT Prophylaxis: Heparin PT eval and treat Discharge Planning: dc to SNF within the next 24 hrs if stable. see med list. f/u; pcp,cardiology and podiatry. d/w the patient and RN. time spent 35 min.
--- NOTE | 2018-08-26 08:17 | P.DS ---
Date of admission: 08/20/18 02:57 Primary care physician: Muna Feliciano MD Brief History from admission: This is an 88-year-old female with a PMH of HTN, Hyperlipidemia, DM, Charcot Foot and A-fib who presented to the ER w/ complaints of left foot pain for approx 1mo, now progressively worse over the last 2-3 days. Pain is constant, 7 -8/10, worse w/ movement, non-radiating, associated w/ some edema. Recent admit 07/01-07/12/18 w/ Rhabdo/DAMARI and new onset A-fib, s/p eval by Dr. Gamez, recommendation for Coumadin therapy, however pt declined, remains on ASA daily and Metoprolol 12.5mg bid. Found to have UTI w/ Bacteremia and was d/c'd to SNF w/ IV Abx via PICC, recently d/c'd home 2wks ago. Pt states she's been doing well at home except for worsening foot pain. Denies fever, chills or chest pain. On arrival, BP 179/70, HR 106, O2 sat 100% on RA, Temp 101.8. WBC 15.4. Hemoglobin 8.8, previously 11.7 on 07/09/2018. Creatinine 1.71, previously 1.43 on 07/12/2018. Troponin 0 0.43. BNP 481. UA positive for UTI. CXR with no acute findings. V/Q Scan pending. DS: Diagnosis - Discharge Diagnosis (1) Sepsis Status: Acute (2) UTI (urinary tract infection) Status: Acute (3) A-fib Status: Acute (4) Elevated troponin Status: Acute (5) Anemia Status: Acute (6) Foot pain Status: Acute (7) DM (diabetes mellitus) Status: Acute DS: Summary Hospital Course: bacteremia with staph aureus ( MSSA) Klebsiella UTI Left foot cellulitis with marked soft tissue swelling-with possible abscess formation. char[place] Joint flare - MRI- [place] joint -s/p I/D of the left ankle abscess 08/23 - on IV Rocephin now; will need 4 weeks of IV antibiotics- PICC line is in place. -podiatry following and ID following. - S/P IV antiibotic course x 6 weeks with IV ancef 07/17- for S infectious A-fib: recent dx of A-fib on last admit 07/06/18, - NSR on exam now History of CHF- diatolic dysfunction Elevated Trop: - [place], BNP- give x 1 IV Lasix - heplock IVF - currently on Metoprolol 12.5mg bid and ASA, declined Coumadin therapy in the past despite recommendations. Trop 0.38, no c/o chest pain or SOB. - Dr. Gamez,ff ASA, Statin, Metoprolol. Acute on top of chronic kidney injury -bilaterally small kidneys - renal function stable. - Nephrology consulted and signed off. Anemia: H/H fairly stable and is asymptomatic. Iron studies suggestive of chronic disease - s/p PRBC transfusion. DM: Sliding scale w/ Accu-Cheks - ff blood sugars. - started on NPH -A1c 7.8. positive JEWEL- rheumatology w/u as outpatient. - Time Spent with Patient Total time spent providing and/or coordinating discharge services: Greater than 30 minutes - Quality: VTE Deep Vein Thrombosis/Pulmonary Embolism Present on Admission: No Exam Vital signs: Vital Signs 08/25/18 12:00 08/25/18 16:00 08/25/18 20:00 Temperature 97.9 F 97.5 F L 97.7 F Pulse Rate 73 74 73 Respiratory Rate 20 20 19 Blood Pressure 144/63 H 158/70 H 136/85 Pulse Oximetry 98 97 98 08/26/18 00:00 08/26/18 04:00 Temperature 97.4 F L 97.1 F L Pulse Rate 65 72 Respiratory Rate 18 20 Blood Pressure 178/79 H 170/70 H Pulse Oximetry 99 100 Intake & Output 08/25/18 08/26/18 08/26/18 18:59 06:59 18:59 Intake Total 1200 / 1200 590 / 590 Balance 1200 / 1200 590 / 590 Weight 84.4 kg 84.7 kg Intake: IV 600 / 600 350 / 350 Buminate 5% Inj 250 ML @ 250 500 / 500 250 / 250 mls/hr IV.SIG Q12H [facility] Rx#: [id number] Ancef 2 GM Premix Inj 2 gm In 100 / 100 100 / 100 100 ml @ 200 mls/hr IV.SIG Q12H [facility] Rx#:[id number] Oral 600 / 600 240 / 240 Other: # Voids 4 3 Date of Last Bowel Movement 08/25/18 08/25/18 # Bowel Movements 3 - Constitutional no acute distress - Routine Respiratory Exam Present: CTA bilaterally - Routine Cardiovascular Exam Present: RRR - Routine Abdominal Exam Present: soft - Routine Extremities Exam Comments: left foot covered with clean dressing. - Routine Neurological Exam Present: alert, oriented X3 Results Procedures completed during hospitalization: I/D of the left foot abscess Labs on day of discharge: Labs from last 24 hours 08/25/18 08/25/18 08/25/18 20:20 17:01 07:22 Sodium 138 Potassium 3.9 Chloride 104 Carbon Dioxide 24.8 Anion Gap 9 BUN 34 H Creatinine 1.27 H Estimated GFR 40 L POC Glucose 272 H 220 H Random Glucose 181 H Calcium 8.8 JEWEL Titer JEWEL Pattern JEWEL Interpretation 08/21/18 17:39 Sodium Potassium Chloride Carbon Dioxide Anion Gap BUN Creatinine Estimated GFR POC Glucose Random Glucose Calcium JEWEL Titer 1:160 H JEWEL Pattern Diffuse H JEWEL Interpretation Preliminary micro results at discharge 08/24/18 18:58 Urine Culture - Preliminary Clean Catch Urine No growth in 24 hours 08/22/18 04:10 Aerobic Blood Culture - Preliminary Blood - Peripheral No growth in 3 days Anaerobic Blood Culture - Preliminary No growth in 3 days 08/22/18 04:05 Aerobic Blood Culture - Preliminary Blood - Peripheral No growth in 3 days Anaerobic Blood Culture - Preliminary No growth in 3 days - Impressions ITS Impressions Chest X-Ray 08/19/18 22:06 CONCLUSION: No acute cardiopulmonary disease. Abdomen/Bladder Ultrasound 08/20/18 00:00 CONCLUSION: 1. Possible medical renal disease without hydronephrosis. Ankle MRI 08/20/18 00:00 CONCLUSION: 1. Enlargement of previously seen lobulated synovial cyst anterior to the Achilles tendon. 2. Significant worsening of marrow edema in the bony structures particularly the medial lateral malleoli, distal tibia most of the talus since the prior exam. The extent of involvement would be somewhat unusual for osteomyelitis, however this possibility is not excluded and possibility of extensive Charcot's phenomenon should be entertained. 3. 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 Ankle X-Ray 08/20/18 00:00 CONCLUSION: Prominent soft tissue swelling at the ankle as before. No acute fractures. Foot X-Ray 08/20/18 00:00 CONCLUSION: Chronic arthropathy and dislocations at the tarsometatarsal articulations. Soft tissue swelling is again seen. Venous Doppler Study 08/20/18 00:00 CONCLUSION: 1. No DVT and there are nonspecific lymph nodes within the left groin should be correlated clinically. Pulmonary Perfusion Imaging 08/20/18 01:52 CONCLUSION: Low probability study for pulmonary embolus. Discharge Plan - Discharge Disposition Patient Disposition: 03 Discharge to SNF - Discharge Condition Condition: Stable - Discharge Order Discharge Orders: Discharge Order (Routine); Ordered 08/26/18 Ordered By: Everett Joyner - Physicians Team Primary Care Provider: Muna Feliciano Attending Provider: Everett Joyner Other Providers: Nacho Gamez MD ; Mercedes Rivera DPM ; Maged Brumfield MD ; Vicenta Calderon MD ; Anita Rutledge,[place] ; [facility],[place]
[2018-08-26] MEDS: Metoprolol Tartrate 25 MG Tablet PO SCH ×2 (09:46→21:39)
[2018-08-26] MEDS: Isosorbide Mononitrate 60 MG ER 24HR Tablet (Imdur) PO SCH (09:47)
[2018-08-26] MEDS: Sodium Chloride 0.9% 2 ML Flush BID IV.FLUSH SCH ×2 (09:47→21:40)
[2018-08-26] MEDS: Insulin NovoLOG Aspart Correctional Sugar Inj SQ SCH ×4 (09:47→21:40)
[2018-08-26] MEDS: Senna/Docusate Sodium 8.6/50 MG Tablet PO SCH ×2 (09:47→21:40)
[2018-08-26] MEDS: Heparin - SQ 10,000 UNITS/ML Vial SQ SCH ×2 (09:47→21:39)
[2018-08-26] MEDS: Timolol 0.25% Drops 5 ML Bottle EACH EYE SCH (09:54)
[2018-08-26 11:10] LABS: Baso % (Auto) 0.7 % (0.0-2.0); Eos # (Auto) 0.4 th/mm3 (0.0-0.4); Eos % (Auto) 5.8 % (0.0-4.0); Hematocrit 26.3 % (35.0-46.0); Hemoglobin 8.6 gm/dL (11.6-15.3); Lymph # (Auto) 0.7 th/mm3 (1.0-4.8); Lymph % (Auto) 10.9 % (9.0-44.0); Mean Corpuscular HGB Conc 32.5 % (32.0-36.0); Mean Corpuscular Hemoglobin 28.9 pg (27.0-34.0); Mean Platelet Volume 7.4 fL (7.0-11.0); Mono # (Auto) 0.3 th/mm3 (0.0-0.9); Neut % (Auto) 77.6 % (16.0-70.0); Platelet Count 330 th/mm3 (150-450); Red Blood Count 2.96 mil/mm3 (4.00-5.30); Red Cell Distribution Width 15.2 % (11.6-17.2); White Blood Count 6.5 th/mm3 (4.0-11.0)
--- NOTE | 2018-08-26 14:16 | XR ---
EXAM DATE: 08/26/2018 12:00 AM EDT AGE/SEX: 88 years / Female INDICATIONS: Short of breath, cough. CLINICAL DATA: This is the patient's initial encounter. Patient reports that signs and symptoms have been present for 1 week and indicates a pain score of 3/10. MEDICAL/SURGICAL HISTORY: None. None. [place] [facility] [place]. . FINDINGS: Single view chest demonstrates the heart to be mildly enlarged. There is diffuse interstitial promine nce with small bibasilar effusions. Examination would suggest congestive failure. No pneumothorax is seen. The bony structures demonstrate degenerative changes but are otherwise intact. CONCLUSION: Probable congestive failure. Chest is worsened compared to previous of 08/19/2018. Electronically signed by: Dedrick Booth MD 08/26/2018 2:15 PM EDT
[2018-08-26] MEDS: Latanoprost 0.005% Opth Drops 2.5 ML Bottle EACH EYE SCH (18:47)
[2018-08-27] MEDS: Acetaminophen 325 MG Tablet PO PRN (02:49)
[2018-08-27] MEDS: ceFAZolin 2 GM Premix Inj 2 GM/100 ML BAG IV.SIG SCH ×2 (02:50→14:41)
--- NOTE | 2018-08-27 08:39 | P.PNIM ---
Subjective Interval history: f/u; left foot infection in no acute distress. sob has much improved; says that she got out of the bed earlier today with no difficulty breathing. no fever. d/w the RN. Physical Exam Vital signs: Vital Signs 08/26/18 12:00 08/26/18 16:00 08/26/18 16:56 Temperature 97.7 F 97.8 F Pulse Rate 68 65 69 Respiratory Rate 22 20 16 Blood Pressure 192/74 H 160/68 H Pulse Oximetry 100 100 08/26/18 20:00 08/27/18 00:00 08/27/18 04:00 Temperature 97.9 F 97.4 F L 97.7 F Pulse Rate 80 67 67 Respiratory Rate 17 19 17 Blood Pressure 157/67 H 168/70 H 131/59 L Pulse Oximetry 100 98 98 Intake & Output 08/26/18 08/27/18 08/27/18 18:59 06:59 18:59 Intake Total 430 / 430 220 / 220 Output Total 975 / 975 500 / 500 Balance -545 / -545 -280 / -280 Weight 85.4 kg Intake: IV 100 / 100 100 / 100 Ancef 2 GM Premix Inj 2 gm In 100 / 100 100 / 100 100 ml @ 200 mls/hr IV.SIG Q12H [facility] Rx#:[id number] Oral 330 / 330 120 / 120 Output: Urine 975 / 975 500 / 500 Other: Date of Last Bowel Movement 08/26/18 08/26/18 # Bowel Movements 1 - Constitutional no acute distress - Routine Respiratory Exam Present: CTA bilaterally - Routine Cardiovascular Exam Present: RRR - Routine Abdominal Exam Present: soft - Routine Extremities Exam Comments: left foot covered with clean dressing. - Routine Neurological Exam Present: alert, oriented X3 Results - Labs CBC & Chem 7: 08/26/18 10:57 08/25/18 07:22 Laboratory Results - last 24 hr 08/26/18 08/26/18 08/26/18 08:57 10:57 12:36 WBC 6.5 RBC 2.96 L Hgb 8.6 L Hct 26.3 L MCV 89.0 MCH 28.9 MCHC 32.5 RDW 15.2 Plt Count 330 MPV 7.4 Neut % (Auto) 77.6 H Lymph % (Auto) 10.9 [place] % (Auto) 5.0 Eos % (Auto) 5.8 H Baso % (Auto) 0.7 Neut # (Auto) 5.0 Lymph # (Auto) 0.7 L [place] # (Auto) 0.3 Eos # (Auto) 0.4 Baso # (Auto) 0.0 WBC Differential . Differential Comment Auto diff final POC Glucose 158 H 250 H 08/26/18 08/26/18 17:59 20:42 WBC RBC Hgb Hct MCV MCH MCHC RDW Plt Count MPV Neut % (Auto) Lymph % (Auto) [place] % (Auto) Eos % (Auto) Baso % (Auto) Neut # (Auto) Lymph # (Auto) [place] # (Auto) Eos # (Auto) Baso # (Auto) WBC Differential Differential Comment POC Glucose 176 H 282 H Microbiology 08/22/18 04:10 Blood - Peripheral Aerobic Blood Culture - Preliminary No growth in 4 days 08/22/18 04:10 Blood - Peripheral Anaerobic Blood Culture - Preliminary No growth in 4 days 08/22/18 04:05 Blood - Peripheral Aerobic Blood Culture - Preliminary No growth in 4 days 08/22/18 04:05 Blood - Peripheral Anaerobic Blood Culture - Preliminary No growth in 4 days 08/24/18 18:58 Clean Catch Urine Urine Culture - Final <10,000 cfu/mL gram positive adonis - no further workup 08/23/18 22:00 Abscess - Ankle Gram Stain - Final 08/23/18 22:00 Abscess - Ankle Wound Culture - Final Staphylococcus aureus - Imaging Impressions Chest X-Ray 08/26/18 00:00 CONCLUSION: Probable congestive failure. Chest is worsened compared to previous of 2017. - Procedures I/D of the left foot abscess Assessment and Plan - Assessment (1) Sepsis Code(s): A41.9 - Sepsis, unspecified organism Status: Acute (2) UTI (urinary tract infection) Code(s): N39.0 - Urinary tract infection, site not specified Status: Acute (3) A-fib Code(s): I48.91 - Unspecified atrial fibrillation Status: Acute (4) Elevated troponin Code(s): R74.8 - Abnormal levels of other serum enzymes Status: Acute (5) Anemia Code(s): D64.9 - Anemia, unspecified Status: Acute (6) Foot pain Code(s): M79.673 - Pain in unspecified foot Status: Acute (7) DM (diabetes mellitus) Code(s): E11.9 - Type 2 diabetes mellitus without complications Status: Acute - Plan bacteremia with staph aureus ( MSSA) Klebsiella UTI Left foot cellulitis with marked soft tissue swelling-with possible abscess formation. [facility] flare - MRI- [facility] -s/p I/D of the left ankle abscess 08/23 - on IV Rocephin now; will need 4 weeks of IV antibiotics- PICC line is in place. -evaluated by podiatry and ID . - S/P IV antiibotic course x 6 weeks with IV ancef 07/17- for S infectious A-fib: recent dx of A-fib on last admit 07/06/18, - NSR on exam now acute on chronic diastolic CHF- clinically improved. Elevated Trop: - received a dose of IV lasix yesterday- - heplock IVF - currently on Metoprolol 12.5mg bid and ASA, declined Coumadin therapy in the past despite recommendations. Trop 0.38, no c/o chest pain or SOB. - Dr. Gamez,ff ASA, Statin, Metoprolol. Acute on top of chronic kidney injury -bilaterally small kidneys - renal function stable. - Nephrology consulted and signed off. Anemia: H/H fairly stable and is asymptomatic. Iron studies suggestive of chronic disease - s/p PRBC transfusion. DM: Sliding scale w/ Accu-Cheks - ff blood sugars. - started on NPH -A1c 7.8. positive JEWEL- rheumatology w/u as outpatient. DVT Prophylaxis: Heparin PT eval and treat Discharge Planning: dc to SNF within the next 24 hrs if stable. see med list. f/u; pcp,cardiology and podiatry. d/w the patient and RN. time spent 35 min.
[2018-08-27 08:53] VITALS: RESP 16
[2018-08-27] MEDS: Heparin - SQ 10,000 UNITS/ML Vial SQ SCH (09:39)
[2018-08-27] MEDS: Isosorbide Mononitrate 60 MG ER 24HR Tablet (Imdur) PO SCH (09:39)
[2018-08-27] MEDS: Senna/Docusate Sodium 8.6/50 MG Tablet PO SCH (09:40)
[2018-08-27] MEDS: Metoprolol Tartrate 25 MG Tablet PO SCH (09:40)
[2018-08-27] MEDS: Sodium Chloride 0.9% 2 ML Flush BID IV.FLUSH SCH (09:40)
[2018-08-27] MEDS: Insulin NovoLOG Aspart Correctional Sugar Inj SQ SCH ×3 (10:01→18:13)
[2018-08-27] MEDS: Timolol 0.25% Drops 5 ML Bottle EACH EYE SCH (10:01)
--- NOTE | 2018-08-27 16:10 | P.PNCA ---
Subjective Interval history: asleep in nad Medications and Allergies Active Medications: Active Medications Acetaminophen (Tylenol) 650 mg PO Q4H PRN PRN Reason: Temp > 100.4/pain Last Admin: 08/27/18 02:49 Dose: 650 mg Al Hydroxide/Mg Hydroxide (Milk Of Magnesia Liq) 30 ml PO Q12H PRN PRN Reason: Mild Constipation Albuterol (Albuterol Neb (Prn)) 1.25 mg NEB Q4HR NEB PRN PRN Reason: sob Last Admin: 08/26/18 16:53 Dose: 1.25 mg Aspirin (Ecotrin) 81 mg PO DAILY [facility] Last Admin: 08/27/18 09:39 Dose: 81 mg Atorvastatin Calcium (Lipitor) 20 mg PO DAILY [facility] Last Admin: 08/27/18 09:39 Dose: 20 mg Bisacodyl (Dulcolax Supp) 10 mg RECTAL DAILY PRN PRN Reason: SEVERE CONSITIPATION Dextrose (D50w Vial) 50 ml IV.PUSH UNSCH PRN PRN Reason: PER HYPOGLYCEMIA PROTOCOL Glucagon (Glucagon Inj) 1 mg OTHER PRN PRN PRN Reason: for Hypoglycemia Protocol Heparin Sodium (Porcine) (Heparin Inj) 5,000 units SQ Q12HR [facility] Last Admin: 08/27/18 09:39 Dose: 5,000 units Cefazolin/Sodium Chloride (Ancef 2 Gm Premix Inj) 2 gm in 100 mls @ 200 mls/hr IV.SIG Q12H [facility] Last Admin: 08/27/18 14:41 Dose: 200 mls/hr Insulin Aspart (Novolog Insulin Correctional Sugar Inj) 0 unit SQ ACHS [facility]; Protocol Last Admin: 08/27/18 13:24 Dose: 7 unit Insulin Human NPH (Novolin N Inj) 15 units SQ BID@0800,1700 [facility] Last Admin: 08/27/18 09:40 Dose: 15 units Isosorbide Mononitrate (Imdur) 60 mg PO DAILY [facility] Last Admin: 08/27/18 09:39 Dose: 60 mg Lactulose (Lactulose Liq) 30 ml PO DAILY PRN PRN Reason: SEVERE CONSITIPATION Latanoprost (Xalatan 0.005% Opth Drops) 1 drop EACH EYE QPM [facility] Last Admin: 08/26/18 18:47 Dose: 1 drop Metoprolol Tartrate (Lopressor) 12.5 mg PO BID [facility] Last Admin: 08/27/18 09:40 Dose: 12.5 mg Ondansetron HCl (Zofran Inj) 4 mg IV.PUSH Q6H PRN PRN Reason: NAUSEA OR VOMITING Senna/Docusate Sodium (Catia-Colace) 1 tab PO BID [facility] Last Admin: 08/27/18 09:40 Dose: 1 tab Sennosides (Senokot) 17.2 mg PO Q12H PRN PRN Reason: Moderate Constipation Sodium Chloride (Ns Flush) 2 ml IV.FLUSH BID [facility] Last Admin: 08/27/18 09:40 Dose: 2 ml Sodium Chloride (Ns Flush) 2 ml IV.FLUSH PRN PRN PRN Reason: FLUSH AFTER USING IV ACCESS Last Admin: 08/25/18 02:15 Dose: 2 ml Timolol Maleate (Timolol 0.25% Drops) 1 drops EACH EYE DAILY [facility] Last Admin: 08/27/18 10:01 Dose: 1 drops Allergies Allergy/AdvReac Type Severity Reaction Status Date / Time kaye Allergy Unknown RASH Verified 08/19/18 22:29 lisinopril Allergy Cough Verified 08/19/18 22:30 niacin [From Simcor] Allergy Edema Verified 08/19/18 22:29 simvastatin [From Simcor] Allergy Edema Verified 08/19/18 22:29 Home Medications Medication Instructions Recorded Confirmed Type ascorbic acid (vitamin C) [Vitamin 1,000 mg PO DAILY 07/01/18 08/19/18 History C] aspirin 81 mg PO DAILY 07/01/18 08/19/18 History atorvastatin 20 mg PO DAILY 07/01/18 08/19/18 History calcium carbonate [Tums] 1 tab PO Q4-6H PRN 07/01/18 08/19/18 History cetirizine [Zyrtec] 10 mg PO DAILY PRN 07/01/18 08/19/18 History ergocalciferol (vitamin D2) 50,000 unit PO QWEEK 07/01/18 08/19/18 History [Vitamin D2] estradiol 1 mg PO DAILY 07/01/18 08/19/18 History ferrous sulfate 325 mg PO DAILY 07/01/18 08/19/18 History isosorbide mononitrate 60 mg PO QAM 07/01/18 08/19/18 History latanoprost [Xalatan] 1 drp EACH EYE QPM 07/01/18 08/19/18 History levothyroxine 75 mcg PO DAILY 07/01/18 08/19/18 History [id number] acid-lutein [Centrum 1 tab PO DAILY 07/01/18 08/19/18 History Silver] timolol maleate [Timoptic] 1 drp OPHTHALMIC (EYE) QAM 07/01/18 08/19/18 History vitamin A 8,000 unit PO DAILY 07/01/18 08/19/18 History Physical Exam Vital signs: Vital Signs 08/26/18 16:56 08/26/18 20:00 08/27/18 00:00 Temperature 97.9 F 97.4 F L Pulse Rate 69 80 67 Respiratory Rate 16 17 19 Blood Pressure 157/67 H 168/70 H Pulse Oximetry 100 98 08/27/18 04:00 08/27/18 08:00 08/27/18 12:00 Temperature 97.7 F 97.3 F L 98.3 F Pulse Rate 67 66 63 Respiratory Rate 17 16 16 Blood Pressure 131/59 L 153/67 H 138/63 Pulse Oximetry 98 97 100 Intake & Output 08/26/18 08/27/18 08/27/18 18:59 06:59 18:59 Intake Total 430 / 430 220 / 220 Output Total 975 / 975 500 / 500 Balance -545 / -545 -280 / -280 Weight 85.4 kg Intake: IV 100 / 100 100 / 100 Ancef 2 GM Premix Inj 2 gm In 100 / 100 100 / 100 100 ml @ 200 mls/hr IV.SIG Q12H [facility] Rx#:[id number] Oral 330 / 330 120 / 120 Output: Urine 975 / 975 500 / 500 Other: Date of Last Bowel Movement 08/26/18 08/26/18 08/27/18 # Bowel Movements 1 Results 08/26/18 10:57 08/25/18 07:22 CBC 08/26/18 Range/Units 10:57 WBC 6.5 (4.0-11.0) th/mm3 RBC 2.96 L (4.00-5.30) mil/mm3 Hgb 8.6 L (11.6-15.3) gm/dL Hct 26.3 L (35.0-46.0) % Plt Count 330 (150-450) th/mm3 Neut # (Auto) 5.0 (1.8-7.7) th/mm3 Lymph # (Auto) 0.7 L (1.0-4.8) th/mm3 [place] # (Auto) 0.3 (0.0-0.9) th/mm3 Eos # (Auto) 0.4 (0.0-0.4) th/mm3 Baso # (Auto) 0.0 (0.0-0.2) th/mm3 Intake and Output 08/27/18 08/27/18 08/27/18 06:59 14:59 22:59 Intake Total 220 / 220 Output Total 500 / 500 Balance -280 / -280 Intake: IV 100 / 100 Ancef 2 GM Premix Inj 2 gm In 100 / 100 100 ml @ 200 mls/hr IV.SIG Q12H [facility] Rx#:[id number] Oral 120 / 120 Output: Urine 500 / 500 Other: Date of Last Bowel Movement 08/27/18 # Bowel Movements 1 Weight 85.4 kg - Imaging and Cardiology Imaging: Impressions Chest X-Ray 08/26/18 00:00 CONCLUSION: Probable congestive failure. Chest is worsened compared to previous of 2017. Assessment and Plan - Assessment (1) NSTEMI (non-ST elevated myocardial infarction) Code(s): I21.4 - Non-ST elevation (NSTEMI) myocardial infarction Status: Acute (2) CAD (coronary artery disease) Code(s): I25.10 - Atherosclerotic heart disease of [place] coronary artery without angina pectoris Status: Acute (3) A-fib Code(s): I48.91 - Unspecified atrial fibrillation Status: Acute (4) Anemia Code(s): D64.9 - Anemia, unspecified Status: Acute (5) DM (diabetes mellitus) Code(s): E11.9 - Type 2 diabetes mellitus without complications Status: Acute (6) Elevated troponin Code(s): R74.8 - Abnormal levels of other serum enzymes Status: Acute - Plan 1.) Afib - rate controlled, assymptomatic, i strongly advised her to take coumadin or noac due to [id number] score = 5 to lower her risk for life threatening and or debilitating cva, she understands and refuses, her daughter ispresent at the bedside, coumadin or noac could not be started now due to anemia and unstable hgb, continue aspirin 81 mg qd 2.) NSTEMI - suspect secondary to anemia, rec transfuse to hgb > 10, d/w Dr Sin 3.) POD # 4 - clinically improved, assymptomatic
[2018-08-27 17:40] VITALS: BP 146/65; PULSE 76; TEMP 98; O2SAT 100
[2018-08-27] MEDS: Latanoprost 0.005% Opth Drops 2.5 ML Bottle EACH EYE SCH (18:13)
== END 2018-08-27 19:05 ==
LOC: NEPC 22:03 → NEDA 08-20 02:57 → N04 08-20 04:50
PROVIDERS: ADMIT Internal Medicine; ATTEND Internal Medicine